=== PATIENT | male | born 1975 | race Caucasian/White ===

== ENCOUNTER → 2016-09-20 | Day surgery (SDC) | payer OTHER ==
[2016-09-06 13:16] VITALS: BMI 47.0
[~2016-09-20] VITALS: Ht 165.1 cm; Wt 130.0 kg
[~2016-09-20] MED LIST: ALBUT/IPRATROP 3MG/0.5MG NEB 3 ML VIAL INH STA; ALBUTEROL HFA INHALER 8.5 GM INH ONE; ATROPINE SULFATE 0.1 MG/ML 5ML SYR IV PRN; BUPIVACAINE 0.5 % 5 MG/1 ML MPF 30ML VIAL ONE; CEFAZOLIN 3000 MG/65 ML D5W IV SCH; DEXAMETHASONE SOD INJ 4 MG/ML VIAL ONE; EpHEDrine SULFATE INJ 50 MG/ML AMP IV PRN; FENTANYL CITRATE INJ 50 MCG/1 ML 2 ML VIAL ONE; GLYCOPYRROLATE INJ 0.2 MG/ML VIAL ONE; HALO100I2 IM; HYDR-5688 PO; HYDROmorphone INJ 1 MG/ML SYR IV PRN; LABETALOL HCL IV 5 MG/ML 20ML IV ONE; LABETALOL HCL IV 5 MG/ML 20ML IV PRN; LACTATED RINGER'S 1000ML 1,000 ML IV SCH; LARYING-O-JET KIT (LTA) ONE; LEVO25TA5 PO; LIDOCAINE HCL 1% 20 ML VIAL ONE; LIDOCAINE HCL 2% 2 ML VIAL (20MG/ML) ONE; LISI-787 PO; MEPERIDINE HCL 25 MG/ML CARP IV PRN; MIDAZOLAM HCL 1 MG/ML 2ML VIAL ONE; MoRPHine SULFATE 4 MG/ML 1 ML CARP\\VIAL IV PRN; NEOSTIGMINE METHYLSULFATE 5 MG/5 ML SYR ONE; NURSING VERBAL MED ORDER ONE; OMEP20CA9 PO; ONDANSETRON INJ 2 MG/ML 2 ML VIAL IV PRN; ONDANSETRON INJ 2 MG/ML 2 ML VIAL ONE; OXCA600T PO; OXYC-57 PO; OXYCODONE/ACETAMINOPHEN 5-325 TAB PO PRN; PENI-82 PO; PROPOFOL IV EMULSION 10 MG/ML 20 ML VIAL IV ONE; Proair HFA INH; QUET1TAB10 PO; ROCURONIUM BROMIDE 10 MG/ML 5 ML VIAL ONE; SODIUM CHLORIDE 0.9% 1000ML 1,000 ML IV SCH; SRQ300 PO; VST25HP PO
[2016-09-20 07:00] VITALS: BP 147/89; PULSE 90; TEMP 37; O2SAT 92; Ht 165.1 cm; Wt 130.0 kg
--- NOTE | 2016-09-20 09:14 | History & Physical Bridge Note ---
H&P Re-Evaluation Bridge Note: I have examined the patient, reviewed the History & Physical and in the interval since the performance of the History & Physical I have noted the following changes of clinical significance: No changes noted
--- NOTE | 2016-09-20 10:15 | [facility] Post Operative Brief Note ---
Immediate Operative Summary Operative Date Sep 20, 2016. Pre-Operative Diagnosis Recurrent epigastric hernia Post-Operative Diagnosis Recurrent epigastric hernia Procedure(s) Performed Repair of recurrent epigastric hernia with mesh Surgeon Jl Billet Heater Surgeon(s) Danica Tucker PA-C Estimated Blood Loss 5cc Findings See dictation Specimens A: None per surgeon Drains None Anesthesia General Complication(s) None Disposition Recovery Room / PACU
--- NOTE | 2016-09-20 10:23 | Discharge Instructions ---
Discharge Instructions Date of Service Sep 20, 2016. Admission Reason for Admission: Epigastric Hernia Discharge Discharge Diagnosis / Problem: Same Discharge Goals Goal(s): Decrease discomfort Activity Recommendations Activity Limitations: per Instructions/Follow-up section Lifting Limitations: no more than 10 pounds Shower/Bathe: tomorrow (Shower only) . Instructions / Follow-Up Instructions / Follow-Up ACTIVITY RECOMMENDATIONS: * Walk as much as possible. * No heavy lifting (>10 lbs.) for 6 weeks. SPECIAL CARE INSTRUCTIONS: * Ice to hernia repair site on and off until bedtime tonight. * May shower in 24 hours. Let water run over area and pat dry. * Leave steri strips on for one week. * Call the surgeon's office with any questions or concerns - (ex. temperature higher than 101 degrees F, excessive bleeding or pain). MEDICATIONS: Resume previous medications unless instructed otherwise by your surgeon. * Ibuprofen 600 mg every 6 hours with food * Percocet 1 every 4 hours, as needed for pain FOLLOW UP VISIT: If not already scheduled, please call the office to schedule a two week follow- up appointment. Office number Current Hospital Diet Patient's current hospital diet: Discharge Diet Recommended Diet: N/A (Resume preop diet) Procedures Procedures Performed: Repair of recurrent epigastric hernia with mesh Pending Studies Studies pending at discharge: no Medical Emergencies . Who to Call and When: Medical Emergencies: If at any time you feel your situation is an emergency, please call 911 immediately. . Non-Emergent Contact Non-Emergency issues call your: Primary Care Provider, Surgeon Call Non-Emergent contact if: your pain is worsening, wound has increased drainage, wound has increased redness . "Provider Documentation" section prepared by Devyn Parikh. . VTE Core Measure Inpt VTE Proph given/why not?: Treatment not indicated
--- NOTE | 2016-09-20 10:31 | [facility] Operative Report ---
Operative Report Operative Date Sep 20, 2016. Pre-Operative Diagnosis Recurrent epigastric hernia Post-Operative Diagnosis Recurrent epigastric hernia Procedure(s) Performed Repair of recurrent epigastric hernia with mesh Surgeon Jl Ic Design Manager Surgeon(s) Danica Tucker PA-C Estimated Blood Loss 5cc Findings The patient had a 3 cm defect beneath the incision from his previous surgery. There was a sac that measured about 5 cm. It was adherent to the anterior wall of the fascia. There were no incarcerated contents. There were no other defects identified. Specimens A: None per surgeon Drains None Anesthesia General Disposition Recovery Room / PACU Description of Procedure The patient was placed on the operating table given general anesthesia in the respiratory draped in usual sterile fashion. Incision was made through the previously marked area using the scar from his previous operation. It was carried down through the subcutaneous tissue. There was scar tissue which was easily divided. The hernia sac was identified and from the surrounding fatty tissue in the subcutaneous space. This dissection was carried down until the edges of the fascial defect to be identified. The sac was away from the fascial defect using cautery. The edges were elevated and a preperitoneal/retro-fascial space was established for at least 4 cm around the entire circumference of the fascial defect. The hernia sac was placed back into its anatomic position. A 12/2 cm round mesh was placed in the preperitoneal/retro-fascial position. It was secured to the fascia with horizontal mattress sutures of 0 PDS in the 4 quadrants. The hernia defect was enclosed with a running #1 PDS. The incision wound was irrigated. The deep tissues were approximated with a running 2-0 Vicryl. The superficial subcutaneous tissue was closed with running 3-0 Vicryl and the skin was closed with 4-0 Monocryl running subcuticular fashion. The skin was anesthetized with 0.5% Marcaine. The skin was cleansed dry benzoin placed Steri-Strips applied. Estimated blood loss was 5 mL. Sponge needle and instrument counts were correct prior to closure. The patient tolerated surgical procedure without complication was transferred to recovery. I attest to the content of the Intraoperative Record and any orders documented therein. Any exceptions are noted below.
[2016-09-20] MEDS: FENTANYL CITRATE INJ 50 MCG/1 ML 2 ML VIAL IV PRN ×3 (10:55→11:16)
[2016-09-20 11:03] VITALS: PULSE 86; O2SAT 93
--- NOTE | 2016-09-20 11:31 | Anesthesiology Progress Note ---
Anesthesia Post Op Note Date & Time Sep 20, 2016 at 11:31 Vital Signs Pain Intensity: 6 Vital Signs Past 12 Hours Date Time Temp Pulse Resp B/P (MAP) Pulse Ox O2 Delivery O2 Flow Rate FiO2 09/20/16 11:26 37.1 09/20/16 11:22 88 16 09/20/16 11:22 87 16 91 09/20/16 11:21 157/82 09/20/16 11:17 90 15 09/20/16 11:17 92 15 92 09/20/16 11:16 155/99 09/20/16 11:12 81 14 92 09/20/16 11:12 82 14 09/20/16 11:11 141/87 09/20/16 11:07 90 16 09/20/16 11:07 89 16 93 09/20/16 11:06 89 23 141/89 92 09/20/16 11:06 89 23 09/20/16 11:03 86 18 93 Mask 15.0 09/20/16 11:01 93 16 09/20/16 11:01 92 16 162/99 91 09/20/16 10:56 92 22 09/20/16 10:56 92 22 155/89 95 09/20/16 10:52 178/92 09/20/16 10:51 91 15 89 09/20/16 10:51 90 15 09/20/16 10:46 88 19 152/97 92 09/20/16 10:46 88 19 09/20/16 10:41 94 23 164/102 91 09/20/16 10:41 93 23 09/20/16 10:37 180/103 09/20/16 10:36 99 25 91 09/20/16 10:36 100 25 09/20/16 10:32 146/97 09/20/16 10:31 98 21 89 09/20/16 10:31 98 21 09/20/16 10:31 37.0 103 22 146/97 92 Mask 15 09/20/16 07:00 37 90 22 147/89 (108) 92 Room Air Notes Mental Status: alert / awake / arousable, participated in evaluation Pt Amnestic to Procedure: Yes Nausea / Vomiting: adequately controlled Pain: adequately controlled Airway Patency, RR, SpO2: stable & adequate BP & HR: stable & adequate Hydration State: stable & adequate Anesthetic Complications: no major complications apparent
[2016-09-20 11:42] VITALS: BP 144/77; PULSE 92; TEMP 36.8; O2SAT 93
[2016-09-20 12:10] VITALS: BP 165/88; PULSE 92; O2SAT 96
[2016-09-20 12:36] VITALS: BP 162/84; PULSE 92; TEMP 36.8; O2SAT 94
== END | disposition home or self-care (01) ==
LOC: C.ACU 06:41
PROVIDERS: ATTEND Surgery
DX: K43.9 Ventral hernia without obstruction or gangrene (principal); I10 Essential (primary) hypertension; F41.9 Anxiety disorder, unspecified; E66.01 Morbid (severe) obesity due to excess calories; K21.9 Gastro-esophageal reflux disease without esophagitis; E03.9 Hypothyroidism, unspecified; F31.9 Bipolar disorder, unspecified; F20.9 Schizophrenia, unspecified; F17.200 Nicotine dependence, unspecified, uncomplicated

== ENCOUNTER 2016-12-06 13:23 | Emergency (ER) | payer OTHER ==
[~2016-12-06] VITALS: Ht 165.1 cm; Wt 139.8 kg
[~2016-12-06 13:23] MED LIST changes: -ALBUT/IPRATROP 3MG/0.5MG NEB 3 ML VIAL INH STA; -ALBUTEROL HFA INHALER 8.5 GM INH ONE; -ATROPINE SULFATE 0.1 MG/ML 5ML SYR IV PRN; -BUPIVACAINE 0.5 % 5 MG/1 ML MPF 30ML VIAL ONE; -CEFAZOLIN 3000 MG/65 ML D5W IV SCH; -DEXAMETHASONE SOD INJ 4 MG/ML VIAL ONE; -EpHEDrine SULFATE INJ 50 MG/ML AMP IV PRN; -FENTANYL CITRATE INJ 50 MCG/1 ML 2 ML VIAL ONE; -GLYCOPYRROLATE INJ 0.2 MG/ML VIAL ONE; -HYDR-5688 PO; -HYDROmorphone INJ 1 MG/ML SYR IV PRN; -LABETALOL HCL IV 5 MG/ML 20ML IV ONE; -LABETALOL HCL IV 5 MG/ML 20ML IV PRN; -LACTATED RINGER'S 1000ML 1,000 ML IV SCH; -LARYING-O-JET KIT (LTA) ONE; -LIDOCAINE HCL 1% 20 ML VIAL ONE; -LIDOCAINE HCL 2% 2 ML VIAL (20MG/ML) ONE; -MEPERIDINE HCL 25 MG/ML CARP IV PRN; -MIDAZOLAM HCL 1 MG/ML 2ML VIAL ONE; -MoRPHine SULFATE 4 MG/ML 1 ML CARP\\VIAL IV PRN; -NEOSTIGMINE METHYLSULFATE 5 MG/5 ML SYR ONE; -NURSING VERBAL MED ORDER ONE; -ONDANSETRON INJ 2 MG/ML 2 ML VIAL IV PRN; -ONDANSETRON INJ 2 MG/ML 2 ML VIAL ONE; -OXYCODONE/ACETAMINOPHEN 5-325 TAB PO PRN; -PENI-82 PO; -PROPOFOL IV EMULSION 10 MG/ML 20 ML VIAL IV ONE; -ROCURONIUM BROMIDE 10 MG/ML 5 ML VIAL ONE; -SODIUM CHLORIDE 0.9% 1000ML 1,000 ML IV SCH
[2016-12-06 13:35] VITALS: BP 177/98; PULSE 80; TEMP 36.6; O2SAT 95; Ht 165.1 cm; Wt 139.8 kg
[2016-12-06] MEDS ORDERED: PENI-82 PO (14:29)
[2016-12-06] MEDS ORDERED: HYDR-5688 PO (14:29)
--- NOTE | 2016-12-06 14:30 | EMERGENCY ROOM VISIT NOTE ---
ED Visit Note First contact with patient: 14:22 CHIEF COMPLAINT: Toothache HISTORY OF PRESENT ILLNESS: This 41-year-old male patient presented to the emergency department via private vehicle with a progressive toothache for past 7 d. The patient believes it is coming from upper front dentition. The pain is now steady and severe and radiates to the face. The patient has a dentist appointment set up for in 1 month from now in [place], [place]. They rate their pain a 8/10 and the ibuprofen and Tylenol they have been taking has not relieved the pain. Denies facial swelling or fever. The patient denies any discharge from the mouth. REVIEW OF SYSTEMS: A 6 system review of systems was completed with positives and pertinent negatives listed in the HPI. ALLERGIES: None MEDICATIONS: as noted below PMH: No pertinent SOCIAL HISTORY: Pt lives locally PHYSICAL EXAM: Vitals are noted on the nurse's note and reviewed by myself. Vital signs stable. Temperature 36.6C orally. GENERAL: 41 year old male, in no acute distress, nondiaphoretic, well-developed well-nourished. Mouth: The front upper dentition is very carious and the gum is swollen and tender around it, without any discharge or signs of an abscess. The remainder of the pharynx and tonsils are without erythema, edema, or exudate. The airway is patent. There is no facial swelling, cervical or submandibular lymphadenopathy. The patient appears uncomfortable and in pain. The patient has overall poor dental hygiene. EARS: External auditory canals clear, tympanic membranes pearly beauchamp without erythema or effusion bilaterally. ED COURSE: Patient was seen and evaluated as above. He presents to us today with upper teeth pain. His examination is consistent with that of multiple caries, but no evidence of abscess or Roni angina. He appears stable for outpatient management with penicillin, as well as a short course of pain medication. He is to keep his follow-up appointment with his oral surgeon in one month. He was to return with worsening. He was educated upon management, educated upon worrisome symptoms in which to return, had questions prior to discharge, and was discharged home in condition. In the evaluation and treatment of this patient, the following differential diagnoses were considered: Periapical Abscess, Osteonecrosis of the Jaw, Dental Fracture, Dental Caries, Roni's Angina, Vincent's Angina, Facial Cellulitis. In the treatment of this patient controlled medication was utilized and therefore the [facility], Prescription Drug Monitoring Program website was utilized to look up this patient. No concerns were identified that would prohibit or alter my treatment decision. Medication list reviewed. The patient's vital signs did reveal hypertensive state, I believe secondary to situation. He is to follow-up with his family doctor regarding this Problem List Medical Problems: (1) Bipolar disease, manic Status: Chronic (2) Hypothyroidism Status: Chronic (3) Lumbar compression fracture Permanent Comment: resulting in chronic back pain issues Status: Chronic (4) Schizoaffective disorder Status: Chronic Surgical Problems: (1) History of tonsillectomy Status: Chronic Current/Historical Medications Scheduled Haloperidol Decanoate (Haloperidol Decanoate), 200 MG IM MONTHLY Levothyroxine Sodium (Levothyroxine Sodium), 25 MCG PO QAM Lisinopril/Hctz (Zestoretic 20MG/12.5MG), 1 TAB PO QAM Omeprazole (Prilosec), 20 MG PO QAM Oxcarbazepine (Oxcarbazepine), 600 MG PO BID Penicillin V Potassium (Veetids), 500 MG PO QID Quetiapine Fumarate (Seroquel), 200 MG PO HS Quetiapine Fumarate (Quetiapine Fumarate), 300 MG PO HS Scheduled PRN Hydrocodone/Acetaminophen 5MG/325MG (Hardesty 5MG/325MG), 1-2 TABLET PO Q6 PRN for Pain Hydroxyzine HCl (Hydroxyzine Pamoate), 25 MG PO TID PRN for Anxiety Oxycodone/Acetaminophen 5MG/325MG (Percocet 5MG/325MG), 1 TABLET PO Q4H PRN for Pain [Proair HFA], 2 PUFFS INH Q4H PRN for Wheezing Allergies Coded Allergies: No Known Allergies (Verified , 09/20/16) Vital Signs Date Time Temp Pulse Resp B/P (MAP) Pulse Ox O2 Delivery O2 Flow Rate FiO2 12/06/16 13:35 36.6 80 18 177/98 95 Room Air Departure Information Impression Primary Impression: Odontalgia Dispostion Home / Self-Care Condition GOOD Prescriptions Penicillin V Potassium (Veetids) 500 Mg Tab 500 MG PO QID, #40 TAB Prov: Doc Morgan PA-C 12/06/16 Hydrocodone/Acetaminophen 5MG/325MG (Hardesty 5MG/325MG) Tab 1-2 TABLET PO Q6 Y for Pain, #15 TAB For Initial Treatment Prov: Doc Morgan PA-C 12/06/16 Referrals No Doctor, Assigned (PCP) Patient Instructions My [facility] Additional Instructions You have been treated in the Emergency Department for Dental Pain. You have been prescribed NORCO to be used for pain control. This is a narcotic medication. You cannot drive or consume alcohol while on this medicine. This medicine should only be used for pain that cannot be controlled with over-the- counter pain medicines. PLEASE DO NOT TAKE WITH TYLENOL as it already contains this!! You were prescribed PEN VK to be taken every 6 hours for 10 days. This is an antibiotic. All antibiotics have the potential to cause diarrhea. Stop this medication and contact a medical provider if you were to develop any significant adverse side effects including: wheezing, shortness of breath, passing out, vomiting, or a diffuse rash. Always take antibiotics as directed and COMPLETE the ENTIRE course regardless of the improvement of your symptoms. Refrain from smoking cigarettes or using chewing tobacco until you have been evaluated by your dentist. Keeping beverages lukewarm and consuming soft foods can decrease your pain. Warm compresses over the affected area may offer some relief. You MUST seek evaluation of your dental pain by a dentist following your visit to the Emergency Department. The Emergency Department is not capable of treating dental issues long-term. You should call your dentist as soon as possible to make an appointment for evaluation of your dental pain. Return to the emergency department if you develop the following symptoms despite treatment course outlined above: fever, intractable pain, increased redness, swelling, or purulent discharge.
== END 2016-12-06 14:51 | disposition home or self-care (01) ==
LOC: C.EDB 13:25 → C.EDD 14:51
DX: K08.89 Other specified disorders of teeth and supporting structures (principal); E03.9 Hypothyroidism, unspecified; F31.9 Bipolar disorder, unspecified; F25.9 Schizoaffective disorder, unspecified; Z79.899 Other long term (current) drug therapy

== ENCOUNTER 2016-12-27 06:38 | Emergency (ER) | payer OTHER ==
[~2016-12-27] VITALS: Ht 165.1 cm; Wt 141.0 kg
[~2016-12-27 06:38] MED LIST changes: +HYDR-5688 PO; +PENI-82 PO
[2016-12-27 06:42] VITALS: TEMP 36.8; Ht 165.1 cm; Wt 141.0 kg
[2016-12-27] MEDS ORDERED: PENICILLIN V POTASSIUM 250 MG TAB PO STA (06:53)
[2016-12-27] MEDS ORDERED: IBUPROFEN 600 MG TAB PO STA (06:53)
[2016-12-27] MEDS ORDERED: OXYCODONE/ACETAMINOPHEN 5-325 TAB PO ONE (07:00)
--- NOTE | 2016-12-27 07:01 | EMERGENCY ROOM VISIT NOTE ---
History Report prepared by Buzz: Shannon Ny Under the Supervision of: Dr. Maral Vasquez M.D. First contact with patient: 06:45 Chief Complaint: DENTAL PAIN Stated Complaint: DENTAL PAIN Nursing Triage Summary: pt reports that he got 6 teeth pulled last tuesday and c/o pain. pt reports that he called his dentist but can't get to [place]. History of Present Illness The patient is a 41 year old male who presents to the Emergency Room with complaints of persistent dental pain that began one week ago. He currently rates his discomfort as a 9/10 in severity. The patient states that one week ago he had six teeth pulled. He states that while he was having them pulled some roots lost and notes that the dentist had to dig around extra. The patient states that he was discharged with Percocet for his pain, but denies any relief of his symptoms. He denies being put on any antibiotics. The patient states that he is a smoker. He states that he has also tried Ibuprofen without relief of his symptoms. Source of History: patient Onset: one week ago Position: other (dental) Symptom Intensity: 9/10 Timing: other (persistent) Review of Systems See HPI for pertinent positives & negatives. A total of 6 systems reviewed and were otherwise negative. Past Medical & Surgical Medical Problems: (1) Bipolar disease, manic (2) Hypothyroidism (3) Lumbar compression fracture (4) Schizoaffective disorder Surgical Problems: (1) History of tonsillectomy Family History No pertinent family history Social History Smoking Status: Current Every Day Smoker Alcohol Use: occasionally Drug Use: marijuana Marital Status: Housing Status: lives with family Occupation Status: disabled Current/Historical Medications Scheduled Haloperidol Decanoate (Haloperidol Decanoate), 200 MG IM MONTHLY Levothyroxine Sodium (Levothyroxine Sodium), 25 MCG PO QAM Lisinopril/Hctz (Zestoretic 20MG/12.5MG), 1 TAB PO QAM Omeprazole (Prilosec), 20 MG PO QAM Oxcarbazepine (Oxcarbazepine), 600 MG PO BID Penicillin V Potassium (Veetids), 500 MG PO QID Quetiapine Fumarate (Seroquel), 200 MG PO HS Quetiapine Fumarate (Quetiapine Fumarate), 300 MG PO HS Scheduled PRN Hydroxyzine HCl (Hydroxyzine Pamoate), 25 MG PO TID PRN for Anxiety Oxycodone/Acetaminophen 5MG/325MG (Percocet 5MG/325MG), 1-2 TABS PO Q6H PRN for Pain [Proair HFA], 2 PUFFS INH Q4H PRN for Wheezing Allergies Coded Allergies: No Known Allergies (Verified , 09/20/16) Physical Exam Vital Signs Date Time Temp Pulse Resp B/P (MAP) Pulse Ox O2 Delivery O2 Flow Rate FiO2 12/27/16 07:10 85 24 148/87 95 12/27/16 06:42 36.8 85 24 148/87 95 Room Air Physical Exam Vital signs reviewed. General: Well-appearing male, in no significant distress. Smells of tobacco HEENT: No scleral icterus, PERRLA, neck supple. Left maxillary areas of dental extraction that appear to be well healing, one area on the right maxilla, tender to palpation, with no fluctuance, drainage, or redness, otherwise generally poor dentition, smells of tobacco. Neurologic: Patient awake alert and oriented x 3. Skin: Warm, dry, no rash Medical Decision & Procedures Medications Administered Medications (Trade) Dose Ordered Sig/Den Route Start Time Stop Time Status Last Admin Dose Admin Penicillin V Potassium (Veetids Tab) 500 mg ONE STAT PO 12/27/16 06:53 12/27/16 06:55 DC 12/27/16 07:05 500 MG Oxycodone/ Acetaminophen (Percocet 5-325mg Tab) 1 tab NOW ONCE PO 12/27/16 07:00 12/27/16 07:01 DC 12/27/16 07:06 1 TAB Ibuprofen (Motrin Tab) 600 mg NOW STAT PO 12/27/16 06:53 12/27/16 06:55 DC 12/27/16 07:06 600 MG ED Course 0651: Past medical records reviewed. The patient was evaluated in room A3. A complete history and physical examination was performed. I discussed the exam findings with him and I discussed the treatment plan. He verbalized complete understanding and agreement. He is ready for discharge once he receives his medications. 0653: Ordered Ibuprofen 600 mg PO, Veetids Tab 500 mg PO. 0700: Ordered Oxycodone/Acetaminophen 1 tab PO. Medical Decision The patient is a 41 year old male who presents to the ED with complaints of dental pain. Differentials include dry socket, post op pain, abscess formation. This patient was evaluated and appeared to be in no significant distress. His examination reveals multiple extraction sites that appear to be well-healing. There is no evidence of acute infection or drainage. The patient is a smoker and I suspect he is having some delayed healing and nerve irritation. Patient was placed on pen VK 500 mg 4 times daily for 7 days as well as ibuprofen every 6 hours as needed for pain with food. He was given several tablets of Percocet and advised to see his dentist in follow-up. He will return to the ER for worsening of symptoms or any medical concerns. Medication Reconcilliation Current Medication List: was personally reviewed by me Blood Pressure Screening Patient's blood pressure: Elevated blood pressure Blood pressure disposition: Elevated BP felt to be situational, Did not require urgent referral Impression Primary Impression: Pain, dental Scribe Attestation The scribe's documentation has been prepared under my direction and personally reviewed by me in its entirety. I confirm that the note above accurately reflects all work, treatment, procedures, and medical decision making performed by me. Departure Information Dispostion Home / Self-Care Prescriptions Penicillin V Potassium (Veetids) 500 Mg Tab 500 MG PO QID, #28 TAB Prov: Maral Vasquez M.D. 12/27/16 Oxycodone/Acetaminophen 5MG/325MG (PERCOCET 5MG/325MG) Tab 1-2 TABS PO Q6H Y for Pain, #14 TAB Prov: Maral Vasquez M.D. 12/27/16 Referrals Devyn Silva M.D. (PCP) Forms HOME CARE DOCUMENTATION FORM, IMPORTANT VISIT INFORMATION Patient Instructions My [facility] Additional Instructions Diagnosis: Dental pain status post extractions Pen VK 500 mg 4 times daily for 7 days. Percocet 1-2 tablets every 6 hours as needed for more severe pain. Do not drive or take Tylenol with this medication. Please stop smoking as this will worsen the dental pain. Follow-up with your dentist as soon as possible. Return to the emergency department for worsening of symptoms or any medical concerns.
[2016-12-27] MEDS ORDERED: PENI-82 PO (07:02)
[2016-12-27] MEDS ORDERED: OXYC-57 PO (07:02)
[2016-12-27 07:10] VITALS: BP 148/87; PULSE 85; O2SAT 95
== END 2016-12-27 07:20 | disposition home or self-care (01) ==
LOC: C.EDB 06:39 → C.EDA 07:20
DX: K08.89 Other specified disorders of teeth and supporting structures (principal); F17.210 Nicotine dependence, cigarettes, uncomplicated; E03.9 Hypothyroidism, unspecified; F31.9 Bipolar disorder, unspecified; F25.9 Schizoaffective disorder, unspecified; Z79.899 Other long term (current) drug therapy

== ENCOUNTER 2017-02-20 06:08 | Emergency (ER) | payer OTHER ==
[~2017-02-20] VITALS: Ht 165.1 cm; Wt 138.3 kg
[~2017-02-20 06:08] MED LIST changes: -HYDR-5688 PO; -OMEP20CA9 PO
[2017-02-20 06:11] VITALS: TEMP 37; Ht 165.1 cm; Wt 138.3 kg
[2017-02-20] MEDS ORDERED: PROMETHAZINE HCL INJ 12.5 MG in SODIUM CHLORIDE 0.9% 50ML 50 ML IV SCH (06:15)
[2017-02-20] MEDS ORDERED: PROMETHAZINE HCL INJ 25 MG/ML 1 ML VIAL IV STA (06:31)
[2017-02-20] MEDS ORDERED: KETOROLAC TROMETHAMINE 30 MG/ML VIAL IV STA (06:31)
[2017-02-20] MEDS ORDERED: LOPERAMIDE HCL 2 MG CAP PO STA (06:31)
[2017-02-20] MEDS ORDERED: ONDANSETRON INJ 2 MG/ML 2 ML VIAL IV STA (06:31)
[2017-02-20] MEDS ORDERED: SODIUM CHLORIDE 0.9% 1000ML 1,000 ML IV STA (06:31)
--- NOTE | 2017-02-20 06:32 | EMERGENCY ROOM VISIT NOTE ---
History Report prepared by Buzz: Jennifer Craven Under the Supervision of: Dr. Ciro Mendenhall M.D. First contact with patient: 06:27 Chief Complaint: ABDOMINAL PAIN Stated Complaint: STOMACH PAIN,DIARRHEA,VOMITING Nursing Triage Summary: pt ambulatory to triage, states "I woke up in the middle of the night, i started throwing up and diarrhea." pt c/o generalized abdominal pain. denies urinary symptoms. History of Present Illness The patient is a 41 year old male who presents to the Emergency Room with complaints of sudden vomiting and diarrhea beginning 5 and a half hours ago. The patient states that he felt fine going to bed, he woke up with his symptoms , and states that he took Pepto-Bismol for his symptoms. The patient reports that his recently had vomiting and diarrhea. He also reports having cramping abdominal pain, which he rates at a 7/10. He denies having the chills, chest pain, and blood in his diarrhea and vomit. The patient reports that he is a smoker. The patient's was recently sick with something similar. The patient is unsure if he caught this illness from his . The patient denies any food eaten that might have been an issue. Source of History: patient Onset: 5 and a half hours ago Position: other (global) Symptom Intensity: rated at a 7/10 Quality: other (vomiting and diarrhea ) Timing: other (sudden ) Associated Symptoms: + abdominal pain, No chills, No chest pain Review of Systems See HPI for pertinent positives & negatives. A total of 10 systems reviewed and were otherwise negative. Past Medical & Surgical Medical Problems: (1) Bipolar disease, manic (2) Hypothyroidism (3) Lumbar compression fracture (4) Schizoaffective disorder Surgical Problems: (1) History of tonsillectomy Family History No pertinent family history Social History Smoking Status: Current Every Day Smoker Alcohol Use: occasionally Drug Use: marijuana Marital Status: Housing Status: lives with family Occupation Status: disabled Current/Historical Medications Scheduled Haloperidol Decanoate (Haloperidol Decanoate), 200 MG IM Q4WK Levothyroxine Sodium (Levothyroxine Sodium), 25 MCG PO QAM Lisinopril/Hctz (Zestoretic 20MG/25MG), 1 TAB PO DAILY Omeprazole (Prilosec), 20 MG PO QAM Ondasetron Odt (Zofran Odt), 4 MG SL Q6H Oxcarbazepine (Oxcarbazepine), 600 MG PO BID Quetiapine Fumarate (Seroquel), 200 MG PO HS Quetiapine Fumarate (Quetiapine Fumarate), 300 MG PO HS Scheduled PRN Albuterol Sulfate (Proair Respiclick), 2 PUFFS INH Q4H PRN for SOB/Wheezing Hydroxyzine HCl (Hydroxyzine Pamoate), 25 MG PO TID PRN for Anxiety Allergies Coded Allergies: No Known Allergies (Verified , 09/20/16) Physical Exam Vital Signs Date Time Temp Pulse Resp B/P (MAP) Pulse Ox O2 Delivery O2 Flow Rate FiO2 02/20/17 09:04 91 24 144/76 93 02/20/17 07:00 86 20 132/82 94 Room Air 02/20/17 06:11 37.0 103 26 160/88 91 Room Air Physical Exam GENERAL: Patient is in no acute distress. HEENT: No acute trauma, normocephalic atraumatic, mucous membranes moist, no nasal congestion, no scleral icterus. NECK: No stridor, no adenopathy, no meningismus, trachea is midline. LUNGS: Scattered wheezes. Breath sounds equal. No rhonchi. No respiratory distress. HEART: Without murmurs gallops or rubs, regular rate and rhythm. ABDOMEN: Soft, nontender, bowel sounds positive, no hernias, no peritonitis. EXTREMITIES: No cyanosis or edema, full range of motion of all the joints without pain or difficulty, no signs for acute trauma. NEUROLOGIC: Oriented x 3, no acute motor or sensory deficits, no focal weakness. SKIN: No rash, no jaundice, no diaphoresis. Medical Decision & Procedures ER Provider Diagnostic Interpretation: Radiology results as stated below per my review and radiologist interpretation: CT ABD/PELVIS IV CONTRAST ONLY CLINICAL HISTORY: Generalized abdominal pain,. Vomiting. Diarrhea. COMPARISON STUDY: 02/15/2016 TECHNIQUE: Following the IV administration of 115 mL of Optiray-320, CT scan of the abdomen and pelvis was performed from the lung bases to the proximal femurs. Images are reviewed in the axial, sagittal, and coronal planes. IV contrast was administered without complication. A dose lowering technique was utilized adhering to the principles of ALARA. CT DOSE: 1693.08 mGy.cm FINDINGS: Lower chest: The heart is normal in size and configuration, without pericardial effusion. The lung bases and pleural spaces are clear. Liver: There is mild hepatic steatosis. No focal masses are visualized. Gallbladder: Unremarkable. Spleen: Normal in size and attenuation. Pancreas: Unremarkable. Adrenal glands: Unremarkable. Kidneys: There is symmetric renal cortical enhancement. The kidneys are normal in size without hydronephrosis. Bowel: There are no transition zones indicate bowel obstruction. There are few colonic diverticula present. There is no acute diverticulitis. The appendix appears normal. Peritoneum: There is no intraperitoneal free air or abdominal ascites. There is a small umbilical hernia. There is persistent infiltration of the anterior subcutaneous soft tissues superior to the umbilicus. This likely relates to prior surgery as there appears to be evidence for a prior hernia mesh repair at this level Vasculature: The abdominal aorta is normal in course and caliber. Adenopathy: Iliac and Aortic lymph nodes remain the upper limits of normal in size. Pelvic viscera: The bladder, and pelvic viscera are unremarkable. Skeletal structures: There is an old superior endplate T11 compression deformity. IMPRESSION: 1. No evidence of bowel obstruction. No evidence of free air 2. Normal appendix. No evidence of acute diverticulitis. 3. Mild hepatic steatosis. 4. Iliac and iliac lymph nodes remain at the upper limits of normal in size Electronically signed by: Ace Tejeda M.D. 02/20/2017 8:53 AM Dictated Date/Time: 02/20/2017 8:48 AM Laboratory Results 02/20/17 06:30 Red Blood Count 5.59, Mean Corpuscular Volume 84.1, Mean Corpuscular Hemoglobin 29.5, Mean Corpuscular Hemoglobin Concent 35.1, Mean Platelet Volume 8.7, Neutrophils (%) (Auto) 87.1, Lymphocytes (%) (Auto) 5.0, Monocytes (%) (Auto) 5.3, Eosinophils (%) (Auto) 1.5, Basophils (%) (Auto) 0.2, Neutrophils # (Auto) 14.77, Lymphocytes # (Auto) 0.84, Monocytes # (Auto) 0.89, Eosinophils # (Auto) 0.26, Basophils # (Auto) 0.03 02/20/17 06:30 Test 02/20/17 06:30 White Blood Count 16.95 K/uL (4.8-10.8) Red Blood Count 5.59 M/uL (4.7-6.1) Hemoglobin 16.5 g/dL (14.0-18.0) Hematocrit 47.0 % (42-52) Mean Corpuscular Volume 84.1 fL (80-100) Mean Corpuscular Hemoglobin 29.5 pg (25-34) Mean Corpuscular Hemoglobin Concent 35.1 g/dl (32-36) Platelet Count 340 K/uL (130-400) Mean Platelet Volume 8.7 fL (7.4-10.4) Neutrophils (%) (Auto) 87.1 % Lymphocytes (%) (Auto) 5.0 % Monocytes (%) (Auto) 5.3 % Eosinophils (%) (Auto) 1.5 % Basophils (%) (Auto) 0.2 % Neutrophils # (Auto) 14.77 K/uL (1.4-6.5) Lymphocytes # (Auto) 0.84 K/uL (1.2-3.4) Monocytes # (Auto) 0.89 K/uL (0.11-0.59) Eosinophils # (Auto) 0.26 K/uL (0-0.5) Basophils # (Auto) 0.03 K/uL (0-0.2) RDW Standard Deviation 43.6 fL (36.4-46.3) RDW Coefficient of Variation 14.2 % (11.5-14.5) Immature Granulocyte % (Auto) 0.9 % Immature Granulocyte # (Auto) 0.16 K/uL (0.00-0.02) Anion Gap 9.0 mmol/L (3-11) Est Creatinine Clear Calc Drug Dose 147.0 ml/min Estimated GFR () 125.4 Estimated GFR (Non- 108.2 BUN/Creatinine Ratio 15.3 (10-20) Calcium Level 9.3 mg/dl (8.5-10.1) Total Bilirubin 0.3 mg/dl (0.2-1) Aspartate Amino Transf (AST/SGOT) 13 U/L (15-37) Alanine Aminotransferase (ALT/SGPT) 22 U/L (12-78) Alkaline Phosphatase 79 U/L (45-117) Total Protein 7.8 gm/dl (6.4-8.2) Albumin 3.7 gm/dl (3.4-5.0) Globulin 4.1 gm/dl (2.5-4.0) Albumin/Globulin Ratio 0.9 (0.9-2) Lipase 122 U/L (73-393) Laboratory results reviewed by me. Medications Administered Medications (Trade) Dose Ordered Sig/Den Route Start Time Stop Time Status Last Admin Dose Admin Ondansetron HCl (Zofran Inj) 4 mg NOW STAT IV 02/20/17 06:31 02/20/17 06:33 DC 02/20/17 06:42 4 MG Sodium Chloride 1,000 ml @ 999 mls/hr Q1H1M STAT IV 02/20/17 06:31 02/20/17 07:31 DC 02/20/17 06:42 999 MLS/HR Ketorolac Tromethamine (Toradol Inj) 30 mg NOW STAT IV 02/20/17 06:31 02/20/17 06:33 DC 02/20/17 06:42 30 MG Loperamide HCl (Imodium Cap) 4 mg NOW STAT PO 02/20/17 06:31 02/20/17 06:33 DC 02/20/17 06:42 4 MG Promethazine HCl 12.5 mg/Sodium Chloride 50.5 ml @ 202 mls/hr 0615 IV 02/20/17 06:15 02/20/17 06:45 DC 02/20/17 07:00 202 MLS/HR Ondansetron HCl (ZOFRAN ODT 4MG Home Pack) 1 homepack UD ONCE PO 02/20/17 09:00 02/20/17 09:02 DC 02/20/17 09:11 1 HOMEPACK ED Course 0615: Ordered Promethazine HCl 12.5 mg/Sodium Chloride 50.5 ml @ 202 mls/hr IV. 0628: The patient was evaluated in room B2. A complete history and physical exam was performed. 0631: Ordered Loperamide HCl 4 mg PO, Toradol Inj 30 mg IV, Sodium Chloride 1, 000 ml @ 999 mls/hr IV, Zofran Inj 4 mg IV. 0858: I checked on the patient and updated him on his results. 0900: Ordered Ondansetron HCl 1 homepack PO. 0903: Reevaluated the patient. Discussed results and discharge instructions: He verbalized understanding and agreement. The patient is ready for discharge. Medical Decision The patient is a 41 year old male who presents to the ED with complaints of vomiting and diarrhea. Differential diagnoses considered include food-borne illness, viral illness, dehydration, electrolyte imbalance, anemia, colitis, and diverticulitis. There is a moderate leukocytosis at about 16,000, this could be consistent with infection or just the stress of his vomiting and diarrhea. No worrisome anemia. No significant electrolyte abnormality except for a slightly low sodium -he carries a history of a lower sodium value. There was no kidney failure. No hepatitis or pancreatitis. Abdominal and pelvis CT did not show colitis or diverticulitis, there was no bowel obstruction. The patient received IV saline, IV Toradol, IV Zofran and IV Phenergan. He was given oral loperamide. The patient feels improved, his heart rate has improved. He would like to be discharged home. He is going to stick to a very bland diet. Zofran to be used for nausea as needed. He will return for uncontrolled symptoms, increasing abdominal pain or fever. At this point, this illness appears viral and/or food borne. Medication Reconcilliation Current Medication List: was personally reviewed by me Blood Pressure Screening Patient's blood pressure: Elevated blood pressure Blood pressure disposition: Elevated BP felt to be situational Impression Primary Impression: Nausea vomiting and diarrhea Additional Impression: Leukocytosis Scribe Attestation The scribe's documentation has been prepared under my direction and personally reviewed by me in its entirety. I confirm that the note above accurately reflects all work, treatment, procedures, and medical decision making performed by me. Departure Information Dispostion Home / Self-Care Prescriptions Ondasetron Odt (ZOFRAN ODT) 4 Mg Tab 4 MG SL Q6H for Nausea, #10 TAB Prov: Ciro Mendenhall M.D. 02/20/17 Referrals Devyn Silva M.D. (PCP) Forms Call Back Authorization, HOME CARE DOCUMENTATION FORM, IMPORTANT VISIT INFORMATION Patient Instructions My [facility] Additional Instructions bland diet--crackers, soup, toast, gatorade rest tylenol for abdominal pain zofran 1-2 tab every 6 hours for nausea as needed immodium for diarrhea return for persistent symptoms, fever or worsening pain Problem Qualifiers
[2017-02-20 07:01] LABS: BASO % 0.2 %; BASO ABS # 0.03 K/uL (0-0.2); EOS % 1.5 %; EOS ABS # 0.26 K/uL (0-0.5); HEMOGLOBIN 16.5 g/dL (14.0-18.0); IG# 0.16 K/uL (0.00-0.02); LYMPH ABS # 0.84 K/uL (1.2-3.4); MEAN CELL VOLUME 84.1 fL (80-100); MEAN CORPUSCULAR HEMOGLOBIN 29.5 pg (25-34); MEAN CORPUSCULAR HGB CONC 35.1 g/dl (32-36); MEAN PLATELET VOLUME 8.7 fL (7.4-10.4); MONO % 5.3 %; MONO ABS # 0.89 K/uL (0.11-0.59); NEUT % 87.1 %; NEUT ABS # 14.77 K/uL (1.4-6.5); PLATELET COUNT 340 K/uL (130-400); RED CELL DISTRIBUTION WIDTH CV 14.2 % (11.5-14.5); RED CELL DISTRIBUTION WIDTH SD 43.6 fL (36.4-46.3); WHITE BLOOD COUNT 16.95 K/uL (4.8-10.8)
[2017-02-20 07:09] LABS: ALBUMIN 3.7 gm/dl (3.4-5.0); CALCIUM 9.3 mg/dl (8.5-10.1); CREATININE 0.88 mg/dl (0.60-1.40); POTASSIUM 4.4 mmol/L (3.5-5.1)
[2017-02-20 07:12] LABS: TOTAL PROTEIN 7.8 gm/dl (6.4-8.2)
[2017-02-20] MEDS ORDERED: LISI-788 PO (07:17)
[2017-02-20] MEDS ORDERED: OPTIRAY 320 IV PRN (08:00)
--- NOTE | 2017-02-20 08:54 | DIAGNOSTIC IMAGING REPORT ---
CT ABD/PELVIS IV CONTRAST ONLY CLINICAL HISTORY: Generalized abdominal pain,. Vomiting. Diarrhea. COMPARISON STUDY: 02/15/2016 TECHNIQUE: Following the IV administration of 115 mL of Optiray-320, CT scan of the abdomen and pelvis was performed from the lung bases to the proximal femurs. Images are reviewed in the axial, sagittal, and coronal planes. IV contrast was administered without complication. A dose lowering technique was utilized adhering to the principles of ALARA. CT DOSE: 1693.08 mGy.cm FINDINGS: Lower chest: The heart is normal in size and configuration, without pericardial effusion. The lung bases and pleural spaces are clear. Liver: There is mild hepatic steatosis. No focal masses are visualized. Gallbladder: Unremarkable. Spleen: Normal in size and attenuation. Pancreas: Unremarkable. Adrenal glands: Unremarkable. Kidneys: There is symmetric renal cortical enhancement. The kidneys are normal in size without hydronephrosis. Bowel: There are no transition zones indicate bowel obstruction. There are few colonic diverticula present. There is no acute diverticulitis. The appendix appears normal. Peritoneum: There is no intraperitoneal free air or abdominal ascites. There is a small umbilical hernia. There is persistent infiltration of the anterior subcutaneous soft tissues superior to the umbilicus. This likely relates to prior surgery as there appears to be evidence for a prior hernia mesh repair at this level Vasculature: The abdominal aorta is normal in course and caliber. Adenopathy: Iliac and Aortic lymph nodes remain the upper limits of normal in size. Pelvic viscera: The bladder, and pelvic viscera are unremarkable. Skeletal structures: There is an old superior endplate T11 compression deformity. IMPRESSION: 1. No evidence of bowel obstruction. No evidence of free air 2. Normal appendix. No evidence of acute diverticulitis. 3. Mild hepatic steatosis. 4. Iliac and iliac lymph nodes remain at the upper limits of normal in size Electronically signed by: Ace Tejeda M.D. 02/20/2017 8:53 AM Dictated Date/Time: 02/20/2017 8:48 AM
[2017-02-20] MEDS ORDERED: ONDANSETRON HOME PACK 4MG OD TAB PO ONE (09:00)
[2017-02-20] MEDS ORDERED: ONDA4TAB10 SL (09:03)
[2017-02-20 09:04] VITALS: BP 144/76; PULSE 91; O2SAT 93
[2017-05-10] MEDS ORDERED: CLON2TAB10 PO (12:24)
[2017-05-31] MEDS ORDERED: LMC25 PO (12:19)
[2017-05-31] MEDS ORDERED: HALO10TA17 PO (12:30)
[2017-06-01] MEDS ORDERED: HALO10TA17 PO (09:31)
[2017-06-01] MEDS ORDERED: HALO100I IM (09:31)
[2017-06-01] MEDS ORDERED: NCR2 MT (10:35)
[2017-06-27] MEDS ORDERED: ALBINS/ NEB (03:01)
[2017-06-27] MEDS ORDERED: ALBU18002 INH (07:15)
[2017-06-27] MEDS ORDERED: HYDR1CAP85 PO (12:24)
== END 2017-02-20 09:16 | disposition home or self-care (01) ==
LOC: C.EDB 06:09
DX: R11.2 Nausea with vomiting, unspecified (principal); R19.7 Diarrhea, unspecified; D72.829 Elevated white blood cell count, unspecified; F17.210 Nicotine dependence, cigarettes, uncomplicated; F31.9 Bipolar disorder, unspecified; E03.9 Hypothyroidism, unspecified; F25.9 Schizoaffective disorder, unspecified; F12.90 Cannabis use, unspecified, uncomplicated; Z79.899 Other long term (current) drug therapy

== ENCOUNTER 2017-03-03 15:56 | Emergency (ER) | payer OTHER ==
[~2017-03-03] VITALS: Ht 172.7 cm; Wt 137.4 kg
[~2017-03-03 15:56] MED LIST changes: +ALBU18002 INH; -LISI-787 PO; +LISI-788 PO; +OMEP20CA9 PO; +ONDA4TAB10 SL; -OXYC-57 PO; -PENI-82 PO; -Proair HFA INH
[2017-03-03 16:15] VITALS: BP 161/87; PULSE 79; TEMP 36.6; O2SAT 93; Ht 172.7 cm; Wt 137.4 kg
== END 2017-03-03 17:07 | disposition left against medical advice (07) ==
LOC: C.EDB 15:59
DX: Z53.29 Procedure and treatment not carried out because of patient's decision for other reasons (principal)

== ENCOUNTER 2017-05-10 11:16 | Emergency (ER) | payer OTHER ==
[~2017-05-10] VITALS: Ht 165.1 cm; Wt 128.0 kg
[2017-05-10 11:27] VITALS: TEMP 36.7; Ht 165.1 cm; Wt 128.0 kg
[2017-05-10 12:06] LABS: BASO % 0.3 %; BASO ABS # 0.03 K/uL (0-0.2); EOS ABS # 0.21 K/uL (0-0.5); HEMATOCRIT 44.6 % (42-52); HEMOGLOBIN 15.6 g/dL (14.0-18.0); IG# 0.04 K/uL (0.00-0.02); LYMPH % 23.3 %; LYMPH ABS # 2.49 K/uL (1.2-3.4); MEAN CORPUSCULAR HEMOGLOBIN 29.4 pg (25-34); MEAN PLATELET VOLUME 8.9 fL (7.4-10.4); MONO % 7.9 %; MONO ABS # 0.84 K/uL (0.11-0.59); NEUT % 66.1 %; NEUT ABS # 7.06 K/uL (1.4-6.5); PLATELET COUNT 359 K/uL (130-400); RED CELL DISTRIBUTION WIDTH SD 45.9 fL (36.4-46.3); WHITE BLOOD COUNT 10.67 K/uL (4.8-10.8)
[2017-05-10] MEDS ORDERED: PRAZ2CAP3 PO (12:24)
[2017-05-10] MEDS ORDERED: METF500T5 PO (12:24)
[2017-05-10] MEDS ORDERED: LEVO25TA PO (12:24)
[2017-05-10] MEDS ORDERED: CLON2TAB3 PO (12:24)
[2017-05-10] MEDS ORDERED: QUET1TAB34 PO (12:24)
[2017-05-10] MEDS ORDERED: HYDR1CAP85 PO (12:24)
[2017-05-10] MEDS ORDERED: LOSA50TA6 PO (12:24)
[2017-05-10 12:25] LABS: ALBUMIN 3.7 gm/dl (3.4-5.0); CALCIUM 9.4 mg/dl (8.5-10.1); CREATININE 0.78 mg/dl (0.60-1.40); POTASSIUM 4.2 mmol/L (3.5-5.1)
[2017-05-10] MEDS ORDERED: ALBUT/IPRATROP 3MG/0.5MG NEB 3 ML VIAL INH STA (12:29)
--- NOTE | 2017-05-10 12:34 | EMERGENCY ROOM VISIT NOTE ---
History Report prepared by Buzz: Francisco Javier Sotomayor Under the Supervision of: Dr. Ady Solorio M.D. First contact with patient: 12:03 Chief Complaint: PSYCHIATRIC PROBLEMS Stated Complaint: FEELING REALLY WEAK, DIZZY SOMETIMES, DEPRESSED History of Present Illness The patient is a 41 year old white male with a history of Bipolar disease, manic disorder, Hypothyroidism, Lumbar compression fracture, and Schizoaffective disorder who presents to the Emergency Room with concerns over his worsening mental status. Per the Psychiatric Case Liaison, the patient is currently experiencing suicidal ideations with the plan to overdose on his medications. The patient was discharged from [facility] just 2 weeks ago. He has been having suicidal thoughts since this discharge. The patient admits to attempting to overdose 10 years ago when he took all of his medications. He was in the ICU for 2 weeks after this attempt. The patient denies that he took any extra medications recently. He did smoke pot, but has not used any alcohol. The patient does confirm that he wants to kill himself currently, but he does not have any homicidal thoughts. The patient would like to go back to [facility] voluntarily. He denies any chest pain or abdominal pain at this time. Source of History: patient, other (Psych Roll Tender) Onset: 2 weeks Quality: other (Suicidal Ideation) Timing: worsening Associated Symptoms: No chest pain, No abdominal pain Note: Positive SI with intent to overdose. Review of Systems See HPI for pertinent positives and negatives. A total of ten systems were reviewed and were otherwise negative. Past Medical & Surgical Medical Problems: (1) Bipolar disease, manic (2) Hypothyroidism (3) Lumbar compression fracture (4) Schizoaffective disorder Surgical Problems: (1) History of tonsillectomy Family History No pertinent family history Social History Smoking Status: Current Every Day Smoker Alcohol Use: occasionally Drug Use: marijuana Marital Status: Housing Status: lives with family Occupation Status: disabled Current/Historical Medications Scheduled Clonazepam (Klonopin), 2 MG PO BID Haloperidol Decanoate (Haloperidol Decanoate), 200 MG IM Q4WK Hydroxyzine Pamoate (Vistaril), 25 MG PO BID Levothyroxine Sodium (Synthroid), 25 MCG PO DAILY Losartan Potassium (Cozaar), 50 MG PO BID Metformin Hcl Er (Glucophage Er), 500 MG PO BID Omeprazole (Prilosec), 20 MG PO QAM Prazosin Hcl (Prazosin), 2 MG PO HS Quetiapine Fumarate (Seroquel), 100 MG PO HS Scheduled PRN Albuterol Sulfate (Proair Respiclick), 2 PUFFS INH Q4H PRN for SOB/Wheezing Allergies Coded Allergies: No Known Allergies (Verified , 05/10/17) Physical Exam Vital Signs Date Time Temp Pulse Resp B/P (MAP) Pulse Ox O2 Delivery O2 Flow Rate FiO2 05/10/17 13:28 79 18 177/89 94 Room Air 05/10/17 11:27 36.7 79 20 144/88 95 Room Air Physical Exam GENERAL: Obese, wearing glasses, Awake, alert, NAD HENT: Normocephalic, atraumatic. EYES: Normal conjunctiva. Sclera non-icteric. NECK: Supple. No nuchal rigidity. FROM. RESPIRATORY: CTAB, no rhonchi, no crackles. Mild inspiratory/expiratory wheezing. No Tachypnea. CARDIAC: RRR, no MRG ABDOMEN: Soft, NTND, BS+ MSK: No chest wall TTP, no LE edema NEURO: GCS 15, CN 2-12 intact, moves all 4s on command SKIN: No rash or jaundice noted. PSYCH: Depressed mood, flat affect. Positive Suicidal ideation, negative Homicidal ideation. Medical Decision & Procedures Laboratory Results 05/10/17 11:52 Red Blood Count 5.31, Mean Corpuscular Volume 84.0, Mean Corpuscular Hemoglobin 29.4, Mean Corpuscular Hemoglobin Concent 35.0, Mean Platelet Volume 8.9, Neutrophils (%) (Auto) 66.1, Lymphocytes (%) (Auto) 23.3, Monocytes (%) (Auto) 7.9, Eosinophils (%) (Auto) 2.0, Basophils (%) (Auto) 0.3, Neutrophils # (Auto) 7.06, Lymphocytes # (Auto) 2.49, Monocytes # (Auto) 0.84, Eosinophils # (Auto) 0.21, Basophils # (Auto) 0.03 05/10/17 11:52 Test 05/10/17 11:45 05/10/17 11:52 Urine Color YELLOW Urine Appearance CLEAR (CLEAR) Urine pH 7.0 (4.5-7.5) Urine Specific [place] 1.006 (1.000-1.030) Urine Protein NEG (NEG) Urine Glucose (UA) NEG (NEG) Urine Ketones NEG (NEG) Urine Occult Blood NEG (NEG) Urine Nitrite NEG (NEG) Urine Bilirubin NEG (NEG) Urine Urobilinogen NEG (NEG) Urine Leukocyte Esterase NEG (NEG) Urine Opiates Screen NEG (NEG) Urine Methadone, Qualitative NEG (NEG) Urine Barbiturates NEG (NEG) Urine Phencyclidine (PCP) Level NEG (NEG) Ur Amphetamine/Methamphetamine NEG (NEG) MDMA (Ecstasy) Screen NEG (NEG) Urine Benzodiazepines Screen NEG (NEG) Urine Cocaine Metabolite NEG (NEG) Urine Marijuana (THC) POS (NEG) White Blood Count 10.67 K/uL (4.8-10.8) Red Blood Count 5.31 M/uL (4.7-6.1) Hemoglobin 15.6 g/dL (14.0-18.0) Hematocrit 44.6 % (42-52) Mean Corpuscular Volume 84.0 fL (80-100) Mean Corpuscular Hemoglobin 29.4 pg (25-34) Mean Corpuscular Hemoglobin Concent 35.0 g/dl (32-36) Platelet Count 359 K/uL (130-400) Mean Platelet Volume 8.9 fL (7.4-10.4) Neutrophils (%) (Auto) 66.1 % Lymphocytes (%) (Auto) 23.3 % Monocytes (%) (Auto) 7.9 % Eosinophils (%) (Auto) 2.0 % Basophils (%) (Auto) 0.3 % Neutrophils # (Auto) 7.06 K/uL (1.4-6.5) Lymphocytes # (Auto) 2.49 K/uL (1.2-3.4) Monocytes # (Auto) 0.84 K/uL (0.11-0.59) Eosinophils # (Auto) 0.21 K/uL (0-0.5) Basophils # (Auto) 0.03 K/uL (0-0.2) RDW Standard Deviation 45.9 fL (36.4-46.3) RDW Coefficient of Variation 15.0 % (11.5-14.5) Immature Granulocyte % (Auto) 0.4 % Immature Granulocyte # (Auto) 0.04 K/uL (0.00-0.02) Anion Gap 7.0 mmol/L (3-11) Est Creatinine Clear Calc Drug Dose 158.4 ml/min Estimated GFR () 131.8 Estimated GFR (Non- 113.7 BUN/Creatinine Ratio 11.2 (10-20) Calcium Level 9.4 mg/dl (8.5-10.1) Total Bilirubin 0.3 mg/dl (0.2-1) Aspartate Amino Transf (AST/SGOT) 11 U/L (15-37) Alanine Aminotransferase (ALT/SGPT) 23 U/L (12-78) Alkaline Phosphatase 76 U/L (45-117) Total Protein 7.4 gm/dl (6.4-8.2) Albumin 3.7 gm/dl (3.4-5.0) Globulin 3.7 gm/dl (2.5-4.0) Albumin/Globulin Ratio 1.0 (0.9-2) Thyroid Stimulating Hormone (TSH) 1.130 uIu/ml (0.300-4.500) Salicylates Level 4.7 mg/dl (2.8-20) Acetaminophen Level < 2 ug/ml (10-30) Ethyl Alcohol mg/dL < 3.0 mg/dl (0-3) Laboratory results reviewed by me Medications Administered Medications (Trade) Dose Ordered Sig/Den Route Start Time Stop Time Status Last Admin Dose Admin Albuterol/ Ipratropium (Duoneb) 3 ml ONE STAT INH 05/10/17 12:29 05/10/17 12:30 DC 05/10/17 12:31 3 ML ECG Per My Interpretation Indication: other (Dizziness) Rate (beats per minute): 80 Findings: other (Normal [place], Normal Intervals, NO STS/TWI) ED Course 1226: The patient was evaluated in room A7. A complete history and physical exam was performed. 1229: Ordered Duoneb 3 mL INH. 1327: The Psychiatric Roll Tender informed me that the patient has been accepted to the [facility]. The patient will be transferred when transportation is arranged. Medical Decision The patient is a 41 year old white male with a history of Bipolar disease, manic disorder, Hypothyroidism, Lumbar compression fracture, and Schizoaffective disorder who presents to the Emergency Room with concerns over his worsening mental status. Differential diagnosis: Etiologies such as mood disorder, infection, hypoglycemia, electrolyte abnormalities, cardiac sources, intracerebral event, toxicologic, neurologic, as well as others were entertained. Prior records were reviewed. Patient was seen and evaluated the bedside. Patient did have a recent stay at the [facility] approximately 2 weeks prior. Patient states he did have some change in his home medications. Patient believes that he was having some bridget for about 2 days and then was feeling like he has been down out. Patient does have depressed mood. Patient does complain of suicidal ideation and does have a plan to overdose on pills. Patient denies any AVH or HI. Patient was counseled on smoking cessation. Patient was given a DuoNeb and some mild wheezing. Patient did have blood work completed, EKG, tox screen, and UDS. Patient was medically cleared. This was conveyed to the psych case hardener. Patient was pending a voluntary admission to the [facility]. Medication Reconcilliation Current Medication List: was personally reviewed by me Blood Pressure Screening Patient's blood pressure: Elevated blood pressure Blood pressure disposition: Referred to PCP Impression Primary Impression: Suicidal ideation Additional Impression: Encounter for smoking cessation counseling Scribe Attestation The scribe's documentation has been prepared under my direction and personally reviewed by me in its entirety. I confirm that the note above accurately reflects all work, treatment, procedures, and medical decision making performed by me. Departure Information Dispostion [facility] ([facility]) Referrals No Doctor, Assigned (PCP) Patient Instructions My [facility] Problem Qualifiers
[2017-05-10 12:36] LABS: TOTAL PROTEIN 7.4 gm/dl (6.4-8.2)
[2017-05-10 14:33] VITALS: BP 152/99; PULSE 93; O2SAT 98
== END 2017-05-10 14:36 ==
LOC: C.EDB 11:18 → C.EDA 14:36
DX: R45.851 Suicidal ideations (principal); Z71.6 Tobacco abuse counseling; F31.9 Bipolar disorder, unspecified; F30.9 Manic episode, unspecified; F25.9 Schizoaffective disorder, unspecified; E03.9 Hypothyroidism, unspecified; F12.10 Cannabis abuse, uncomplicated; F17.200 Nicotine dependence, unspecified, uncomplicated; E66.3 Overweight; Z79.84 Long term (current) use of oral hypoglycemic drugs

== ENCOUNTER 2017-05-27 14:56 | Emergency (ER) | payer OTHER ==
[~2017-05-27] VITALS: Ht 175.3 cm; Wt 131.6 kg
[~2017-05-27 14:56] MED LIST changes: +CLON2TAB3 PO; +HYDR1CAP85 PO; +LEVO25TA PO; -LEVO25TA5 PO; -LISI-788 PO; +LOSA50TA6 PO; +METF500T5 PO; -ONDA4TAB10 SL; -OXCA600T PO; +PRAZ2CAP3 PO; -QUET1TAB10 PO; +QUET1TAB34 PO; -SRQ300 PO; -VST25HP PO
[2017-05-27 15:07] VITALS: TEMP 37; Ht 175.3 cm; Wt 131.6 kg
[2017-05-27] MEDS ORDERED: ALBUT/IPRATROP 3MG/0.5MG NEB 3 ML VIAL INH STA (15:08)
[2017-05-27 15:36] LABS: HEMATOCRIT 41.7 % (42-52); HEMOGLOBIN 14.4 g/dL (14.0-18.0); MEAN CELL VOLUME 84.8 fL (80-100); MEAN CORPUSCULAR HEMOGLOBIN 29.3 pg (25-34); MEAN CORPUSCULAR HGB CONC 34.5 g/dl (32-36); MEAN PLATELET VOLUME 8.7 fL (7.4-10.4); PLATELET COUNT 335 K/uL (130-400); RED CELL DISTRIBUTION WIDTH CV 15.5 % (11.5-14.5); RED CELL DISTRIBUTION WIDTH SD 48.1 fL (36.4-46.3); WHITE BLOOD COUNT 12.93 K/uL (4.8-10.8)
--- NOTE | 2017-05-27 15:36 | DIAGNOSTIC IMAGING REPORT ---
CHEST ONE VIEW PORTABLE CLINICAL HISTORY: 41 years-old Male presenting with eval for pna. TECHNIQUE: Portable upright AP view of the chest was obtained. COMPARISON: 02/15/2016. FINDINGS: Cardiomediastinal silhouette normal. Lungs and pleural spaces clear. Osseous structures normal. Upper abdomen normal. IMPRESSION: 1. No acute cardiopulmonary disease. Electronically signed by: Chico Pagan M.D. 05/27/2017 3:34 PM Dictated Date/Time: 05/27/2017 3:34 PM
[2017-05-27 15:52] LABS: ALBUMIN 3.5 gm/dl (3.4-5.0); ALT/SGPT 22 U/L (12-78); BLOOD UREA NITROGEN 6 mg/dl (7-18); CALCIUM 8.6 mg/dl (8.5-10.1); CARBON DIOXIDE 29 mmol/L (21-32); CREATININE 0.83 mg/dl (0.60-1.40); GLUCOSE 90 mg/dl (70-99); POTASSIUM 3.6 mmol/L (3.5-5.1); SODIUM 135 mmol/L (136-145)
[2017-05-27 16:03] LABS: ALKALINE PHOSPHATASE 72 U/L (45-117); AST/SGOT 19 U/L (15-37); TOTAL PROTEIN 7.1 gm/dl (6.4-8.2)
[2017-05-27] MEDS ORDERED: ACETAMINOPHEN 325 MG TAB PO STA (16:13)
[2017-05-27 17:35] VITALS: BP 152/92; PULSE 98; O2SAT 94
--- NOTE | 2017-05-27 18:11 | EMERGENCY ROOM VISIT NOTE ---
History Report prepared by Buzz: Wilbert Harris Under the Supervision of: Dr. Steve Sal M.D. First contact with patient: 15:01 Chief Complaint: PSYCHIATRIC PROBLEMS Stated Complaint: PSYCH. EVAL. History of Present Illness The patient is a 41 year old male who was sent to the emergency department for evaluation. Per nursing staff, the patient was picked up by police at a parking lot while he states that he was waiting for a friend to pick him up. Per nursing staff, the patient claimed that he had not slept in 10 days. The patient was recently seen in the ED for depression and was admitted to the [facility]. Per nursing staff, the patient has a history of DM and admitted to using marijuana today. He denies any suicidal ideations. He did not respond when asked if he is depressed. When asked where he is, he replied, "in hell." HPI is limited secondary due to patients lack of cooperation. 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 Review of Systems Limited due to lack of cooperation Past Medical & Surgical Medical Problems: (1) Bipolar disease, manic (2) Hypothyroidism (3) Lumbar compression fracture (4) Schizoaffective disorder Surgical Problems: (1) History of tonsillectomy Family History No pertinent family history Social History Smoking Status: Current Every Day Smoker Alcohol Use: occasionally Drug Use: marijuana Marital Status: Housing Status: lives with family Occupation Status: disabled Current/Historical Medications Scheduled Clonazepam (Klonopin), 2 MG PO BID Haloperidol Decanoate (Haloperidol Decanoate), 200 MG IM Q4WK Hydroxyzine Pamoate (Vistaril), 25 MG PO BID Levothyroxine Sodium (Synthroid), 25 MCG PO DAILY Losartan Potassium (Cozaar), 50 MG PO BID Metformin Hcl Er (Glucophage Er), 500 MG PO BID Omeprazole (Prilosec), 20 MG PO QAM Prazosin Hcl (Prazosin), 2 MG PO HS Quetiapine Fumarate (Seroquel), 100 MG PO HS Scheduled PRN Albuterol Sulfate (Proair Respiclick), 2 PUFFS INH Q4H PRN for SOB/Wheezing Allergies Coded Allergies: No Known Allergies (Verified , 05/10/17) Physical Exam Vital Signs Date Time Temp Pulse Resp B/P (MAP) Pulse Ox O2 Delivery O2 Flow Rate FiO2 05/27/17 17:07 103 20 157/98 95 Room Air 05/27/17 15:07 37.0 89 20 139/83 93 Room Air Physical Exam Limited exam due to lack of cooperation. Constitutional: Vital signs reviewed. Eyes: Pupils are equal round reactive to light. Conjunctiva are noninjected. ENT: Pharynx is clear without erythema or exudate. Mucous membranes are moist. Respiratory: Wheezing bilaterally. Breath sounds are equal bilaterally. Cardiovascular: Regular rate and rhythm. No rubs or gallops. GI: Soft, nondistended and nontender. Bowel sounds are present. Musculoskeletal: No peripheral edema. No lower extremity tenderness. Integumentary: No cyanosis. Neurological: The patient is very somnolent. He wakes to voice, but does not answer all questions. He will follow some commands. Psychiatric: Unable to assess. Medical Decision & Procedures ER Provider Diagnostic Interpretation: Radiology results as stated below per my review and the radiologist's interpretation: CHEST ONE VIEW PORTABLE CLINICAL HISTORY: 41 years-old Male presenting with eval for pna. TECHNIQUE: Portable upright AP view of the chest was obtained. COMPARISON: 02/15/2016. FINDINGS: Cardiomediastinal silhouette normal. Lungs and pleural spaces clear. Osseous structures normal. Upper abdomen normal. IMPRESSION: 1. No acute cardiopulmonary disease. Electronically signed by: Chico Pagan M.D. 05/27/2017 3:34 PM Dictated Date/Time: 05/27/2017 3:34 PM Laboratory Results 05/27/17 15:24 05/27/17 15:24 Test 05/27/17 15:24 05/27/17 16:38 Red Blood Count 4.92 M/uL (4.7-6.1) Mean Corpuscular Volume 84.8 fL (80-100) Mean Corpuscular Hemoglobin 29.3 pg (25-34) Mean Corpuscular Hemoglobin Concent 34.5 g/dl (32-36) RDW Standard Deviation 48.1 fL (36.4-46.3) RDW Coefficient of Variation 15.5 % (11.5-14.5) Mean Platelet Volume 8.7 fL (7.4-10.4) Anion Gap 5.0 mmol/L (3-11) Est Creatinine Clear Calc Drug Dose 160.7 ml/min Estimated GFR () 128.5 Estimated GFR (Non- 110.8 BUN/Creatinine Ratio 7.1 (10-20) Calcium Level 8.6 mg/dl (8.5-10.1) Total Bilirubin 0.3 mg/dl (0.2-1) Direct Bilirubin < 0.1 mg/dl (0-0.2) Aspartate Amino Transf (AST/SGOT) 19 U/L (15-37) Alanine Aminotransferase (ALT/SGPT) 22 U/L (12-78) Alkaline Phosphatase 72 U/L (45-117) Total Protein 7.1 gm/dl (6.4-8.2) Albumin 3.5 gm/dl (3.4-5.0) Thyroid Stimulating Hormone (TSH) 1.410 uIu/ml (0.300-4.500) Salicylates Level 3.8 mg/dl (2.8-20) Acetaminophen Level < 2 ug/ml (10-30) Ethyl Alcohol mg/dL < 3.0 mg/dl (0-3) Urine Opiates Screen NEG (NEG) Urine Methadone, Qualitative NEG (NEG) Urine Barbiturates NEG (NEG) Urine Phencyclidine (PCP) Level NEG (NEG) Ur Amphetamine/Methamphetamine NEG (NEG) MDMA (Ecstasy) Screen NEG (NEG) Urine Benzodiazepines Screen NEG (NEG) Urine Cocaine Metabolite NEG (NEG) Urine Marijuana (THC) POS (NEG) Laboratory results as reviewed by me. Medications Administered Medications (Trade) Dose Ordered Sig/Den Route Start Time Stop Time Status Last Admin Dose Admin Albuterol/ Ipratropium (Duoneb) 3 ml NOW STAT INH 05/27/17 15:08 05/27/17 15:09 DC 05/27/17 15:35 3 ML Acetaminophen (Tylenol Tab) 650 mg NOW STAT PO 05/27/17 16:13 05/27/17 16:14 DC 05/27/17 16:49 650 MG ED Course 1505: The patient was evaluated in room A7. A complete history and physical exam was performed. 1508: Ordered DuoNeb 3 ml INH 1613: Ordered Tylenol 650 mg PO 1555: I spoke with Wendy, psychiatric case worker She spoke to the [facility] where [facility], they sent him here and he had not been sleeping for 10 days. They were unsure if he had been taking his diabetes medication. His is inpatient at the [facility]. 1557: I reassessed the patient at this time. His wheezing is significantly diminished. He is still sleeping. 1613: I reassessed the patient at this time. He is awake at this time. He reports bilateral foot pain from walking a lot. He denies any SI or HI. He is requesting water and coffee so he can wake up. 1653: I reassessed the patient at this time. The patient took a shower and he feels better. I discussed the results and treatment plan with the patient. I answered all pertaining questions that he had. He expressed understanding and verbalized agreement. The patient will be discharged home. 1715: I reassessed the patient at this time. He is requesting medication for anxiety. I reviewed his medications. I did not feel comfortable giving him any more medications, given that he was difficult to arouse just under an hour ago. Medical Decision This is a 41-year-old male sent in for mental health evaluation. I did perform a limited focused review of portions of the patient's old chart on the electronic medical record. The patient was seen May 10, 2017 for depression and referred to the [facility]. I did evaluate the patient as noted above. I did obtain history from the patient as well as the nurse due to his lack of cooperation and somnolence. He has wheezing bilaterally. I did treat him with a DuoNeb. The patient was placed on a continuous step down nurse. I did order and personally review the patient's chest x-ray as described above. I did order and review the patient's blood work as noted in the electronic medical record. I did reevaluate the patient several times. He did have resolution of his wheezing. Additional history was obtained from the mental health case worker. She had called the [facility] where he was sent from. They stated that he he was sent here because they were concerned about him not taking his diabetic medications and not sleeping for 10 days. Eventually the patient woke up. He stated that he had pain in his lower feet from walking a lot and requested some Tylenol. He requested some food and coffee. He took a shower here and on reassessment he is wide awake. He stated he was ready for discharge. I had discharge patient but then he called to ask to speak me again. He requested a prescription for something for anxiety. I explained to him that I did not feel comfortable giving him something and that we generally do not prescribe anxiety medications from the emergency department. He started to point out that I had given his Ativan in the past. I explained to him that possibly we could give him some Vistaril for anxiety. He then started negotiating with me asking for 100 mg and then 50. I reviewed his medications and came back to speak to him. I told him that he has Vistaril and Klonopin listed as his medications. I again told him that I did not feel comfortable giving him any medication at this time given he already has these prescriptions and he was very difficult to wake up just 45 minutes ago. He also has a positive drug screen for marijuana which I was told he used earlier today. He then said, "Whatever. Fuck you." I did inform the nurse that he was ready for discharge. Medication Reconcilliation Current Medication List: was personally reviewed by me Blood Pressure Screening Patient's blood pressure: Elevated blood pressure Blood pressure disposition: Referred to PCP Impression Primary Impression: COPD exacerbation Additional Impression: Insomnia Scribe Attestation The scribe's documentation has been prepared under my direct and personally reviewed by me in its entirety. I confirm that the note above accurately reflects all work, treatment, procedures, and medical decision making performed by me. Departure Information Dispostion Home / Self-Care Referrals Devyn Silva M.D. (PCP) Forms HOME CARE DOCUMENTATION FORM, IMPORTANT VISIT INFORMATION, WORK / SCHOOL INSTRUCTIONS Patient Instructions ED COPD Flare, My [facility] Additional Instructions You have been examined and treated today on an emergency basis only. This is not a substitute for, or an effort to provide, complete comprehensive medical care. It is impossible to recognize and treat all injuries or illnesses in a single emergency department visit. It is therefore important that you follow up closely with your physician. Call as soon as possible for an appointment. Return for worsening symptoms or if you develop fever, vomiting, chest pain or any other concerning symptoms. Problem Qualifiers Additional Impression: Insomnia Insomnia type: unspecified Qualified Codes: G47.00 - Insomnia, unspecified
== END 2017-05-27 17:35 | disposition home or self-care (01) ==
LOC: EDBD 14:56 → C.EDA 14:58
DX: J44.1 Chronic obstructive pulmonary disease with (acute) exacerbation (principal); G47.00 Insomnia, unspecified; R03.0 Elevated blood-pressure reading, without diagnosis of hypertension; F31.60 Bipolar disorder, current episode mixed, unspecified; E11.9 Type 2 diabetes mellitus without complications; F12.90 Cannabis use, unspecified, uncomplicated; F17.200 Nicotine dependence, unspecified, uncomplicated; E03.9 Hypothyroidism, unspecified; Z79.84 Long term (current) use of oral hypoglycemic drugs

== ENCOUNTER 2017-05-28 08:58 | Inpatient (IN) | payer OTHER ==
[~2017-05-28] VITALS: Ht 167.6 cm; Wt 129.5 kg
[2017-05-28] MEDS ORDERED: ALPRAZOLAM 0.5 MG TAB PO STA (09:27)
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
[2017-05-28] MEDS ORDERED: LORAZEPAM 2 MG/ML 1 ML VIAL IM STA (09:51)
[2017-05-28] MEDS ORDERED: HALOPERIDOL LACTATE 5 MG/ML 1 ML VIAL IM STA (09:51)
[2017-05-28] MEDS ORDERED: HALOPERIDOL LACTATE 5 MG/ML 1 ML VIAL ONE (09:54)
[2017-05-28] MEDS ORDERED: LORAZEPAM 2 MG/ML 1 ML VIAL ONE (09:54)
[2017-05-28 11:18] LABS: BASO % 0.2 %; BASO ABS # 0.02 K/uL (0-0.2); EOS % 2.2 %; EOS ABS # 0.27 K/uL (0-0.5); HEMATOCRIT 39.9 % (42-52); HEMOGLOBIN 13.6 g/dL (14.0-18.0); LYMPH % 20.8 %; LYMPH ABS # 2.59 K/uL (1.2-3.4); MEAN CELL VOLUME 84.5 fL (80-100); MEAN CORPUSCULAR HEMOGLOBIN 28.8 pg (25-34); MEAN CORPUSCULAR HGB CONC 34.1 g/dl (32-36); MEAN PLATELET VOLUME 8.7 fL (7.4-10.4); MONO % 7.9 %; MONO ABS # 0.98 K/uL (0.11-0.59); NEUT % 68.1 %; NEUT ABS # 8.49 K/uL (1.4-6.5); PLATELET COUNT 321 K/uL (130-400); RED CELL DISTRIBUTION WIDTH CV 15.7 % (11.5-14.5); WHITE BLOOD COUNT 12.45 K/uL (4.8-10.8)
[2017-05-28 11:23] LABS: ALBUMIN 3.9 gm/dl (3.4-5.0); CALCIUM 8.9 mg/dl (8.5-10.1); CREATININE 0.71 mg/dl (0.60-1.40); POTASSIUM 3.5 mmol/L (3.5-5.1)
[2017-05-28 11:26] LABS: TOTAL PROTEIN 7.2 gm/dl (6.4-8.2)
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
[2017-05-29] MEDS ORDERED: LORAZEPAM 2 MG/ML 1 ML VIAL IM STA ×2 (00:37→16:24)
[2017-05-29] MEDS ORDERED: HALOPERIDOL LACTATE 5 MG/ML 1 ML VIAL IM STA ×2 (00:37→16:24)
[2017-05-29] MEDS ORDERED: HALOPERIDOL 5 MG TAB PO STA (00:41)
[2017-05-29] MEDS ORDERED: LORAZEPAM 2 MG TAB PO STA ×2 (00:41→05:45)
--- NOTE | 2017-05-29 00:49 | EMERGENCY ROOM VISIT NOTE ---
ED Visit Note First contact with patient: 22:17 I assumed care at the change of shift, Dr. Valdivia had been the physician just prior to me. The patient had made suicidal comments. A 302 petition was filled out and the warrant was signed. The patient became combative in the ED and needed sedation with IM Haldol and Ativan. I assumed care after the IM sedation. He had been sleeping for some time. Toward the end of my shift, he awoke. He began to get agitated and did consent to taking some oral Haldol and oral Ativan. The psychiatric bilingual patient support caseworker is now working on bed placement. If the patient remains cooperative, he may be a voluntary psychiatric admission. If the patient becomes uncooperative, he will need to be brought into the hospital involuntarily. He is not someone who is stable for discharge home. The patient's case will be assumed by at the change of shift.
[2017-05-29] MEDS ORDERED: LORAZEPAM 1 MG TAB ONE (01:55)
--- NOTE | 2017-05-29 06:19 | EMERGENCY ROOM VISIT NOTE ---
ED Visit Note First contact with patient: 01:12 This case was signed out to me at change of shift. A bed search continues. The patient required additional oral Ativan for his agitation. The patient was denied at the [facility]. The patient was unwilling to bed search voluntarily at any other facilities. He continued to make suicidal and homicidal threats. The 302 was signed. The bed search has been expanded and continues. The patient requested something else by mouth to help him relax. He was given another dose of oral Ativan. He will be given his morning medications. The case will be signed out to Dr. Bravo at change of shift awaiting bed placement.
[2017-05-29] MEDS ORDERED: LOSARTAN POTASSIUM 50 MG TAB PO STA ×2 (06:20→20:07)
[2017-05-29] MEDS ORDERED: LEVOTHYROXINE 25 MCG TAB PO STA ×2 (06:20→12:53)
[2017-05-29] MEDS ORDERED: METFORMIN HCL 500 MG TABCR PO STA ×2 (06:20→12:53)
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
[2017-05-29] MEDS ORDERED: LORAZEPAM 2 MG/ML 1 ML VIAL ONE (06:49)
[2017-05-29] MEDS ORDERED: HALOPERIDOL LACTATE 5 MG/ML 1 ML VIAL ONE (06:50)
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
[2017-05-29] MEDS ORDERED: DiphenhydrAMINE HCL 50 MG/ML VIAL IM STA (16:24)
--- NOTE | 2017-05-29 16:31 | EMERGENCY ROOM VISIT NOTE ---
ED Visit Note First contact with patient: 15:[address] Bravo, patient still here. police will not take patient. seen and evaluated by psych. plan to create safety plan. 1634: called by nursing. patient agitated punching zhou, threatening staff. security at bedside. ativan 2mg IM, haldol 5 mg IM, and benadryl 50 mg IM ordered. psych caseworkers are unable to create safety plan. patient is not safe to be discharged given his threatening staff and punching zhou, psych team will continue to look for placement 2340: patient was made aware w/ police presence at bedside that he will not be discharged as no safety plan was able to be established. psych case workers will continue looking for placement tomorrow. patient given home meds. case signed out to Dr. Canales
[2017-05-29] MEDS ORDERED: CLONAZEPAM 0.5 MG TAB PO STA (20:07)
[2017-05-29] MEDS ORDERED: METFORMIN HCL 500 MG TAB PO STA (21:07)
[2017-05-29] MEDS ORDERED: NICOTINE POLACRILEX 2 MG GUM MT STA (23:33)
[2017-05-29] MEDS ORDERED: IBUPROFEN 800 MG TAB PO STA (23:46)
[2017-05-30] MEDS ORDERED: LOSARTAN POTASSIUM 50 MG TAB PO STA (02:51)
[2017-05-30] MEDS ORDERED: LEVOTHYROXINE 25 MCG TAB PO STA (02:51)
[2017-05-30] MEDS ORDERED: METFORMIN HCL 500 MG TABCR PO STA (02:53)
[2017-05-30] MEDS ORDERED: TROLAMINE SALICYLATE 10% CRM 255 APPLN/85 GM TUBE EXT PRN (05:45)
[2017-05-30] MEDS: NICOTINE POLACRILEX 2 MG GUM MT PRN ×2 (05:49→14:12)
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
[2017-05-30] MEDS ORDERED: LORAZEPAM 1 MG TAB SL STA (06:23)
[2017-05-30] MEDS ORDERED: GABAPENTIN 600 MG TAB PO SCH ×2 (08:15→16:00)
[2017-05-30] MEDS ORDERED: HALOPERIDOL LACTATE 5 MG/ML 1 ML VIAL IM PRN ×2 (08:15→16:00)
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
[2017-05-30] MEDS ORDERED: GABAPENTIN 1200MG LOADING DOSE PO ONE (09:00)
[2017-05-30] MEDS: HALOPERIDOL 5 MG TAB PO SCH ×3 (09:08→20:30)
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
[2017-05-30] MEDS ORDERED: GABAPENTIN 600 MG TAB PO ONE (13:30)
[2017-05-30] MEDS ORDERED: BISMUTH SUBSALICYLATE PER ML OMNICELL CHARGE PO PRN (16:00)
[2017-05-30] MEDS ORDERED: MAGNESIUM HYDROXIDE SUSP 30 ML UDC PO PRN (16:00)
[2017-05-30] MEDS ORDERED: HALOPERIDOL 5 MG TAB PO PRN (16:00)
[2017-05-30] MEDS ORDERED: hydrOXYzine HCL 25 MG TAB PO PRN ×2 (16:00)
[2017-05-30] MEDS ORDERED: SODIUM CHLORIDE 0.65% NA SOLN 45 ML (OCEAN) PRN (16:00)
[2017-05-30 16:10] VITALS: O2SAT 98
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
[2017-05-30 16:42] VITALS: BP 180/85; PULSE 126; TEMP 36.8; Ht 167.6 cm; Wt 129.5 kg
[2017-05-30 16:53] VITALS: BP 180/85; PULSE 100; TEMP 36.8
[2017-05-30] MEDS: METFORMIN HCL 500 MG TABCR PO SCH (17:15)
[2017-05-30] MEDS ORDERED: NURSING VERBAL MED ORDER ONE (18:00)
[2017-05-30 20:23] VITALS: BP 171/116; PULSE 69; TEMP 36.8
[2017-05-30] MEDS: LOSARTAN POTASSIUM 50 MG TAB PO SCH (20:29)
[2017-05-30] MEDS: QUETIAPINE FUMARATE 100 MG TAB PO SCH (20:31)
[2017-05-30] MEDS ORDERED: HALOPERIDOL 5 MG TAB PO SCH (21:00)
[2017-05-30] MEDS ORDERED: GABAPENTIN 600MG Q6H DOSE PO SCH (22:00)
[2017-05-31] MEDS: GABAPENTIN 600MG Q8H DOSE PO SCH ×3 (05:42→20:36)
[2017-05-31 07:05] VITALS: BP_SYST 169; BP_SYST 188; BP_DIAS 137; BP_DIAS 140; PULSE 108; PULSE 89; TEMP 36.9
[2017-05-31] MEDS: LOSARTAN POTASSIUM 50 MG TAB PO SCH ×2 (07:22→20:39)
[2017-05-31] MEDS: HALOPERIDOL 5 MG TAB PO SCH ×2 (07:22→08:33)
[2017-05-31] MEDS: METFORMIN HCL 500 MG TABCR PO SCH ×2 (07:22→17:15)
[2017-05-31] MEDS: LEVOTHYROXINE 25 MCG TAB PO SCH (07:22)
[2017-05-31] MEDS: NICOTINE POLACRILEX 2 MG GUM MT PRN ×4 (07:23→19:44)
[2017-05-31 09:34] VITALS: BP 165/96; PULSE 91
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
[2017-05-31] MEDS ORDERED: CLON0.2T PO (10:30)
[2017-05-31] MEDS ORDERED: CLONIDINE HCL 0.1 MG TAB PO ONE (10:30)
[2017-05-31] MEDS ORDERED: LAMO100T16 PO (10:30)
[2017-05-31] MEDS ORDERED: HYDR50CA2 PO (10:30)
[2017-05-31] MEDS ORDERED: PRAZ2CAP3 PO (10:30)
[2017-05-31] MEDS: ALUMINUM/MAGNESIUM SUSP 30 ML UDC PO PRN (11:22)
[2017-05-31] MEDS ORDERED: LMC25 PO (12:19)
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
[2017-05-31] MEDS ORDERED: HALO10TA17 PO (12:30)
[2017-05-31 13:16] VITALS: BP 163/88; PULSE 86; TEMP 36.7
[2017-05-31 16:01] VITALS: BP 169/94; PULSE 87; TEMP 36.8
[2017-05-31] MEDS: ALBUTEROL HFA INHALER 8.5 GM INH PRN ×2 (18:00→23:38)
[2017-05-31] MEDS: QUETIAPINE FUMARATE 100 MG TAB PO SCH (20:36)
[2017-05-31] MEDS: CLONIDINE HCL 0.1 MG TAB PO SCH (20:38)
[2017-05-31 20:41] VITALS: BP 159/111; PULSE 75; TEMP 36.9
[2017-05-31] MEDS ORDERED: PRAZOSIN HCL 1 MG CAP PO SCH (22:00)
[2017-05-31] MEDS: ACETAMINOPHEN 325 MG TAB PO PRN (23:35)
[2017-06-01] MEDS: ALBUTEROL HFA INHALER 8.5 GM INH PRN (06:06)
[2017-06-01 08:01] VITALS: BP 177/95; PULSE 95; TEMP 36.5
[2017-06-01] MEDS: HALOPERIDOL 5 MG TAB PO SCH (08:09)
[2017-06-01] MEDS: METFORMIN HCL 500 MG TABCR PO SCH (08:09)
[2017-06-01] MEDS: LOSARTAN POTASSIUM 50 MG TAB PO SCH (08:18)
[2017-06-01] MEDS: CLONIDINE HCL 0.1 MG TAB PO SCH (08:19)
[2017-06-01] MEDS: LEVOTHYROXINE 25 MCG TAB PO SCH (08:19)
[2017-06-01] MEDS: NICOTINE POLACRILEX 2 MG GUM MT PRN (08:31)
[2017-06-01] MEDS ORDERED: GABAPENTIN 600MG Q12H DOSE PO SCH (09:00)
[2017-06-01] MEDS ORDERED: PANTOprazole SOD 40 MG TAB PO SCH (09:00)
[2017-06-01] MEDS: ACETAMINOPHEN 325 MG TAB PO PRN (09:15)
[2017-06-01] MEDS ORDERED: HALO100I IM (09:31)
[2017-06-01] MEDS ORDERED: HALO10TA17 PO (09:31)
[2017-06-01] MEDS: ALUMINUM/MAGNESIUM SUSP 30 ML UDC PO PRN (09:46)
[2017-06-01] MEDS ORDERED: HALOPERIDOL DECANOATE INJ 50 MG/ML VIAL IM ONE (10:00)
[2017-06-01] MEDS ORDERED: NCR2 MT (10:35)
[2017-06-02] MEDS ORDERED: GABAPENTIN 600MG X1 DOSE PO SCH (21:00)
== END 2017-06-01 11:52 | disposition home or self-care (01) | DRG 885 ==
LOC: C.EDB 09:00 → C.MHU 05-30 15:51
PROVIDERS: ADMIT Psychiatry & Neurology Psychiatry; ATTEND Psychiatry & Neurology Psychiatry
DX: F31.9 Bipolar disorder, unspecified (principal); R45.851 Suicidal ideations; Z68.42 Body mass index [BMI] 45.0-49.9, adult; R45.850 Homicidal ideations; R45.1 Restlessness and agitation; R51 Headache; M54.5 Low back pain; I10 Essential (primary) hypertension; R00.0 Tachycardia, unspecified; F43.10 Post-traumatic stress disorder, unspecified; E11.9 Type 2 diabetes mellitus without complications; J44.9 Chronic obstructive pulmonary disease, unspecified; E03.9 Hypothyroidism, unspecified; E66.9 Obesity, unspecified; F12.10 Cannabis abuse, uncomplicated; F10.10 Alcohol abuse, uncomplicated; F17.200 Nicotine dependence, unspecified, uncomplicated; Z79.899 Other long term (current) drug therapy; Z81.8 Family history of other mental and behavioral disorders

== ENCOUNTER 2017-06-04 17:49 | Emergency (ER) | payer OTHER ==
[~2017-06-04] VITALS: Ht 165.1 cm; Wt 129.0 kg
[~2017-06-04 17:49] MED LIST changes: +CLON0.2T PO; -CLON2TAB3 PO; +HALO100I IM; -HALO100I2 IM; +HALO10TA17 PO; +HYDR50CA2 PO; +LMC25 PO; +NCR2 MT
[2017-06-04] MEDS ORDERED: ALBUTEROL HFA 8 GM INHALER INH ONE (18:15)
[2017-06-04 18:22] VITALS: BP 175/121; PULSE 86; TEMP 36.7; O2SAT 96; Ht 165.1 cm; Wt 129.0 kg
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
== END 2017-06-04 18:48 | disposition home or self-care (01) ==
LOC: C.EDB 17:50 → C.EDA 18:48
DX: F41.9 Anxiety disorder, unspecified (principal); F31.9 Bipolar disorder, unspecified; J44.9 Chronic obstructive pulmonary disease, unspecified; I10 Essential (primary) hypertension; E03.9 Hypothyroidism, unspecified; E11.9 Type 2 diabetes mellitus without complications; E66.01 Morbid (severe) obesity due to excess calories; F43.10 Post-traumatic stress disorder, unspecified; F25.9 Schizoaffective disorder, unspecified; F17.200 Nicotine dependence, unspecified, uncomplicated; F12.90 Cannabis use, unspecified, uncomplicated

== ENCOUNTER 2017-06-07 01:37 | Inpatient (IN) | payer OTHER ==
[~2017-06-07] VITALS: Ht 170.2 cm; Wt 135.3 kg
[2017-06-07] MEDS ORDERED: NICOTINE 21 MG/24 HR TDSY TD STA (02:02)
[2017-06-07] MEDS ORDERED: NICOTINE POLACRILEX 2 MG GUM ONE (02:10)
[2017-06-07 02:22] LABS: ALBUMIN 3.5 gm/dl (3.4-5.0); ALT/SGPT 41 U/L (12-78); AST/SGOT 28 U/L (15-37); BLOOD UREA NITROGEN 5 mg/dl (7-18); CALCIUM 8.6 mg/dl (8.5-10.1); CARBON DIOXIDE 26 mmol/L (21-32); GLUCOSE 108 mg/dl (70-99); SODIUM 126 mmol/L (136-145)
[2017-06-07 02:23] LABS: HEMATOCRIT 39.3 % (42-52); HEMOGLOBIN 14.2 g/dL (14.0-18.0); MEAN CELL VOLUME 83.3 fL (80-100); MEAN CORPUSCULAR HEMOGLOBIN 30.1 pg (25-34); MEAN CORPUSCULAR HGB CONC 36.1 g/dl (32-36); MEAN PLATELET VOLUME 8.8 fL (7.4-10.4); PLATELET COUNT 384 K/uL (130-400); RED CELL DISTRIBUTION WIDTH CV 14.9 % (11.5-14.5); RED CELL DISTRIBUTION WIDTH SD 45.8 fL (36.4-46.3); WHITE BLOOD COUNT 9.41 K/uL (4.8-10.8)
[2017-06-07 02:32] LABS: ALKALINE PHOSPHATASE 67 U/L (45-117); TOTAL PROTEIN 7.1 gm/dl (6.4-8.2)
[2017-06-07] MEDS ORDERED: SODIUM CHLORIDE 0.9% 1000ML 1,000 ML IV STA (02:35)
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
[2017-06-07] MEDS ORDERED: CLON0.3T3 PO (03:01)
[2017-06-07] MEDS ORDERED: HYDR1CAP85 PO (03:01)
[2017-06-07] MEDS ORDERED: ALBINS/ INH (03:01)
[2017-06-07] MEDS ORDERED: HALO100I IM (03:01)
[2017-06-07] MEDS ORDERED: ONDANSETRON INJ 2 MG/ML 2 ML VIAL IV PRN (04:15)
[2017-06-07] MEDS ORDERED: ALBUTEROL 0.083% NEBU SOLN 3 ML VIAL INH PRN (04:15)
[2017-06-07] MEDS ORDERED: ALBUTEROL HFA 8 GM INHALER INH PRN (04:15)
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
[2017-06-07 05:32] VITALS: BP 132/87; PULSE 58; TEMP 36.4; O2SAT 99; BMI 44.5
[2017-06-07] MEDS ORDERED: SODIUM CHLORIDE 0.9% 1000ML 1,000 ML IV SCH (05:45)
[2017-06-07] MEDS ORDERED: LEVOTHYROXINE 25 MCG TAB PO SCH (06:30)
[2017-06-07] MEDS ORDERED: hydrOXYzine HCL 25 MG TAB PO SCH ×2 (09:00→21:00)
[2017-06-07] MEDS ORDERED: NICOTINE POLACRILEX 2 MG GUM MT SCH (09:00)
[2017-06-07] MEDS ORDERED: NICOTINE 21 MG/24 HR TDSY TD SCH (09:00)
[2017-06-07] MEDS ORDERED: PANTOprazole SOD 40 MG TAB PO SCH (09:00)
[2017-06-07] MEDS ORDERED: ENOXAPARIN 40 MG/0.4 ML SYR SQ SCH (09:00)
[2017-06-07] MEDS ORDERED: CLONIDINE HCL 0.3 MG TAB PO SCH (09:00)
[2017-06-07 10:00] VITALS: Ht 170.2 cm; Wt 135.3 kg
[2017-06-07 10:47] LABS: PHOSPHORUS 3.5 mg/dl (2.5-4.9)
[2017-06-07 10:49] LABS: CALCIUM 8.7 mg/dl (8.5-10.1); CREATININE 0.74 mg/dl (0.60-1.40); POTASSIUM 4.2 mmol/L (3.5-5.1)
--- NOTE | 2017-06-07 11:18 | Discharge Instructions ---
Discharge Instructions Date of Service Jun 07, 2017. Admission Reason for Admission: Schizophrenia, Suicidal Behavior Discharge Discharge Diagnosis / Problem: Hyponatremia, suicideal behaviour Discharge Goals Goal(s): Decrease discomfort, Improve function Activity Recommendations Activity Limitations: resume your previous activity . Instructions / Follow-Up Instructions / Follow-Up FOLLOWUP WITH FAMILY DOCTOR WITH IN 4-5 DAYS FOLLOWUP WITH PSYCHIATRY SCHEDULED. LAB: BMP IN 4-5 DAYS WITH PCP AND FOLLOW RESULTS WITH PCP. Current Hospital Diet Patient's current hospital diet: Regular Diet Discharge Diet Recommended Diet: Regular Diet Pending Studies Studies pending at discharge: no Laboratory Results Lipid Panel Test 06/01/17 07:58 Range/Units Triglycerides Level 122 0-150 mg/dl Cholesterol Level 113 0-200 mg/dl HDL Cholesterol 33 mg/dl Cholesterol/HDL Ratio 3.4 LDL Cholesterol, Calculated 56 mg/dl Medical Emergencies . Who to Call and When: Medical Emergencies: If at any time you feel your situation is an emergency, please call 911 immediately. . Non-Emergent Contact Non-Emergency issues call your: Primary Care Provider . . "Provider Documentation" section prepared by Michael Lauren. .
[2017-06-07] MEDS ORDERED: HALOPERIDOL DECANOATE INJ 50 MG/ML VIAL IM ONE (11:30)
[2017-06-07 11:37] VITALS: BP 132/87; PULSE 58; TEMP 36.4; O2SAT 99
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
--- NOTE | 2017-06-07 20:43 | Progress Note ---
Internal Med Progress Note Date of Service: Jun 07, 2017. Provider Documentation: SUBJECTIVE: somewhat agitated that she wants to be discharged but calmer later want to smoke denies any suicidal ideation no pain afebrile seen by psychiatry and ok for discharge OBJECTIVE: Vital Signs-as noted below Exam: General-alert and oriented. Not in distress ENT-normal hearing. Neck-No neck masses Lungs-CTA b/l no wheezing or crackles Heart-S1 and S2 heard regular rate and rhythm no murmurs Abdomen-soft Bowels sounds present non tender no distension Extremities-no edema no erythema Neuro-alert and oriented moves extremities Lab data as noted below. ASSESSMENT & PLAN: 1. Recurrent suicidal ideation with suicidal behavior at time of presentation. Was discharged from the [facility] yesterday. Rubén says he got angry yesterday asis friends were upset. He wanted to be admitted so he told he is having suicidal thoughts. But now he wants to be discharged. Seen by pschiatry and ok for discharge after his dose of IM Haldol and followup as out patient. 2. Hyponatremia. Sodium of 126, mostly secondary to poor intake and some dehydration. Improved to 132 with fluids. followup labs with pcp. 3. Schizophrenia, home meds. f/u with psychiatry. 4. Hypertension. stable on home meds. 5. Hypothyroidism. Synthroid. 6. Tobacco use disorder. nicotine gums. 7. Gastrointestinal prophylaxis, Maalox and Mylanta. discharged home Vital Signs: Date Time Temp Pulse Resp B/P (MAP) Pulse Ox O2 Delivery O2 Flow Rate FiO2 06/07/17 11:37 36.4 58 16 99 Room Air 06/07/17 08:45 Room Air 06/07/17 05:32 36.4 58 16 132/87 99 Room Air 06/07/17 05:10 62 18 117/72 95 06/07/17 03:13 58 18 113/72 96 Room Air 06/07/17 01:39 36.4 55 22 146/87 94 Room Air Lab Results: Results Past 24 Hours Test 06/07/17 01:46 06/07/17 01:54 06/07/17 10:09 Range/Units Urine Opiates Screen NEG NEG Urine Methadone, Qualitative NEG NEG Urine Barbiturates NEG NEG Urine Phencyclidine (PCP) Level NEG NEG Ur Amphetamine/Methamphetamine NEG NEG MDMA (Ecstasy) Screen NEG NEG Urine Benzodiazepines Screen NEG NEG Urine Cocaine Metabolite NEG NEG Urine Marijuana (THC) POS NEG White Blood Count 9.41 4.8-10.8 K/uL Red Blood Count 4.72 4.7-6.1 M/uL Hemoglobin 14.2 14.0-18.0 g/dL Hematocrit 39.3 42-52 % Mean Corpuscular Volume 83.3 80-100 fL Mean Corpuscular Hemoglobin 30.1 25-34 pg Mean Corpuscular Hemoglobin Concent 36.1 32-36 g/dl RDW Standard Deviation 45.8 36.4-46.3 fL RDW Coefficient of Variation 14.9 11.5-14.5 % Platelet Count 384 130-400 K/uL Mean Platelet Volume 8.8 7.4-10.4 fL Prothrombin Time 10.0 9.0-12.0 SECONDS Prothromb Time International Ratio 1.0 0.9-1.1 Sodium Level 126 132 136-145 mmol/L Potassium Level 4.0 4.2 3.5-5.1 mmol/L Chloride Level 94 102 98-107 mmol/L Carbon Dioxide Level 26 26 21-32 mmol/L Anion Gap 6.0 4.0 3-11 mmol/L Blood Urea Nitrogen 5 7 7-18 mg/dl Creatinine 0.70 0.74 0.60-1.40 mg/dl Est Creatinine Clear Calc Drug Dose 182.4 177.8 ml/min Estimated GFR () 137.8 134.7 Estimated GFR (Non- 118.9 116.2 BUN/Creatinine Ratio 6.9 9.1 10-20 Random Glucose 108 122 70-99 mg/dl Calcium Level 8.6 8.7 8.5-10.1 mg/dl Total Bilirubin 0.3 0.2-1 mg/dl Direct Bilirubin < 0.1 0-0.2 mg/dl Aspartate Amino Transf (AST/SGOT) 28 15-37 U/L Alanine Aminotransferase (ALT/SGPT) 41 12-78 U/L Alkaline Phosphatase 67 45-117 U/L Total Protein 7.1 6.4-8.2 gm/dl Albumin 3.5 3.4-5.0 gm/dl Thyroid Stimulating Hormone (TSH) 0.998 0.300-4.500 uIu/ml Salicylates Level 3.7 2.8-20 mg/dl Acetaminophen Level < 2 10-30 ug/ml Ethyl Alcohol mg/dL < 3.0 0-3 mg/dl Phosphorus Level 3.5 2.5-4.9 mg/dl Magnesium Level 2.0 1.8-2.4 mg/dl
--- NOTE | 2017-06-07 20:45 | Discharge Summary ---
Discharge Summary Date of Service Jun 07, 2017. Discharge Summary Admission Date: Jun 07, 2017 at 04:13 Discharge Date: Jun 07, 2017 Discharge Disposition: Home Principal Diagnosis: SUICIDAL IDEATION? HYPONATREMIA Secondary Diagnoses/Problems: including schizophrenia, recurrent suicidal ideation, bipolar disorder, hypothyroidism, hypertension, tobacco use disorder Consultations: PSYCHIATRY Medication Reconciliation Continued Medications: Albuterol Sulf (Proventil 0.083% 2.5MG/3ML) 2.5 Mg/3 Ml Nebu 2.5 MG INH Q4H PRN for Shortness of Breath, EA Albuterol Sulfate (Proair Respiclick) 108 Mcg/Act Aer 2 PUFFS INH Q4H Clonidine Hcl (Catapres) 0.3 Mg Tab 0.3 MG PO BID, TAB Haloperidol Decanoate (Haldol Decanoate 100) 100 Mg/Ml Inj 200 MG IM MONTHLY for 30 Days, #1 ML 2 Refills Hydroxyzine Pamoate (Vistaril) 25 Mg Cap 25 MG PO BID AT 0900 & 1300, CAP Hydroxyzine Pamoate (Vistaril) 25 Mg Cap 50 MG PO HS, CAP Levothyroxine Sodium (Synthroid) 25 Mcg Tab 25 MCG PO QAM, TAB Metformin Hcl Er (Glucophage Er) 500 Mg Tab 500 MG PO BIDM, TAB Omeprazole (Prilosec) 20 Mg Cap 20 MG PO QAM Prazosin Hcl (Prazosin) 2 Mg Cap 4 MG PO HS, CAP Quetiapine Fumarate (Seroquel) 100 Mg Tab 100 MG PO HS, TAB Admission Information HPI (per Admitting provider): : He is a 41-year-old male with significant past medical history including schizophrenia, recurrent suicidal ideation, bipolar disorder, hypothyroidism, hypertension, tobacco use disorder. Apparently, this is his 6th visit to the ER since this year. Last time he was in the ER, he was admitted to psychiatric floor and later on he was discharged. Most recently, he was admitted in [facility] and he has been released from inpatient treatment 1 day ago. Today, he was driving home and on the way started falling asleep and then he purposely was driving dangerously. He was feeling suicidal as well. From that point, he was taken to the Emergency Room. During my examination,he was lying comfortably in bed. He did not have any acute distress. He admitted to be suicidal. He says that he was very hungry and nobody was giving him food and that is the reason he was trying to kill himself. He did that before. He is feeling a little better, but is still hungry. In the ER, he was otherwise hemodynamically stable and apparent blood test came back positive for hyponatremia of 126. From that point, medicine was advised for admission. Physical Exam (per Admitting): GENERAL: On examination in the Emergency Room, he was not having any acute distress. He did have minimal wheezing, otherwise comfortable. VITAL SIGNS: Temperature 36.4, pulse of 58, blood pressure 113/72, saturation 96% on room air. HEENT: Unremarkable. NECK: Supple, no JVD, no bruit. CHEST: Occasional wheezing on both sides, but no crackles. HEART: S1, S2 regular. ABDOMEN: Soft, benign, nontender, no organomegaly. Bowel sounds present. EXTREMITIES: 1+ edema bilaterally. MUSCULOSKELETAL SYSTEM: Examination did not show any acute arthritis. CENTRAL NERVOUS SYSTEM: Alert, awake, oriented. He did not have any focal neurological deficit. Hospital Course 1. Recurrent suicidal ideation with suicidal behavior at time of presentation. Was discharged from the [facility] yesterday. Rubén says he got angry yesterday asis friends were upset. He wanted to be admitted so he told he is having suicidal thoughts. But now he wants to be discharged. Seen by anne and bessie for discharge after his dose of IM Haldol and followup as out patient. 2. Hyponatremia. Sodium of 126, mostly secondary to poor intake and some dehydration. Improved to 132 with fluids. followup labs with pcp. 3. Schizophrenia, home meds. f/u with psychiatry. 4. Hypertension. stable on home meds. 5. Hypothyroidism. Synthroid. 6. Tobacco use disorder. nicotine gums. 7. Gastrointestinal prophylaxis, Maalox and Mylanta. discharged home Total time spent on discharge = 35MINUTES This includes examination of the patient, discharge planning, medication reconciliation, and communication with other providers. Discharge Instructions Discharge Instructions Date of Service Jun 07, 2017. Admission Reason for Admission: Schizophrenia, Suicidal Behavior Discharge Discharge Diagnosis / Problem: Hyponatremia, suicideal behaviour Discharge Goals Goal(s): Decrease discomfort, Improve function Activity Recommendations Activity Limitations: resume your previous activity . Instructions / Follow-Up Instructions / Follow-Up FOLLOWUP WITH FAMILY DOCTOR WITH IN 4-5 DAYS FOLLOWUP WITH PSYCHIATRY SCHEDULED. LAB: BMP IN 4-5 DAYS WITH PCP AND FOLLOW RESULTS WITH PCP. Current Hospital Diet Patient's current hospital diet: Regular Diet Discharge Diet Recommended Diet: Regular Diet Pending Studies Studies pending at discharge: no Laboratory Results Lipid Panel Test 06/01/17 07:58 Range/Units Triglycerides Level 122 0-150 mg/dl Cholesterol Level 113 0-200 mg/dl HDL Cholesterol 33 mg/dl Cholesterol/HDL Ratio 3.4 LDL Cholesterol, Calculated 56 mg/dl Medical Emergencies . Who to Call and When: Medical Emergencies: If at any time you feel your situation is an emergency, please call 911 immediately. . Non-Emergent Contact Non-Emergency issues call your: Primary Care Provider . .
[2017-06-07] MEDS ORDERED: QUETIAPINE FUMARATE 100 MG TAB PO SCH (21:00)
[2017-06-07] MEDS ORDERED: PRAZOSIN HCL 1 MG CAP PO SCH (21:00)
== END 2017-06-07 11:55 | disposition home or self-care (01) | DRG 641 ==
LOC: C.EDB 01:38 → C.MS2W 04:13 → ENRESERV 04:53
PROVIDERS: ADMIT Internal Medicine; ATTEND Internal Medicine
DX: E87.1 Hypo-osmolality and hyponatremia (principal); F31.9 Bipolar disorder, unspecified; J44.9 Chronic obstructive pulmonary disease, unspecified; E03.9 Hypothyroidism, unspecified; E11.9 Type 2 diabetes mellitus without complications; E66.9 Obesity, unspecified; F43.10 Post-traumatic stress disorder, unspecified; F17.200 Nicotine dependence, unspecified, uncomplicated; F20.9 Schizophrenia, unspecified; I10 Essential (primary) hypertension; F12.10 Cannabis abuse, uncomplicated; F10.10 Alcohol abuse, uncomplicated; Z68.42 Body mass index [BMI] 45.0-49.9, adult

== ENCOUNTER 2017-06-09 02:36 | Emergency (ER) | payer OTHER ==
[~2017-06-09] VITALS: Ht 165.1 cm; Wt 126.0 kg
[~2017-06-09 02:36] MED LIST changes: +ALBINS/ INH; -CLON0.2T PO; +CLON0.3T3 PO; -HALO10TA17 PO; -HYDR50CA2 PO; -LMC25 PO; -LOSA50TA6 PO; -NCR2 MT
[2017-06-09 02:51] VITALS: BP 168/78; PULSE 89; TEMP 36.8; O2SAT 91; Ht 165.1 cm; Wt 126.0 kg
[2017-06-09] MEDS ORDERED: ALBUT/IPRATROP 3MG/0.5MG NEB 3 ML VIAL INH STA (02:57)
--- NOTE | 2017-06-09 03:01 | EMERGENCY ROOM VISIT NOTE ---
History Report prepared by Buzz: Wilbert Harris Under the Supervision of: Dr. Tomás Vela M.D. First contact with patient: 02:40 Stated Complaint: MENTAL HEALTH History of Present Illness The patient is a 41 year old male who presents to the Emergency Room with complaints of persistent general suicidal ideations since yesterday. The patient was recently seen in the ED two weeks ago for a mental health evaluation following loss of sleep and aggressive behavior. He states that he went to his friends place after he was discharged. He reports being homeless. He notes that he has not had his medication in three weeks. He states that he has been feeling suicidal since yesterday. He notes that he was going to suffocate himself. He denies any inappropriate use of medication. He has been smoking. He denies shortness of breath. Source of History: patient Onset: since yesterday Position: other (general ) Quality: other (suicidal ideation) Timing: other (persistent) Associated Symptoms: No SOB Review of Systems See HPI for pertinent positives & negatives. A total of 10 systems reviewed and were otherwise negative. Past Medical & Surgical Medical Problems: (1) Aggression (2) Bipolar 1 disorder (3) Bipolar disease, manic (4) COPD (chronic obstructive pulmonary disease) (5) Hypertension (6) Hypothyroidism (7) Lumbar compression fracture (8) Non-insulin dependent type 2 diabetes mellitus (9) Obesity (10) Polysubstance abuse (11) PTSD (post-traumatic stress disorder) (12) Schizoaffective disorder (13) Schizophrenia (14) Suicidal behavior Surgical Problems: (1) History of tonsillectomy Family History No pertinent family history Social History Smoking Status: Current Every Day Smoker Alcohol Use: occasionally Drug Use: marijuana Marital Status: Housing Status: lives alone Occupation Status: disabled Current/Historical Medications Scheduled Albuterol Sulfate (Proair Respiclick), 2 PUFFS INH Q4H Clonidine Hcl (Catapres), 0.3 MG PO BID Haloperidol Decanoate (Haldol Decanoate 100), 200 MG IM MONTHLY Hydroxyzine Pamoate (Vistaril), 25 MG PO BID AT 0900 & 1300 Hydroxyzine Pamoate (Vistaril), 50 MG PO HS Levothyroxine Sodium (Synthroid), 25 MCG PO QAM Metformin Hcl Er (Glucophage Er), 500 MG PO BIDM Omeprazole (Prilosec), 20 MG PO QAM Prazosin Hcl (Prazosin), 4 MG PO HS Quetiapine Fumarate (Seroquel), 100 MG PO HS Scheduled PRN Albuterol Sulf (Proventil 0.083% 2.5MG/3ML), 2.5 MG INH Q4H PRN for Shortness of Breath Allergies Coded Allergies: No Known Allergies (Verified , 06/09/17) Physical Exam Vital Signs Date Time Temp Pulse Resp B/P (MAP) Pulse Ox O2 Delivery O2 Flow Rate FiO2 06/09/17 02:51 36.8 89 20 168/78 91 Room Air Physical Exam GENERAL: Patient is unkempt-appearing and in no acute distress. Smells heavily of tobacco. EYES: No scleral icterus, unremarkable pupils. ENT: Mucous membranes moist, no nasal congestion. NECK: No masses appreciated, no meningismus, trachea is midline. RESPIRATORY: No dyspnea. Mild wheeze bilaterally. CARDIOVASCULAR: Regular rate and rhythm. No murmurs, rubs, gallops appreciated. GASTROINTESTINAL: Abdomen soft, nontender, no peritonitis. Bowel sounds positive. No masses appreciated. BACK: No midline tenderness, no CVA tenderness EXTREMITIES: Normal motion all extremities, no cyanosis, no edema. NEUROLOGIC: Alert and oriented, no acute motor or sensory deficits, no focal weakness, cranial nerves grossly intact. SKIN: No rash, no jaundice, no diaphoresis. PSYCH: He states he is suicidal with plan to suffocate himself. Admits depression. Denies any HI or hallucinations. Medical Decision & Procedures Laboratory Results 06/09/17 03:29 Red Blood Count 5.24, Mean Corpuscular Volume 84.7, Mean Corpuscular Hemoglobin 29.6, Mean Corpuscular Hemoglobin Concent 34.9, Mean Platelet Volume 8.7, Neutrophils (%) (Auto) 67.5, Lymphocytes (%) (Auto) 22.4, Monocytes (%) (Auto) 7.1, Eosinophils (%) (Auto) 1.9, Basophils (%) (Auto) 0.4, Neutrophils # (Auto) 10.11, Lymphocytes # (Auto) 3.36, Monocytes # (Auto) 1.07, Eosinophils # (Auto) 0.28, Basophils # (Auto) 0.06 06/09/17 03:29 Test 06/09/17 02:45 06/09/17 03:29 Urine Color YELLOW Urine Appearance CLEAR (CLEAR) Urine pH 6.0 (4.5-7.5) Urine Specific [place] 1.007 (1.000-1.030) Urine Protein NEG (NEG) Urine Glucose (UA) NEG (NEG) Urine Ketones NEG (NEG) Urine Occult Blood TRACE (NEG) Urine Nitrite NEG (NEG) Urine Bilirubin NEG (NEG) Urine Urobilinogen NEG (NEG) Urine Leukocyte Esterase NEG (NEG) Urine WBC (Auto) 1-5 /hpf (0-5) Urine RBC (Auto) 0-4 /hpf (0-4) Urine Hyaline Casts (Auto) 0 /lpf (0-5) Urine Epithelial Cells (Auto) 0-5 /lpf (0-5) Urine Bacteria (Auto) NEG (NEG) Urine Opiates Screen NEG (NEG) Urine Methadone, Qualitative NEG (NEG) Urine Barbiturates NEG (NEG) Urine Phencyclidine (PCP) Level NEG (NEG) Ur Amphetamine/Methamphetamine NEG (NEG) MDMA (Ecstasy) Screen NEG (NEG) Urine Benzodiazepines Screen NEG (NEG) Urine Cocaine Metabolite NEG (NEG) Urine Marijuana (THC) POS (NEG) White Blood Count 14.99 K/uL (4.8-10.8) Red Blood Count 5.24 M/uL (4.7-6.1) Hemoglobin 15.5 g/dL (14.0-18.0) Hematocrit 44.4 % (42-52) Mean Corpuscular Volume 84.7 fL (80-100) Mean Corpuscular Hemoglobin 29.6 pg (25-34) Mean Corpuscular Hemoglobin Concent 34.9 g/dl (32-36) Platelet Count 442 K/uL (130-400) Mean Platelet Volume 8.7 fL (7.4-10.4) Neutrophils (%) (Auto) 67.5 % Lymphocytes (%) (Auto) 22.4 % Monocytes (%) (Auto) 7.1 % Eosinophils (%) (Auto) 1.9 % Basophils (%) (Auto) 0.4 % Neutrophils # (Auto) 10.11 K/uL (1.4-6.5) Lymphocytes # (Auto) 3.36 K/uL (1.2-3.4) Monocytes # (Auto) 1.07 K/uL (0.11-0.59) Eosinophils # (Auto) 0.28 K/uL (0-0.5) Basophils # (Auto) 0.06 K/uL (0-0.2) RDW Standard Deviation 48.4 fL (36.4-46.3) RDW Coefficient of Variation 15.8 % (11.5-14.5) Immature Granulocyte % (Auto) 0.7 % Immature Granulocyte # (Auto) 0.11 K/uL (0.00-0.02) Anion Gap 4.0 mmol/L (3-11) Est Creatinine Clear Calc Drug Dose 147.5 ml/min Estimated GFR () 128.5 Estimated GFR (Non- 110.8 BUN/Creatinine Ratio 10.9 (10-20) Calcium Level 9.5 mg/dl (8.5-10.1) Total Bilirubin 0.3 mg/dl (0.2-1) Aspartate Amino Transf (AST/SGOT) 17 U/L (15-37) Alanine Aminotransferase (ALT/SGPT) 33 U/L (12-78) Alkaline Phosphatase 69 U/L (45-117) Total Protein 7.8 gm/dl (6.4-8.2) Albumin 3.9 gm/dl (3.4-5.0) Globulin 3.9 gm/dl (2.5-4.0) Albumin/Globulin Ratio 1.0 (0.9-2) Salicylates Level 7.4 mg/dl (2.8-20) Acetaminophen Level < 2 ug/ml (10-30) Ethyl Alcohol mg/dL < 3.0 mg/dl (0-3) Laboratory results as reviewed by me. Medications Administered Medications (Trade) Dose Ordered Sig/Den Route Start Time Stop Time Status Last Admin Dose Admin Albuterol/ Ipratropium (Duoneb) 3 ml NOW STAT INH 06/09/17 02:57 06/09/17 02:58 DC 06/09/17 02:57 3 ML ED Course 0259: The patient was evaluated in room A5. A complete history and physical exam was performed. 0303: I reassessed the patient at this time. He states that he is suicidal. He admits that he is here because he needs a shower and food as well. 0400: I reassessed the patient at this time. He states that he is not suicidal. He is demanding to leave immediately. He notes that he only made SI to take a shower. I discussed the results and treatment plan with the patient. I answered all pertaining questions that he had. He expressed understanding and verbalized agreement. The patient will be discharged home. Medical Decision Differential: Mood Disorder, Overdose, Infectious, Electrolyte Abnormality, Cardiac, Hepatic, Endocrine, Toxicologic, Neurologic, amongst other pathologies entertained. 41 yr old male very well known to department arrives stating he wants to kill himself (much like the many previous visits to the ER over last few weeks). He has some wheezing on exam not surprising given his smoking history. He otherwise medically is OK and wheezing is not that substantial. Patient notes that he wishes to have shower and food. Following shower he is quite enraged that he doesn't have a meal tray for him. He is demanding discharge immediately. He states that he only said he was going to kill himself so he could get in to ER as he didn't want to be at his friends place. He states he is not suicidal and does not want to be here any longer. Given the initially very vague statements to begin with, no act of furtherance, the many times he has made these claims then recanted them again, and the fact that to hold him here would require chemical/physical sedation, I do not feel it reasonable to hold him against his will. He was discharged at his request with instructions regarding need to keep lungs under control, and that he can return if he feels he is a threat to himself or others. Of note mild WBC elevation without evidence infection otherwise and his NA has improved. Medication Reconcilliation Current Medication List: was personally reviewed by me Blood Pressure Screening Patient's blood pressure: Elevated blood pressure Blood pressure disposition: Referred to PCP Impression Primary Impression: Personal bathing and showering Additional Impression: Mood disorder Scribe Attestation The scribe's documentation has been prepared under my direction and personally reviewed by me in its entirety. I confirm that the note above accurately reflects all work, treatment, procedures, and medical decision making performed by me. Departure Information Dispostion Home / Self-Care Referrals No Doctor, Assigned (PCP) Forms HOME CARE DOCUMENTATION FORM, IMPORTANT VISIT INFORMATION Additional Instructions We are always here to help. Call 911 or return if you feel you are a risk to yourself or others. Problem Qualifiers
[2017-06-09 03:46] LABS: BASO % 0.4 %; BASO ABS # 0.06 K/uL (0-0.2); EOS % 1.9 %; EOS ABS # 0.28 K/uL (0-0.5); HEMATOCRIT 44.4 % (42-52); HEMOGLOBIN 15.5 g/dL (14.0-18.0); IG# 0.11 K/uL (0.00-0.02); LYMPH % 22.4 %; LYMPH ABS # 3.36 K/uL (1.2-3.4); MEAN CELL VOLUME 84.7 fL (80-100); MEAN CORPUSCULAR HEMOGLOBIN 29.6 pg (25-34); MEAN CORPUSCULAR HGB CONC 34.9 g/dl (32-36); MEAN PLATELET VOLUME 8.7 fL (7.4-10.4); MONO % 7.1 %; MONO ABS # 1.07 K/uL (0.11-0.59); NEUT % 67.5 %; NEUT ABS # 10.11 K/uL (1.4-6.5); PLATELET COUNT 442 K/uL (130-400); RED CELL DISTRIBUTION WIDTH CV 15.8 % (11.5-14.5); RED CELL DISTRIBUTION WIDTH SD 48.4 fL (36.4-46.3); WHITE BLOOD COUNT 14.99 K/uL (4.8-10.8)
[2017-06-09 04:05] LABS: ALBUMIN 3.9 gm/dl (3.4-5.0); CALCIUM 9.5 mg/dl (8.5-10.1); CREATININE 0.83 mg/dl (0.60-1.40); POTASSIUM 3.9 mmol/L (3.5-5.1)
[2017-06-09 04:08] LABS: TOTAL PROTEIN 7.8 gm/dl (6.4-8.2)
== END 2017-06-09 04:13 | disposition home or self-care (01) ==
LOC: EDBD 02:36 → C.EDA 02:40
DX: Z72.821 Inadequate sleep hygiene (principal); F39 Unspecified mood [affective] disorder; F31.9 Bipolar disorder, unspecified; J44.9 Chronic obstructive pulmonary disease, unspecified; I10 Essential (primary) hypertension; E03.9 Hypothyroidism, unspecified; E11.9 Type 2 diabetes mellitus without complications; E66.01 Morbid (severe) obesity due to excess calories; F43.10 Post-traumatic stress disorder, unspecified; F25.9 Schizoaffective disorder, unspecified; F20.9 Schizophrenia, unspecified; F17.200 Nicotine dependence, unspecified, uncomplicated; F12.90 Cannabis use, unspecified, uncomplicated; Z79.899 Other long term (current) drug therapy

== ENCOUNTER 2017-06-09 10:36 | Emergency (ER) | payer OTHER ==
[2017-06-09 11:23] LABS: BASO % 0.5 %; BASO ABS # 0.05 K/uL (0-0.2); EOS % 2.3 %; EOS ABS # 0.25 K/uL (0-0.5); HEMATOCRIT 44.6 % (42-52); HEMOGLOBIN 15.7 g/dL (14.0-18.0); IG# 0.07 K/uL (0.00-0.02); LYMPH % 27.8 %; LYMPH ABS # 3.06 K/uL (1.2-3.4); MEAN CORPUSCULAR HEMOGLOBIN 29.9 pg (25-34); MEAN CORPUSCULAR HGB CONC 35.2 g/dl (32-36); MEAN PLATELET VOLUME 8.9 fL (7.4-10.4); MONO % 7.1 %; MONO ABS # 0.78 K/uL (0.11-0.59); NEUT % 61.7 %; NEUT ABS # 6.79 K/uL (1.4-6.5); PLATELET COUNT 462 K/uL (130-400); RED CELL DISTRIBUTION WIDTH CV 15.8 % (11.5-14.5); RED CELL DISTRIBUTION WIDTH SD 49.1 fL (36.4-46.3)
[2017-06-09 11:39] LABS: ALT/SGPT 33 U/L (12-78); BLOOD UREA NITROGEN 6 mg/dl (7-18); CALCIUM 9.4 mg/dl (8.5-10.1); CARBON DIOXIDE 27 mmol/L (21-32); CREATININE 0.83 mg/dl (0.60-1.40); GLUCOSE 111 mg/dl (70-99); POTASSIUM 4.1 mmol/L (3.5-5.1); SODIUM 133 mmol/L (136-145)
[2017-06-09 11:50] LABS: ALKALINE PHOSPHATASE 73 U/L (45-117); AST/SGOT 19 U/L (15-37); TOTAL PROTEIN 7.8 gm/dl (6.4-8.2)
--- NOTE | 2017-06-09 16:45 | EMERGENCY ROOM VISIT NOTE ---
History Report prepared by Buzz: Francisco Javier Sotomayor Under the Supervision of: Dr. Kurt Bruner D.O. First contact with patient: 10:45 Chief Complaint: MENTAL HEALTH EVALUATION Stated Complaint: MENTAL HEALTH History of Present Illness The patient is a 41 year old male who presents to the Emergency Room for a mental health evaluation secondary to being increasingly suicidal for the past couple of days. The patient states that he his here today because the person who he is trying to sell his car to will not buy it anymore. The patient was here in the department this morning because his car ran out of gas. He states that this is the second time his car has ran out of gas this week. He came here when his car ran out of gas because he does not have anywhere else to go. The patient repeatedly states that he came back to the emergency department because "I am all messed up and I want help." The patient admits to wanting to kill himself and says; "I am going to take pills, I'll shoot myself." "I'll do whatever I have to do." The patient states that he does hear voices that are "f* *marianna telling me to hurt people." Patient denies any headaches, change in vision, chest pain, shortness of breath, nausea vomiting or diarrhea. Source of History: patient Onset: Past couple of days Position: other (Psychiatric) Quality: other (mental health, suicidal) Timing: worsening Note: Positive suicidal, positive hallucinations telling him to hurt people. Review of Systems See HPI for pertinent positives & negatives. A total of 10 systems reviewed and were otherwise negative. Past Medical & Surgical Medical Problems: (1) Aggression (2) Bipolar 1 disorder (3) Bipolar disease, manic (4) COPD (chronic obstructive pulmonary disease) (5) Hypertension (6) Hypothyroidism (7) Lumbar compression fracture (8) Non-insulin dependent type 2 diabetes mellitus (9) Obesity (10) Polysubstance abuse (11) PTSD (post-traumatic stress disorder) (12) Schizoaffective disorder (13) Schizophrenia (14) Suicidal behavior Surgical Problems: (1) History of tonsillectomy Family History No pertinent family history Social History Smoking Status: Current Every Day Smoker Alcohol Use: occasionally Drug Use: marijuana Marital Status: Housing Status: lives alone Occupation Status: disabled Current/Historical Medications Scheduled Albuterol Sulfate (Proair Respiclick), 2 PUFFS INH Q4H Clonidine Hcl (Catapres), 0.3 MG PO BID Haloperidol Decanoate (Haldol Decanoate 100), 200 MG IM MONTHLY Hydroxyzine Pamoate (Vistaril), 25 MG PO BID AT 0900 & 1300 Hydroxyzine Pamoate (Vistaril), 50 MG PO HS Levothyroxine Sodium (Synthroid), 25 MCG PO QAM Metformin Hcl Er (Glucophage Er), 500 MG PO BIDM Omeprazole (Prilosec), 20 MG PO QAM Prazosin Hcl (Prazosin), 4 MG PO HS Quetiapine Fumarate (Seroquel), 100 MG PO HS Scheduled PRN Albuterol Sulf (Proventil 0.083% 2.5MG/3ML), 2.5 MG INH Q4H PRN for Shortness of Breath Allergies Coded Allergies: No Known Allergies (Verified , 06/09/17) Physical Exam Vital Signs Date Time Temp Pulse Resp B/P (MAP) Pulse Ox O2 Delivery O2 Flow Rate FiO2 06/09/17 10:47 108 18 180/98 95 Room Air Physical Exam GENERAL: Sitting up in bed, alert, disheveled, no distress, non-toxic EYE EXAM: normal conjunctiva. OROPHARYNX: no exudate, no erythema, lips, buccal mucosa, and tongue normal and mucous membranes are moist NECK: supple, no nuchal rigidity, no adenopathy, non-tender LUNGS: Clear to auscultation. Normal chest wall mechanics HEART: no murmurs, S1 normal and S2 normal ABDOMEN: abdomen soft, non-tender, normo-active bowel sounds, no masses, no rebound or guarding. BACK: Back is symmetrical on inspection and there is no deformity, no midline tenderness, no CVA tenderness. SKIN: no rashes and no bruising UPPER EXTREMITIES: upper extremities are grossly normal. LOWER EXTREMITIES: No pitting edema. NEURO EXAM: Normal sensorium, cranial nerves II-XII grossly intact, normal speech, no gross weakness of arms, no gross weakness of legs. PSYCH: Admits to suicidal plan along with auditory hallucinations telling him to harm others. Medical Decision & Procedures Laboratory Results 06/09/17 11:02 Red Blood Count 5.25, Mean Corpuscular Volume 85.0, Mean Corpuscular Hemoglobin 29.9, Mean Corpuscular Hemoglobin Concent 35.2, Mean Platelet Volume 8.9, Neutrophils (%) (Auto) 61.7, Lymphocytes (%) (Auto) 27.8, Monocytes (%) (Auto) 7.1, Eosinophils (%) (Auto) 2.3, Basophils (%) (Auto) 0.5, Neutrophils # (Auto) 6.79, Lymphocytes # (Auto) 3.06, Monocytes # (Auto) 0.78, Eosinophils # (Auto) 0.25, Basophils # (Auto) 0.05 06/09/17 11:02 Test 06/09/17 10:52 06/09/17 11:00 06/09/17 11:02 Salicylates Level 5.0 mg/dl (2.8-20) Acetaminophen Level < 2 ug/ml (10-30) Urine Color YELLOW Urine Appearance CLEAR (CLEAR) Urine pH 6.0 (4.5-7.5) Urine Specific [place] 1.008 (1.000-1.030) Urine Protein NEG (NEG) Urine Glucose (UA) NEG (NEG) Urine Ketones NEG (NEG) Urine Occult Blood 1+ (NEG) Urine Nitrite NEG (NEG) Urine Bilirubin NEG (NEG) Urine Urobilinogen NEG (NEG) Urine Leukocyte Esterase NEG (NEG) Urine WBC (Auto) 1-5 /hpf (0-5) Urine RBC (Auto) 0-4 /hpf (0-4) Urine Hyaline Casts (Auto) 0 /lpf (0-5) Urine Epithelial Cells (Auto) 5-10 /lpf (0-5) Urine Bacteria (Auto) NEG (NEG) Urine Opiates Screen NEG (NEG) Urine Methadone, Qualitative NEG (NEG) Urine Barbiturates NEG (NEG) Urine Phencyclidine (PCP) Level NEG (NEG) Ur Amphetamine/Methamphetamine NEG (NEG) MDMA (Ecstasy) Screen NEG (NEG) Urine Benzodiazepines Screen NEG (NEG) Urine Cocaine Metabolite NEG (NEG) Urine Marijuana (THC) POS (NEG) White Blood Count 11.00 K/uL (4.8-10.8) Red Blood Count 5.25 M/uL (4.7-6.1) Hemoglobin 15.7 g/dL (14.0-18.0) Hematocrit 44.6 % (42-52) Mean Corpuscular Volume 85.0 fL (80-100) Mean Corpuscular Hemoglobin 29.9 pg (25-34) Mean Corpuscular Hemoglobin Concent 35.2 g/dl (32-36) Platelet Count 462 K/uL (130-400) Mean Platelet Volume 8.9 fL (7.4-10.4) Neutrophils (%) (Auto) 61.7 % Lymphocytes (%) (Auto) 27.8 % Monocytes (%) (Auto) 7.1 % Eosinophils (%) (Auto) 2.3 % Basophils (%) (Auto) 0.5 % Neutrophils # (Auto) 6.79 K/uL (1.4-6.5) Lymphocytes # (Auto) 3.06 K/uL (1.2-3.4) Monocytes # (Auto) 0.78 K/uL (0.11-0.59) Eosinophils # (Auto) 0.25 K/uL (0-0.5) Basophils # (Auto) 0.05 K/uL (0-0.2) RDW Standard Deviation 49.1 fL (36.4-46.3) RDW Coefficient of Variation 15.8 % (11.5-14.5) Immature Granulocyte % (Auto) 0.6 % Immature Granulocyte # (Auto) 0.07 K/uL (0.00-0.02) Anion Gap 7.0 mmol/L (3-11) Estimated GFR () 128.5 Estimated GFR (Non- 110.8 BUN/Creatinine Ratio 7.7 (10-20) Calcium Level 9.4 mg/dl (8.5-10.1) Total Bilirubin 0.3 mg/dl (0.2-1) Direct Bilirubin < 0.1 mg/dl (0-0.2) Aspartate Amino Transf (AST/SGOT) 19 U/L (15-37) Alanine Aminotransferase (ALT/SGPT) 33 U/L (12-78) Alkaline Phosphatase 73 U/L (45-117) Total Protein 7.8 gm/dl (6.4-8.2) Albumin 4.0 gm/dl (3.4-5.0) Thyroid Stimulating Hormone (TSH) 0.998 uIu/ml (0.300-4.500) Ethyl Alcohol mg/dL < 3.0 mg/dl (0-3) Laboratory results per my review. ED Course ED COURSE: Vital signs were reviewed and showed hypertensive vitals. The patients medical record was reviewed The above diagnostic studies were performed and reviewed. ED treatments and interventions as stated above. 1049: The patient was evaluated in room A5. A complete history and physical examination was performed. 1550: the Psychiatric Import/Export Agent informed me that the patient has signed himself into the hospital voluntarily. Bed-search will ensue. 1740: Patient was accepted to the [facility] on 0201. Medical Decision Differential diagnosis: Etiologies such as mood disorder, infection, hypoglycemia, electrolyte abnormalities, cardiac sources, intracerebral event, toxicologic, neurologic, as well as others were entertained. Patient is a 41-year-old male who was recently seen this morning presents with police who have a 302 box A petition as he made a suicidal statement that he was going to shoot himself or overdose. CBC along with BMP, LFTs, bilirubin and TSH were unremarkable. Alcohol negative. Toxicology negative. UA negative. Patient was updated at bedside and was agreeable to come in on a 201. Currently bed surgery and patient was accepted at 5:40 PM to the [facility] on 201. Patient rested comfortably in the ER. He will be transferred [facility] at 6:30 PM. Medication Reconcilliation Current Medication List: was personally reviewed by me Blood Pressure Screening Patient's blood pressure: Elevated blood pressure Impression Primary Impression: Mood disorder Additional Impression: Suicidal ideation Scribe Attestation The scribe's documentation has been prepared under my direction and personally reviewed by me in its entirety. I confirm that the note above accurately reflects all work, treatment, procedures, and medical decision making performed by me. Departure Information Dispostion Still a Patient (signed out to Dr. Vasquez) Referrals No Doctor, Assigned (PCP) Patient Instructions My [facility] Problem Qualifiers
[2017-06-09 18:37] VITALS: BP 167/84; PULSE 119; O2SAT 95
== END 2017-06-09 18:38 ==
LOC: EDBD 10:36 → C.EDA 10:38
DX: R45.851 Suicidal ideations (principal); F31.9 Bipolar disorder, unspecified; F20.9 Schizophrenia, unspecified; F43.10 Post-traumatic stress disorder, unspecified; I10 Essential (primary) hypertension; J44.9 Chronic obstructive pulmonary disease, unspecified; E03.9 Hypothyroidism, unspecified; E11.9 Type 2 diabetes mellitus without complications; Z79.84 Long term (current) use of oral hypoglycemic drugs; E66.9 Obesity, unspecified; F17.200 Nicotine dependence, unspecified, uncomplicated

== ENCOUNTER 2017-06-27 16:29 | Emergency (ER) | payer OTHER ==
[~2017-06-27] VITALS: Ht 165.1 cm; Wt 124.1 kg
[~2017-06-27 16:29] MED LIST changes: -ALBINS/ INH; +ALBINS/ NEB; -OMEP20CA9 PO
[2017-06-27 16:31] VITALS: TEMP 37; Ht 165.1 cm; Wt 124.1 kg
[2017-06-27] MEDS ORDERED: ACETAMINOPHEN 500 MG TAB PO STA (16:44)
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
[2017-06-27] MEDS ORDERED: GLCSR/500 PO (18:00)
[2017-06-27] MEDS ORDERED: VST25HP PO (18:00)
[2017-06-27] MEDS ORDERED: QUET-115 PO (18:00)
[2017-06-27] MEDS ORDERED: CTP2 PO (18:00)
[2017-06-27] MEDS ORDERED: HALO100I2 IM (18:00)
[2017-06-27] MEDS ORDERED: LEVO25TA5 PO (18:00)
[2017-06-27] MEDS ORDERED: PRAZ2CAP2 PO (18:00)
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
[2017-06-27] MEDS ORDERED: IBUPROFEN 600 MG TAB PO STA (19:45)
[2017-06-27 20:05] VITALS: BP 150/94; PULSE 105; O2SAT 96
[2017-06-27] MEDS ORDERED: OMEP20CA9 PO (20:19)
== END 2017-06-27 20:06 | disposition home or self-care (01) ==
LOC: C.EDB 16:30
DX: S09.90XA Unspecified injury of head, initial encounter (principal); S39.012A Strain of muscle, fascia and tendon of lower back, initial encounter; V88.8XXA Person injured in other specified noncollision transport accidents involving motor vehicle, nontraffic, initial encounter; F31.9 Bipolar disorder, unspecified; J44.9 Chronic obstructive pulmonary disease, unspecified; I10 Essential (primary) hypertension; E03.9 Hypothyroidism, unspecified; E11.9 Type 2 diabetes mellitus without complications; E66.9 Obesity, unspecified; F43.10 Post-traumatic stress disorder, unspecified; F25.9 Schizoaffective disorder, unspecified; F17.210 Nicotine dependence, cigarettes, uncomplicated; Z79.899 Other long term (current) drug therapy

== ENCOUNTER 2017-06-29 17:16 | Emergency (ER) | payer OTHER ==
[~2017-06-29] VITALS: Ht 165.1 cm; Wt 125.9 kg
[~2017-06-29 17:16] MED LIST changes: -CLON0.3T3 PO; +CTP2 PO; +GLCSR/500 PO; -HALO100I IM; +HALO100I2 IM; -LEVO25TA PO; +LEVO25TA5 PO; -METF500T5 PO; +OMEP20CA9 PO; +PRAZ2CAP2 PO; -PRAZ2CAP3 PO; +QUET-115 PO; -QUET1TAB34 PO; +VST25HP PO
[2017-06-29 17:35] VITALS: Ht 165.1 cm; Wt 125.9 kg
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
[2017-06-29 18:26] LABS: BASO % 0.3 %; BASO ABS # 0.03 K/uL (0-0.2); EOS % 2.6 %; EOS ABS # 0.28 K/uL (0-0.5); HEMOGLOBIN 12.6 g/dL (14.0-18.0); IG# 0.04 K/uL (0.00-0.02); LYMPH % 23.3 %; LYMPH ABS # 2.49 K/uL (1.2-3.4); MEAN CELL VOLUME 86.6 fL (80-100); MEAN CORPUSCULAR HEMOGLOBIN 28.7 pg (25-34); MEAN CORPUSCULAR HGB CONC 33.2 g/dl (32-36); MEAN PLATELET VOLUME 8.6 fL (7.4-10.4); MONO % 7.4 %; MONO ABS # 0.79 K/uL (0.11-0.59); NEUT ABS # 7.07 K/uL (1.4-6.5); PLATELET COUNT 316 K/uL (130-400); RED CELL DISTRIBUTION WIDTH CV 16.8 % (11.5-14.5); RED CELL DISTRIBUTION WIDTH SD 52.8 fL (36.4-46.3)
[2017-06-29 18:42] LABS: ALBUMIN 3.1 gm/dl (3.4-5.0); ALT/SGPT 25 U/L (12-78); AST/SGOT 26 U/L (15-37); BLOOD UREA NITROGEN 8 mg/dl (7-18); CALCIUM 8.7 mg/dl (8.5-10.1); CARBON DIOXIDE 30 mmol/L (21-32); CREATININE 0.74 mg/dl (0.60-1.40); GLUCOSE 109 mg/dl (70-99); LIPASE 703 U/L (73-393); POTASSIUM 3.9 mmol/L (3.5-5.1); SODIUM 139 mmol/L (136-145)
--- NOTE | 2017-06-29 18:48 | EMERGENCY ROOM VISIT NOTE ---
History Report prepared by Buzz: Mary Chao Under the Supervision of: Dr. Saskia Carter D.O. First contact with patient: 17:24 Stated Complaint: SOB, MENTAL STATUS CHANGE History of Present Illness The patient is a 42 year old male who presents to the Emergency Room with persistent altered mental status starting WET WASHER MACHINE. The patient presents to the ED by EMS. He was found outside a grocery store with a possible alerted mental status. EMS reported he awoke and seemed to be sleeping. He had called EMS earlier today to have a zip tie removed from his scrotum. The zip tie was placed at a constitution party last night. He complains of SOB. The history is limited secondary to the patient's altered mental status. Patient well-known to the emergency department here frequently with various complaints. Patient often here related to mental health symptoms. Source of History: patient, nursing staff History Limited By: AMS Onset: WET WASHER MACHINE Position: head Quality: other (altered mental status) Timing: other (persistent) Associated Symptoms: + SOB Review of Systems Limited secondary to altered mental status. Past Medical & Surgical Medical Problems: (1) Aggression (2) Bipolar 1 disorder (3) Bipolar disease, manic (4) COPD (chronic obstructive pulmonary disease) (5) Hypertension (6) Hypothyroidism (7) Lumbar compression fracture (8) Non-insulin dependent type 2 diabetes mellitus (9) Obesity (10) Polysubstance abuse (11) PTSD (post-traumatic stress disorder) (12) Schizoaffective disorder (13) Schizophrenia (14) Suicidal behavior Surgical Problems: (1) History of tonsillectomy Family History No pertinent family history Social History Smoking Status: Current Every Day Smoker Alcohol Use: occasionally Marital Status: Occupation Status: disabled Current/Historical Medications Scheduled Clonidine HCl (Clonidine HCl), 0.2 MG PO BID Haloperidol Decanoate (Haloperidol Decanoate), 2 ML IM Q4 WEEKS Hydroxyzine HCl (Hydroxyzine Pamoate), 25 MG PO BID Hydroxyzine Pamoate (Vistaril), 50 MG PO HS Levothyroxine Sodium (Levothyroxine Sodium), 25 MCG PO DAILY Metformin HCl (Metformin HCl ER), 500 MG PO BIDM Omeprazole (Prilosec), 20 MG PO QAM Prazosin Hcl (Prazosin), 4 MG PO HS Quetiapine Fumarate (Quetiapine Fumarate), 100 MG PO HS Scheduled PRN Albuterol Sulf (Proventil 0.083% 2.5MG/3ML), 2.5 MG NEB Q4H PRN for Shortness of Breath Albuterol Sulfate (Proair Respiclick), 2 PUFFS INH QID PRN for SOB/Wheezing Allergies Coded Allergies: No Known Allergies (Verified , 06/18/17) Physical Exam Vital Signs Date Time Temp Pulse Resp B/P (MAP) Pulse Ox O2 Delivery O2 Flow Rate FiO2 06/29/17 19:00 93 20 156/63 92 06/29/17 17:43 76 06/29/17 17:35 74 20 138/57 90 Room Air Physical Exam GENERAL: Obese, appears older than stated age, poor hygiene, somnolent but arousable to voice and painful stimuli. HEAD: NC/AT EYE EXAM: normal conjunctiva, pupils constricted but reactive bilaterally, and EOM's grossly intact OROPHARYNX: no exudate, no erythema, lips, buccal mucosa, and tongue normal and mucous membranes are moist NECK: supple, no nuchal rigidity, no adenopathy, non-tender LUNGS: Decreased breath sounds. No wheezes, rhonchi, rales. Normal chest wall mechanics HEART: no murmurs, S1 normal and S2 normal ABDOMEN: Well healed horizontal scar noted superior to the umbilicus. Abdomen soft, non-tender, normo-active bowel sounds, no masses, no rebound or guarding. BACK: Back is symmetrical on inspection and there is no deformity, no midline tenderness, no CVA tenderness. : Mildly edematous scrotum with zip tie around. No evidence of ischemia, no evidence of rash or sores. SKIN: no rashes and no bruising UPPER EXTREMITIES: upper extremities are grossly normal. Normal pulses, no obvious trauma or deformity LOWER EXTREMITIES: 1+ lower extremity edema. Normal pulses, no obvious trauma or deformity NEURO EXAM: Will follow some basic commands, somnolent but arousable, answers questions appropriately, oriented, unable to perform any additional neuro testing. Patient moving all extremities spontaneously with normal range of motion. Medical Decision & Procedures ER Provider Diagnostic Interpretation: Radiology results have been interpreted by the radiologist and reviewed by me. CHEST ONE VIEW PORTABLE HISTORY: 42 years-old Male hypoxia acute hypoxia with shortness of breath COMPARISON: Chest radiograph 06/27/2017 TECHNIQUE: Portable AP view of the chest FINDINGS: Cardiac silhouette is again mildly enlarged. No pneumothorax, pleural effusion or overt pulmonary edema. Subsegmental bibasilar opacities favor atelectasis. No lobar airspace consolidation. Bones of the chest appear grossly intact. IMPRESSION: 1. Mild cardiomegaly. 2. Subsegmental bibasilar opacities favor atelectasis. The above report was generated using voice recognition software. It may contain grammatical, syntax or spelling errors. Electronically signed by: Cristi Nguyễn M.D. 06/29/2017 6:03 PM Dictated Date/Time: 06/29/2017 6:02 PM Laboratory Results 06/29/17 18:02 Red Blood Count 4.39, Mean Corpuscular Volume 86.6, Mean Corpuscular Hemoglobin 28.7, Mean Corpuscular Hemoglobin Concent 33.2, Mean Platelet Volume 8.6, Neutrophils (%) (Auto) 66.0, Lymphocytes (%) (Auto) 23.3, Monocytes (%) (Auto) 7.4, Eosinophils (%) (Auto) 2.6, Basophils (%) (Auto) 0.3, Neutrophils # (Auto) 7.07, Lymphocytes # (Auto) 2.49, Monocytes # (Auto) 0.79, Eosinophils # (Auto) 0.28, Basophils # (Auto) 0.03 06/29/17 18:02 Test 06/29/17 18:01 06/29/17 18:02 06/29/17 18:11 06/29/17 18:18 Ethyl Alcohol mg/dL < 3.0 mg/dl (0-3) White Blood Count 10.70 K/uL (4.8-10.8) Red Blood Count 4.39 M/uL (4.7-6.1) Hemoglobin 12.6 g/dL (14.0-18.0) Hematocrit 38.0 % (42-52) Mean Corpuscular Volume 86.6 fL (80-100) Mean Corpuscular Hemoglobin 28.7 pg (25-34) Mean Corpuscular Hemoglobin Concent 33.2 g/dl (32-36) Platelet Count 316 K/uL (130-400) Mean Platelet Volume 8.6 fL (7.4-10.4) Neutrophils (%) (Auto) 66.0 % Lymphocytes (%) (Auto) 23.3 % Monocytes (%) (Auto) 7.4 % Eosinophils (%) (Auto) 2.6 % Basophils (%) (Auto) 0.3 % Neutrophils # (Auto) 7.07 K/uL (1.4-6.5) Lymphocytes # (Auto) 2.49 K/uL (1.2-3.4) Monocytes # (Auto) 0.79 K/uL (0.11-0.59) Eosinophils # (Auto) 0.28 K/uL (0-0.5) Basophils # (Auto) 0.03 K/uL (0-0.2) RDW Standard Deviation 52.8 fL (36.4-46.3) RDW Coefficient of Variation 16.8 % (11.5-14.5) Immature Granulocyte % (Auto) 0.4 % Immature Granulocyte # (Auto) 0.04 K/uL (0.00-0.02) Prothrombin Time 10.5 SECONDS (9.0-12.0) Prothromb Time International Ratio 1.0 (0.9-1.1) Anion Gap 3.0 mmol/L (3-11) Est Creatinine Clear Calc Drug Dose 163.8 ml/min Estimated GFR () 133.7 Estimated GFR (Non- 115.4 BUN/Creatinine Ratio 11.1 (10-20) Calcium Level 8.7 mg/dl (8.5-10.1) Magnesium Level 1.8 mg/dl (1.8-2.4) Total Bilirubin 0.3 mg/dl (0.2-1) Aspartate Amino Transf (AST/SGOT) 26 U/L (15-37) Alanine Aminotransferase (ALT/SGPT) 25 U/L (12-78) Alkaline Phosphatase 54 U/L (45-117) Total Creatine Kinase 602 U/L (39-308) Troponin I < 0.015 ng/ml (0-0.045) Pro-B-Type Natriuretic Peptide 83 pg/ml (0-450) Total Protein 6.2 gm/dl (6.4-8.2) Albumin 3.1 gm/dl (3.4-5.0) Globulin 3.1 gm/dl (2.5-4.0) Albumin/Globulin Ratio 1.0 (0.9-2) Lipase 703 U/L (73-393) Thyroid Stimulating Hormone (TSH) 0.961 uIu/ml (0.300-4.500) Acetaminophen Level < 2 ug/ml (10-30) Monoscreen NEG (NEG) Arterial Blood pH 7.35 (7.35-7.45) Arterial Blood Partial Pressure CO2 51 mmHg (35-46) Arterial Blood Partial Pressure O2 72 mm/Hg (80-95) Arterial Blood HCO3 28 mmol/L (19-24) Arterial Blood Oxygen Saturation 91.9 % (90-95) Arterial Blood Base Excess 1.7 mEq/L (-9-1.8) Arterial Blood Gas Delivery 3L César Test POS (POS) Bedside Lactic Acid Venous 0.93 mmol/L (0.90-1.70) Laboratory results per my review. ECG Per My Interpretation Indication: altered mental status Rate (beats per minute): 78 Rhythm: sinus rhythm Findings: RBBB (incomplete), no acute ischemic change, other (normal axis, normal intervals) ED Course 1725: The patient was evaluated in room C9. A complete history and physical exam was performed. 1843: I reevaluated the patient. He is awake. O2 sat on room air is 94. He refused any additional imaging including CT/US. He has no pain at his scrotum. He feels like his breathing is fine and wants to leave. I discussed the risks and benefits of leaving against medical advice. He verbalized understanding. He will be leaving against medical advice. Medical Decision Differential diagnoses includes but is not limited to toxic, metabolic, infectious, traumatic, cardiac, neurologic, hematologic, psychiatric and inflammatory etiologies. Patient advised to have concerns given initial presentation and patient's past medical history. Patient verbalized understanding of this refused any additional imaging. Labs were reviewed and were found to be reassuring given initial presentation. Patient somnolent here initially but able to answer questions appropriately and was easily aroused. Patient more awake at the time he decided to sign out AGAINST MEDICAL ADVICE. Denied any trouble breathing and was not hypoxic. Other vital signs stable. Patient informed of concerns regarding his breathing in light of his COPD and other chronic comorbidities. Discussed concerns regarding the possible strangulation of his testicles and possible long-term disability, he verbalized understanding and stated "I do not want to have kids anyway". At time of AMA signout, patient was in his usual state of health as he has been seen here multiple times previously. Patient with mild hypercapnia noted on blood gas, this is likely chronic for patient given continued tobacco abuse and history of COPD. Patient does not wear home oxygen. Patient is typically noncompliant with his medications and is frequently seen in the emergency room related to complications from his noncompliance. No dysrhythmia noted on telemetry, I do not suspect ACS, or acute vascular pathology. Doubt bacteremia/sepsis. Doubt CVA as he has no obvious neuro deficit, however patient refused neuroimaging to evaluate for this better. Pt denied abdominal pain, informed of elevated lipase, no n/v while here and denied when asked. Patient with poor coping skills and social circumstances. Patient here admits to anxiety but denies SI. Patient asking to leave and was given discharge paperwork regarding concerns about his condition and signed AMA paperwork. Medication Reconcilliation Current Medication List: was personally reviewed by me Blood Pressure Screening Patient's blood pressure: Elevated blood pressure Blood pressure disposition: Referred to PCP Impression Primary Impression: Somnolence Additional Impressions: Obesity Non-compliance Mood disorder Pancreatitis External constriction of scrotum and testes, initial encounter Other specified item causing external constriction, initial encounter Scribe Attestation The scribe's documentation has been prepared under my direction and personally reviewed by me in its entirety. I confirm that the note above accurately reflects all work, treatment, procedures, and medical decision making performed by me. Departure Information Dispostion Against Medical Advice Referrals Devyn Silva M.D. (PCP) Additional Instructions You are welcome to return to the emergency room at any time. By leaving AGAINST MEDICAL ADVICE you are assuming responsibility for your condition and any subsequent complications or long-term effects. It is unclear why her initial oxygen level was low, without performing additional testing we cannot rule out a life-threatening condition. Please take your medications as prescribed. Please follow closely with your family doctor. Please return to the ER for any new or concerning symptoms. Problem Qualifiers Additional Impressions: Obesity Obesity type: unspecified obesity type Obesity classification: unspecified obesity classification Serious obesity comorbidity presence: unspecified whether serious comorbidity present Qualified Codes: E66.9 - Obesity, unspecified Pancreatitis Chronicity: acute Pancreatitis type: unspecified pancreatitis type Acute pancreatitis complication: unspecified Qualified Codes: K85.90 - Acute pancreatitis without necrosis or infection, unspecified
[2017-06-29 18:53] LABS: ALKALINE PHOSPHATASE 54 U/L (45-117); TOTAL PROTEIN 6.2 gm/dl (6.4-8.2)
[2017-06-29 19:00] VITALS: BP 156/63; PULSE 93; O2SAT 92
== END 2017-06-29 19:04 | disposition left against medical advice (07) ==
LOC: EDBD 17:16 → C.EDC 17:17
DX: R40.0 Somnolence (principal); R06.02 Shortness of breath; K85.90 Acute pancreatitis without necrosis or infection, unspecified; R41.82 Altered mental status, unspecified; Z53.21 Procedure and treatment not carried out due to patient leaving prior to being seen by health care provider; Z91.19 Patient's noncompliance with other medical treatment and regimen; E66.9 Obesity, unspecified; S30.843A External constriction of scrotum and testes, initial encounter; X58.XXXA Exposure to other specified factors, initial encounter; J44.9 Chronic obstructive pulmonary disease, unspecified; F31.9 Bipolar disorder, unspecified; I10 Essential (primary) hypertension; E11.9 Type 2 diabetes mellitus without complications; F43.10 Post-traumatic stress disorder, unspecified; F25.9 Schizoaffective disorder, unspecified; E03.9 Hypothyroidism, unspecified; F17.210 Nicotine dependence, cigarettes, uncomplicated; Z79.899 Other long term (current) drug therapy; Z79.84 Long term (current) use of oral hypoglycemic drugs

== ENCOUNTER 2017-06-30 02:54 | Emergency (ER) | payer OTHER ==
[2017-06-30] MEDS ORDERED: HALOPERIDOL LACTATE 5 MG/ML 1 ML VIAL ONE (03:09)
[2017-06-30] MEDS ORDERED: LORAZEPAM 2 MG/ML 1 ML VIAL ONE (03:10)
[2017-06-30 03:11] VITALS: TEMP 36.8; Ht 167.6 cm
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
[2017-06-30 05:11] LABS: HEMOGLOBIN 13.7 g/dL (14.0-18.0); MEAN CORPUSCULAR HEMOGLOBIN 29.5 pg (25-34); MEAN CORPUSCULAR HGB CONC 34.3 g/dl (32-36); MEAN PLATELET VOLUME 8.7 fL (7.4-10.4); PLATELET COUNT 316 K/uL (130-400); RED CELL DISTRIBUTION WIDTH CV 16.5 % (11.5-14.5); RED CELL DISTRIBUTION WIDTH SD 51.8 fL (36.4-46.3); WHITE BLOOD COUNT 10.94 K/uL (4.8-10.8)
[2017-06-30 05:41] LABS: ALBUMIN 3.3 gm/dl (3.4-5.0); ALT/SGPT 26 U/L (12-78); AST/SGOT 26 U/L (15-37); BLOOD UREA NITROGEN 5 mg/dl (7-18); CARBON DIOXIDE 27 mmol/L (21-32); CREATININE 0.72 mg/dl (0.60-1.40); GLUCOSE 100 mg/dl (70-99); POTASSIUM 3.6 mmol/L (3.5-5.1); SODIUM 134 mmol/L (136-145)
[2017-06-30 05:43] LABS: ALKALINE PHOSPHATASE 57 U/L (45-117); TOTAL PROTEIN 6.8 gm/dl (6.4-8.2)
--- NOTE | 2017-06-30 11:45 | EMERGENCY ROOM VISIT NOTE ---
ED Visit Note First contact with patient: 11:43 I received this patient at change of shift signout from Dr. Canales. Please see her note for complete history and physical. The patient has multiple problems and he presented to the emergency department last evening at the request of police with a possible 302 evaluation as well. The patient was medically cleared in the emergency department. He was reevaluated multiple times. I discussed his case with psychiatry as well as the mental health employment evaluator/case manager. At this time no new acute psychiatric needs will be required. He will be discharged to follow-up with his outpatient therapist. I denied the 302 petition at this time. He was encouraged to follow-up with his therapist and continue all medications as prescribed.
[2017-06-30 13:03] VITALS: BP 148/70; PULSE 100; O2SAT 92
== END 2017-06-30 13:05 | disposition home or self-care (01) ==
LOC: EDBD 02:54 → C.EDA 02:55
DX: R45.850 Homicidal ideations (principal); R03.0 Elevated blood-pressure reading, without diagnosis of hypertension; F25.0 Schizoaffective disorder, bipolar type; E03.9 Hypothyroidism, unspecified; F17.200 Nicotine dependence, unspecified, uncomplicated; Z79.899 Other long term (current) drug therapy; Z79.84 Long term (current) use of oral hypoglycemic drugs

== ENCOUNTER 2021-06-09 20:09 | Inpatient (IN) ==
[2021-06-09 20:41] LABS: Basophils # (auto) 0.03 K/uL (0-0.2); Basophils % (auto) 0.3 %; Eosinophils % (auto) 1.7 %; Hematocrit (blood only) 45.5 % (42-52); Hemoglobin 15.3 g/dL (14.0-18.0); Immature Granulocytes # (auto) 0.06 K/uL (0.00-0.02); Immature Granulocytes % (auto) 0.5 %; Lymphocytes # (auto) 2.75 K/uL (1.2-3.4); Lymphocytes % (auto) 23.5 %; Mean Corpuscular Hemoglobin 29.6 pg (25-34); Mean Corpuscular Hgb Conc 33.6 g/dL (32-36); Mean Platelet Volume 9.6 fL (7.4-10.4); Neutrophils # (auto) 7.25 K/uL (1.4-6.5); Platelet Count 305 K/uL (130-400); RDW Coefficient of Variation 15.1 % (11.5-14.5); RDW Standard Deviation 48.3 fL (36.4-46.3); Red Blood Count 5.17 M/uL (4.7-6.1); White Blood Count 11.69 K/uL (4.8-10.8)
[2021-06-09] MEDS ORDERED: ALBUT/IPRATROP 3MG/0.5MG NEB 3 ML VIAL NEB STA (20:44)
[2021-06-09 20:51] LABS: Partial Thromboplastin Ratio 1.1; Partial Thromboplastin Time 29.5 Seconds (21.0-31.0); Prothrombin Time 10.3 Seconds (9.0-12.0)
--- NOTE | 2021-06-09 20:58 | XRay Report ---
XR chest 1V portable CLINICAL HISTORY: SOB TECHNIQUE: Single frontal radiograph of the chest was obtained. Comparison: Comparison is made to chest radiograph 07/27/2019 FINDINGS: No lines and tubes are seen. The cardiomediastinal silhouette is normal. Bilateral lower lung predomi nant airspace opacities are seen. No evidence of pleural effusion or pneumothorax. IMPRESSION: Bilateral lower lung predominant airspace opacities which may represent atelectasis, pneumonia, and/o r aspiration. ACT 112: Negative or not required by law. Electronically signed by: Juanito Salazar M.D. 06/09/2021 8:57 PM
[2021-06-09 21:04] LABS: Albumin Globulin Ratio 1.3 (0.9-2); Albumin Level 4.1 gm/dl (3.4-5.0); BUN Creatinine Ratio 11.3 (10-20); Bilirubin,Total 0.3 mg/dl (0.2-1.0); Calcium 9.6 mg/dl (8.5-10.1); Creatinine Clr Calc Pharmacy 149.6 ml/min; Est GFR (African American) 126.8 ml/min; Est GFR (Non-African American) 109.4 ml/min; Globulin 3.1 gm/dl (2.5-4.0); Magnesium 1.6 mg/dl (1.7-2.4); Potassium 4.6 mmol/L (3.5-5.1); Total Protein 7.2 gm/dl (6.0-8.3)
[2021-06-09 21:10] LABS: Troponin I High Sensitivity 4.8 pg/ml (0-20)
[2021-06-09] MEDS ORDERED: cefTRIAXone SODIUM 1,000 MG/50 ML BAG IV STA (21:13)
[2021-06-09 21:16] LABS: Base Excess VBG 4.1 mEq/L; Oxygen Saturation VBG 83.4 %; pH VBG 7.37 (7.36-7.41)
--- NOTE | 2021-06-09 21:16 | Emergency Department Note ---
Impression & Plan Acute exacerbation of chronic obstructive pulmonary disease, Pneumonia, Hypoxia ED Provider Note NAME: KENNEDY COURTNEY AGE: 45 SEX: M : 1975 ARRIVES VIA: Walk-In INFORMANT: Patient, ED PROVIDER(S): Rio Correa DO CHIEF COMPLAINT: Shortness of breath HPI: The patient is a 45-year-old male who presented to the emergency department for an evaluation of difficulty breathing. The patient states he started noticing cough and difficulty breathing over the last 3 to 4 days. The patient is a history of COPD. He did have a significant weight loss recently and he thinks his symptoms were improving but recently started getting worse. He has been using his home bronchodilator therapy with only minimal relief of his symptoms. He denies having any chest pain but does complain of significant cough which is productive for sputum. He states his family member was also sick recently. He denies having any lower extremity swelling or pain. He denies having any abdominal pain. He states his symptoms are significantly worsened with any ambulation. The patient is supposed to be using supplemental oxygen but he recently was told he had to pay for the oxygen so he sent the oxygen back and has no oxygen at home. ROS: See above HPI for pertinent positives & negatives. A total of 10 systems reviewed and were otherwise negative. PAST MEDICAL HISTORY: See Below PAST SURGICAL HISTORY: See Below FAMILY HISTORY: See Below SOCIAL HISTORY: See Below HOME MEDICATIONS: See Below ALLERGIES: See Below VITALS: See Below PHYSICAL EXAMINATION: GENERAL: The patient is awake and alert. He is very anxious appearing. EYES: The conjunctivae are clear. The pupils are round and reactive. EARS, NOSE, MOUTH AND THROAT: The nose is without any evidence of any deformity. NECK: The neck is nontender and supple. RESPIRATORY: Diminished breath sounds are noted throughout. There is wheezing in both upper lung khan. Mild conversational dyspnea was appreciated. CARDIOVASCULAR: Regular rate and rhythm noted there no murmurs rubs or gallops normal S1 normal S2. GASTROINTESTINAL: The abdomen is soft. Abdomen is nontender. MUSCULOSKELETAL/EXTREMITIES: There is no evidence of gross deformity full range of motion is noted in the hips and shoulders. SKIN: There is no obvious evidence of any rash. Skin is warm and dry. Trace pedal edema was noted bilaterally. NEUROLOGIC: Patient is awake alert and oriented x3. MEDICAL DECISION MAKING: The patient is a 45-year-old male who presented to the emergency department for an evaluation of difficulty breathing. The patient has a history of COPD as well as tobacco use. The patient's history and physical exam appear to be consistent with COPD exacerbation. He is prescribed oxygen but does not wear t he oxygen because of financial issues. The patient was placed on supple oxygen. He was also treated with bronchodilator therapy in the emergency department. He was given IV antibiotics for presumed infection. I discussed the patient's laboratory and radiographic studies with him. I also discussed his case with the on-call [employer] [facility]ist. They have agreed to evaluate the patient in the emergency department for further management and disposition. Triage Nursing notes reviewed. Prior medical records reviewed Vital Signs: reviewed and remarkable for hypoxia Differential diagnosis: Reactive airway disease, pneumonia, pneumothorax, COPD, CHF, infections, cardiac ischemia, pulmonary embolism, musculoskeletal, gastrointestinal, as well as other pathologies. ER treatment provided: See below Diagnostics interpreted by me: ECG: EKG was obtained in the emergency department. My interpretation is normal sinus rhythm at 82 bpm. There is no ectopy. There is no acute ST segment abnormalities noted. This was compared to a tracing from July 262019. No changes were noted. Cardiac Monitoring: An order was placed for continuous cardiac monitoring. The monitor shows a rate of 81 bpm with sinus rhythm. Laboratory studies: As stated above and show below. Imaging studies: See below Consultation(s): I discussed this case with Dr. Lauren who is on-call for the [employer] [facility] group. Past Med/Surg History Medical History (Updated 06/09/21 @ 22:23 by Rio Correa DO) Bipolar disease, manic COPD (chronic obstructive pulmonary disease) Hypothyroidism Non-insulin dependent type 2 diabetes mellitus Polysubstance abuse Schizoaffective disorder Surgical History History of tonsillectomy Family History Other No significant family history Social History Smoking Status: Current every day smoker Tobacco Type: Cigarettes Preferred Language: Luxembourgish Feels Safe at Home: Yes Allergies Allergies Allergy/AdvReac Type Severity Reaction Status Date / Time No Known Allergies Allergy Verified 06/09/21 21:28 Home Meds Home Medications Medication Instructions Recorded Confirmed buspirone 30 mg tablet 30 mg PO BID 02/25/18 06/09/21 clonidine HCl 0.2 mg tablet 0.2 mg PO BID 02/25/18 06/09/21 hydroxyzine pamoate 50 mg capsule 150 mg PO DIRECTED PRN 02/25/18 06/09/21 lamotrigine 100 mg tablet 200 mg PO QAM 02/25/18 06/09/21 levothyroxine 25 mcg tablet 25 mcg PO QAM 02/25/18 06/09/21 lisinopril 20 mg tablet 20 mg PO QAM 02/25/18 06/09/21 omeprazole 20 mg capsule,delayed 20 mg PO QAM 02/25/18 06/09/21 release simvastatin 10 mg tablet 10 mg PO HS 02/25/18 06/09/21 sitagliptin 100 mg tablet (Januvia) 100 mg PO DAILY 03/25/19 06/09/21 metformin 500 mg tablet,extended See Rx Instructions .ROUTE .COMPLEX 09/08/19 06/09/21 release 24 hr haloperidol 20 mg tablet 20 mg PO HS 06/09/21 06/09/21 Previous Rx's Medication Instructions Recorded albuterol sulfate 2.5 mg INH Q4H PRN #90 ml 07/27/19 Results & Data (ED) Vital Signs Vital Signs - 24 hr 06/09/21 20:11 06/09/21 20:26 06/09/21 20:27 Temperature 36.8 C Temperature Source Temporal Artery Scan Pulse Rate 93 H 86 86 Pulse Rate from SpO2 Sensor 86 86 Respiratory Rate 20 25 H 27 H Respiratory Effort / Characteristics Respiratory Depth Normal Blood Pressure 146/84 H 131/82 Blood Pressure Mean 104 98 Blood Pressure Position Sitting Pulse Oximetry 86 L 94 94 Oxygen Delivery Method Room Air Sepsis Recent Fever Within 48 Hours No Sepsis New/Unexplained Change in Mental Status No Sepsis Action Taken by Nursing No Action Required Oxygen Flow Rate - Titration Pulse Oximetry Post Tiitration 06/09/21 20:28 06/09/21 20:30 06/09/21 21:00 Temperature Temperature Source Pulse Rate 85 81 Pulse Rate from SpO2 Sensor 84 80 Respiratory Rate 32 H 24 Respiratory Effort / Characteristics Non-Labored Spontaneous Respiratory Depth Blood Pressure 139/78 135/78 Blood Pressure Mean 98 97 Blood Pressure Position Pulse Oximetry 92 92 Oxygen Delivery Method Nasal Cannula Sepsis Recent Fever Within 48 Hours Sepsis New/Unexplained Change in Mental Status Sepsis Action Taken by Nursing Oxygen Flow Rate - Titration 4 Pulse Oximetry Post Tiitration 95 Home Medications Current Medication List: was personally reviewed by me Laboratory Data Attestation: I reviewed the patient's lab results. Result diagrams: 06/09/21 20:20 06/09/21 20:20 Lab Results 06/09/21 06/09/21 06/09/21 Range/Units 20:20 20:20 20:20 WBC 11.69 H (4.8-10.8) K/uL RBC 5.17 (4.7-6.1) M/uL Hgb 15.3 (14.0-18.0) g/dL Hct 45.5 (42-52) % MCV 88.0 (80-100) fL MCH 29.6 (25-34) pg MCHC 33.6 (32-36) g/dL RDW Std Deviation 48.3 H (36.4-46.3) fL RDW Coeff of Tamir 15.1 H (11.5-14.5) % Plt Count 305 (130-400) K/uL MPV 9.6 (7.4-10.4) fL Immature Gran % (Auto) 0.5 % Neut % (Auto) 62.0 % Lymph % (Auto) 23.5 % Fleming % (Auto) 12.0 % Eos % (Auto) 1.7 % Baso % (Auto) 0.3 % Neut # (Auto) 7.25 H (1.4-6.5) K/uL Lymph # (Auto) 2.75 (1.2-3.4) K/uL Fleming # (Auto) 1.40 H (0.11-0.59) K/uL Eos # (Auto) 0.20 (0-0.5) K/uL Baso # (Auto) 0.03 (0-0.2) K/uL Immature Gran # (Auto) 0.06 H (0.00-0.02) K/uL PT 10.3 (9.0-12.0) Seconds INR 1.0 (0.9-1.1) APTT 29.5 (21.0-31.0) Seconds PTT Ratio 1.1 VBG pH (7.36-7.41) VBG pCO2 (38-50) mmHg VBG pO2 mmHg VBG HCO3 mmol/L VBG O2 Saturation % VBG Base Excess mEq/L Barometric Pressure mm/Hg Sodium 137 (136-145) mmol/L Potassium 4.6 (3.5-5.1) mmol/L Chloride 100 (98-107) mmol/L Carbon Dioxide 32 (21-32) mmol/L Anion Gap 5 (3-11) BUN 9 (6-23) mg/dl Creatinine 0.80 (0.6-1.4) mg/dl Est Cr Clr Drug Dosing 149.6 ml/min Est GFR ( Amer) 126.8 ml/min Est GFR (Non-Af Amer) 109.4 ml/min BUN/Creatinine Ratio 11.3 (10-20) Glucose 156 H (70-99(Fasting)) mg/dl Calcium 9.6 (8.5-10.1) mg/dl Magnesium 1.6 L (1.7-2.4) mg/dl Total Bilirubin 0.3 (0.2-1.0) mg/dl AST 13 (13-39) U/L ALT 17 (7-52) U/L Alkaline Phosphatase 69 (34-104) U/L Troponin I High Sens 4.8 (0-20) pg/ml Total Protein 7.2 (6.0-8.3) gm/dl Albumin 4.1 (3.4-5.0) gm/dl Globulin 3.1 (2.5-4.0) gm/dl Albumin/Globulin Ratio 1.3 (0.9-2) Influ A Molecular Assay (Negative) Influ B Molecular Assay (Negative) SARS-CoV-2, RNA, NAAT (NEGATIVE) 06/09/21 06/09/21 06/09/21 Range/Units 20:55 21:05 21:05 WBC (4.8-10.8) K/uL RBC (4.7-6.1) M/uL Hgb (14.0-18.0) g/dL Hct (42-52) % MCV (80-100) fL MCH (25-34) pg MCHC (32-36) g/dL RDW Std Deviation (36.4-46.3) fL RDW Coeff of Tamir (11.5-14.5) % Plt Count (130-400) K/uL MPV (7.4-10.4) fL Immature Gran % (Auto) % Neut % (Auto) % Lymph % (Auto) % Fleming % (Auto) % Eos % (Auto) % Baso % (Auto) % Neut # (Auto) (1.4-6.5) K/uL Lymph # (Auto) (1.2-3.4) K/uL Fleming # (Auto) (0.11-0.59) K/uL Eos # (Auto) (0-0.5) K/uL Baso # (Auto) (0-0.2) K/uL Immature Gran # (Auto) (0.00-0.02) K/uL PT (9.0-12.0) Seconds INR (0.9-1.1) APTT (21.0-31.0) Seconds PTT Ratio VBG pH 7.37 (7.36-7.41) VBG pCO2 55 H (38-50) mmHg VBG pO2 48 mmHg VBG HCO3 31 mmol/L VBG O2 Saturation 83.4 % VBG Base Excess 4.1 mEq/L Barometric Pressure 733.5 mm/Hg Sodium (136-145) mmol/L Potassium (3.5-5.1) mmol/L Chloride (98-107) mmol/L Carbon Dioxide (21-32) mmol/L Anion Gap (3-11) BUN (6-23) mg/dl Creatinine (0.6-1.4) mg/dl Est Cr Clr Drug Dosing ml/min Est GFR ( Amer) ml/min Est GFR (Non-Af Amer) ml/min BUN/Creatinine Ratio (10-20) Glucose (70-99(Fasting)) mg/dl Calcium (8.5-10.1) mg/dl Magnesium (1.7-2.4) mg/dl Total Bilirubin (0.2-1.0) mg/dl AST (13-39) U/L ALT (7-52) U/L Alkaline Phosphatase (34-104) U/L Troponin I High Sens (0-20) pg/ml Total Protein (6.0-8.3) gm/dl Albumin (3.4-5.0) gm/dl Globulin (2.5-4.0) gm/dl Albumin/Globulin Ratio (0.9-2) Influ A Molecular Assay Negative (Negative) Influ B Molecular Assay Negative (Negative) SARS-CoV-2, RNA, NAAT NEGATIVE (NEGATIVE) Administered Medications Magnesium Sulfate/Dextrose (Magnesium Sulfate / D5w) 1 gm in 100 mls @ 100 mls/hr IV NOW STA Stop: 06/09/21 22:24 Last Admin: 06/09/21 22:08 Dose: 100 mls/hr Documented by: [id number] Discontinued Medications Albuterol (Albut/Ipratrop 3mg/0.5mg Neb 3 Ml Vial) 3 ml NEB NOW STA; Protocol Stop: 06/09/21 20:45 Last Admin: 06/09/21 21:12 Dose: 3 ml Documented by: [id number] Ceftriaxone Sodium (Rocephin) 1,000 mg in 50 mls @ 100 mls/hr IV NOW STA Stop: 06/09/21 21:42 Last Infusion: 06/09/21 22:07 Dose: 0 mls/hr Documented by: [id number] Admin: 06/09/21 21:37 Dose: 100 mls/hr Documented by: [id number] Imaging Data Radiologist's Impression: Chest X-Ray 06/09/21 20:32 XR chest 1V portable CLINICAL HISTORY: SOB TECHNIQUE: Single frontal radiograph of the chest was obtained. Comparison: Comparison is made to chest radiograph 07/27/2019 FINDINGS: No lines and tubes are seen. The cardiomediastinal silhouette is normal. Bilateral lower lung predominant airspace opacities are seen. No evidence of pl eural effusion or pneumothorax. IMPRESSION: Bilateral lower lung predominant airspace opacities which may represent atelectasis, pneumonia, and/or aspiration. ACT 112: Negative or not required by law. Electronically signed by: Juanito Salazar M.D. 06/09/2021 8:57 PM Discharge Plan Visit Data Chief Complaint: Shortness of Breath/Dyspnea Stated Complaint: SOB, COUGH ED Provider: Rio Correa Discharge Problem: Acute exacerbation of chronic obstructive pulmonary disease, Pneumonia, Hypoxia Patient Disposition: Being Evaluated by Hospitalist Forms Stand Alone Forms: My [facility] [email or web address] Prescriptions Prescriptions: No Action Januvia 100 mg tablet 100 mg PO DAILY RF: 0 metformin 500 mg tablet extended release 24 hr See Rx Instructions .ROUTE .COMPLEX RF: 0 lisinopril 20 mg tablet 20 mg PO QAM RF: 0 hydroxyzine pamoate 50 mg capsule 150 mg PO DIRECTED PRN (Reason: PER PT NEEDED) RF: 0 levothyroxine 25 mcg tablet 25 mcg PO QAM RF: 0 clonidine HCl 0.2 mg tablet 0.2 mg PO BID RF: 0 buspirone 30 mg Tablet 30 mg PO BID RF: 0 omeprazole 20 mg capsule,delayed release(DR/EC) 20 mg PO QAM RF: 0 lamotrigine 100 mg tablet 200 mg PO QAM RF: 0 simvastatin 10 mg tablet 10 mg PO HS RF: 0 albuterol sulfate 2.5 mg /3 mL (0.083 %) solution for nebulization 2.5 mg INH Q4H PRN (Reason: shortness of breath or wheezing) Qty: 90 RF: 0 haloperidol 20 mg tablet 20 mg PO HS RF: 0 Referrals Referrals: Devyn Silva MD [Primary Care Provider] -
[2021-06-09] MEDS ORDERED: MAGNESIUM SULFATE / D5W 1 GM/100 ML BAG IV STA (21:25)
[2021-06-09 21:38] LABS: Influenza A virus by PCR Negative (Negative); Influenza B virus by PCR Negative (Negative)
[2021-06-09] MEDS ORDERED: POLYETHYLENE (MIRALAX) 17 GM PACK PO PRN (23:28)
[2021-06-09] MEDS ORDERED: ACETAMINOPHEN 325 MG TAB PO PRN (23:28)
[2021-06-09] MEDS ORDERED: ONDANSETRON INJ 2 MG/ML 2 ML VIAL IV PRN (23:28)
[2021-06-09] MEDS ORDERED: NITROGLYCERIN SL 0.4 MG/TAB TAB SL PRN (23:28)
[2021-06-09] MEDS ORDERED: PNEUMOCOCCAL POLYSACCHARIDES 25 MCG/0.5 ML VIAL/SYR IM ONE (23:54)
--- NOTE | 2021-06-09 23:59 | History and Physical Report ---
DATE OF ADMISSION: 06/09/2021. CHIEF COMPLAINT: Shortness of breath. HISTORY OF PRESENT ILLNESS: This is a 45-year-old male with past medical history significant for bipolar disorder, lumbago, schizophrenia, hypertension, diabetes, hyperhidrosis, morbid obesity, ongoing tobacco abuse, sleep apnea, noncompliant with CPAP, possible chronic respiratory failure, currently not on any oxygen, hyperlipidemia, hypertension, osteoarthritis of multiple sites, history of alcoholism, history of cannabis use, who comes from home with shortness of breath. The patient says in the last couple of days, he is feeling more short of breath, coughing and bringing some phlegm. Denies any fever or chills. No chest pain, no nausea, no vomiting, no abdominal pain. Appetite is okay. No headache, no blurred visions. Some runny nose, some sore throat. Denies any fever or chills. Normal bowel and bladder movements. Ambulating okay. The patient says he is COVID vaccinated x3. Currently, hemodynamically stable, saturating okay on nasal cannula, he was saturating 86% without oxygen. ALLERGIES: AMOXICILLIN. PAST MEDICAL HISTORY: As mentioned above. PAST SURGICAL HISTORY: Repair of epigastric hernia, tonsillectomy, repair of recurrent epigastric hernia. SOCIAL HISTORY: Smokes 1 pack a day for many years. Currently, denies any alcohol use. Lives with his . Ambulates without any support. FAMILY HISTORY: Significant for mother has cardiac stent. MEDICATIONS: The patient is on albuterol inhalation q.4 hours p.r.n., buspirone 30 mg p.o. b.i.d., clonidine 0.2 mg p.o. b.i.d., Trulicity 1 shot once a week, haloperidol 20 mg p.o. at bedtime, hydroxyzine 25 mg p.o. q.6 p.r.n., Lamictal 200 mg p.o. daily, levothyroxine 25 mcg p.o. a.m., lisinopril 20 mg p.o. a.m., metformin as directed, omeprazole 20 mg p.o. a.m., simvastatin 10 mg p.o. at bedtime, Januvia 100 mg p.o. daily, Ellipta 1 inhalation daily. REVIEW OF SYSTEMS: As per HPI. Rest of the review of systems is negative. PHYSICAL EXAMINATION: GENERAL: The patient is morbidly obese, currently not in acute distress. VITAL SIGNS: Temperature 36.8, pulse 81, respiratory 24, blood pressure 135/78, oxygen currently 94% on oxygen nasal cannula. HEENT: Pupils equal, round and reactive to light. Oral mucosa moist. NECK: No JVD. No neck masses. CARDIOVASCULAR: S1 and S2 heard. Regular rate and rhythm. No murmur, no gallop. RESPIRATORY SYSTEM: Normal AP diameter. No accessory muscle use. Mild bilateral diminished breath sounds. No wheezing, no crackles. ABDOMEN: Soft, bowel sounds present, nontender, no distention. CENTRAL NERVOUS SYSTEM: Cranial nerves II-XII grossly intact, nonfocal. EXTREMITIES: No edema, no erythema. LABORATORY DATA: WBC 11.069, hemoglobin 15.3, hematocrit 45.5, platelets 305. PT 10.3, INR 1, APTT 29.5. Venous blood gas, pH of 7.37, pCO2 of 55, pO2 of 48, bicarbonate 21. Sodium 137, potassium 4.6, chloride 100, bicarbonate 32, BUN 9, creatinine 0.8, serum glucose 156, calcium 9.6, magnesium 1.6, total bilirubin 0.3, AST 13, ALT 17, alkaline phosphatase 69. Troponin I high sensitivity 4.8. Influenza A and B negative. SARS-CoV-2 rapid test negative. IMAGING: Chest x-ray, bilateral lower lung predominant airspace opacities, which may represent atelectasis, pneumonia and/or aspiration. ASSESSMENT AND PLAN: This 45-year-old male presents with shortness of breath. 1. Shortness of breath, possibly chronic obstructive pulmonary disease exacerbation, possibly underlying pneumonia: The patient cannot tolerate steroids. We will place him on nebulizers around the clock and p.r.n. Continue home inhalers, antibiotics with IV Rocephin and p.o. doxycycline. Monitor in the med-telemetry.Two step prior to discharge. 2. History of sleep apnea: Currently noncompliant with CPAP at bedtime, he says he will try in the hospital. Place on BiPAP at bedtime. 3. History of bipolar disorder, schizophrenia: Continue his home medications. 4. Hypothyroidism: Continue Synthroid. 5. History of hypertension: Continue his lisinopril. We will monitor his blood pressure. 6. Generalized anxiety disorder: On buspirone. 7. History of hyperlipidemia: On statin. 8. Diabetes: Hold home medication. Place him on Lantus and insulin sliding scale. Follow the blood sugars, follow HbA1c levels. 9. Gastroesophageal reflux disease: On omeprazole. 10. Deep venous thrombosis prophylaxis: Lovenox. DISPOSITION: Closely monitor in the med-tele. PT/OT prior to discharge. Social service to help with discharge planning. Job ID: [id number] [facility] CENTERAshish
[2021-06-10] MEDS: DOXYCYCLINE HYCLATE 100 MG CAP PO SCH ×3 (00:04→21:01)
[2021-06-10] MEDS ORDERED: DEXTROSE 50% 50 ML SYRINGE IV PRN (00:30)
[2021-06-10] MEDS ORDERED: GLUCOSE 40% GEL 15 GM TUBE PO PRN (00:30)
[2021-06-10] MEDS ORDERED: GLUCAGON FOR INJ 1 MG VIAL IM PRN (00:30)
[2021-06-10] MEDS ORDERED: GLUCOSE 10 TABS/TUBE PO PRN (00:30)
[2021-06-10] MEDS ORDERED: CARBOHYDRATES FOR HYPOGLYCEMIA PO PRN (00:30)
[2021-06-10] MEDS ORDERED: XOPENEX/ATROVENT 1.25mg/0.5MG NEB COMBO NEB SCH (01:00)
[2021-06-10] MEDS: LEVALBUTEROL 1.25MG/0.5ML NEB INH SCH ×4 (01:53→20:26)
[2021-06-10] MEDS: IPRATROPIUM BROMIDE NEB SOLN 0.02% 2.5 ML VIAL INH SCH ×4 (01:53→19:16)
[2021-06-10 05:53] LABS: Basophils # (auto) 0.04 K/uL (0-0.2); Basophils % (auto) 0.3 %; Eosinophils # (auto) 0.22 K/uL (0-0.5); Eosinophils % (auto) 1.8 %; Hematocrit (blood only) 46.9 % (42-52); Hemoglobin 15.6 g/dL (14.0-18.0); Immature Granulocytes # (auto) 0.08 K/uL (0.00-0.02); Immature Granulocytes % (auto) 0.7 %; Lymphocytes # (auto) 2.59 K/uL (1.2-3.4); Lymphocytes % (auto) 21.6 %; Mean Corpuscular Hemoglobin 29.3 pg (25-34); Mean Corpuscular Hgb Conc 33.3 g/dL (32-36); Mean Corpuscular Volume 88.2 fL (80-100); Mean Platelet Volume 9.4 fL (7.4-10.4); Monocytes # (auto) 1.31 K/uL (0.11-0.59); Monocytes % (auto) 10.9 %; Neutrophils # (auto) 7.76 K/uL (1.4-6.5); Neutrophils % (auto) 64.7 %; Platelet Count 295 K/uL (130-400); RDW Coefficient of Variation 15.1 % (11.5-14.5); RDW Standard Deviation 48.2 fL (36.4-46.3); Red Blood Count 5.32 M/uL (4.7-6.1)
[2021-06-10] MEDS: LEVOTHYROXINE SODIUM 25 MCG TABLET PO SCH (06:05)
[2021-06-10 06:18] LABS: Calcium 9.6 mg/dl (8.5-10.1); Creatinine Clr Calc Pharmacy 149.7 ml/min; Est GFR (African American) 126.8 ml/min; Est GFR (Non-African American) 109.4 ml/min; Magnesium 1.8 mg/dl (1.7-2.4); Potassium 4.4 mmol/L (3.5-5.1)
[2021-06-10] MEDS ORDERED: SODIUM CHLORIDE 0.9% 1000ML 1,000 ML IV SCH (07:00)
[2021-06-10 07:54] LABS: Estimated Average Glucose 160 mg/dl; Hemoglobin A1C 7.2 % (4.5-5.6)
[2021-06-10] MEDS: PANTOprazole 40 MG TAB PO SCH (08:35)
[2021-06-10] MEDS: INSULIN GLARGINE SOLOSTAR 100 UNITS/ML 3 ML PEN SC SCH ×2 (08:35→21:02)
[2021-06-10] MEDS: lisinopril 20 MG TAB PO SCH (08:35)
[2021-06-10] MEDS: lamoTRIgine 100 MG TAB PO SCH (08:35)
[2021-06-10] MEDS: busPIRone 15 MG TAB PO SCH ×2 (08:36→21:00)
[2021-06-10] MEDS: UMECLIDINIUM BROMIDE 62.5MCG/BLISTER 7 PUFFS/INHALER INH SCH (08:36)
[2021-06-10] MEDS: cloNIDine HCL 0.1 MG TAB PO SCH ×2 (08:36→21:01)
[2021-06-10] MEDS: ENOXAPARIN INJ 40 MG/0.4 ML SYR SQ SCH ×2 (08:37→21:02)
[2021-06-10] MEDS: INSULIN ASPART PER UNIT SC SCH ×4 (08:41→21:10)
[2021-06-10] MEDS ORDERED: OPTIRAY 320 125ml IV ONE (09:02)
[2021-06-10] MEDS: cefTRIAXone SODIUM 2,000 MG in DEXTROSE 5% 50 ML IV SCH (09:11)
--- NOTE | 2021-06-10 10:15 | CT Scan Report ---
CT angio chest PE protocol CT DOSE: 896.55 mGy.cm HISTORY: 45 years-old Male with PE. Acute chest pain with cough and shortness of breath TECHNIQUE: Multiple CTA images of the chest were obtained after the intravenous administration of 120 ml Optiray. Coronal and sagittal MIPS were obtained from the axial data set and were submitted for review. All measurements were obtained according to NASCET criteria. A dose lowering technique was u tilized adhering to the principles of ALARA. COMPARISON: Chest radiograph of same day, CTA chest 01/08/2010 FINDINGS: CTA: The heart is normal in size without pericardial effusion. No thoracic aortic aneurysm or dissection. There is patency of the imaged great vessels. The subsegmental branches of the pulmonary arterial chava e are not well opacified and therefore difficult to evaluate. No pulmonary emboli. CT CHEST: Unremarkable thyroid. Prominent and mildly enlarged mediastinal and hilar lymph nodes include a 1.4 c m right hilar lymph node and 10 mm subcarinal lymph node. These findings are similar to prior. No pne umothorax or pleural effusion. Mild pulmonary emphysema. Bronchial wall thickening suggestive of bron chitis with bilateral mucus plugging. Multifocal multilobar distribution of patchy groundglass and al veolar opacities, most pronounced within the upper lobes. Hepatomegaly with hepatic steatosis. No acute process of the imaged upper abdomen. Unremarkable soft tissues. Unchanged T11 compression deformity. IMPRESSION: 1. No pulmonary emboli. 2. Patchy multifocal groundglass and consolidative opacities, most pronounced within the upper lobes are suggestive of multifocal pneumonia. 3. Mild adenopathy, likely reactive. 4. Emphysema with bronchial wall thickening suggestive of bronchitis. Mild associated mucous plugging . ACT 112: Negative or not required by law. The above report was generated using voice recognition software. It may contain grammatical, syntax o r spelling errors. Electronically signed by: Raul Nguyễn M.D. 06/10/2021 10:12 AM
[2021-06-10] MEDS ORDERED: BENZONATATE 100 MG CAPSULE PO PRN (10:26)
[2021-06-10] MEDS: NICOTINE POLACRILEX 2 MG GUM MT PRN ×3 (11:53→21:06)
[2021-06-10] MEDS: predniSONE 20 MG TAB PO SCH (11:53)
--- NOTE | 2021-06-10 12:15 | Hospitalist Progress Note ---
Date of Service June 10, 2021 Assessment & Plan (1) Acute exacerbation of chronic obstructive pulmonary disease: (2) Pneumonia: (3) Hypoxia: Plan: per Dr. Lauren's notes with addendum: This 45-year-old male presents with shortness of breath. 1. Acute Hypoxic Respiratory Failure secondary to Bilateral Pneumonia, COPD exacerbation -- CXR: bilateral lower lobe pneumonia -- on 5 L NC sputum culture: pending -- discussed with patient, had increased bridget in the past with prednisone, given BL wheezing, ok to start with low dose Prednisone 20mg po daily continue Ceftri + Doxy Nebs usual Incruse --- ordered IS, flutter valve Pulm consult 2. History of sleep apnea: Currently noncompliant with CPAP at bedtime, he says he will try in the hospital. Place on BiPAP at bedtime. 3. History of bipolar disorder, schizophrenia: -- mood stable -- Continue his home medications. 4. Hypothyroidism: Continue Synthroid. 5. History of hypertension: Continue his lisinopril. We will monitor his blood pressure. 6. Generalized anxiety disorder: On buspirone. 7. History of hyperlipidemia: On statin. 8. Diabetes: Hold home medication. Place him on Lantus and insulin sliding scale -- A1c 7.2 -- BSG 124 will order pharmacy glycemic control if patient is on higher dose of prednisone 9. Gastroesophageal reflux disease: On omeprazole. 10. Deep venous thrombosis prophylaxis: Lovenox. plan of care discussed with patient in detail and at length all questions answered he is understanding, agreeable, comfortable with the plan of care Admission and Anticipated Discharge Date Admission Date: June 09, 2021 Subjective ff up for COPD exacerbation, PNA, etc seen resting in bed, comfortable on 5 L NC states he feels about the same as yesterday, maybe slightly better still has cough- unable to expectorate no fever/chills no chest pain, dyspnea, palpitations, dizziness no other symptoms Review of Systems Review of Systems: all noted and negative except for above Physical Exam Physical Exam: General- oriented x 3, not in distress, speaks in sentences with no effort or accessory muscle use Head- atraumatic Eyes- PERRL, EOMI, anicteric ENT- oropharynx clear Neck- supple, no JVD, no adenopathy, no thyromegaly; carotids +2/2, no bruits appreciated Lungs- (+) diffuse rhonchi and mild wheeze BL Heart- normal rate, regular rhythm; no murmur, no gallop, no rub appreciated Abdomen- normal bowel sounds, nondistended, soft, nontender, no masses or hepatosplenomegaly Extremities- no pretibial edema, no calf tenderness; peripheral pulses intact Neuro- alert, oriented x 3; CN 2-12 grossly intact; motor 5/5 bilaterally;sensation 100% on all extremities; no other gross focal neurologic deficits Skin- warm & dry Results & Data Results & Data ([facility]) Vital Signs (Past 12 Hours) Vital Signs Temp Pulse Pulse Resp BP Pulse Ox 06/10/21 11:14 37 C 74 20 134/91 90 06/10/21 07:27 82 06/10/21 07:15 36.6 C 80 20 164/89 H 91 06/10/21 07:06 79 18 92 06/10/21 03:56 36.7 C 72 20 154/75 H 89 L 06/10/21 01:56 75 22 96 06/10/21 00:30 72 all noted and reviewed including below (1) Pneumonia Laterality: bilateral Lung location: lower lobe of lung Pneumonia type: due to unspecified organism Qualified Code(s): J18.9 - Pneumonia, unspecified organism
[2021-06-10] MEDS: LEVALBUTEROL HCL 1.25 MG/3 ML NEB NEB PRN (19:16)
[2021-06-10] MEDS: haloperidoL 5 MG TAB PO SCH (21:02)
[2021-06-10] MEDS: SIMVASTATIN 10 MG TAB PO SCH (21:03)
[2021-06-10] MEDS: LORazepam 0.5 MG TAB PO PRN (21:10)
[2021-06-11] MEDS: IPRATROPIUM BROMIDE NEB SOLN 0.02% 2.5 ML VIAL INH SCH ×4 (00:53→19:29)
[2021-06-11] MEDS: LEVALBUTEROL HCL 1.25 MG/3 ML NEB NEB PRN ×3 (00:53→19:29)
[2021-06-11] MEDS: LEVALBUTEROL 1.25MG/0.5ML NEB INH SCH ×4 (00:54→19:45)
[2021-06-11] MEDS: LEVOTHYROXINE SODIUM 25 MCG TABLET PO SCH (05:33)
--- NOTE | 2021-06-11 05:53 | Electrocardiogram Report ---
Test Reason : Blood Pressure : / mmHG Vent. Rate : 082 BPM Atrial Rate : 082 BPM P-R Int : 142 ms QRS Dur : 092 ms QT Int : 344 ms P-R-T Axes : 033 061 069 degrees QTc Int : 401 ms Normal sinus rhythm Normal ECG When compared with ECG of 27-JUL-2019 17:53, No significant change was found Confirmed by Eber Iverson ([id number]) on 06/11/2021 5:53:28 AM Referred By: REFERRED SELF Confirmed By:Eber Iverson
--- NOTE | 2021-06-11 06:08 | Electrocardiogram Report ---
Test Reason : Blood Pressure : / mmHG Vent. Rate : 081 BPM Atrial Rate : 081 BPM P-R Int : 148 ms QRS Dur : 096 ms QT Int : 356 ms P-R-T Axes : 039 068 072 degrees QTc Int : 413 ms Normal sinus rhythm Normal ECG When compared with ECG of 09-JUN-2021 20:21, No significant change was found Confirmed by Eber Iverson ([id number]) on 06/11/2021 6:08:08 AM Referred By: REFERRED SELF Confirmed By:Eber Iverson
[2021-06-11] MEDS: cloNIDine HCL 0.1 MG TAB PO SCH ×2 (08:44→20:06)
[2021-06-11] MEDS: DOXYCYCLINE HYCLATE 100 MG CAP PO SCH ×2 (08:44→20:07)
[2021-06-11] MEDS: UMECLIDINIUM BROMIDE 62.5MCG/BLISTER 7 PUFFS/INHALER INH SCH (08:44)
[2021-06-11] MEDS: PANTOprazole 40 MG TAB PO SCH (08:45)
[2021-06-11] MEDS: lisinopril 20 MG TAB PO SCH (08:45)
[2021-06-11] MEDS: lamoTRIgine 100 MG TAB PO SCH (08:45)
[2021-06-11] MEDS: busPIRone 15 MG TAB PO SCH ×2 (08:45→20:06)
[2021-06-11] MEDS: predniSONE 20 MG TAB PO SCH (08:46)
[2021-06-11] MEDS: ENOXAPARIN INJ 40 MG/0.4 ML SYR SQ SCH ×2 (08:46→20:07)
[2021-06-11] MEDS: INSULIN GLARGINE SOLOSTAR 100 UNITS/ML 3 ML PEN SC SCH ×2 (08:48→20:09)
[2021-06-11] MEDS: INSULIN ASPART PER UNIT SC SCH ×4 (08:51→20:18)
[2021-06-11] MEDS: cefTRIAXone SODIUM 2,000 MG in DEXTROSE 5% 50 ML IV SCH (08:56)
[2021-06-11] MEDS: FLUTICASONE/VILANTEROL 200/25MCG 14 PUFFS/INHALER INH SCH (09:33)
[2021-06-11] MEDS ORDERED: predniSONE 20 MG TAB PO ONE (11:15)
[2021-06-11] MEDS: guaiFENesin 600 MG TABCR PO SCH ×2 (12:44→20:07)
[2021-06-11] MEDS: SODIUM CHLOR 7% 4 ML NEB NEB SCH ×2 (12:58→19:29)
--- NOTE | 2021-06-11 13:07 | Hospitalist Progress Note ---
Date of Service June 11, 2021 Assessment & Plan (1) Acute exacerbation of chronic obstructive pulmonary disease: (2) Pneumonia: (3) Hypoxia: Plan: per Dr. Lauren's notes with addendum: This 45-year-old male presents with shortness of breath. 1. Acute Hypoxic Respiratory Failure secondary to Bilateral Pneumonia, COPD exacerbation -- CXR: bilateral lower lobe pneumonia -- on 5 L NC--> O2 sats improving sputum culture: pending -- discussed with patient, had increased bridget in the past with prednisone, given BL wheezing, ok to start with low dose Prednisone, tolerating well increase Prednisone to 40mg daily continue Ceftri + Doxy Nebs, add Hypertonic saline add Breo usual Incruse --- ordered IS, flutter valve Pulm consulted 2. History of sleep apnea: Currently noncompliant with CPAP at bedtime, he says he will try in the hospital. Place on BiPAP at bedtime. 3. History of bipolar disorder, schizophrenia: -- mood stable -- Continue his home medications. 4. Hypothyroidism: Continue Synthroid. 5. History of hypertension: Continue his lisinopril. 6. Generalized anxiety disorder: On buspirone. 7. History of hyperlipidemia: On statin. 8. Diabetes: Hold home medication. Place him on Lantus and insulin sliding scale -- A1c 7.2 -- BSG 124 will order pharmacy glycemic control if patient is on higher dose of prednisone 9. Gastroesophageal reflux disease: On omeprazole. 10. Deep venous thrombosis prophylaxis: Lovenox. plan of care discussed with patient in detail and at length all questions answered he is understanding, agreeable, comfortable with the plan of care Admission and Anticipated Discharge Date Admission Date: June 09, 2021 Subjective ff up for pneumonia, COPD exacerbation, etc seen resting in bed, sitting up on 5 L NC not in distress states he feels slightly improved today breathing somewhat improving still has cough, unable to expectorate no chest pain, dyspnea, palpitations, dizziness no other symptoms Review of Systems Review of Systems: all noted and negative except for above Physical Exam Physical Exam: General- oriented x 3, not in distress, speaks in sentences with no effort or accessory muscle use Eyes- anicteric Neck- no JVD Lungs- (+) diffuse rhonchi, mild wheeze bilaterally Heart- normal rate, regular rhythm; no murmurs Abdomen- normal bowel sounds, nondistended, soft, nontender Extremities- no pretibial edema, no calf tenderness Neuro- alert, oriented x 3; no gross focal neurologic deficits Skin- warm & dry Results & Data Results & Data ([facility]) Vital Signs (Past 12 Hours) Vital Signs Temp Pulse Pulse Resp BP Pulse Ox 06/11/21 12:59 89 20 92 06/11/21 11:55 36.6 C 81 21 144/84 H 92 06/11/21 07:33 78 06/11/21 07:30 36.7 C 73 20 142/86 H 95 06/11/21 06:57 20 94 06/11/21 03:32 36.4 C L 74 22 130/73 94 all noted and reviewed including below (1) Pneumonia Laterality: bilateral Lung location: lower lobe of lung Pneumonia type: due to unspecified organism Qualified Code(s): J18.9 - Pneumonia, unspecified organism
--- NOTE | 2021-06-11 13:32 | Pulmonary Consultation ---
Date of Consultation June 11, 2021 Assessment & Plan (1) Pneumonia: Laterality: bilateral Lung location: lower lobe of lung Pneumonia type: due to unspecified organism Qualified Code(s): J18.9 - Pneumonia, unspecified organism (2) COPD (chronic obstructive pulmonary disease): (3) Acute respiratory failure with hypoxia: CT chest 06/10/2021 personally reviewed: Patchy groundglass opacities appreciated bilaterally upper lobes as well as right middle lobe Mosaicism left lower lobe Minimal mediastinal lymphadenopathy --Acute hypoxic respiratory failure Likely secondary to pneumonia COVID-19 PCR negative Influenza A/B negative ESR 66, CRP 6.6 Procalcitonin negative O2 supplementation to keep oxygen between 88-92% --COPD On Spiriva at home Would recommend to change to Anoro prior to discharge --BIN Noncompliant with CPAP Recommend BiPAP/CPAP nightly and as needed shortness of breath --Active smoker Encouraged to quit smoking Plan: Looking at the CT chest I would like to order a respiratory bio fire Continue with inhaled bronchodilators Antibiotics for total of 7 days Please note the above document was generated using voice recognition software. It may contain grammatical, syntax or spelling errors.Any formal questions or concerns about the content, text or information contained within the body of this dictation should be directly addressed to the provider for clarification. History of Present Illness Attending Physician: Tanmay Craft MD History of Present Illness 45-year-old male admitted to the hospital for feeling lethargic and short of breath for the last couple of days Past medical history: Bipolar disorder, schizophrenia, sleep apnea noncompliant with CPAP, dyslipidemia, hypertension, cannabis use Has been vaccinated and boosted. Patient states that he has been having issues with his breathing which has been going on since last week or so He has been coughing but is unable to bring up any phlegm Denies any fever. Subjective chills after coming to the hospital No diarrhea No dysuria. No headache, no blurry vision. He has not been on any oxygen prior to coming to the hospital Denies any chest pain. He does have history of BIN and he has tried CPAP in the past but he was not able to tolerate it. Social history: [id number] smoking history, pack a day smoker Allergies Allergy/AdvReac Type Severity Reaction Status Date / Time No Known Allergies Allergy Verified 06/09/21 21:28 Home Medications Medication Instructions Recorded Confirmed Type buspirone 30 mg tablet 30 mg PO BID 02/25/18 06/09/21 History clonidine HCl 0.2 mg tablet 0.2 mg PO BID 02/25/18 06/09/21 History hydroxyzine pamoate 50 mg capsule 150 mg PO DIRECTED PRN 02/25/18 06/09/21 History lamotrigine 100 mg tablet 200 mg PO QAM 02/25/18 06/09/21 History levothyroxine 25 mcg tablet 25 mcg PO QAM 02/25/18 06/09/21 History lisinopril 20 mg tablet 20 mg PO QAM 02/25/18 06/09/21 History omeprazole 20 mg capsule,delayed 20 mg PO QAM 02/25/18 06/09/21 History release simvastatin 10 mg tablet 10 mg PO HS 02/25/18 06/09/21 History sitagliptin 100 mg tablet (Januvia) 100 mg PO DAILY 03/25/19 06/09/21 History albuterol sulfate 2.5 mg INH Q4H PRN #90 ml 07/27/19 06/09/21 Rx metformin 500 mg tablet,extended See Rx Instructions .ROUTE .COMPLEX 09/08/19 06/09/21 History release 24 hr dulaglutide 0.75 mg/0.5 mL See Rx Instructions .ROUTE .COMPLEX 06/09/21 06/09/21 History subcutaneous pen injector (Trulicity) haloperidol 20 mg tablet 20 mg PO HS 06/09/21 06/09/21 History umeclidinium 62.5 mcg/actuation 1 inh INHALATION DAILY 06/09/21 06/09/21 History blister powder for inhalation (Incruse Ellipta) Patient History Medical History (Updated 06/12/21 @ 12:00 by Matt Yañez MD) Bipolar disease, manic COPD (chronic obstructive pulmonary disease) Hypothyroidism Non-insulin dependent type 2 diabetes mellitus Polysubstance abuse Schizoaffective disorder Surgical History History of tonsillectomy Family History Other No significant family history Social History Smoking Status: Current every day smoker Tobacco Type: Cigarettes Hx Alcohol Use: Yes Hx Substance Use: Yes Preferred Language: Ukrainian Communication Ability: Effective Beliefs That Will Affect Care: Orthodoxy Current Living Situation: Spouse Feels Safe at Home: Yes Assistive Devices: None Review of Systems Review of Systems: All systems reviewed & are unremarkable except as noted in HPI & below Physical Exam Physical Exam: Constitutional: No acute distress HEENT: EOMI, PERRLA Respiratory system: Decreased air entry bilaterally, no rhonchi, mild crackles bilateral lower lobes, positive expiratory wheeze CVS: S1-S2 positive, no murmurs or gallops Abdomen: Soft, nontender, nondistended, positive bowel sounds x4, obese Extremities: +2 pulses bilaterally radialis/ dorsalis pedis, no cyanosis, no edema Neuro: Awake alert oriented x3 Psych: Normal mood and affect G/U: No Shabazz Skin: no rashes, warm and dry Lymphatic: no cervical or axillary lymphadenopathy Results & Data Results & Data ([facility]) Vital Signs (Past 12 Hours) Vital Signs Temp Pulse Pulse Resp BP Pulse Ox 06/11/21 12:59 89 20 92 06/11/21 11:55 36.6 C 81 21 144/84 H 92 06/11/21 07:33 78 06/11/21 07:30 36.7 C 73 20 142/86 H 95 06/11/21 06:57 20 94 06/11/21 03:32 36.4 C L 74 22 130/73 94 Laboratory Results 06/10/21 05:37 06/10/21 05:37 PG Care Time/CCT Total # of Minutes Spent Total Time Spent with Patient: Total time spent is greater than 50% in coordination of care (as documented) at patient's floor/unit and/or counseling patient: Coding Level of Care Code 53834 Initial Inpt Care Lvl 3 Diagnoses Pneumonia J18.9 Laterality: bilateral Lung location: lower lobe of lung Pneumonia type: due to unspecified organism COPD (chronic obstructive pulmonary disease) J44.9 Acute respiratory failure with hypoxia J96.01
[2021-06-11] MEDS: NICOTINE POLACRILEX 2 MG GUM MT PRN ×2 (15:56→20:08)
[2021-06-11] MEDS: LORazepam 0.5 MG TAB PO PRN ×2 (15:56→22:08)
[2021-06-11 16:17] LABS: Adenovirus PCR Not Detected (NotDetected); Bordetella parapertussis PCR Not Detected (NotDetected); Bordetella pertussis PCR Not Detected (NotDetected); Chlamydia pneumoniae PCR Not Detected (NotDetected); Coronavirus 229E PCR Not Detected (NotDetected); Coronavirus CoV-2 (COVID19)PCR Not Detected (NotDetected); Coronavirus HKU1 PCR Not Detected (NotDetected); Coronavirus NL63 PCR Not Detected (NotDetected); Coronavirus OC43PCR Not Detected (NotDetected); Human Metapneumovirus PCR Not Detected (NotDetected); Influenza A PCR Not Detected (NotDetected); Influenza B PCR Not Detected (NotDetected); Mycoplasma pneumoniae PCR Not Detected (NotDetected); Parainfluenza Virus 1 PCR Not Detected (NotDetected); Parainfluenza Virus 2 PCR Not Detected (NotDetected); Parainfluenza Virus 3 PCR Not Detected (NotDetected); Parainfluenza Virus 4 PCR Not Detected (NotDetected); Respiratory Syncytial VirusPCR Not Detected (NotDetected); Rhinovirus/Enterovirus PCR Not Detected (NotDetected)
[2021-06-11] MEDS: haloperidoL 5 MG TAB PO SCH (20:08)
[2021-06-11] MEDS: SIMVASTATIN 10 MG TAB PO SCH (20:10)
[2021-06-12] MEDS: LEVALBUTEROL 1.25MG/0.5ML NEB INH SCH ×5 (00:27→19:06)
[2021-06-12] MEDS: IPRATROPIUM BROMIDE NEB SOLN 0.02% 2.5 ML VIAL INH SCH ×4 (00:27→19:06)
[2021-06-12] MEDS: LEVALBUTEROL HCL 1.25 MG/3 ML NEB NEB PRN ×3 (00:27→12:26)
[2021-06-12] MEDS: LEVOTHYROXINE SODIUM 25 MCG TABLET PO SCH (05:34)
[2021-06-12] MEDS: SODIUM CHLOR 7% 4 ML NEB NEB SCH (07:10)
[2021-06-12] MEDS: NICOTINE POLACRILEX 2 MG GUM MT PRN ×3 (07:58→19:51)
[2021-06-12] MEDS: cefTRIAXone SODIUM 2,000 MG in DEXTROSE 5% 50 ML IV SCH (08:28)
[2021-06-12] MEDS: INSULIN ASPART PER UNIT SC SCH ×4 (08:29→20:44)
[2021-06-12] MEDS: predniSONE 20 MG TAB PO SCH (08:29)
[2021-06-12] MEDS: PANTOprazole 40 MG TAB PO SCH (08:30)
[2021-06-12] MEDS: ENOXAPARIN INJ 40 MG/0.4 ML SYR SQ SCH ×2 (08:30→20:43)
[2021-06-12] MEDS: DOXYCYCLINE HYCLATE 100 MG CAP PO SCH ×2 (08:30→20:42)
[2021-06-12] MEDS: guaiFENesin 600 MG TABCR PO SCH ×2 (08:30→20:42)
[2021-06-12] MEDS: busPIRone 15 MG TAB PO SCH ×2 (08:30→20:43)
[2021-06-12] MEDS: lamoTRIgine 100 MG TAB PO SCH (08:30)
[2021-06-12] MEDS: cloNIDine HCL 0.1 MG TAB PO SCH ×2 (08:30→20:42)
[2021-06-12] MEDS: lisinopril 20 MG TAB PO SCH (08:30)
[2021-06-12] MEDS: INSULIN GLARGINE SOLOSTAR 100 UNITS/ML 3 ML PEN SC SCH ×2 (08:31→20:43)
[2021-06-12] MEDS: FLUTICASONE/VILANTEROL 200/25MCG 14 PUFFS/INHALER INH SCH (08:31)
[2021-06-12] MEDS: UMECLIDINIUM BROMIDE 62.5MCG/BLISTER 7 PUFFS/INHALER INH SCH (08:31)
--- NOTE | 2021-06-12 12:06 | Pulmonology Progress Note ---
Date of Service June 12, 2021 Assessment & Plan (1) Pneumonia: Laterality: bilateral Lung location: lower lobe of lung Pneumonia type: due to unspecified organism Qualified Code(s): J18.9 - Pneumonia, unspecified organism (2) COPD (chronic obstructive pulmonary disease): (3) Acute respiratory failure with hypoxia: Plan: CTA chest 06/10/2021 personally reviewed: Patchy groundglass opacities appre ciated bilaterally upper lobes as well as right middle lobe Mosaicism left lower lobe No evidence of PE Minimal mediastinal lymphadenopathy --Acute hypoxic respiratory failure Likely secondary to pneumonia COVID-19 PCR negative, respiratory bio fire negative Influenza A/B negative ESR 66, CRP 6.6 Procalcitonin negative O2 supplementation to keep oxygen between 88-92% --COPD On Spiriva at home Would recommend to change to Anoro prior to discharge --BIN Noncompliant with CPAP Recommend BiPAP/CPAP nightly and as needed shortness of breath --Active smoker Encouraged to quit smoking Plan: Add Mucomyst nebulized Currently on prednisone 40 mg Is still wheezing If there is no improvement after using the flutter valve and addition of Mucomyst then I would recommend to change to Solu-Medrol IV 40 mg every 12 Please note the above document was generated using voice recognition software. It may contain grammatical, syntax or spelling errors.Any formal questions or concerns about the content, text or information contained within the body of this dictation should be directly addressed to the provider for clarification. Admission and Anticipated Discharge Date Admission Date: June 09, 2021 Subjective Patient seen and examined at bedside. No acute distress Still complains of cough which is not phlegm up Denies any headache, no nausea or vomiting Fair appetite Patient is very adamant of not trying CPAP Review of Systems Review of Systems: All systems reviewed & are unremarkable except as noted in Subjective Physical Exam Physical Exam: Constitutional: No acute distress HEENT: EOMI, PERRLA Respiratory system: Decreased air entry bilaterally, no rhonchi, mild crackles bilateral lower lobes, positive expiratory wheeze CVS: S1-S2 positive, no murmurs or gallops Abdomen: Soft, nontender, nondistended, positive bowel sounds x4, obese Extremities: +2 pulses bilaterally radialis/ dorsalis pedis, no cyanosis, no edema Neuro: Awake alert oriented x3 Psych: Normal mood and affect G/U: No Shabazz Skin: no rashes, warm and dry Lymphatic: no cervical or axillary lymphadenopathy Results & Data Results & Data ([facility]) Vital Signs (Past 12 Hours) Vital Signs Temp Pulse Pulse Resp BP Pulse Ox 06/12/21 11:20 36.8 C 79 18 124/80 92 06/12/21 07:45 36.7 C 84 20 170/96 H 94 06/12/21 07:40 75 06/12/21 07:09 82 22 94 06/12/21 03:25 36.6 C 80 20 129/84 95 06/12/21 00:29 72 24 95 Laboratory Results 06/10/21 05:37 06/10/21 05:37 PG Care Time/CCT Total # of Minutes Spent Total Time Spent with Patient: Total time spent is greater than 50% in coordination of care (as documented) at patient's floor/unit and/or counseling patient: Coding Level of Care Code 04529 Subseq Hosp Care Lvl 2 Diagnoses Pneumonia J18.9 Laterality: bilateral Lung location: lower lobe of lung Pneumonia type: due to unspecified organism COPD (chronic obstructive pulmonary disease) J44.9 Acute respiratory failure with hypoxia J96.01
[2021-06-12] MEDS: ACETYLCYSTEINE 20% INHAL SOLN 4ML ***DISPENSED BY RESP. INH SCH ×2 (12:26→19:16)
--- NOTE | 2021-06-12 13:09 | Hospitalist Progress Note ---
Date of Service June 12, 2021 Assessment & Plan (1) Acute exacerbation of chronic obstructive pulmonary disease: (2) Pneumonia: (3) Hypoxia: Plan: per Dr. Lauren's notes with addendum: This 45-year-old male presents with shortness of breath. 1. Acute Hypoxic Respiratory Failure secondary to Bilateral Pneumonia, COPD exacerbation -- CXR: bilateral lower lobe pneumonia -- on 5 L NC--> O2 sats improving sputum culture: pending -- continue Prednisone 40mg daily if not improving, trial of Solumedrol 40mg IV BID continue Ceftri + Doxy Nebs, Mucomyst added added Breo usual Incruse --- ordered IS, flutter valve Pulm consulted 2. History of sleep apnea: Currently noncompliant with CPAP at bedtime, he says he will try in the hospital. Place on BiPAP at bedtime. 3. History of bipolar disorder, schizophrenia: -- mood stable -- Continue his home medications. 4. Hypothyroidism: Continue Synthroid. 5. History of hypertension: Continue his lisinopril. 6. Generalized anxiety disorder: On buspirone. 7. History of hyperlipidemia: On statin. 8. Diabetes: Hold home medication. Place him on Lantus and insulin sliding scale -- A1c 7.2 -- BSG 127 9. Gastroesophageal reflux disease: On omeprazole. 10. Deep venous thrombosis prophylaxis: Lovenox. plan of care discussed with patient in detail and at length all questions answered he is understanding, agreeable, comfortable with the plan of care Admission and Anticipated Discharge Date Admission Date: June 09, 2021 Subjective ff up for acute COPD exacerbation, pneumonia, etc seen resting in bed, not in distress still remains on 5 L NC breathing somewhat improved compared to yesterday still has cough unable to expectorate sputum no other symptoms Review of Systems Review of Systems: all noted and negative except for above Physical Exam Physical Exam: General- oriented x 3, not in distress, speaks in sentences with no effort or accessory muscle use Eyes- anicteric Neck- no JVD Lungs- (+) diffuse rhonchi and mild wheeze BL Heart- normal rate, regular rhythm; no murmurs Abdomen- normal bowel sounds, nondistended, soft, nontender Extremities- no pretibial edema, no calf tenderness Neuro- alert, oriented x 3; no gross focal neurologic deficits Skin- warm & dry Results & Data Results & Data ([facility]) Vital Signs (Past 12 Hours) Vital Signs Temp Pulse Pulse Resp BP Pulse Ox 06/12/21 12:38 85 20 90 06/12/21 11:20 36.8 C 79 18 124/80 92 06/12/21 07:45 36.7 C 84 20 170/96 H 94 06/12/21 07:40 75 06/12/21 07:09 82 22 94 06/12/21 03:25 36.6 C 80 20 129/84 95 all noted and reviewed including below (1) Pneumonia Laterality: bilateral Lung location: lower lobe of lung Pneumonia type: due to unspecified organism Qualified Code(s): J18.9 - Pneumonia, unspecified organism
[2021-06-12] MEDS: LORazepam 0.5 MG TAB PO PRN ×2 (14:37→22:04)
[2021-06-12] MEDS: haloperidoL 5 MG TAB PO SCH (20:41)
[2021-06-12] MEDS: SIMVASTATIN 10 MG TAB PO SCH (20:41)
[2021-06-13] MEDS: IPRATROPIUM BROMIDE NEB SOLN 0.02% 2.5 ML VIAL INH SCH ×4 (00:11→19:10)
[2021-06-13] MEDS: LEVALBUTEROL 1.25MG/0.5ML NEB INH SCH ×5 (00:11→23:59)
[2021-06-13] MEDS: LEVOTHYROXINE SODIUM 25 MCG TABLET PO SCH (06:12)
[2021-06-13 07:02] LABS: Hematocrit (blood only) 46.1 % (42-52); Hemoglobin 15.5 g/dL (14.0-18.0); Mean Corpuscular Hemoglobin 29.3 pg (25-34); Mean Corpuscular Hgb Conc 33.6 g/dL (32-36); Mean Corpuscular Volume 87.1 fL (80-100); Mean Platelet Volume 9.3 fL (7.4-10.4); Platelet Count 384 K/uL (130-400); RDW Coefficient of Variation 14.4 % (11.5-14.5); RDW Standard Deviation 46.2 fL (36.4-46.3); Red Blood Count 5.29 M/uL (4.7-6.1); White Blood Count 13.25 K/uL (4.8-10.8)
[2021-06-13] MEDS: ACETYLCYSTEINE 20% INHAL SOLN 4ML ***DISPENSED BY RESP. INH SCH ×2 (07:23→19:10)
[2021-06-13 07:31] LABS: Creatinine Clr Calc Pharmacy 148.6 ml/min; Est GFR (African American) 130.2 ml/min; Est GFR (Non-African American) 112.4 ml/min
[2021-06-13] MEDS: INSULIN ASPART PER UNIT SC SCH ×4 (08:20→21:03)
[2021-06-13] MEDS: INSULIN GLARGINE SOLOSTAR 100 UNITS/ML 3 ML PEN SC SCH ×2 (08:21→21:03)
[2021-06-13] MEDS: lisinopril 20 MG TAB PO SCH (08:22)
[2021-06-13] MEDS: cefTRIAXone SODIUM 2,000 MG in DEXTROSE 5% 50 ML IV SCH (08:22)
[2021-06-13] MEDS: PANTOprazole 40 MG TAB PO SCH (08:22)
[2021-06-13] MEDS: guaiFENesin 600 MG TABCR PO SCH ×2 (08:22→20:26)
[2021-06-13] MEDS: lamoTRIgine 100 MG TAB PO SCH (08:22)
[2021-06-13] MEDS: predniSONE 20 MG TAB PO SCH (08:22)
[2021-06-13] MEDS: busPIRone 15 MG TAB PO SCH ×2 (08:22→20:27)
[2021-06-13] MEDS: ENOXAPARIN INJ 40 MG/0.4 ML SYR SQ SCH ×2 (08:22→20:27)
[2021-06-13] MEDS: DOXYCYCLINE HYCLATE 100 MG CAP PO SCH ×2 (08:22→20:26)
[2021-06-13] MEDS: cloNIDine HCL 0.1 MG TAB PO SCH ×2 (08:22→20:27)
[2021-06-13] MEDS: NICOTINE POLACRILEX 2 MG GUM MT PRN ×3 (08:23→17:26)
[2021-06-13] MEDS: UMECLIDINIUM BROMIDE 62.5MCG/BLISTER 7 PUFFS/INHALER INH SCH (08:23)
[2021-06-13] MEDS: FLUTICASONE/VILANTEROL 200/25MCG 14 PUFFS/INHALER INH SCH (08:23)
--- NOTE | 2021-06-13 10:03 | Pulmonology Progress Note ---
Date of Service June 13, 2021 Assessment & Plan (1) Pneumonia: Laterality: bilateral Lung location: lower lobe of lung Pneumonia type: due to unspecified organism Qualified Code(s): J18.9 - Pneumonia, unspecified organism (2) COPD (chronic obstructive pulmonary disease): (3) Acute respiratory failure with hypoxia: Plan: CTA chest 06/10/2021 personally reviewed: Patchy groundglass opacities appre ciated bilaterally upper lobes as well as right middle lobe Mosaicism left lower lobe No evidence of PE Minimal mediastinal lymphadenopathy --Acute hypoxic respiratory failure Likely secondary to pneumonia COVID-19 PCR negative, respiratory bio fire negative Influenza A/B negative ESR 66, CRP 6.6 Procalcitonin negative O2 supplementation to keep oxygen between 88-92% --COPD On Spiriva at home Would recommend to change to Anoro prior to discharge --BIN Noncompliant with CPAP Recommend BiPAP/CPAP nightly and as needed shortness of breath --Active smoker Encouraged to quit smoking Plan: Patient tolerated Mucomyst better than hypertonic saline. Hypertonic saline has been discontinued Can continue with antibiotics for total of 7 days Continue with flutter valve Will benefit from a nebulizer machine along with Mucomyst and Mucinex at home Recommend keeping the patient's oxygen between 90-92% Patient wants to go home. He will most likely need to step and likely end up with oxygen on discharge Please note the above document was generated using voice recognition software. It may contain grammatical, syntax or spelling errors.Any formal questions or concerns about the content, text or information contained within the body of this dictation should be directly addressed to the provider for clarification. Admission and Anticipated Discharge Date Admission Date: June 09, 2021 Subjective Patient seen and examined at bedside. No acute distress, no adverse events overnight. He was sleeping prior to me entering the room. On waking up he said that he is feeling better compared to before He is coughing and is able to bring up phlegm easier than before. Denies any chest pain. No hemoptysis. Fair appetite. Review of Systems Review of Systems: All systems reviewed & are unremarkable except as noted in Subjective Physical Exam Physical Exam: Constitutional: No acute distress HEENT: EOMI, PERRLA Respiratory system: Decreased air entry bilaterally, no rhonchi, mild crackles bilateral lower lobes, minimal expiratory wheeze bilaterally (improved from before) CVS: S1-S2 positive, no murmurs or gallops Abdomen: Soft, nontender, nondistended, positive bowel sounds x4, obese Extremities: +2 pulses bilaterally radialis/ dorsalis pedis, no cyanosis, no edema Neuro: Awake alert oriented x3 Psych: Normal mood and affect G/U: No Shabazz Skin: no rashes, warm and dry Lymphatic: no cervical or axillary lymphadenopathy Results & Data Results & Data ([facility]) Vital Signs (Past 12 Hours) Vital Signs Temp Pulse Pulse Resp BP BP Pulse Ox 06/13/21 07:34 36.7 C 81 16 125/81 94 06/13/21 07:29 75 06/13/21 07:26 90 20 95 06/13/21 03:09 73 20 147/71 H 95 06/13/21 00:11 77 20 93 06/12/21 23:09 36.8 C 74 20 128/77 90 06/12/21 23:00 06/12/21 22:25 76 Pulse Ox 06/13/21 07:34 06/13/21 07:29 06/13/21 07:26 06/13/21 03:09 06/13/21 00:11 06/12/21 23:09 06/12/21 23:00 90 06/12/21 22:25 Laboratory Results 06/13/21 06:32 06/13/21 06:32 PG Care Time/CCT Total # of Minutes Spent Total Time Spent with Patient: Total time spent is greater than 50% in coordination of care (as documented) at patient's floor/unit and/or counseling patient: Coding Level of Care Code 73226 Subseq Hosp Care Lvl 2 Diagnoses Pneumonia J18.9 Laterality: bilateral Lung location: lower lobe of lung Pneumonia type: due to unspecified organism COPD (chronic obstructive pulmonary disease) J44.9 Acute respiratory failure with hypoxia J96.01
[2021-06-13] MEDS: LEVALBUTEROL HCL 1.25 MG/3 ML NEB NEB PRN ×3 (13:21→23:59)
[2021-06-13] MEDS: COUGH DROP (SUGAR FREE) LOZ 24 LOZ/1 BOX BUCCAL PRN ×2 (15:50→20:40)
--- NOTE | 2021-06-13 15:52 | Hospitalist Progress Note ---
Date of Service June 13, 2021 Assessment & Plan (1) Acute exacerbation of chronic obstructive pulmonary disease: (2) Pneumonia: (3) Hypoxia: Plan: per Dr. Lauren's notes with addendum: This 45-year-old male presents with shortness of breath. 1. Acute Hypoxic Respiratory Failure secondary to Bilateral Pneumonia, COPD exacerbation -- CXR: bilateral lower lobe pneumonia -- now on 4 L NC sputum culture: moderate normal master -- continue Prednisone 40mg daily continue Ceftri + Doxy Nebs, Mucomyst added added Breo usual Incruse --- ordered IS, flutter valve Pulm consulted 2. History of sleep apnea: Currently noncompliant with CPAP at bedtime, he says he will try in the hospital. Place on BiPAP at bedtime. 3. History of bipolar disorder, schizophrenia: -- mood stable -- Continue his home medications. 4. Hypothyroidism: Continue Synthroid. 5. History of hypertension: Continue his lisinopril. 6. Generalized anxiety disorder: On buspirone. 7. History of hyperlipidemia: On statin. 8. Diabetes: Hold home medication. Place him on Lantus and insulin sliding scale -- A1c 7.2 -- BSG 127 9. Gastroesophageal reflux disease: On omeprazole. 10. Deep venous thrombosis prophylaxis: Lovenox. plan of care discussed with patient in detail and at length all questions answered he is understanding, agreeable, comfortable with the plan of care Admission and Anticipated Discharge Date Admission Date: June 09, 2021 Subjective ff up for copd exacerbation, pneumonia, etc seen resting in bed, comfortable, on 6L NC states he feels improved today less cough no chest pain, dyspnea, palpitations, dizziness no other symptoms Review of Systems Review of Systems: all noted and negative except for above Physical Exam Physical Exam: General- oriented x 3, not in distress, speaks in sentences with no effort or accessory muscle use Eyes- anicteric Neck- no JVD Lungs- mild rhonchi and wheeze BL Heart- normal rate, regular rhythm; no murmurs Abdomen- normal bowel sounds, nondistended, soft, nontender Extremities- no pretibial edema, no calf tenderness Neuro- alert, oriented x 3; no gross focal neurologic deficits Skin- warm & dry Results & Data Results & Data ([facility]) Vital Signs (Past 12 Hours) Vital Signs Temp Pulse Pulse Resp BP Pulse Ox 06/13/21 15:25 36.8 C 83 16 143/81 H 93 06/13/21 15:22 83 06/13/21 13:23 93 H 20 06/13/21 11:30 36.8 C 76 16 121/79 93 06/13/21 07:34 36.7 C 81 16 125/81 94 06/13/21 07:29 75 06/13/21 07:26 90 20 95 all noted and reviewed including below (1) Pneumonia Laterality: bilateral Lung location: lower lobe of lung Pneumonia type: due to unspecified organism Qualified Code(s): J18.9 - Pneumonia, unspecified organism
[2021-06-13] MEDS: LORazepam 0.5 MG TAB PO PRN (17:28)
[2021-06-13] MEDS: SIMVASTATIN 10 MG TAB PO SCH (20:25)
[2021-06-13] MEDS: haloperidoL 5 MG TAB PO SCH (20:26)
[2021-06-14] MEDS: COUGH DROP (SUGAR FREE) LOZ 24 LOZ/1 BOX BUCCAL PRN ×2 (02:36→08:10)
[2021-06-14] MEDS: LORazepam 0.5 MG TAB PO PRN (02:36)
[2021-06-14] MEDS: LEVOTHYROXINE SODIUM 25 MCG TABLET PO SCH (06:01)
[2021-06-14] MEDS: LEVALBUTEROL HCL 1.25 MG/3 ML NEB NEB PRN (07:18)
[2021-06-14] MEDS: IPRATROPIUM BROMIDE NEB SOLN 0.02% 2.5 ML VIAL INH SCH ×2 (07:18)
[2021-06-14] MEDS: ACETYLCYSTEINE 20% INHAL SOLN 4ML ***DISPENSED BY RESP. INH SCH (07:18)
[2021-06-14] MEDS: NICOTINE POLACRILEX 2 MG GUM MT PRN (08:10)
[2021-06-14] MEDS: FLUTICASONE/VILANTEROL 200/25MCG 14 PUFFS/INHALER INH SCH (08:11)
[2021-06-14] MEDS: ENOXAPARIN INJ 40 MG/0.4 ML SYR SQ SCH (08:11)
[2021-06-14] MEDS: lamoTRIgine 100 MG TAB PO SCH (08:11)
[2021-06-14] MEDS: predniSONE 20 MG TAB PO SCH (08:11)
[2021-06-14] MEDS: DOXYCYCLINE HYCLATE 100 MG CAP PO SCH (08:11)
[2021-06-14] MEDS: cloNIDine HCL 0.1 MG TAB PO SCH (08:11)
[2021-06-14] MEDS: busPIRone 15 MG TAB PO SCH (08:11)
[2021-06-14] MEDS: PANTOprazole 40 MG TAB PO SCH (08:11)
[2021-06-14] MEDS: lisinopril 20 MG TAB PO SCH (08:11)
[2021-06-14] MEDS: guaiFENesin 600 MG TABCR PO SCH (08:11)
[2021-06-14] MEDS: INSULIN GLARGINE SOLOSTAR 100 UNITS/ML 3 ML PEN SC SCH (08:11)
[2021-06-14] MEDS: UMECLIDINIUM BROMIDE 62.5MCG/BLISTER 7 PUFFS/INHALER INH SCH (08:12)
[2021-06-14] MEDS: INSULIN ASPART PER UNIT SC SCH (08:15)
[2021-06-14] MEDS: cefTRIAXone SODIUM 2,000 MG in DEXTROSE 5% 50 ML IV SCH (08:15)
--- NOTE | 2021-06-14 08:20 | Pulmonology Progress Note ---
Date of Service June 14, 2021 Assessment & Plan (1) Pneumonia: Laterality: bilateral Lung location: lower lobe of lung Pneumonia type: due to unspecified organism Qualified Code(s): J18.9 - Pneumonia, unspecified organism (2) COPD (chronic obstructive pulmonary disease): (3) Acute respiratory failure with hypoxia: Plan: CTA chest 06/10/2021 personally reviewed: Patchy groundglass opacities appre ciated bilaterally upper lobes as well as right middle lobe Mosaicism left lower lobe No evidence of PE Minimal mediastinal lymphadenopathy --Acute hypoxic respiratory failure Likely secondary to pneumonia COVID-19 PCR negative, respiratory bio fire negative Influenza A/B negative ESR 66, CRP 6.6 Procalcitonin negative O2 supplementation to keep oxygen between 88-92% --COPD On Spiriva at home Would recommend to change to Anoro prior to discharge --BIN Noncompliant with CPAP Recommend BiPAP/CPAP nightly and as needed shortness of breath --Active smoker Encouraged to quit smoking Plan: Patient had to stop them today and he required 3 L on exertion Recommend Anoro inhaler on discharge. Can consider Trelegy inhaler as an outpatient Give prednisone 40 mg for 3 more days followed by 20 mg for 3 days and then stop Patient will benefit from Mucomyst nebulizer at home as well along with duo nebs as needed No further recommendation from pulmonary perspective. Will sign off Please call directly with any questions Please note the above document was generated using voice recognition software. It may contain grammatical, syntax or spelling errors.Any formal questions or concerns about the content, text or information contained within the body of th is dictation should be directly addressed to the provider for clarification. Admission and Anticipated Discharge Date Admission Date: June 09, 2021 Subjective Patient seen and examined at bedside. No acute distress, no adverse events overnight. Patient states that he is doing much better when he comes to his breathing His chest congestion is improved He coughs but is not bringing up any phlegm now Cough is decrease in intensity Denies any chest pain, shortness of breath is improved Good appetite Review of Systems Review of Systems: All systems reviewed & are unremarkable except as noted in Subjective Physical Exam Physical Exam: Constitutional: No acute distress HEENT: EOMI, PERRLA Respiratory system: Decreased air entry bilaterally, no rhonchi, mild crackles bilateral lower lobes, minimal expiratory wheeze bilaterally (improved from before) CVS: S1-S2 positive, no murmurs or gallops Abdomen: Soft, nontender, nondistended, positive bowel sounds x4, obese Extremities: +2 pulses bilaterally radialis/ dorsalis pedis, no cyanosis, no edema Neuro: Awake alert oriented x3 Psych: Normal mood and affect G/U: No Shabazz Skin: no rashes, warm and dry Lymphatic: no cervical or axillary lymphadenopathy Results & Data Results & Data ([facility]) Vital Signs (Past 12 Hours) Vital Signs Temp Pulse Pulse Resp BP BP Pulse Ox 06/14/21 07:31 36.6 C 75 20 121/74 98 06/14/21 07:22 688 H 22 95 06/14/21 02:59 36.6 C 70 20 134/88 93 06/14/21 00:00 73 18 87 L 06/13/21 23:00 06/13/21 22:58 36.6 C 70 18 121/77 92 06/13/21 22:20 73 Pulse Ox 06/14/21 07:31 06/14/21 07:22 06/14/21 02:59 06/14/21 00:00 06/13/21 23:00 92 06/13/21 22:58 06/13/21 22:20 Laboratory Results 06/13/21 06:32 06/13/21 06:32 PG Care Time/CCT Total # of Minutes Spent Total Time Spent with Patient: Total time spent is greater than 50% in coordination of care (as documented) at patient's floor/unit and/or counseling patient: Coding Level of Care Code 36488 Subseq Hosp Care Lvl 2 Diagnoses Pneumonia J18.9 Laterality: bilateral Lung location: lower lobe of lung Pneumonia type: due to unspecified organism COPD (chronic obstructive pulmonary disease) J44.9 Acute respiratory failure with hypoxia J96.01
--- NOTE | 2021-06-14 08:58 | XRay Report ---
XR chest 1V portable HISTORY: 45 years-old Male f/u acute shortness of breath COMPARISON: CTA chest 06/10/2021, chest radiograph 06/09/2021 TECHNIQUE: Portable AP view of the chest FINDINGS: The cardiomediastinal and hilar silhouettes are within normal limits. No pneumothorax, pleural effusi on or overt pulmonary edema. Ill-defined bilateral airspace opacities are redemonstrated. Bones appea r grossly intact. IMPRESSION: Subtle ill-defined opacities of the left greater than right lungs are suspicious for an i nfectious or inflammatory pneumonitis. ACT 112: Negative or not required by law. The above report was generated using voice recognition software. It may contain grammatical, syntax o r spelling errors. Electronically signed by: Raul Nguyễn M.D. 06/14/2021 8:57 AM
--- NOTE | 2021-06-14 10:18 | Hospitalist Progress Note ---
Date of Service June 14, 2021 Assessment & Plan (1) Acute exacerbation of chronic obstructive pulmonary disease: (2) Pneumonia: (3) Hypoxia: Plan: per Dr. Lauren's notes with addendum: This 45-year-old male presents with shortness of breath. 1. Acute Hypoxic Respiratory Failure secondary to Bilateral Pneumonia, COPD exacerbation -- CXR: bilateral lower lobe pneumonia sputum culture: moderate normal master -- given Prednisone 40mg daily, x 2 days Ceftri + Doxy Nebs, Mucomyst added Breo usual Incruse continued --- ordered IS, flutter valve -- Pulm consulted gradually improved, weaned off oxygen -- d/c plan: Prednisone taper Augment + Doxycycline 3 days Nebs, Mucomyst x 1 week Breo, Incruse ff up with PCP in 1 week 2. History of sleep apnea: Currently noncompliant with CPAP at bedtime 3. History of bipolar disorder, schizophrenia: -- mood stable -- Continue his home medications. 4. Hypothyroidism: Continue Synthroid. 5. History of hypertension: Continue his lisinopril. 6. Generalized anxiety disorder: On buspirone. 7. History of hyperlipidemia: On statin. 8. Diabetes: Hold home medication. Place him on Lantus and insulin sliding scale -- A1c 7.2 -- BSG 127 9. Gastroesophageal reflux disease: On omeprazole. 10. Deep venous thrombosis prophylaxis: Lovenox. plan of care discussed with patient in detail and at length all questions answered he is understanding, agreeable, comfortable with the plan of care Admission and Anticipated Discharge Date Admission Date: June 09, 2021 Subjective FF UP FOR COPD EXACERBATION, PNEUMONIA, ETC seen resting in bed, sitting up comfortable on 4 L NC states he feels much better overall less cough breathing is better no other symptoms states he is ready and would like be discharged today Review of Systems Review of Systems: all noted and negative except for above Physical Exam Physical Exam: General- oriented x 3, not in distress, speaks in sentences with no effort or accessory muscle use Eyes- anicteric Neck- no JVD Lungs- clear BR BL no wheezing, intermittent mild rhonchi Heart- normal rate, regular rhythm; no murmurs Abdomen- normal bowel sounds, nondistended, soft, nontender Extremities- no pretibial edema, no calf tenderness Neuro- alert, oriented x 3; no gross focal neurologic deficits Skin- warm & dry Results & Data Results & Data ([facility]) Vital Signs (Past 12 Hours) Vital Signs Temp Pulse Pulse Pulse Pulse Pulse Pulse 06/14/21 09:07 108 H 106 H 108 H 94 H 111 H 06/14/21 08:51 77 06/14/21 07:31 36.6 C 06/14/21 07:22 06/14/21 02:59 36.6 C 06/14/21 00:00 06/13/21 23:00 06/13/21 22:58 36.6 C 06/13/21 22:20 73 Pulse Resp Resp Resp Resp Resp BP 06/14/21 09:07 26 H 24 22 22 06/14/21 08:51 06/14/21 07:31 75 20 121/74 06/14/21 07:22 688 H 22 06/14/21 02:59 70 20 06/14/21 00:00 73 18 06/13/21 23:00 06/13/21 22:58 70 18 06/13/21 22:20 BP Pulse Ox Pulse Ox Pulse Ox Pulse Ox Pulse Ox Pulse Ox 06/14/21 09:07 87 L 91 85 L 91 06/14/21 08:51 06/14/21 07:31 98 06/14/21 07:22 95 06/14/21 02:59 134/88 93 06/14/21 00:00 87 L 06/13/21 23:00 92 06/13/21 22:58 121/77 92 06/13/21 22:20 Pulse Ox 06/14/21 09:07 93 06/14/21 08:51 06/14/21 07:31 06/14/21 07:22 06/14/21 02:59 06/14/21 00:00 06/13/21 23:00 06/13/21 22:58 06/13/21 22:20 all noted and reviewed including below (1) Pneumonia Laterality: bilateral Lung location: lower lobe of lung Pneumonia type: due to unspecified organism Qualified Code(s): J18.9 - Pneumonia, unspecified organism
[2021-06-14] MEDS: LEVALBUTEROL 1.25MG/0.5ML NEB INH SCH (11:10)
--- NOTE | 2021-06-14 13:14 | Discharge Summary ---
Date of Service June 14, 2021 Admission HPI Per Admitting Provider HISTORY OF PRESENT ILLNESS: This is a 45-year-old male with past medical history significant for bipolar disorder, lumbago, schizophrenia, hypertension, diabetes, hyperhidrosis, morbid obesity, ongoing tobacco abuse, sleep apnea, noncompliant with CPAP, possible chronic respiratory failure, currently not on any oxygen, hyperlipidemia, hypertension, osteoarthritis of multiple sites, history of alcoholism, history of cannabis use, who comes from home with shortness of breath. The patient says in the last couple of days, he is feeling more short of breath, coughing and bringing some phlegm. Denies any fever or chills. No chest pain, no nausea, no vomiting, no abdominal pain. Appetite is okay. No headache, no blurred visions. Some runny nose, some sore throat. Denies any fever or chills. Normal bowel and bladder movements. Ambulating okay. The patient says he is COVID vaccinated x3. Currently, hemodynamically stable, saturating okay on nasal cannula, he was saturating 86% without oxygen. ALLERGIES: AMOXICILLIN. PAST MEDICAL HISTORY: As mentioned above. PAST SURGICAL HISTORY: Repair of epigastric hernia, tonsillectomy, repair of recurrent epigastric hernia. SOCIAL HISTORY: Smokes 1 pack a day for many years. Currently, denies any alcohol use. Lives with his . Ambulates without any support. FAMILY HISTORY: Significant for mother has cardiac stent. MEDICATIONS: The patient is on albuterol inhalation q.4 hours p.r.n., buspirone 30 mg p.o. b.i.d., clonidine 0.2 mg p.o. b.i.d., Trulicity 1 shot once a week, haloperidol 20 mg p.o. at bedtime, hydroxyzine 25 mg p.o. q.6 p.r.n., Lamictal 200 mg p.o. daily, levothyroxine 25 mcg p.o. a.m., lisinopril 20 mg p.o. a.m., metformin as directed, omeprazole 20 mg p.o. a.m., simvastatin 10 mg p.o. at bedtime, Januvia 100 mg p.o. daily, Ellipta 1 inhalation daily. REVIEW OF SYSTEMS: As per HPI. Rest of the review of systems is negative. Principal Diagnosis BILATERAL PNEUMONIA COPD EXACERBATION Discharge Exam General- oriented x 3, not in distress, speaks in sentences with no effort or accessory muscle use Eyes- anicteric Neck- no JVD Lungs- clear BR BL no wheezing, intermittent mild rhonchi Heart- normal rate, regular rhythm; no murmurs Abdomen- normal bowel sounds, nondistended, soft, nontender Extremities- no pretibial edema, no calf tenderness Neuro- alert, oriented x 3; no gross focal neurologic deficits Skin- warm & dry Discharge Data Allergies Allergy/AdvReac Type Severity Reaction Status Date / Time No Known Allergies Allergy Verified 06/09/21 21:28 Consultations 06/09/21 21:22 ED Decision to Admit Stat 06/11/21 13:04 Consult Pulmonology Routine Ordered Studies 06/10/21 06:57 CT angio chest PE protocol Urgent COMPARISON: Chest radiograph of same day, CTA chest 01/08/2010 FINDINGS: CTA: The heart is normal in size without pericardial effusion. No thoracic aortic aneurysm or dissection. There is patency of the imaged great vessels. The subsegmental branches of the pulmonary arterial tree are not well opacified and therefore difficult to evaluate. No pulmonary emboli. CT CHEST: Unremarkable thyroid. Prominent and mildly enlarged mediastinal and hilar lymph nodes include a 1.4 cm right hilar lymph node and 10 mm subcarinal lymph node. T hese findings are similar to prior. No pneumothorax or pleural effusion. Mild pulmonary emphysema. Bronchial wall thickening suggestive of bronchitis with bilateral mucus plugging. Multifocal multilobar distribution of patchy groundglass and alveolar opacities, most pronounced within the upper lobes. Hepatomegaly with hepatic steatosis. No acute process of the imaged upper abdomen. Unremarkable soft tissues. Unchanged T11 compression deformity. IMPRESSION: 1. No pulmonary emboli. 2. Patchy multifocal groundglass and consolidative opacities, most pronounced within the upper lobes are suggestive of multifocal pneumonia. 3. Mild adenopathy, likely reactive. 4. Emphysema with bronchial wall thickening suggestive of bronchitis. Mild associated mucous plugging. ACT 112: Negative or not required by law. Hospital Course (1) Acute exacerbation of chronic obstructive pulmonary disease: (2) Pneumonia: (3) Hypoxia: per Dr. Lauren's notes with addendum: This 45-year-old male presents with shortness of breath. 1. Acute Hypoxic Respiratory Failure secondary to Bilateral Pneumonia, COPD exacerbation -- CXR: bilateral lower lobe pneumonia sputum culture: moderate normal master -- given Prednisone 40mg daily, x 2 days Ceftri + Doxy Nebs, Mucomyst added Breo usual Incruse continued --- ordered IS, flutter valve -- Pulm consulted gradually improved, weaned off oxygen -- d/c plan: Prednisone taper Augment + Doxycycline 3 days Nebs, Mucomyst x 1 week Breo, Incruse ff up with PCP in 1 week 2. History of sleep apnea: Currently noncompliant with CPAP at bedtime 3. History of bipolar disorder, schizophrenia: -- mood stable -- Continue his home medications. 4. Hypothyroidism: Continue Synthroid. 5. History of hypertension: Continue his lisinopril. 6. Generalized anxiety disorder: On buspirone. 7. History of hyperlipidemia: On statin. 8. Diabetes: Hold home medication. Place him on Lantus and insulin sliding scale -- A1c 7.2 -- BSG 127 9. Gastroesophageal reflux disease: On omeprazole. 10. Deep venous thrombosis prophylaxis: Lovenox. plan of care discussed with patient in detail and at length all questions answered he is understanding, agreeable, comfortable with the plan of care Total Time Total Time Spent Total Time Spent (In Minutes): >30 MINUTES Discharge Plan Discharge Items Patient Disposition: Home - Self-Care Reason For Visit: SOB Discharge Diagnosis: PNEUMONIA COPD FLARE UP Activity: As commented below Activity Comment: NO HEAXY EXERTION, USE OXYGEN SUPPLEMENT 3 LITERS WHILE AMBULATING Lifting: Wait until after follow-up appointment Exercise/Sports: Wait until after follow-up appointment Driving/Machine Use: NO DRIVING UNTIL RE-EVALUATED AND ALLOWED BY PRIMARY CARE PHYSICIAN Non-emergency contact: Primary Care Provider Call non-emergency contact if: you have any medication questions, your symptoms worsen and you have a fever Follow-up/Referrals: Devyn Silva MD [Primary Care Provider] - Diet: Carb Consistent or DM2 and Heart Healthy Addtl Attending Provider Instructions: PLEASE REFER TO YOUR NEW MEDICATION LIST AND FOLLOW INSTRUCTIONS CAREFULLY. YOUR NEW MEDICATIONS INCLUDE: PREDNISONE TAPER 30MG DAILY X 2 DAYS, THEN 20MG DAILY X 2 DAYS, THEN 10MG DAILY X 2 DAYS, THEN STOP. AUGMENTIN AND DOXYCYCLINE- antibiotics for pneumonia BREO ELLIPTA- detention COPD control LEVALBUTEROL AND IPRATROPIUM, MUCOMYST- NEBULIZER MUCINEX- expectorant LORAZEPAM (ATIVAN)- as needed for anxiety, DO NOT drive while taking Ativan PLEASE CALL YOUR PRIMARY CARE PHYSICIAN OR RETURN TO THE ER IF WITH WORSENING OF SYMPTOMS, INCLUDING shortness of breath, worsening cough, fever/chills, diarrhea, chest pain, palpitations, dizziness. FOLLOW UP WITH PRIMARY CARE PHYSICIAN in 1 week. THE CLINIC WILL BE CALLING YOU FOR THE APPOINTMENT. Pending Studies at Discharge: No Stand-Alone Forms: [facility] [employer], Smoking Cessation Medications and DC Order Prescriptions: New doxycycline hyclate 100 mg Capsule 100 mg PO BID 3 Days Qty: 6 RF: 0 ipratropium bromide 0.02 % Solution 0.5 mg inhalation Q6R 7 Days Qty: 150 RF: 1 levalbuterol HCl 1.25 mg/0.5 mL Solution For Nebulization 1.25 mg inhalation Q6R 7 Days Qty: 60 RF: 1 lorazepam 0.5 mg Tablet 0.5 mg PO Q6H PRN (Reason: anxiety) Qty: 5 RF: 0 prednisone 10 mg tablet 10 mg PO DAILY Qty: 12 RF: 0 acetylcysteine 200 mg/mL (20 %) Solution 5 ml inhalation Q12R 7 Days Qty: 14 RF: 0 Breo Ellipta 200-25 mcg/dose Blister With Device 1 ea inhalation DAILY Qty: 60 RF: 2 guaifenesin [Mucinex] 600 mg Tablet Extended Release 12hr 1,200 mg PO Q12 7 Days Qty: 28 RF: 0 amoxicillin-pot clavulanate 875-125 mg tablet 1 tab PO BID Qty: 6 RF: 0 Continued Januvia 100 mg tablet 100 mg PO DAILY RF: 0 metformin 500 mg tablet extended release 24 hr See Rx Instructions .ROUTE .COMPLEX RF: 0 lisinopril 20 mg tablet 20 mg PO QAM RF: 0 hydroxyzine pamoate 50 mg capsule 150 mg PO DIRECTED PRN (Reason: PER PT NEEDED) RF: 0 levothyroxine 25 mcg tablet 25 mcg PO QAM RF: 0 clonidine HCl 0.2 mg tablet 0.2 mg PO BID RF: 0 buspirone 30 mg Tablet 30 mg PO BID RF: 0 omeprazole 20 mg capsule,delayed release(DR/EC) 20 mg PO QAM RF: 0 lamotrigine 100 mg tablet 200 mg PO QAM RF: 0 simvastatin 10 mg tablet 10 mg PO HS RF: 0 albuterol sulfate 2.5 mg /3 mL (0.083 %) solution for nebulization 2.5 mg INH Q4H PRN (Reason: shortness of breath or wheezing) Qty: 90 RF: 0 haloperidol 20 mg tablet 20 mg PO HS RF: 0 Incruse Ellipta 62.5 mcg/actuation blister with device 1 inh INHALATION DAILY RF: 0 Trulicity 0.75 mg/0.5 mL pen injector See Rx Instructions .ROUTE .COMPLEX RF: 0 Discharge Orders: Discharge Order (Routine); Ordered 06/14/21 Ordered By: Tanmay Yu/Other Patient Handouts: High Blood Sugar (Hyperglycemia), Managing Type 2 Diabetes Admission Data Admit Date/Time: 06/09/21 22:28 Attending Provider: Tanmay Craft Admit Provider: Michael Lauren Primary Care Provider: Devyn Silva Other Providers: Michael Lauren ; Matt Yañez Other Interventions: Discharge Summary Assessment (RN) Last Done: 06/14/21 12:32
== END 2021-06-14 13:19 | disposition home or self-care (01) | DRG 193 ==
LOC: ED 20:09 → 2N 22:28

== ENCOUNTER 2022-03-16 19:26 | Inpatient (IN) ==
[2022-03-16] MEDS ORDERED: dexAMETHasone**PF** 10 MG/ML VIAL IV ONE (19:41)
[2022-03-16] MEDS ORDERED: ALBUT/IPRATROP 3MG/0.5MG NEB 3 ML VIAL NEB ONE (19:41)
--- NOTE | 2022-03-16 20:15 | Emergency Department Note ---
Impression & Plan Acute exacerbation of chronic obstructive pulmonary disease, Hypoxia, Acute respiratory distress, Acute respiratory acidosis ED Provider Note NAME: KENNEDY COURTNEY AGE: 46 SEX: M : 1975 ARRIVES VIA: Walk-In INFORMANT: Patient, ED PROVIDER(S): Rio Correa DO CHIEF COMPLAINT: Shortness of breath HPI: The patient is a 46-year-old male who has a history of COPD and tobacco use who presented to the emergency department for an evaluation of difficulty breathing. The patient states he has had symptoms for approximately 4 to 5 days . He has had a cough which is productive. He denies having any hemoptysis. He denies having any fever. The patient's been compliant with his outpatient medication which includes albuterol. He has not been seen by his primary care physician for the symptoms. Symptoms significantly worsened and the patient presented to the emergency department for further evaluation. He states his symptoms worsen with any exertion. ROS: See above HPI for pertinent positives & negatives. A total of 10 systems reviewed and were otherwise negative. PAST MEDICAL HISTORY: See Below PAST SURGICAL HISTORY: See Below FAMILY HISTORY: See Below SOCIAL HISTORY: See Below HOME MEDICATIONS: See Below ALLERGIES: See Below VITALS: See Below PHYSICAL EXAMINATION: GENERAL: The patient is awake and alert. He is very anxious appearing. EYES: The conjunctivae are clear. The pupils are round and reactive. EARS, NOSE, MOUTH AND THROAT: The nose is without any evidence of any deformity. NECK: The neck is nontender and supple. RESPIRATORY: Diminished breath sounds are noted throughout. There is faint wheezing in both upper lung khan. There was significant tachypnea as well as conversational dyspnea. CARDIOVASCULAR: Regular rate and rhythm noted there no murmurs rubs or gallops normal S1 normal S2. GASTROINTESTINAL: The abdomen is soft. Abdomen is nontender. MUSCULOSKELETAL/EXTREMITIES: There is no evidence of gross deformity full range of motion is noted in the hips and shoulders. SKIN: Skin is warm and dry. No significant pedal edema or calf tenderness was elicited. NEUROLOGIC: Patient is awake alert and oriented x3 MEDICAL DECISION MAKING: The patient is a 46-year-old male who presented to the emergency department for an evaluation of difficulty breathing. The patient has had similar symptoms in the past. He does have a history of COPD. The patient was treated with supplemental oxygen. He was also treated with bronchodilator therapy in the emergency department. He was covered with a steroid as well as an antibiotic. I discussed patient's laboratory and radiographic studies with him. On reevaluation he was significantly improved. He still had a significant oxygen requirement however. For this reason [facility] have agreed to evaluate the patient in the emergency department for further management and disposition. Triage Nursing notes reviewed. Prior medical records reviewed Vital Signs: reviewed and remarkable for elevated blood pressure and hypoxia. Differential diagnosis: Reactive airway disease, pneumonia, pneumothorax, COPD, CHF, infections, cardiac ischemia, pulmonary embolism, musculoskeletal, gastrointestinal, as well as other pathologies. ER treatment provided: See below Diagnostics interpreted by me: ECG: EKG was obtained in the emergency department. My interpretation is normal sinus rhythm at 76 bpm. There is no ectopy. There was no acute ST segment abnormalities noted. This was compared to a tracing from June 10, 2021. No changes were noted. With Cardiac Monitoring: An order was placed for continuous cardiac monitoring. The monitor shows a rate of 73 bpm with sinus rhythm. Laboratory studies: As stated above and show below. Imaging studies: See below. Radiographic imaging was reviewed by myself Consultation(s): I discussed this case with Dr. Cisneros who [facility] ED COURSE: Procedures: none Critical Care: I have personally spent greater than 45 minutes of critical care time in the dir ect management of this patient. This includes bedside care, interpretation of diagnostic studies, and testing, discussion with consultants, patient, and family members, and other required patient management activities. This 45 minutes is in excess of all separately billable procedures. Past Med/Surg History Medical History (Updated 03/17/22 @ 01:04 by Rio Correa DO) Bipolar disease, manic COPD (chronic obstructive pulmonary disease) Hypothyroidism Non-insulin dependent type 2 diabetes mellitus Polysubstance abuse Schizoaffective disorder Surgical History History of tonsillectomy Family History Other No significant family history Social History Smoking Status: Current every day smoker Tobacco Type: Cigarettes Hx Alcohol Use: Yes Hx Substance Use: Yes Preferred Language: Norwegian Communication Ability: Effective Beliefs That Will Affect Care: Hoahaoism Current Living Situation: Spouse Feels Safe at Home: Yes Assistive Devices: None Allergies Allergies Allergy/AdvReac Type Severity Reaction Status Date / Time amoxicillin Allergy Unknown ON [facility] MED Verified 03/16/22 23:32 LIST Home Meds Home Medications Medication Instructions Recorded Confirmed buspirone 30 mg tablet 30 mg PO BID 02/25/18 03/16/22 clonidine HCl 0.2 mg tablet 0.2 mg PO BID 02/25/18 03/16/22 hydroxyzine pamoate 50 mg capsule 150 mg PO DIRECTED PRN PER PT 02/25/18 03/16/22 NEEDED levothyroxine 25 mcg tablet 25 mcg PO QAM 02/25/18 03/16/22 lisinopril 20 mg tablet 20 mg PO QAM 02/25/18 03/16/22 simvastatin 10 mg tablet 10 mg PO HS 02/25/18 03/16/22 metformin 500 mg tablet,extended See Rx Instructions .Route .COMPLEX 09/08/19 03/16/22 release 24 hr dulaglutide 0.75 mg/0.5 mL See Rx Instructions .Route .COMPLEX 06/09/21 03/16/22 subcutaneous pen injector (Trulicity) haloperidol 20 mg tablet 20 mg PO HS 06/09/21 03/16/22 umeclidinium 62.5 mcg/actuation 1 inh inhalation DAILY 06/09/21 03/16/22 blister powder for inhalation (Incruse Ellipta) acetaminophen 500 mg tablet 1,000 mg PO TID 03/16/22 03/16/22 (Tylenol Extra Strength) albuterol sulfate 90 mcg/actuation 2 puff inhalation Q6H PRN 03/16/22 03/16/22 aerosol inhaler COUGH/SHORTNESS OF BREATH/WHEEZING cholecalciferol (vitamin D3) 50 50 mcg PO DAILY 03/16/22 03/16/22 mcg (2,000 unit) capsule (Vitamin D3) fexofenadine 60 mg tablet 60 mg PO DAILY 03/16/22 03/16/22 gabapentin 600 mg tablet 600 mg PO TID 03/16/22 03/16/22 guaifenesin 600 mg tablet, 1,200 mg PO Q12H PRN Congestion 03/16/22 03/16/22 extended release 12 hr ipratropium bromide 0.02 % 0.5 mg inhalation Q6H 03/16/22 03/16/22 solution for inhalation lamotrigine 200 mg tablet 200 mg PO DAILY 03/16/22 03/16/22 levalbuterol HCl 1.25 mg/0.5 mL 1.25 mg inhalation Q6H 03/16/22 03/16/22 solution for nebulization lumateperone 42 mg capsule 42 mg PO HS 03/16/22 03/16/22 (Caplyta) omeprazole 40 mg capsule,delayed 40 mg PO DAILYBB 03/16/22 03/16/22 release Previous Rx's Medication Instructions Recorded fluticasone furoate 200 1 ea inhalation DAILY #60 ea 06/14/21 mcg-vilanterol 25 mcg/dose inhalation powder (Breo Ellipta) lorazepam 0.5 mg tablet 0.5 mg PO Q6H PRN anxiety #5 tabs 06/14/21 Results & Data (ED) Vital Signs Vital Signs - 24 hr 03/16/22 19:32 03/16/22 19:42 03/16/22 19:42 Temperature 36.4 C L 37.2 C Temperature Source Temporal Artery Scan Oral Pulse Rate 86 Pulse Rate [Finger] 80 Pulse Rate from SpO2 Sensor Pulse Rhythm [Finger] Regular Respiratory Rate 20 26 H Respiratory Effort / Characteristics Non-Labored Spontaneous Labored Respiratory Depth Normal Normal Blood Pressure 185/91 H Blood Pressure [Right Arm] 150/78 H Blood Pressure Mean 122 Blood Pressure Mean [Right Arm] 102 Blood Pressure Position Sitting Pulse Oximetry 80 L 87 L 95 Oxygen Delivery Method Room Air Oxymask Oxymask Oxygen Flow Rate 0 8 Sepsis Recent Fever Within 48 Hours No Sepsis New/Unexplained Change in Mental Status No Sepsis Action Taken by Nursing No Action Required Oxygen Flow Rate - Titration 8 Pulse Oximetry Post Tiitration 95 03/16/22 19:42 03/16/22 20:09 03/16/22 19:56 Temperature Temperature Source Pulse Rate Pulse Rate [Finger] 76 Pulse Rate from SpO2 Sensor Pulse Rhythm [Finger] Respiratory Rate 26 H Respiratory Effort / Characteristics Spontaneous Labored Short of Breath Respiratory Depth Blood Pressure Blood Pressure [Right Arm] Blood Pressure Mean Blood Pressure Mean [Right Arm] Blood Pressure Position Pulse Oximetry 95 94 Oxygen Delivery Method Oxymask Oxymask Oxymask Oxygen Flow Rate 6 8 Sepsis Recent Fever Within 48 Hours Sepsis New/Unexplained Change in Mental Status Sepsis Action Taken by Nursing Oxygen Flow Rate - Titration Pulse Oximetry Post Tiitration 03/16/22 20:11 03/16/22 20:26 03/16/22 20:41 Temperature Temperature Source Pulse Rate Pulse Rate [Finger] Pulse Rate from SpO2 Sensor Pulse Rhythm [Finger] Respiratory Rate Respiratory Effort / Characteristics Respiratory Depth Blood Pressure Blood Pressure [Right Arm] Blood Pressure Mean Blood Pressure Mean [Right Arm] Blood Pressure Position Pulse Oximetry Oxygen Delivery Method Oxymask Oxymask Oxymask Oxygen Flow Rate 8 8 Sepsis Recent Fever Within 48 Hours Sepsis New/Unexplained Change in Mental Status Sepsis Action Taken by Nursing Oxygen Flow Rate - Titration Pulse Oximetry Post Tiitration 03/16/22 20:56 03/16/22 21:11 03/16/22 21:26 Temperature Temperature Source Pulse Rate Pulse Rate [Finger] Pulse Rate from SpO2 Sensor Pulse Rhythm [Finger] Respiratory Rate Respiratory Effort / Characteristics Respiratory Depth Blood Pressure Blood Pressure [Right Arm] Blood Pressure Mean Blood Pressure Mean [Right Arm] Blood Pressure Position Pulse Oximetry Oxygen Delivery Method Oxymask Oxymask Oxymask Oxygen Flow Rate 8 6 6 Sepsis Recent Fever Within 48 Hours Sepsis New/Unexplained Change in Mental Status Sepsis Action Taken by Nursing Oxygen Flow Rate - Titration Pulse Oximetry Post Tiitration 03/16/22 21:41 03/16/22 21:45 03/16/22 19:53 Temperature Temperature Source Pulse Rate 79 Pulse Rate [Finger] Pulse Rate from SpO2 Sensor 78 Pulse Rhythm [Finger] Respiratory Rate 32 H Respiratory Effort / Characteristics Respiratory Depth Blood Pressure Blood Pressure [Right Arm] Blood Pressure Mean Blood Pressure Mean [Right Arm] Blood Pressure Position Pulse Oximetry 94 Oxygen Delivery Method Oxymask Oxymask Oxygen Flow Rate 6 6 Sepsis Recent Fever Within 48 Hours Sepsis New/Unexplained Change in Mental Status Sepsis Action Taken by Nursing Oxygen Flow Rate - Titration Pulse Oximetry Post Tiitration 03/16/22 20:00 03/16/22 20:00 03/16/22 20:10 Temperature Temperature Source Pulse Rate 83 78 Pulse Rate [Finger] Pulse Rate from SpO2 Sensor 82 77 Pulse Rhythm [Finger] Respiratory Rate 28 H 28 H Respiratory Effort / Characteristics Respiratory Depth Blood Pressure 179/80 H Blood Pressure [Right Arm] Blood Pressure Mean 113 Blood Pressure Mean [Right Arm] Blood Pressure Position Pulse Oximetry 92 95 Oxygen Delivery Method Oxygen Flow Rate Sepsis Recent Fever Within 48 Hours Sepsis New/Unexplained Change in Mental Status Sepsis Action Taken by Nursing Oxygen Flow Rate - Titration Pulse Oximetry Post Tiitration 03/16/22 20:15 03/16/22 20:15 03/16/22 20:20 Temperature Temperature Source Pulse Rate 75 79 Pulse Rate [Finger] Pulse Rate from SpO2 Sensor 79 Pulse Rhythm [Finger] Respiratory Rate 22 23 Respiratory Effort / Characteristics Respiratory Depth Blood Pressure 153/79 H Blood Pressure [Right Arm] Blood Pressure Mean 103 Blood Pressure Mean [Right Arm] Blood Pressure Position Pulse Oximetry 97 Oxygen Delivery Method Oxygen Flow Rate Sepsis Recent Fever Within 48 Hours Sepsis New/Unexplained Change in Mental Status Sepsis Action Taken by Nursing Oxygen Flow Rate - Titration Pulse Oximetry Post Tiitration 03/16/22 20:31 03/16/22 20:34 03/16/22 20:34 Temperature Temperature Source Pulse Rate Pulse Rate [Finger] Pulse Rate from SpO2 Sensor 79 77 Pulse Rhythm [Finger] Respiratory Rate 24 Respiratory Effort / Characteristics Respiratory Depth Blood Pressure 160/76 H Blood Pressure [Right Arm] Blood Pressure Mean 104 Blood Pressure Mean [Right Arm] Blood Pressure Position Pulse Oximetry 95 89 L Oxygen Delivery Method Oxygen Flow Rate Sepsis Recent Fever Within 48 Hours Sepsis New/Unexplained Change in Mental Status Sepsis Action Taken by Nursing Oxygen Flow Rate - Titration Pulse Oximetry Post Tiitration 03/16/22 20:40 03/16/22 20:45 03/16/22 20:45 Temperature Temperature Source Pulse Rate 74 Pulse Rate [Finger] Pulse Rate from SpO2 Sensor 80 Pulse Rhythm [Finger] Respiratory Rate 24 38 H Respiratory Effort / Characteristics Respiratory Depth Blood Pressure 154/90 H Blood Pressure [Right Arm] Blood Pressure Mean 111 Blood Pressure Mean [Right Arm] Blood Pressure Position Pulse Oximetry 84 L Oxygen Delivery Method Oxygen Flow Rate Sepsis Recent Fever Within 48 Hours Sepsis New/Unexplained Change in Mental Status Sepsis Action Taken by Nursing Oxygen Flow Rate - Titration Pulse Oximetry Post Tiitration 03/16/22 20:50 03/16/22 21:00 03/16/22 21:00 Temperature Temperature Source Pulse Rate 80 76 Pulse Rate [Finger] Pulse Rate from SpO2 Sensor 79 Pulse Rhythm [Finger] Respiratory Rate 35 H 21 Respiratory Effort / Characteristics Respiratory Depth Blood Pressure 158/81 H Blood Pressure [Right Arm] Blood Pressure Mean 106 Blood Pressure Mean [Right Arm] Blood Pressure Position Pulse Oximetry 92 Oxygen Delivery Method Oxygen Flow Rate Sepsis Recent Fever Within 48 Hours Sepsis New/Unexplained Change in Mental Status Sepsis Action Taken by Nursing Oxygen Flow Rate - Titration Pulse Oximetry Post Tiitration 03/16/22 21:10 03/16/22 21:15 03/16/22 21:15 Temperature Temperature Source Pulse Rate 74 74 Pulse Rate [Finger] Pulse Rate from SpO2 Sensor 73 74 Pulse Rhythm [Finger] Respiratory Rate 25 H 33 H Respiratory Effort / Characteristics Respiratory Depth Blood Pressure 158/100 H Blood Pressure [Right Arm] Blood Pressure Mean 119 Blood Pressure Mean [Right Arm] Blood Pressure Position Pulse Oximetry 94 96 Oxygen Delivery Method Oxygen Flow Rate Sepsis Recent Fever Within 48 Hours Sepsis New/Unexplained Change in Mental Status Sepsis Action Taken by Nursing Oxygen Flow Rate - Titration Pulse Oximetry Post Tiitration 03/16/22 21:20 03/16/22 21:30 03/16/22 21:30 Temperature Temperature Source Pulse Rate 90 75 Pulse Rate [Finger] Pulse Rate from SpO2 Sensor 88 76 Pulse Rhythm [Finger] Respiratory Rate 17 30 H Respiratory Effort / Characteristics Respiratory Depth Blood Pressure 162/77 H Blood Pressure [Right Arm] Blood Pressure Mean 105 Blood Pressure Mean [Right Arm] Blood Pressure Position Pulse Oximetry 92 91 Oxygen Delivery Method Oxygen Flow Rate Sepsis Recent Fever Within 48 Hours Sepsis New/Unexplained Change in Mental Status Sepsis Action Taken by Nursing Oxygen Flow Rate - Titration Pulse Oximetry Post Tiitration 03/16/22 21:40 03/16/22 21:45 03/16/22 21:45 Temperature Temperature Source Pulse Rate 80 85 Pulse Rate [Finger] Pulse Rate from SpO2 Sensor 78 82 Pulse Rhythm [Finger] Respiratory Rate 22 17 Respiratory Effort / Characteristics Respiratory Depth Blood Pressure 138/83 Blood Pressure [Right Arm] Blood Pressure Mean 101 Blood Pressure Mean [Right Arm] Blood Pressure Position Pulse Oximetry 98 97 Oxygen Delivery Method Oxygen Flow Rate Sepsis Recent Fever Within 48 Hours Sepsis New/Unexplained Change in Mental Status Sepsis Action Taken by Nursing Oxygen Flow Rate - Titration Pulse Oximetry Post Tiitration 03/16/22 21:50 03/16/22 22:00 03/16/22 22:15 Temperature Temperature Source Pulse Rate 73 Pulse Rate [Finger] Pulse Rate from SpO2 Sensor 72 Pulse Rhythm [Finger] Respiratory Rate 24 Respiratory Effort / Characteristics Respiratory Depth Blood Pressure Blood Pressure [Right Arm] Blood Pressure Mean Blood Pressure Mean [Right Arm] Blood Pressure Position Pulse Oximetry 100 Oxygen Delivery Method Room Air Oxymask Oxygen Flow Rate 5 Sepsis Recent Fever Within 48 Hours Sepsis New/Unexplained Change in Mental Status Sepsis Action Taken by Nursing Oxygen Flow Rate - Titration Pulse Oximetry Post Tiitration 03/16/22 22:30 03/16/22 22:45 03/16/22 23:00 Temperature Temperature Source Pulse Rate Pulse Rate [Finger] Pulse Rate from SpO2 Sensor Pulse Rhythm [Finger] Respiratory Rate Respiratory Effort / Characteristics Respiratory Depth Blood Pressure Blood Pressure [Right Arm] Blood Pressure Mean Blood Pressure Mean [Right Arm] Blood Pressure Position Pulse Oximetry Oxygen Delivery Method Oxymask Oxymask Oxymask Oxygen Flow Rate 5 5 5 Sepsis Recent Fever Within 48 Hours Sepsis New/Unexplained Change in Mental Status Sepsis Action Taken by Nursing Oxygen Flow Rate - Titration Pulse Oximetry Post Tiitration 03/16/22 23:15 03/16/22 23:30 03/16/22 23:45 Temperature Temperature Source Pulse Rate Pulse Rate [Finger] Pulse Rate from SpO2 Sensor Pulse Rhythm [Finger] Respiratory Rate Respiratory Effort / Characteristics Respiratory Depth Blood Pressure Blood Pressure [Right Arm] Blood Pressure Mean Blood Pressure Mean [Right Arm] Blood Pressure Position Pulse Oximetry Oxygen Delivery Method Oxymask Oxymask Oxymask Oxygen Flow Rate 5 5 5 Sepsis Recent Fever Within 48 Hours Sepsis New/Unexplained Change in Mental Status Sepsis Action Taken by Nursing Oxygen Flow Rate - Titration Pulse Oximetry Post Tiitration 03/17/22 00:00 03/16/22 22:00 03/16/22 22:00 Temperature Temperature Source Pulse Rate 72 Pulse Rate [Finger] Pulse Rate from SpO2 Sensor 74 Pulse Rhythm [Finger] Respiratory Rate 25 H Respiratory Effort / Characteristics Respiratory Depth Blood Pressure 153/80 H Blood Pressure [Right Arm] Blood Pressure Mean 104 Blood Pressure Mean [Right Arm] Blood Pressure Position Pulse Oximetry 96 Oxygen Delivery Method Oxymask Oxygen Flow Rate 8 Sepsis Recent Fever Within 48 Hours Sepsis New/Unexplained Change in Mental Status Sepsis Action Taken by Nursing Oxygen Flow Rate - Titration Pulse Oximetry Post Tiitration 03/16/22 22:15 03/16/22 22:15 03/16/22 22:30 Temperature Temperature Source Pulse Rate 73 Pulse Rate [Finger] Pulse Rate from SpO2 Sensor 73 Pulse Rhythm [Finger] Respiratory Rate 31 H Respiratory Effort / Characteristics Respiratory Depth Blood Pressure 151/92 H 159/77 H Blood Pressure [Right Arm] Blood Pressure Mean 111 104 Blood Pressure Mean [Right Arm] Blood Pressure Position Pulse Oximetry 95 Oxygen Delivery Method Oxygen Flow Rate Sepsis Recent Fever Within 48 Hours Sepsis New/Unexplained Change in Mental Status Sepsis Action Taken by Nursing Oxygen Flow Rate - Titration Pulse Oximetry Post Tiitration 03/16/22 22:30 03/16/22 22:45 03/16/22 23:00 Temperature Temperature Source Pulse Rate 71 77 Pulse Rate [Finger] Pulse Rate from SpO2 Sensor 77 Pulse Rhythm [Finger] Respiratory Rate 27 H 25 H Respiratory Effort / Characteristics Respiratory Depth Blood Pressure 161/86 H Blood Pressure [Right Arm] Blood Pressure Mean 111 Blood Pressure Mean [Right Arm] Blood Pressure Position Pulse Oximetry 90 Oxygen Delivery Method Oxygen Flow Rate Sepsis Recent Fever Within 48 Hours Sepsis New/Unexplained Change in Mental Status Sepsis Action Taken by Nursing Oxygen Flow Rate - Titration Pulse Oximetry Post Tiitration 03/16/22 23:00 03/16/22 23:15 03/16/22 23:15 Temperature Temperature Source Pulse Rate 72 75 Pulse Rate [Finger] Pulse Rate from SpO2 Sensor 74 Pulse Rhythm [Finger] Respiratory Rate 27 H 22 Respiratory Effort / Characteristics Respiratory Depth Blood Pressure 163/87 H Blood Pressure [Right Arm] Blood Pressure Mean 112 Blood Pressure Mean [Right Arm] Blood Pressure Position Pulse Oximetry 90 Oxygen Delivery Method Oxygen Flow Rate Sepsis Recent Fever Within 48 Hours Sepsis New/Unexplained Change in Mental Status Sepsis Action Taken by Nursing Oxygen Flow Rate - Titration Pulse Oximetry Post Tiitration 03/16/22 23:30 03/16/22 23:30 03/16/22 23:45 Temperature Temperature Source Pulse Rate 76 Pulse Rate [Finger] Pulse Rate from SpO2 Sensor 72 Pulse Rhythm [Finger] Respiratory Rate 28 H Respiratory Effort / Characteristics Respiratory Depth Blood Pressure 143/87 H 147/90 H Blood Pressure [Right Arm] Blood Pressure Mean 105 109 Blood Pressure Mean [Right Arm] Blood Pressure Position Pulse Oximetry 91 Oxygen Delivery Method Oxygen Flow Rate Sepsis Recent Fever Within 48 Hours Sepsis New/Unexplained Change in Mental Status Sepsis Action Taken by Nursing Oxygen Flow Rate - Titration Pulse Oximetry Post Tiitration 03/16/22 23:45 Temperature Temperature Source Pulse Rate 73 Pulse Rate [Finger] Pulse Rate from SpO2 Sensor Pulse Rhythm [Finger] Respiratory Rate 22 Respiratory Effort / Characteristics Respiratory Depth Blood Pressure Blood Pressure [Right Arm] Blood Pressure Mean Blood Pressure Mean [Right Arm] Blood Pressure Position Pulse Oximetry Oxygen Delivery Method Oxygen Flow Rate Sepsis Recent Fever Within 48 Hours Sepsis New/Unexplained Change in Mental Status Sepsis Action Taken by Nursing Oxygen Flow Rate - Titration Pulse Oximetry Post Tiitration Home Medications Current Medication List: was personally reviewed by me Laboratory Data Attestation: I reviewed the patient's lab results. 03/16/22 19:50 03/16/22 19:50 Lab Results 03/16/22 03/16/22 03/16/22 Range/Units 19:50 19:50 19:50 WBC 13.07 H (4.8-10.8) K/ul RBC 5.33 (4.63-6.08) M/uL Hgb 15.3 (14.0-18.0) g/dl Hct 46.9 (40.1-51.0) % MCV 88.0 (80.0-100.0) fL MCH 28.7 (25.0-34.0) pg MCHC 32.6 (32.0-36.0) g/dL RDW Std Deviation 47.7 H (36.4-46.3) fL RDW Coeff of Tamir 14.7 H (11.5-14.5) % Plt Count 356 (130-400) K/uL MPV 9.3 L (9.4-12.4) fL Immature Gran % (Auto) 0.8 % Neut % (Auto) 63.9 % Lymph % (Auto) 24.8 % [place] % (Auto) 7.6 % Eos % (Auto) 2.1 % Baso % (Auto) 0.8 % Neut # (Auto) 8.36 H (1.4-6.5) K/uL Lymph # (Auto) 3.24 (1.2-3.4) K/uL [place] # (Auto) 0.99 H (0.24-0.82) K/uL Eos # (Auto) 0.27 (0-0.50) K/uL Baso # (Auto) 0.10 (0-0.2) K/uL Immature Gran # (Auto) 0.11 H (0.00-0.02) K/uL PT 10.5 (9.0-12.0) Seconds INR 1.0 (0.9-1.1) APTT 29.9 (21.0-31.0) Seconds PTT Ratio 1.1 POC pH (7.35-7.45) POC pCO2 (35-46) mmHg POC pO2 (80-95) mmHg POC HCO3 (19-24) kerri/L POC Total CO2 (24-31) mmol/L POC Base Excess (-9-1.8) kerri/L POC ABG O2 Sat (90-95) % VBG pH (7.36-7.41) VBG pCO2 (38-50) mmHg VBG pO2 mmHg VBG HCO3 mmol/L VBG O2 Saturation % VBG Base Excess mEq/L Sodium 138 (136-145) mmol/L Potassium 4.3 (3.5-5.1) mmol/L Chloride 94 L (98-107) mmol/L Carbon Dioxide 39 H (21-32) mmol/L Anion Gap 5 (3-11) BUN 8 (6-23) mg/dl Creatinine 0.79 (0.6-1.4) mg/dl Est Cr Clr Drug Dosing 153.1 ml/min Est GFR ( Amer) 126.6 ml/min Est GFR (Non-Af Amer) 109.2 ml/min BUN/Creatinine Ratio 10.1 (10-20) Glucose 132 H (70-99(Fasting)) mg/dl Lactate (0.4-2.0) mmol/L Calcium 9.7 (8.5-10.1) mg/dl Magnesium 1.6 L (1.7-2.4) mg/dl Total Bilirubin 0.3 (0.2-1.0) mg/dl Direct Bilirubin 0.1 (0-0.2) mg/dl AST 16 (13-39) U/L ALT 18 (7-52) U/L Alkaline Phosphatase 74 (34-104) U/L Troponin I High Sens 15.0 (0-20) pg/ml Total Protein 7.4 (6.0-8.3) gm/dl Albumin 4.1 (3.4-5.0) gm/dl Procalcitonin (0-0.5) ng/ml Urine Color Urine Appearance (Clear) Urine pH (4.5-7.5) Ur Specific [place] (1.000-1.030) Urine Protein (Negative) Urine Glucose (UA) (Negative) Urine Ketones (Negative) Urine Blood (Negative) Urine Nitrite (Negative) Urine Bilirubin (Negative) Urine Urobilinogen (Negative) Ur Leukocyte Esterase (Negative) Ethyl Alcohol mg/dL (<10.0) mg/dl SARS-CoV-2 (PCR) (Negative) Influenza Type A (PCR) (Neg) Influenza Type B (PCR) (Neg) RSV (RT-PCR) (Neg) 03/16/22 03/16/22 03/16/22 Range/Units 19:50 19:50 19:55 WBC (4.8-10.8) K/ul RBC (4.63-6.08) M/uL Hgb (14.0-18.0) g/dl Hct (40.1-51.0) % MCV (80.0-100.0) fL MCH (25.0-34.0) pg MCHC (32.0-36.0) g/dL RDW Std Deviation (36.4-46.3) fL RDW Coeff of Tamir (11.5-14.5) % Plt Count (130-400) K/uL MPV (9.4-12.4) fL Immature Gran % (Auto) % Neut % (Auto) % Lymph % (Auto) % [place] % (Auto) % Eos % (Auto) % Baso % (Auto) % Neut # (Auto) (1.4-6.5) K/uL Lymph # (Auto) (1.2-3.4) K/uL [place] # (Auto) (0.24-0.82) K/uL Eos # (Auto) (0-0.50) K/uL Baso # (Auto) (0-0.2) K/uL Immature Gran # (Auto) (0.00-0.02) K/uL PT (9.0-12.0) Seconds INR (0.9-1.1) APTT (21.0-31.0) Seconds PTT Ratio POC pH (7.35-7.45) POC pCO2 (35-46) mmHg POC pO2 (80-95) mmHg POC HCO3 (19-24) kerri/L POC Total CO2 (24-31) mmol/L POC Base Excess (-9-1.8) kerri/L POC ABG O2 Sat (90-95) % VBG pH (7.36-7.41) VBG pCO2 (38-50) mmHg VBG pO2 mmHg VBG HCO3 mmol/L VBG O2 Saturation % VBG Base Excess mEq/L Sodium (136-145) mmol/L Potassium (3.5-5.1) mmol/L Chloride (98-107) mmol/L Carbon Dioxide (21-32) mmol/L Anion Gap (3-11) BUN (6-23) mg/dl Creatinine (0.6-1.4) mg/dl Est Cr Clr Drug Dosing ml/min Est GFR ( Amer) ml/min Est GFR (Non-Af Amer) ml/min BUN/Creatinine Ratio (10-20) Glucose (70-99(Fasting)) mg/dl Lactate 0.9 (0.4-2.0) mmol/L Calcium (8.5-10.1) mg/dl Magnesium (1.7-2.4) mg/dl Total Bilirubin (0.2-1.0) mg/dl Direct Bilirubin (0-0.2) mg/dl AST (13-39) U/L ALT (7-52) U/L Alkaline Phosphatase (34-104) U/L Troponin I High Sens (0-20) pg/ml Total Protein (6.0-8.3) gm/dl Albumin (3.4-5.0) gm/dl Procalcitonin < 0.05 (0-0.5) ng/ml Urine Color Urine Appearance (Clear) Urine pH (4.5-7.5) Ur Specific [place] (1.000-1.030) Urine Protein (Negative) Urine Glucose (UA) (Negative) Urine Ketones (Negative) Urine Blood (Negative) Urine Nitrite (Negative) Urine Bilirubin (Negative) Urine Urobilinogen (Negative) Ur Leukocyte Esterase (Negative) Ethyl Alcohol mg/dL (<10.0) mg/dl SARS-CoV-2 (PCR) NEGATIVE (Negative) Influenza Type A (PCR) Negative (Neg) Influenza Type B (PCR) Negative (Neg) RSV (RT-PCR) Negative (Neg) 03/16/22 03/16/22 03/16/22 Range/Units 20:40 21:39 23:43 WBC (4.8-10.8) K/ul RBC (4.63-6.08) M/uL Hgb (14.0-18.0) g/dl Hct (40.1-51.0) % MCV (80.0-100.0) fL MCH (25.0-34.0) pg MCHC (32.0-36.0) g/dL RDW Std Deviation (36.4-46.3) fL RDW Coeff of Tamir (11.5-14.5) % Plt Count (130-400) K/uL MPV (9.4-12.4) fL Immature Gran % (Auto) % Neut % (Auto) % Lymph % (Auto) % [place] % (Auto) % Eos % (Auto) % Baso % (Auto) % Neut # (Auto) (1.4-6.5) K/uL Lymph # (Auto) (1.2-3.4) K/uL [place] # (Auto) (0.24-0.82) K/uL Eos # (Auto) (0-0.50) K/uL Baso # (Auto) (0-0.2) K/uL Immature Gran # (Auto) (0.00-0.02) K/uL PT (9.0-12.0) Seconds INR (0.9-1.1) APTT (21.0-31.0) Seconds PTT Ratio POC pH (7.35-7.45) POC pCO2 (35-46) mmHg POC pO2 (80-95) mmHg POC HCO3 (19-24) kerri/L POC Total CO2 (24-31) mmol/L POC Base Excess (-9-1.8) kerri/L POC ABG O2 Sat (90-95) % VBG pH 7.34 L (7.36-7.41) VBG pCO2 73 H (38-50) mmHg VBG pO2 59 mmHg VBG HCO3 39 mmol/L VBG O2 Saturation 90.8 % VBG Base Excess 10.5 mEq/L Sodium (136-145) mmol/L Potassium (3.5-5.1) mmol/L Chloride (98-107) mmol/L Carbon Dioxide (21-32) mmol/L Anion Gap (3-11) BUN (6-23) mg/dl Creatinine (0.6-1.4) mg/dl Est Cr Clr Drug Dosing ml/min Est GFR ( Amer) ml/min Est GFR (Non-Af Amer) ml/min BUN/Creatinine Ratio (10-20) Glucose (70-99(Fasting)) mg/dl Lactate (0.4-2.0) mmol/L Calcium (8.5-10.1) mg/dl Magnesium (1.7-2.4) mg/dl Total Bilirubin (0.2-1.0) mg/dl Direct Bilirubin (0-0.2) mg/dl AST (13-39) U/L ALT (7-52) U/L Alkaline Phosphatase (34-104) U/L Troponin I High Sens (0-20) pg/ml Total Protein (6.0-8.3) gm/dl Albumin (3.4-5.0) gm/dl Procalcitonin (0-0.5) ng/ml Urine Color Yellow Urine Appearance Clear (Clear) Urine pH 7.0 (4.5-7.5) Ur Specific [place] 1.005 (1.000-1.030) Urine Protein Negative (Negative) Urine Glucose (UA) Negative (Negative) Urine Ketones Negative (Negative) Urine Blood Negative (Negative) Urine Nitrite Negative (Negative) Urine Bilirubin Negative (Negative) Urine Urobilinogen Negative (Negative) Ur Leukocyte Esterase Negative (Negative) Ethyl Alcohol mg/dL < 10.0 (<10.0) mg/dl SARS-CoV-2 (PCR) (Negative) Influenza Type A (PCR) (Neg) Influenza Type B (PCR) (Neg) RSV (RT-PCR) (Neg) 03/16/22 Range/Units 23:50 WBC (4.8-10.8) K/ul RBC (4.63-6.08) M/uL Hgb (14.0-18.0) g/dl Hct (40.1-51.0) % MCV (80.0-100.0) fL MCH (25.0-34.0) pg MCHC (32.0-36.0) g/dL RDW Std Deviation (36.4-46.3) fL RDW Coeff of Tamir (11.5-14.5) % Plt Count (130-400) K/uL MPV (9.4-12.4) fL Immature Gran % (Auto) % Neut % (Auto) % Lymph % (Auto) % [place] % (Auto) % Eos % (Auto) % Baso % (Auto) % Neut # (Auto) (1.4-6.5) K/uL Lymph # (Auto) (1.2-3.4) K/uL [place] # (Auto) (0.24-0.82) K/uL Eos # (Auto) (0-0.50) K/uL Baso # (Auto) (0-0.2) K/uL Immature Gran # (Auto) (0.00-0.02) K/uL PT (9.0-12.0) Seconds INR (0.9-1.1) APTT (21.0-31.0) Seconds PTT Ratio POC pH 7.32 L (7.35-7.45) POC pCO2 78 H (35-46) mmHg POC pO2 56 L (80-95) mmHg POC HCO3 40 H (19-24) kerri/L POC Total CO2 > 40 H* (24-31) mmol/L POC Base Excess 14.0 H (-9-1.8) kerri/L POC ABG O2 Sat 85.0 L (90-95) % VBG pH (7.36-7.41) VBG pCO2 (38-50) mmHg VBG pO2 mmHg VBG HCO3 mmol/L VBG O2 Saturation % VBG Base Excess mEq/L Sodium (136-145) mmol/L Potassium (3.5-5.1) mmol/L Chloride (98-107) mmol/L Carbon Dioxide (21-32) mmol/L Anion Gap (3-11) BUN (6-23) mg/dl Creatinine (0.6-1.4) mg/dl Est Cr Clr Drug Dosing ml/min Est GFR ( Amer) ml/min Est GFR (Non-Af Amer) ml/min BUN/Creatinine Ratio (10-20) Glucose (70-99(Fasting)) mg/dl Lactate (0.4-2.0) mmol/L Calcium (8.5-10.1) mg/dl Magnesium (1.7-2.4) mg/dl Total Bilirubin (0.2-1.0) mg/dl Direct Bilirubin (0-0.2) mg/dl AST (13-39) U/L ALT (7-52) U/L Alkaline Phosphatase (34-104) U/L Troponin I High Sens (0-20) pg/ml Total Protein (6.0-8.3) gm/dl Albumin (3.4-5.0) gm/dl Procalcitonin (0-0.5) ng/ml Urine Color Urine Appearance (Clear) Urine pH (4.5-7.5) Ur Specific [place] (1.000-1.030) Urine Protein (Negative) Urine Glucose (UA) (Negative) Urine Ketones (Negative) Urine Blood (Negative) Urine Nitrite (Negative) Urine Bilirubin (Negative) Urine Urobilinogen (Negative) Ur Leukocyte Esterase (Negative) Ethyl Alcohol mg/dL (<10.0) mg/dl SARS-CoV-2 (PCR) (Negative) Influenza Type A (PCR) (Neg) Influenza Type B (PCR) (Neg) RSV (RT-PCR) (Neg) Administered Medications Multivitamins 10 ml/ Thiamine HCl 100 mg/ Folic Acid 1 mg/Sodium Chloride 1 ,011.2 mls @ 75 mls/hr IV .[id number] ONE Stop: 03/17/22 12:28 Last Admin: 03/16/22 23:40 Dose: 75 mls/hr Documented By: HAY Discontinued Medications Albuterol (Albut/Ipratrop 3mg/0.5mg Neb 3 Ml Vial) 12 ml NEB ONE ONE; Protocol Stop: 03/16/22 19:42 Last Admin: 03/16/22 20:05 Dose: 12 ml Documented By: HAY Dexamethasone Sodium Phosphate (DexamethasonePf 10 Mg/Ml Vial) 10 mg IV NOW ONE Stop: 03/16/22 19:42 Last Admin: 03/16/22 19:57 Dose: 10 mg Documented By: HAY Piperacillin Sod/Tazobactam Sod (Zosyn) 4.5 gm in 120 mls @ 240 mls/hr IV NOW ONE Stop: 03/16/22 21:48 Last Infusion: 03/16/22 22:02 Dose: 0 mls/hr Documented By: Admin: 03/16/22 21:30 Dose: 240 mls/hr Documented By: HAY Magnesium Sulfate/Dextrose (Magnesium Sulfate / D5w) 1 gm in 100 mls @ 600 mls/hr IV Q10M AASHISH Stop: 03/16/22 23:19 Last Infusion: 03/16/22 23:31 Dose: 0 mls/hr Documented By: Admin: 03/16/22 23:20 Dose: 600 mls/hr Documented By: Infusion: 03/16/22 23:14 Dose: 600 mls/hr Documented By: Admin: 03/16/22 23:03 Dose: 600 mls/hr Documented By: HAY Imaging Data Radiologist's Impression: Chest X-Ray 03/16/22 19:41 SINGLE VIEW CHEST CLINICAL HISTORY: Sepsis. FINDINGS: An AP, portable, upright chest radiograph is compared to study dated 06/14/2021 and correlated with chest CT dated 06/10/2021. The examination is degraded by portable technique and apical lordotic positioning. The cardiomediastinal silhouette is top normal for projection. The lungs and pleural spaces are clear. No pneumothorax is seen. The bony thorax is grossly intact. IMPRESSION: No active disease in the chest. ACT 112: Negative or not required by law. Electronically signed by: Ciro Monzon M.D. 03/16/2022 9:00 PM Discharge Plan Visit Data Chief Complaint: Shortness of Breath/Dyspnea Stated Complaint: SOB, CAN'T BREATHE ED Provider: [place] Correa Discharge Problem: Acute exacerbation of chronic obstructive pulmonary disease, Hypoxia, Acute respiratory distress, Acute respiratory acidosis Patient Disposition: Being Evaluated by Hospitalist Forms Stand Alone Forms: My [facility] Prescriptions Prescriptions: No Action metformin 500 mg tablet extended release 24 hr See Rx Instructions .ROUTE .COMPLEX Rx Instructions: 500 mg orally; TAKES 1,000 MG QAM, THEN 500 MG QPM. lisinopril 20 mg tablet 20 mg PO QAM hydroxyzine pamoate 50 mg capsule 150 mg PO DIRECTED PRN (Reason: PER PT NEEDED) Rx Instructions: PER [facility] 50 MG TID FOR ANXIETY ONLY WHEN NEEDED. levothyroxine 25 mcg tablet 25 mcg PO QAM clonidine HCl 0.2 mg tablet 0.2 mg PO BID buspirone 30 mg Tablet 30 mg PO BID simvastatin 10 mg tablet 10 mg PO HS haloperidol 20 mg tablet 20 mg PO HS Incruse Ellipta 62.5 mcg/actuation blister with device 1 inh INHALATION DAILY Trulicity 0.75 mg/0.5 mL pen injector See Rx Instructions .ROUTE .COMPLEX Rx Instructions: one pen weekly ON SUNDAYS. lorazepam 0.5 mg Tablet 0.5 mg PO Q6H PRN (Reason: anxiety) Qty: 5 0RF fluticasone furoate-vilanterol [Breo Ellipta] 200-25 mcg/dose Blister With Device 1 ea inhalation DAILY Qty: 60 2RF gabapentin 600 mg tablet 600 mg PO TID lamotrigine 200 mg tablet 200 mg PO DAILY fexofenadine [Anjali] 60 mg Tablet 60 mg PO DAILY omeprazole 40 mg capsule,delayed release(DR/EC) 40 mg PO DAILYBB acetaminophen [Tylenol Extra Strength] 500 mg Tablet 1,000 mg PO TID albuterol sulfate 90 mcg/actuation Hfa Aerosol Inhaler 2 puff INHALATION Q6H PRN (Reason: COUGH/SHORTNESS OF BREATH/WHEEZING) cholecalciferol (vitamin D3) [Vitamin D3] 50 mcg (2,000 unit) Capsule 50 mcg PO DAILY guaifenesin 600 mg Tablet Extended Release 12hr 1,200 mg PO Q12H PRN (Reason: Congestion) Caplyta 42 mg capsule 42 mg PO HS ipratropium bromide 0.02 % solution 0.5 mg inhalation Q6H Rx Instructions: MAY ALSO USE EVERY FOUR HOURS NEEDED FOR SHORTNESS OF BREATH/WHEEZING levalbuterol HCl 1.25 mg/0.5 mL solution for nebulization 1.25 mg inhalation Q6H Rx Instructions: MAY ALSO USE EVERY FOUR HOURS NEEDED FOR SHORTNESS OF BREATH/WHEEZING Referrals Referrals: Devyn Silva MD [Primary Care Provider] -
[2022-03-16 20:21] LABS: Basophils % (auto) 0.8 %; Eosinophils # (auto) 0.27 K/uL (0-0.50); Eosinophils % (auto) 2.1 %; Hematocrit (blood only) 46.9 % (40.1-51.0); Hemoglobin 15.3 g/dl (14.0-18.0); Immature Granulocytes # (auto) 0.11 K/uL (0.00-0.02); Immature Granulocytes % (auto) 0.8 %; Lymphocytes # (auto) 3.24 K/uL (1.2-3.4); Lymphocytes % (auto) 24.8 %; Mean Corpuscular Hemoglobin 28.7 pg (25.0-34.0); Mean Corpuscular Hgb Conc 32.6 g/dL (32.0-36.0); Mean Platelet Volume 9.3 fL (9.4-12.4); Monocytes # (auto) 0.99 K/uL (0.24-0.82); Monocytes % (auto) 7.6 %; Neutrophils # (auto) 8.36 K/uL (1.4-6.5); Neutrophils % (auto) 63.9 %; Platelet Count 356 K/uL (130-400); RDW Coefficient of Variation 14.7 % (11.5-14.5); RDW Standard Deviation 47.7 fL (36.4-46.3); Red Blood Count 5.33 M/uL (4.63-6.08); White Blood Count 13.07 K/ul (4.8-10.8)
[2022-03-16 20:37] LABS: Partial Thromboplastin Ratio 1.1; Partial Thromboplastin Time 29.9 Seconds (21.0-31.0); Prothrombin Time 10.5 Seconds (9.0-12.0)
[2022-03-16 20:47] LABS: Albumin Level 4.1 gm/dl (3.4-5.0); BUN Creatinine Ratio 10.1 (10-20); Bilirubin Direct 0.1 mg/dl (0-0.2); Bilirubin,Total 0.3 mg/dl (0.2-1.0); Calcium 9.7 mg/dl (8.5-10.1); Creatinine Clr Calc Pharmacy 153.1 ml/min; Est GFR (African American) 126.6 ml/min; Est GFR (Non-African American) 109.2 ml/min; Magnesium 1.6 mg/dl (1.7-2.4); Potassium 4.3 mmol/L (3.5-5.1); Total Protein 7.4 gm/dl (6.0-8.3)
[2022-03-16 20:58] LABS: Influenza A virus by PCR Negative (Neg); Influenza B virus by PCR Negative (Neg); RSV by PCR Negative (Neg); SARS CoV2 RNA(COVID-19) Ceph NEGATIVE (Negative)
--- NOTE | 2022-03-16 21:02 | XRay Report ---
SINGLE VIEW CHEST CLINICAL HISTORY: Sepsis. FINDINGS: An AP, portable, upright chest radiograph is compared to study dated 06/14/2021 and correlat ed with chest CT dated 06/10/2021. The examination is degraded by portable technique and apical lordot ic positioning. The cardiomediastinal silhouette is top normal for projection. The lungs and pleural spaces are clear. No pneumothorax is seen. The bony thorax is grossly intact. IMPRESSION: No active disease in the chest. ACT 112: Negative or not required by law. Electronically signed by: Ciro Monzon M.D. 03/16/2022 9:00 PM
[2022-03-16] MEDS ORDERED: PIPERACILLIN/TAZOBACTAM 4.5 GM/120 ML BAG IV ONE (21:19)
[2022-03-16 21:56] LABS: Base Excess VBG 10.5 mEq/L; HCO3 VBG 39 mmol/L; Oxygen Saturation VBG 90.8 %; PCO2 VBG 73 mmHg (38-50); PO2 VBG 59 mmHg; pH VBG 7.34 (7.36-7.41)
[2022-03-16 22:15] LABS: Appearance Urine Clear (Clear); Bilirubin Urine Negative (Negative); Blood Urine Negative (Negative); Color Urine Yellow; Glucose Urine UA Negative (Negative); Ketones Urine Negative (Negative); Leukocyte Esterase Urine Negative (Negative); Nitrite Urine Negative (Negative); Protein Urine Negative (Negative); Specific Gravity Urine 1.005 (1.000-1.030); Urobilinogen Urine Negative (Negative)
[2022-03-16] MEDS ORDERED: MULTI-VITAMIN INFUSION 10 ML, THIAMINE HCL 100 MG, FOLIC ACID 1 MG in SODIUM CHLORIDE 0... IV ONE (23:00)
[2022-03-16] MEDS: MAGNESIUM SULFATE / D5W 1 GM/100 ML BAG IV SCH ×2 (23:03→23:20)
[2022-03-17 00:04] LABS: iSTAT Arterial Blood Gas HCO3 40 meg/L (19-24); iSTAT Arterial Blood Gas pCO2 78 mmHg (35-46); iSTAT Arterial Blood Gas pH 7.32 (7.35-7.45); iSTAT Arterial Blood Gas pO2 56 mmHg (80-95); iSTAT Carbon Dioxide > 40 mmol/L (24-31)
[2022-03-17] MEDS ORDERED: DOXYCYCLINE HYCLATE 100 MG in DEXTROSE 5% 100 ML IV STA (00:43)
--- NOTE | 2022-03-17 00:44 | History & Physical Report ---
Date of Service March 17, 2022 Assessment & Plan (1) Acute respiratory failure with hypoxia: Plan: Hypoxemic, hypercapnic respiratory failure secondary to COPD exacerbation secondary to complicated bronchitis Possible sepsis hx BIN /CPAP noncompliance hypertension, slight elevated hyperlipidemia on statin Rx DM2 on oral meds, suboptimal control as of recent hemoglobin A1c of 7.7 last November 2021 mood disorder/schizophrenia, at baseline as per patient ongoing tobacco/alcohol abuse Medical telemetry BiPAP trial given hypercapnia Recheck ABG 1 hour after BiPAP initiated CS, Doxycycline Nebs RTC, prednisone course Pulmonary consult if without improvement Basal bolus insulin adjusted for n.p.o. status while n.p.o. while on BiPAP, ISS BG goal 1 10-1 40 DT precautions, MAZIN S once with signs of alcohol withdrawal Nicotine replacement therapy as needed (patient prefers gum to patch) DVT prophylaxis. Lovenox subcu Full code Total critical care time was 45 minutes. Text document was generated using [employer] voice recognition software. It may contain grammatical or spelling errors. Kindly contact undersigned for clarification of any documentation item in question. History of Present Illness Chief Complaint: Worsening cough, shortness of breath Primary Care Provider: Devyn Silva MD History obtained from patient and records. Medical history significant for COPD, BIN /CPAP noncompliance, hypertension, hyperlipidemia, DM2 on oral meds, mood disorder, schizophrenia, ongoing tobacc o/alcohol abuse Last confinement May 2021 for COPD exacerbation secondary to bilateral pneumonia. Few days history of junky cough symptoms with worsening shortness of breath. Denies chest pain, aspiration, fever, or chills. Not sure about sick contacts. Patient completed COVID-19 vaccination without recent boosters. Last drink was last night. Patient brought to the ER for evaluation. O2 sats 80s at the ER. Decadron, Zosyn, nebs administered at the ER. MEDICAL HISTORY: As above. SURGERIES: Hernia repair, tonsillectomy FAMILY HISTORY: DM, heart disease PERSONAL SOCIAL HISTORY: Ongoing tobacco abuse, alcohol abuse as per records, disabled. Allergies Allergy/AdvReac Type Severity Reaction Status Date / Time amoxicillin Allergy Unknown ON [facility] MED Verified 03/16/22 23:32 LIST Home Medications Medication Instructions Recorded Confirmed Type buspirone 30 mg tablet 30 mg PO BID 02/25/18 03/16/22 History clonidine HCl 0.2 mg tablet 0.2 mg PO BID 02/25/18 03/16/22 History hydroxyzine pamoate 50 mg capsule 150 mg PO DIRECTED PRN PER PT 02/25/18 03/16/22 History NEEDED levothyroxine 25 mcg tablet 25 mcg PO QAM 02/25/18 03/16/22 History lisinopril 20 mg tablet 20 mg PO QAM 02/25/18 03/16/22 History simvastatin 10 mg tablet 10 mg PO HS 02/25/18 03/16/22 History metformin 500 mg tablet,extended See Rx Instructions .Route .COMPLEX 09/08/19 03/16/22 History release 24 hr dulaglutide 0.75 mg/0.5 mL See Rx Instructions .Route .COMPLEX 06/09/21 03/16/22 History subcutaneous pen injector (Trulicity) haloperidol 20 mg tablet 20 mg PO HS 06/09/21 03/16/22 History umeclidinium 62.5 mcg/actuation 1 inh inhalation DAILY 06/09/21 03/16/22 History blister powder for inhalation (Incruse Ellipta) fluticasone furoate 200 1 ea inhalation DAILY #60 ea 06/14/21 03/16/22 Rx mcg-vilanterol 25 mcg/dose inhalation powder (Breo Ellipta) lorazepam 0.5 mg tablet 0.5 mg PO Q6H PRN anxiety #5 tabs 06/14/21 03/16/22 Rx acetaminophen 500 mg tablet 1,000 mg PO TID 03/16/22 03/16/22 History (Tylenol Extra Strength) albuterol sulfate 90 mcg/actuation 2 puff inhalation Q6H PRN 03/16/22 03/16/22 History aerosol inhaler COUGH/SHORTNESS OF BREATH/WHEEZING cholecalciferol (vitamin D3) 50 50 mcg PO DAILY 03/16/22 03/16/22 History mcg (2,000 unit) capsule (Vitamin D3) fexofenadine 60 mg tablet 60 mg PO DAILY 03/16/22 03/16/22 History gabapentin 600 mg tablet 600 mg PO TID 03/16/22 03/16/22 History guaifenesin 600 mg tablet, 1,200 mg PO Q12H PRN Congestion 03/16/22 03/16/22 History extended release 12 hr ipratropium bromide 0.02 % 0.5 mg inhalation Q6H 03/16/22 03/16/22 History solution for inhalation lamotrigine 200 mg tablet 200 mg PO DAILY 03/16/22 03/16/22 History levalbuterol HCl 1.25 mg/0.5 mL 1.25 mg inhalation Q6H 03/16/22 03/16/22 History solution for nebulization lumateperone 42 mg capsule 42 mg PO HS 03/16/22 03/16/22 History (Caplyta) omeprazole 40 mg capsule,delayed 40 mg PO DAILYBB 03/16/22 03/16/22 History release Past Med/Surg History Medical History (Updated 03/17/22 @ 01:04 by [place] Correa DO) Bipolar disease, manic COPD (chronic obstructive pulmonary disease) Hypothyroidism Non-insulin dependent type 2 diabetes mellitus Polysubstance abuse Schizoaffective disorder Surgical History History of tonsillectomy Family History Other No significant family history Social History Smoking Status: Current every day smoker Tobacco Type: Cigarettes Hx Alcohol Use: Yes Hx Substance Use: Yes Preferred Language: Vietnamese Communication Ability: Effective Beliefs That Will Affect Care: [employer]al Current Living Situation: Spouse Feels Safe at Home: Yes Assistive Devices: None Review of Systems Review of Systems: As per HPI, all other systems reviewed and negative Physical Exam Physical Exam: GENERAL: Slightly uncomfortable, morbidly obese, looks older than stated age, unkempt, flat affect, no respiratory distress SKIN: Normal color, warm HEENT: [place] palpebral conjunctivae, no ptosis, dry buccal mucosa, O2 mask in place NECK : Supple, short neck, no tenderness CHEST : Decreased breath sounds, diffuse expiratory wheezes, no tenderness HEART : RRR, no obvious murmurs ABDOMEN: Some distention, nontender EXTREMITIES : Minimal LE swelling, no LE tenderness, no other conspicuous defo rmities noted NEUROLOGIC : Coherent, no facial asymmetry, no other gross focality Results & Data Results & Data ([facility]) Vital Signs (Past 12 Hours) Vital Signs Temp Pulse Pulse Resp BP BP Pulse Ox 01/17/23 23:45 73 22 03/16/22 23:45 147/90 H 03/16/22 23:30 76 28 H 91 03/16/22 23:30 143/87 H 03/16/22 23:15 75 22 03/16/22 23:15 163/87 H 03/16/22 23:00 72 27 H 90 03/16/22 23:00 161/86 H 03/16/22 22:45 77 25 H 90 03/16/22 22:30 71 27 H 03/16/22 22:30 159/77 H 03/16/22 22:15 73 31 H 95 03/16/22 22:15 151/92 H 03/16/22 22:00 72 25 H 96 03/16/22 22:00 153/80 H 03/17/22 00:00 03/16/22 23:45 03/16/22 23:30 03/16/22 23:15 03/16/22 23:00 03/16/22 22:45 03/16/22 22:30 03/16/22 22:15 03/16/22 22:00 03/16/22 21:50 73 24 100 03/16/22 21:45 138/83 03/16/22 21:45 85 17 97 03/16/22 21:40 80 22 98 03/16/22 21:30 75 30 H 91 03/16/22 21:30 162/77 H 03/16/22 21:20 90 17 92 03/16/22 21:15 158/100 H 03/16/22 21:15 74 33 H 96 03/16/22 21:10 74 25 H 94 03/16/22 21:00 76 21 03/16/22 21:00 158/81 H 03/16/22 20:50 80 35 H 92 03/16/22 20:45 74 38 H 03/16/22 20:45 154/90 H 03/16/22 20:40 24 84 L 03/16/22 20:34 160/76 H 03/16/22 20:34 24 89 L 03/16/22 20:31 95 03/16/22 20:20 79 23 03/16/22 20:15 153/79 H 03/16/22 20:15 75 22 97 03/16/22 20:10 78 28 H 95 03/16/22 20:00 83 28 H 92 03/16/22 20:00 179/80 H 03/16/22 19:53 79 32 H 94 03/16/22 21:45 03/16/22 21:41 03/16/22 21:26 03/16/22 21:11 03/16/22 20:56 03/16/22 20:41 03/16/22 20:26 03/16/22 20:11 03/16/22 19:56 03/16/22 20:09 76 26 H 94 03/16/22 19:42 95 03/16/22 19:42 37.2 C 80 26 H 150/78 H 95 03/16/22 19:42 87 L 03/16/22 19:32 36.4 C L 86 20 185/91 H 80 L O2 Del Method O2 Flow Rate 03/16/22 23:45 03/16/22 23:45 03/16/22 23:30 03/16/22 23:30 03/16/22 23:15 03/16/22 23:15 03/16/22 23:00 03/16/22 23:00 03/16/22 22:45 03/16/22 22:30 03/16/22 22:30 03/16/22 22:15 03/16/22 22:15 03/16/22 22:00 03/16/22 22:00 03/17/22 00:00 Oxymask 8 03/16/22 23:45 Oxymask 5 03/16/22 23:30 Oxymask 5 03/16/22 23:15 Oxymask 5 03/16/22 23:00 Oxymask 5 03/16/22 22:45 Oxymask 5 03/16/22 22:30 Oxymask 5 03/16/22 22:15 Oxymask 5 03/16/22 22:00 Room Air 03/16/22 21:50 03/16/22 21:45 03/16/22 21:45 03/16/22 21:40 03/16/22 21:30 03/16/22 21:30 03/16/22 21:20 03/16/22 21:15 03/16/22 21:15 03/16/22 21:10 03/16/22 21:00 03/16/22 21:00 03/16/22 20:50 03/16/22 20:45 03/16/22 20:45 03/16/22 20:40 03/16/22 20:34 03/16/22 20:34 03/16/22 20:31 03/16/22 20:20 03/16/22 20:15 03/16/22 20:15 03/16/22 20:10 03/16/22 20:00 03/16/22 20:00 03/16/22 19:53 03/16/22 21:45 Oxymask 6 03/16/22 21:41 Oxymask 6 03/16/22 21:26 Oxymask 6 03/16/22 21:11 Oxymask 6 03/16/22 20:56 Oxymask 8 03/16/22 20:41 Oxymask 8 03/16/22 20:26 Oxymask 8 03/16/22 20:11 Oxymask 03/16/22 19:56 Oxymask 8 03/16/22 20:09 Oxymask 6 03/16/22 19:42 Oxymask 03/16/22 19:42 Oxymask 8 03/16/22 19:42 Oxymask 0 03/16/22 19:32 Room Air Laboratory Results Laboratory Results WBC 13.07 K/ul (4.8-10.8) H 03/16/22 19:50 RBC 5.33 M/uL (4.63-6.08) 03/16/22 19:50 Hgb 15.3 g/dl (14.0-18.0) 03/16/22 19:50 Hct 46.9 % (40.1-51.0) 03/16/22 19:50 MCV 88.0 fL (80.0-100.0) 03/16/22 19:50 MCH 28.7 pg (25.0-34.0) 03/16/22 19:50 MCHC 32.6 g/dL (32.0-36.0) 03/16/22 19:50 RDW Std Deviation 47.7 fL (36.4-46.3) H 03/16/22 19:50 RDW Coeff of Tamir 14.7 % (11.5-14.5) H 03/16/22 19:50 Plt Count 356 K/uL (130-400) 03/16/22 19:50 MPV 9.3 fL (9.4-12.4) L 03/16/22 19:50 Immature Gran % (Auto) 0.8 % 03/16/22 19:50 Neut % (Auto) 63.9 % 03/16/22 19:50 Lymph % (Auto) 24.8 % 03/16/22 19:50 [place] % (Auto) 7.6 % 03/16/22 19:50 Eos % (Auto) 2.1 % 03/16/22 19:50 Baso % (Auto) 0.8 % 03/16/22 19:50 Neut # (Auto) 8.36 K/uL (1.4-6.5) H 03/16/22 19:50 Lymph # (Auto) 3.24 K/uL (1.2-3.4) 03/16/22 19:50 [place] # (Auto) 0.99 K/uL (0.24-0.82) H 03/16/22 19:50 Eos # (Auto) 0.27 K/uL (0-0.50) 03/16/22 19:50 Baso # (Auto) 0.10 K/uL (0-0.2) 03/16/22 19:50 Immature Gran # (Auto) 0.11 K/uL (0.00-0.02) H 03/16/22 19:50 PT 10.5 Seconds (9.0-12.0) 03/16/22 19:50 INR 1.0 (0.9-1.1) 03/16/22 19:50 APTT 29.9 Seconds (21.0-31.0) 03/16/22 19:50 PTT Ratio 1.1 03/16/22 19:50 POC pH 7.32 (7.35-7.45) L 03/16/22 23:50 POC pCO2 78 mmHg (35-46) H 03/16/22 23:50 POC pO2 56 mmHg (80-95) L 03/16/22 23:50 POC HCO3 40 kerri/L (19-24) H 03/16/22 23:50 POC Total CO2 > 40 mmol/L (24-31) H* 03/16/22 23:50 POC Base Excess 14.0 kerri/L (-9-1.8) H 03/16/22 23:50 POC ABG O2 Sat 85.0 % (90-95) L 03/16/22 23:50 VBG pH 7.34 (7.36-7.41) L 03/16/22 21:39 VBG pCO2 73 mmHg (38-50) H 03/16/22 21:39 VBG pO2 59 mmHg 03/16/22 21:39 VBG HCO3 39 mmol/L 03/16/22 21:39 VBG O2 Saturation 90.8 % 03/16/22 21:39 VBG Base Excess 10.5 mEq/L 03/16/22 21:39 Sodium 138 mmol/L (136-145) 03/16/22 19:50 Potassium 4.3 mmol/L (3.5-5.1) 03/16/22 19:50 Chloride 94 mmol/L (98-107) L 03/16/22 19:50 Carbon Dioxide 39 mmol/L (21-32) H 03/16/22 19:50 Anion Gap 5 (3-11) 03/16/22 19:50 BUN 8 mg/dl (6-23) 03/16/22 19:50 Creatinine 0.79 mg/dl (0.6-1.4) 03/16/22 19:50 Est Cr Clr Drug Dosing 153.1 ml/min 03/16/22 19:50 Est GFR ( Amer) 126.6 ml/min 03/16/22 19:50 Est GFR (Non-Af Amer) 109.2 ml/min 03/16/22 19:50 BUN/Creatinine Ratio 10.1 (10-20) 03/16/22 19:50 Glucose 132 mg/dl (70-99(Fasting)) H 03/16/22 19:50 Lactate 0.9 mmol/L (0.4-2.0) 03/16/22 19:50 Calcium 9.7 mg/dl (8.5-10.1) 03/16/22 19:50 Magnesium 1.6 mg/dl (1.7-2.4) L 03/16/22 19:50 Total Bilirubin 0.3 mg/dl (0.2-1.0) 03/16/22 19:50 Direct Bilirubin 0.1 mg/dl (0-0.2) 03/16/22 19:50 AST 16 U/L (13-39) 03/16/22 19:50 ALT 18 U/L (7-52) 03/16/22 19:50 Alkaline Phosphatase 74 U/L (34-104) 03/16/22 19:50 Troponin I High Sens 15.0 pg/ml (0-20) 03/16/22 19:50 Total Protein 7.4 gm/dl (6.0-8.3) 03/16/22 19:50 Albumin 4.1 gm/dl (3.4-5.0) 03/16/22 19:50 Procalcitonin < 0.05 ng/ml (0-0.5) 03/16/22 19:50 Urine Color Yellow 03/16/22 20:40 Urine Appearance Clear (Clear) 03/16/22 20:40 Urine pH 7.0 (4.5-7.5) 03/16/22 20:40 Ur Specific [place] 1.005 (1.000-1.030) 03/16/22 20:40 Urine Protein Negative (Negative) 03/16/22 20:40 Urine Glucose (UA) Negative (Negative) 03/16/22 20:40 Urine Ketones Negative (Negative) 03/16/22 20:40 Urine Blood Negative (Negative) 03/16/22 20:40 Urine Nitrite Negative (Negative) 03/16/22 20:40 Urine Bilirubin Negative (Negative) 03/16/22 20:40 Urine Urobilinogen Negative (Negative) 03/16/22 20:40 Ur Leukocyte Esterase Negative (Negative) 03/16/22 20:40 Ethyl Alcohol mg/dL < 10.0 mg/dl (<10.0) 03/16/22 23:43 SARS-CoV-2 (PCR) NEGATIVE (Negative) 03/16/22 19:55 Influenza Type A (PCR) Negative (Neg) 03/16/22 19:55 Influenza Type B (PCR) Negative (Neg) 03/16/22 19:55 RSV (RT-PCR) Negative (Neg) 03/16/22 19:55 Impressions Chest X-Ray 03/16/22 19:41 SINGLE VIEW CHEST CLINICAL HISTORY: Sepsis. FINDINGS: An AP, portable, upright chest radiograph is compared to study dated 06/14/2021 and correlated with chest CT dated 06/10/2021. The examination is degraded by portable technique and apical lordotic positioning. The cardiomedias tinal silhouette is top normal for projection. The lungs and pleural spaces are clear. No pneumothorax is seen. The bony thorax is grossly intact. IMPRESSION: No active disease in the chest. ACT 112: Negative or not required by law. Electronically signed by: Ciro Monzon M.D. 03/16/2022 9:00 PM Diagnostic Findings EKG as per my interpretation : Rate 75, NSR, normal axis, no ischemia
[2022-03-17] MEDS ORDERED: NICOTINE POLACRILEX 2 MG GUM MT PRN (00:52)
[2022-03-17] MEDS ORDERED: LANTUS PER UNIT CHARGE SQ STA (00:53)
[2022-03-17] MEDS ORDERED: XOPENEX/ATROVENT 1.25mg/0.5MG NEB COMBO NEB SCH (01:00)
[2022-03-17] MEDS: IPRATROPIUM BROMIDE NEB SOLN 0.02% 2.5 ML VIAL INH SCH ×4 (01:30→19:32)
[2022-03-17] MEDS: LEVALBUTEROL 1.25MG/0.5ML NEB INH SCH ×4 (01:30→19:32)
[2022-03-17] MEDS ORDERED: CARBOHYDRATES FOR HYPOGLYCEMIA PO PRN (02:50)
[2022-03-17] MEDS ORDERED: GLUCAGON FOR INJ 1 MG VIAL SQ PRN (02:50)
[2022-03-17] MEDS ORDERED: ACETAMINOPHEN 325 MG TAB PO PRN (02:50)
[2022-03-17] MEDS ORDERED: DEXTROSE 50% 50 ML SYRINGE IV PRN (02:50)
[2022-03-17] MEDS ORDERED: GLUCOSE 10 TAB/TUBE PO PRN (02:50)
[2022-03-17] MEDS ORDERED: GLUCOSE 40% GEL 15 GM TUBE PO PRN (02:50)
[2022-03-17] MEDS: haloperidoL 5 MG TAB PO SCH ×2 (03:40→20:08)
[2022-03-17] MEDS: INSULIN ASPART PER UNIT SC SCH ×5 (03:59→20:07)
[2022-03-17 04:29] LABS: Hematocrit (blood only) 45.1 % (40.1-51.0); Hemoglobin 14.9 g/dl (14.0-18.0); Mean Corpuscular Volume 87.9 fL (80.0-100.0); Mean Platelet Volume 9.3 fL (9.4-12.4); Platelet Count 325 K/uL (130-400); RDW Coefficient of Variation 14.6 % (11.5-14.5); RDW Standard Deviation 47.1 fL (36.4-46.3); Red Blood Count 5.13 M/uL (4.63-6.08); White Blood Count 11.78 K/ul (4.8-10.8)
[2022-03-17 04:51] LABS: BUN Creatinine Ratio 11.3 (10-20); Calcium 8.9 mg/dl (8.5-10.1); Creatinine Clr Calc Pharmacy 170.3 ml/min; Est GFR (African American) 132.3 ml/min; Est GFR (Non-African American) 114.1 ml/min; Magnesium 1.9 mg/dl (1.7-2.4); Potassium 5.4 mmol/L (3.5-5.1)
[2022-03-17 04:56] LABS: Base Excess ABG 8.3 mEq/L (-9-1.8); HCO3 ABG 37 mmol/L (19-24); Oxygen Saturation ABG 98.1 % (90-95); PCO2 ABG 70 mmHg (35-46); PO2 ABG 91 mmHg (80-95); pH ABG 7.33 (7.35-7.45)
[2022-03-17 05:03] LABS: Allen Test Pos (Pos)
[2022-03-17 05:09] LABS: Basophils # (auto) 0.04 K/uL (0-0.2); Basophils % (auto) 0.3 %; Immature Granulocytes # (auto) 0.13 K/uL (0.00-0.02); Immature Granulocytes % (auto) 1.1 %; Lymphocytes # (auto) 0.82 K/uL (1.2-3.4); Monocytes # (auto) 0.14 K/uL (0.24-0.82); Monocytes % (auto) 1.2 %; Neutrophils # (auto) 10.65 K/uL (1.4-6.5); Neutrophils % (auto) 90.4 %; Polychromasia 1+
[2022-03-17] MEDS: PANTOprazole 40 MG TAB PO SCH (06:15)
[2022-03-17 07:20] LABS: Base Excess ABG 9.6 mEq/L (-9-1.8); HCO3 ABG 40 mmol/L (19-24); Oxygen Saturation ABG 99.6 % (90-95); PCO2 ABG 85 mmHg (35-46); PO2 ABG 120 mmHg (80-95); pH ABG 7.28 (7.35-7.45)
[2022-03-17 07:21] LABS: Allen Test Pos (Pos)
[2022-03-17] MEDS: ENOXAPARIN INJ 40 MG/0.4 ML SYR SQ SCH (08:12)
[2022-03-17] MEDS: GABAPENTIN 600 MG TAB PO SCH ×3 (08:13→20:08)
[2022-03-17] MEDS: busPIRone 15 MG TAB PO SCH ×2 (08:13→20:08)
[2022-03-17] MEDS: FOLIC ACID 1 MG TAB PO SCH (08:13)
[2022-03-17] MEDS: cloNIDine HCL 0.1 MG TAB PO SCH ×2 (08:13→20:08)
[2022-03-17] MEDS: FEXOFENADINE 60 MG TAB PO SCH (08:13)
[2022-03-17] MEDS: UMECLIDINIUM BROMIDE 62.5MCG/BLISTER 7 PUFFS/INHALER INH SCH (08:14)
[2022-03-17] MEDS: lamoTRIgine 100 MG TAB PO SCH (08:14)
[2022-03-17] MEDS ORDERED: lisinopril 20 MG TAB PO SCH (09:00)
[2022-03-17] MEDS ORDERED: predniSONE 20 MG TAB PO SCH (09:00)
--- NOTE | 2022-03-17 13:58 | Communication Note ---
Date of Service: March 17, 2022 46-year-old old obese male with COPD, BIN on CPAP noncompliance was admitted with acute respiratory failure with hypoxia . He has been on BiPAP and feeling a lot better when I saw him His labs and imaging studies reviewed. The full progress note will be done tomorrow. Dr Magalie Santo
[2022-03-17] MEDS ORDERED: FLUARIX QUADRIVALENT 0.5 ML SYR IM ONE (19:10)
[2022-03-17] MEDS: LANTUS PER UNIT CHARGE SQ SCH (20:07)
[2022-03-17] MEDS: SIMVASTATIN 10 MG TAB PO SCH (20:07)
[2022-03-17] MEDS: DOXYCYCLINE HYCLATE 100 MG CAP PO SCH (20:08)
[2022-03-18] MEDS: LEVALBUTEROL 1.25MG/0.5ML NEB INH SCH ×4 (01:14→19:05)
[2022-03-18] MEDS: IPRATROPIUM BROMIDE NEB SOLN 0.02% 2.5 ML VIAL INH SCH ×4 (01:15→19:05)
[2022-03-18] MEDS: PANTOprazole 40 MG TAB PO SCH (06:32)
--- NOTE | 2022-03-18 06:41 | Electrocardiogram Report ---
Test Reason : Blood Pressure : / mmHG Vent. Rate : 076 BPM Atrial Rate : 076 BPM P-R Int : 152 ms QRS Dur : 094 ms QT Int : 368 ms P-R-T Axes : 043 074 075 degrees QTc Int : 414 ms Normal sinus rhythm Nonspecific ST abnormality Abnormal ECG When compared with ECG of 10-JUN-2021 06:13, No significant change was found Confirmed by Eber Iverson ([id number]) on 03/18/2022 6:40:34 AM Referred By: REFERRED SELF Confirmed By:Eber Iverson
[2022-03-18 06:51] LABS: Basophils # (auto) 0.05 K/uL (0-0.2); Basophils % (auto) 0.3 %; Eosinophils # (auto) 0.09 K/uL (0-0.50); Eosinophils % (auto) 0.6 %; Hematocrit (blood only) 45.5 % (40.1-51.0); Hemoglobin 14.5 g/dl (14.0-18.0); Immature Granulocytes # (auto) 0.15 K/uL (0.00-0.02); Lymphocytes # (auto) 3.63 K/uL (1.2-3.4); Lymphocytes % (auto) 24.9 %; Mean Corpuscular Hemoglobin 28.8 pg (25.0-34.0); Mean Corpuscular Hgb Conc 31.9 g/dL (32.0-36.0); Mean Corpuscular Volume 90.3 fL (80.0-100.0); Mean Platelet Volume 9.3 fL (9.4-12.4); Monocytes # (auto) 1.43 K/uL (0.24-0.82); Monocytes % (auto) 9.8 %; Neutrophils # (auto) 9.23 K/uL (1.4-6.5); Neutrophils % (auto) 63.4 %; Platelet Count 352 K/uL (130-400); RDW Coefficient of Variation 14.9 % (11.5-14.5); RDW Standard Deviation 49.5 fL (36.4-46.3); Red Blood Count 5.04 M/uL (4.63-6.08); White Blood Count 14.58 K/ul (4.8-10.8)
[2022-03-18 07:10] LABS: Calcium 8.6 mg/dl (8.5-10.1); Potassium 4.6 mmol/L (3.5-5.1)
[2022-03-18 07:16] LABS: BUN Creatinine Ratio 23.1 (10-20); Creatinine Clr Calc Pharmacy 181.5 ml/min; Est GFR (African American) 137.1 ml/min; Est GFR (Non-African American) 118.3 ml/min
[2022-03-18] MEDS ORDERED: FUROSEMIDE 40 MG/4 ML VIAL IV ONE (08:30)
[2022-03-18] MEDS: INSULIN ASPART PER UNIT SC SCH ×4 (09:27→21:20)
[2022-03-18 09:39] LABS: iSTAT Arterial Blood Gas HCO3 41 meg/L (19-24); iSTAT Arterial Blood Gas pCO2 71 mmHg (35-46); iSTAT Arterial Blood Gas pH 7.37 (7.35-7.45); iSTAT Arterial Blood Gas pO2 61 mmHg (80-95); iSTAT Carbon Dioxide > 40 mmol/L (24-31)
[2022-03-18] MEDS: busPIRone 15 MG TAB PO SCH ×2 (09:42→21:17)
[2022-03-18] MEDS: DOXYCYCLINE HYCLATE 100 MG CAP PO SCH ×2 (09:43→21:17)
[2022-03-18] MEDS: cloNIDine HCL 0.1 MG TAB PO SCH ×2 (09:43→21:16)
[2022-03-18] MEDS: ENOXAPARIN INJ 40 MG/0.4 ML SYR SQ SCH (09:44)
[2022-03-18] MEDS: FOLIC ACID 1 MG TAB PO SCH (09:44)
[2022-03-18] MEDS: FEXOFENADINE 60 MG TAB PO SCH (09:44)
[2022-03-18] MEDS: lamoTRIgine 100 MG TAB PO SCH (09:45)
[2022-03-18] MEDS: GABAPENTIN 600 MG TAB PO SCH ×3 (09:45→21:19)
[2022-03-18] MEDS: MULTIVITAMIN TAB PO SCH (09:46)
[2022-03-18] MEDS: THIAMINE HCL 100 MG TAB PO SCH (09:46)
[2022-03-18] MEDS: UMECLIDINIUM BROMIDE 62.5MCG/BLISTER 7 PUFFS/INHALER INH SCH (09:47)
[2022-03-18] MEDS: methylPREDNISolone 60 MG in SYRINGE 0 ML IV SCH ×2 (10:28→21:18)
[2022-03-18] MEDS: CEFEPIME 2,000 MG in SYRINGE 0 ML IV SCH ×2 (10:31→18:19)
--- NOTE | 2022-03-18 13:08 | Hospitalist Progress Note ---
Date of Service March 18, 2022 Assessment & Plan (1) Acute respiratory failure with hypoxia: Plan: Hypoxemic, hypercapnic respiratory failure secondary to COPD exacerbation secondary to complicated bronchitis Condition is not any better-received BiPAP last night CO2 remains elevated as of this morning Will try BiPAP during daytime Received a dose of 40 mg of Lasix IV this morning (2) Acute exacerbation of chronic obstructive pulmonary disease: Plan: Possible sepsis No pneumonic consolidation We will continue all of his home medications Started with oral doxycycline Started with intravenous cefepime this morning Solu-Medrol 60 mg twice daily was added (3) Obstructive sleep apnea on CPAP: Plan: Patient is very noncompliant with CPAP Required BiPAP last night and will try this morning as well CO2 remains elevated around 40 If the condition does not get any better will need to have pulmonary evaluation (4) Schizoaffective disorder: Plan: No acute issues Significant bipolar disorder as well Continue with current medications (5) Non-insulin dependent type 2 diabetes mellitus: Plan: DM2 on oral meds, suboptimal control as of recent hemoglobin A1c of 7.7 last November 2021 Basal bolus insulin adjusted for n.p.o. status while n.p.o. while on BiPAP, ISS BG goal 1 10-1 40 Plan Hypertension, slight elevated Hyperlipidemia on statin Rx Mood disorder/schizophrenia, at baseline as per patient ongoing tobacco/alcohol abuse DT precautions, MAZIN S once with signs of alcohol withdrawal Nicotine replacement therapy as needed (patient prefers gum to patch) DVT prophylaxis. Lovenox subcu Full code Admission and Anticipated Discharge Date Admission Date: March 17, 2022 Subjective 03/18/2022 Patient was seen and examined in telemetry unit He has been complaining of shortness of breath with wheezing and required BiPAP last night Has been feeling little better this morning when I saw him Still has minimal shortness of breath at rest and requiring about 10 L of oxygen to maintain saturation He is willing to try BiPAP even during daytime if needed Review of Systems Review of Systems: All systems reviewed and are unremarkable except as noted below Respiratory: Shortness of breath at rest with tachypnea without tachycardia Physical Exam Physical Exam: Lying in bed with moderate shortness of breath Constitutional: well developed, well nourished, + ill appearing and + obese Eyes: PERRL, conjunctivae normal, anicteric sclerae ENMT: external ear and nose normal, oropharynx normal Neck: trachea midline, no thyromegaly Respiratory: + respiratory distress Auscultation: + diminished lung sounds, + crackles (Bilaterally basal) and + wheezes (Bilaterally) Cardiovascular: Rate/Rhythm: regular rate and regular rhythm; not tachycardic Heart Sounds: normal S1 and normal S2; no murmur Extremities: + edema (Trace edema bilateral) Gastrointestinal (Abdomen): Inspection/Auscultation: + abdomen distended and normal bowel sounds Percussion/Palpation: abdomen soft; abdomen nontender Musculoskeletal: No acute arthritis involving any joint Neurologic: normal touch/pain/proprioception and moves all extremities; no focal motor deficits Psychiatric: A+Ox3, euthymic affect Lymphatic: no cervical or axillary lymphadenopathy Results & Data Results & Data ([facility]) Vital Signs (Past 12 Hours) Vital Signs Temp Pulse Resp BP Pulse Ox Pulse Ox O2 Del Method 03/18/22 07:00 91 03/18/22 12:46 30 H 91 03/18/22 12:33 83 20 88 L Nasal Cannula 03/18/22 11:38 36.6 C 82 21 148/94 H 91 Nasal Cannula 03/18/22 10:38 BiPAP 03/18/22 07:53 36.6 C 77 22 162/96 H 91 Nasal Cannula 03/18/22 07:05 81 28 H 95 Nasal Cannula 03/18/22 05:29 81 18 90 High Flow Nasal Cannula 03/18/22 02:48 36 C L 75 20 154/76 H 100 BiPAP 03/18/22 01:15 21 90 03/18/22 01:15 21 90 BiPAP O2 Del Method O2 Flow Rate O2 Flow Rate FiO2 03/18/22 07:00 Nasal Cannula 10 03/18/22 12:46 60 03/18/22 12:33 10 03/18/22 11:38 10 03/18/22 10:38 03/18/22 07:53 10 03/18/22 07:05 10 03/18/22 05:29 10 03/18/22 02:48 60 03/18/22 01:15 60 03/18/22 01:15 60 Laboratory Results Short CBC 03/18/22 Range/Units 06:17 WBC 14.58 H (4.8-10.8) K/ul Hgb 14.5 (14.0-18.0) g/dl Hct 45.5 (40.1-51.0) % Plt Count 352 (130-400) K/uL BMP 03/18/22 06:17 Sodium 137 Potassium 4.6 Chloride 95 L Carbon Dioxide 40 H BUN 15 Creatinine 0.65 Glucose 120 H Calcium 8.6 Medications Administered Current Inpatient Medications Acetaminophen (Acetaminophen 325 Mg Tab) 650 mg PO Q4H PRN PRN Reason: Pain or Fever Stop: 04/16/22 02:49 Buspirone HCl (Buspirone 15 Mg Tab) 30 mg PO BID [facility] Stop: 04/16/22 08:59 Last Admin: 03/18/22 09:42 Dose: 30 mg Clonidine HCl (Clonidine Hcl 0.1 Mg Tab) 0.2 mg PO BID [facility] Stop: 04/16/22 08:59 Last Admin: 03/18/22 09:43 Dose: 0.2 mg Dextrose (Dextrose 50% 50 Ml Syringe) 25 - 50 ml IV UD PRN; Protocol PRN Reason: Hypoglycemia Protocol Stop: 04/16/22 02:49 Doxycycline Hyclate (Doxycycline Hyclate 100 Mg Cap) 100 mg PO BID [facility] Stop: 03/24/22 20:59 Last Admin: 03/18/22 09:43 Dose: 100 mg Enoxaparin Sodium (Enoxaparin Inj 40 Mg/0.4 Ml Syr) 40 mg SQ QAM [facility] Stop: 04/16/22 08:59 Last Admin: 03/18/22 09:44 Dose: 40 mg Fexofenadine HCl (Fexofenadine 60 Mg Tab) 60 mg PO DAILY [facility] Stop: 04/16/22 08:59 Last Admin: 03/18/22 09:44 Dose: 60 mg Folic Acid (Folic Acid 1 Mg Tab) 1 mg PO QAM [facility] Stop: 04/16/22 08:59 Last Admin: 03/18/22 09:44 Dose: 1 mg Gabapentin (Gabapentin 600 Mg Tab) 600 mg PO TID [facility] Stop: 04/16/22 08:59 Last Admin: 03/18/22 09:45 Dose: 600 mg Glucagon (Glucagon For Inj 1 Mg Vial) 1 mg SQ UD PRN; Protocol PRN Reason: Hypoglycemia Protocol Stop: 04/16/22 02:49 Glucose (Glucose 40% Gel 15 Gm Tube) 15 - 30 gm PO UD PRN; Protocol PRN Reason: Hypoglycemia Protocol Stop: 04/16/22 02:49 Glucose (Glucose 10 Tab/Tube) 4 - 8 tab PO UD PRN; Protocol PRN Reason: Hypoglycemia Treatment Stop: 04/16/22 02:49 Haloperidol (Haloperidol 5 Mg Tab) 20 mg PO HS [facility] Stop: 04/16/22 02:49 Last Admin: 03/17/22 20:08 Dose: 20 mg Methylprednisolone 60 mg/ (Syringe) 0.96 mls @ 1.5 mls/min IV BID [facility] Stop: 04/17/22 08:59 Last Admin: 03/18/22 10:28 Dose: 1.5 mls/min Cefepime HCl 2,000 mg/ Syringe 20 mls @ 5 mls/min IV Q8H [facility]; Protocol Stop: 03/25/22 08:59 Last Admin: 03/18/22 10:31 Dose: 5 mls/min Insulin Aspart (Insulin Aspart Per Unit) 0 units SC ACHS [facility] Stop: 04/16/22 02:49 Last Admin: 03/18/22 09:27 Dose: 5 units Insulin Glargine (Lantus Per Unit Charge) 10 units SQ HS [facility] Stop: 04/16/22 20:59 Last Admin: 03/17/22 20:07 Dose: 10 units Ipratropium [place] (Ipratropium [place] Neb Soln 0.02% 2.5 Ml Vial) 0.5 mg INH Q6R [facility] Stop: 04/16/22 00:59 Last Admin: 03/18/22 12:33 Dose: 0.5 mg Lamotrigine (Lamotrigine 100 Mg Tab) 200 mg PO DAILY [facility] Stop: 04/16/22 08:59 Last Admin: 03/18/22 09:45 Dose: 200 mg Levalbuterol HCl (Levalbuterol 1.25mg/0.5ml Neb) 1.25 mg INH Q6R [facility] Stop: 04/16/22 00:59 Last Admin: 03/18/22 12:33 Dose: 1.25 mg Lorazepam (Lorazepam 0.5 Mg Tab) 0.5 mg PO Q6H PRN PRN Reason: anxiety Stop: 04/16/22 02:49 Miscellaneous (Lumateperone [Caplyta] - Order Awaiting Action) 1 each N/A QS [facility] Stop: 04/16/22 07:59 Last Admin: 03/18/22 09:20 Dose: Not Given Miscellaneous (Carbohydrates For Hypoglycemia ) 15 - 30 gm PO UD PRN PRN Reason: Hypoglycemia Protocol Stop: 04/16/22 02:49 Multivitamins (Multivitamin Tab) 1 tab PO QAM [facility] Stop: 04/17/22 08:59 Last Admin: 03/18/22 09:46 Dose: 1 tab Nicotine Polacrilex (Nicotine Polacrilex 2 Mg Gum) 1 piece MT Q1H PRN PRN Reason: smoking urge Stop: 04/16/22 00:51 Pantoprazole Sodium (Pantoprazole 40 Mg Tab) 40 mg PO DAILYBB [facility] Stop: 04/16/22 06:29 Last Admin: 03/18/22 06:32 Dose: 40 mg Simvastatin (Simvastatin 10 Mg Tab) 10 mg PO HS [facility] Stop: 04/16/22 20:59 Last Admin: 03/17/22 20:07 Dose: 10 mg Thiamine HCl (Thiamine Hcl 100 Mg Tab) 100 mg PO QAM [facility] Stop: 04/17/22 08:59 Last Admin: 03/18/22 09:46 Dose: 100 mg Umeclidinium [place] (Umeclidinium [place] 62.5mcg/Blister 7 Puffs/Inhaler) 1 puffs INH DAILY [facility] Stop: 04/16/22 08:59 Last Admin: 03/18/22 09:47 Dose: 1 puffs
[2022-03-18] MEDS: FLUTICASONE/VILANTEROL 200/25MCG 14 PUFFS/INHALER INH SCH (14:06)
[2022-03-18] MEDS: haloperidoL 5 MG TAB PO SCH (21:18)
[2022-03-18] MEDS: SIMVASTATIN 10 MG TAB PO SCH (21:18)
[2022-03-18] MEDS: LANTUS PER UNIT CHARGE SQ SCH (21:20)
[2022-03-19] MEDS: IPRATROPIUM BROMIDE NEB SOLN 0.02% 2.5 ML VIAL INH SCH ×4 (00:07→19:25)
[2022-03-19] MEDS: LEVALBUTEROL 1.25MG/0.5ML NEB INH SCH ×4 (00:07→19:26)
[2022-03-19] MEDS: CEFEPIME 2,000 MG in SYRINGE 0 ML IV SCH ×3 (01:15→17:26)
[2022-03-19] MEDS: PANTOprazole 40 MG TAB PO SCH (05:40)
[2022-03-19 06:04] LABS: Basophils # (auto) 0.03 K/uL (0-0.2); Basophils % (auto) 0.2 %; Hematocrit (blood only) 48.1 % (40.1-51.0); Hemoglobin 15.8 g/dl (14.0-18.0); Immature Granulocytes # (auto) 0.11 K/uL (0.00-0.02); Immature Granulocytes % (auto) 0.7 %; Lymphocytes % (auto) 9.2 %; Mean Corpuscular Hemoglobin 28.7 pg (25.0-34.0); Mean Corpuscular Hgb Conc 32.8 g/dL (32.0-36.0); Mean Corpuscular Volume 87.3 fL (80.0-100.0); Mean Platelet Volume 9.2 fL (9.4-12.4); Monocytes % (auto) 3.7 %; Neutrophils % (auto) 86.2 %; Platelet Count 382 K/uL (130-400); RDW Coefficient of Variation 14.5 % (11.5-14.5); RDW Standard Deviation 46.3 fL (36.4-46.3); Red Blood Count 5.51 M/uL (4.63-6.08); White Blood Count 16.24 K/ul (4.8-10.8)
[2022-03-19 06:21] LABS: Calcium 9.2 mg/dl (8.5-10.1)
[2022-03-19 06:27] LABS: BUN Creatinine Ratio 24.6 (10-20); Est GFR (African American) 140.8 ml/min; Est GFR (Non-African American) 121.5 ml/min
[2022-03-19] MEDS: INSULIN ASPART PER UNIT SC SCH ×4 (08:01→20:54)
[2022-03-19] MEDS: cloNIDine HCL 0.1 MG TAB PO SCH ×2 (08:17→21:10)
[2022-03-19] MEDS: FLUTICASONE/VILANTEROL 200/25MCG 14 PUFFS/INHALER INH SCH (08:17)
[2022-03-19] MEDS: UMECLIDINIUM BROMIDE 62.5MCG/BLISTER 7 PUFFS/INHALER INH SCH (08:17)
[2022-03-19] MEDS: THIAMINE HCL 100 MG TAB PO SCH (08:18)
[2022-03-19] MEDS: MULTIVITAMIN TAB PO SCH (08:18)
[2022-03-19] MEDS: lamoTRIgine 100 MG TAB PO SCH (08:18)
[2022-03-19] MEDS: DOXYCYCLINE HYCLATE 100 MG CAP PO SCH ×2 (08:18→21:12)
[2022-03-19] MEDS: GABAPENTIN 600 MG TAB PO SCH ×3 (08:18→21:11)
[2022-03-19] MEDS: FOLIC ACID 1 MG TAB PO SCH (08:18)
[2022-03-19] MEDS: busPIRone 15 MG TAB PO SCH ×2 (08:19→21:13)
[2022-03-19] MEDS: FEXOFENADINE 60 MG TAB PO SCH (08:19)
[2022-03-19] MEDS: ENOXAPARIN INJ 40 MG/0.4 ML SYR SQ SCH (08:19)
[2022-03-19] MEDS: methylPREDNISolone 60 MG in SYRINGE 0 ML IV SCH ×2 (08:19→21:14)
[2022-03-19 09:09] LABS: Base Excess ABG 13.1 mEq/L (-9-1.8); HCO3 ABG 41 mmol/L (19-24); Oxygen Saturation ABG 89.1 % (90-95); PCO2 ABG 68 mmHg (35-46); PO2 ABG 57 mmHg (80-95); pH ABG 7.39 (7.35-7.45)
[2022-03-19 09:10] LABS: Allen Test Pos (Pos)
[2022-03-19] MEDS ORDERED: FUROSEMIDE 40 MG/4 ML VIAL IV ONE (09:49)
--- NOTE | 2022-03-19 14:43 | Hospitalist Progress Note ---
Date of Service March 19, 2022 Assessment & Plan (1) Acute respiratory failure with hypoxia: Plan: Hypoxemic, hypercapnic respiratory failure secondary to COPD exacerbation secondary to complicated bronchitis Condition is not any better-received BiPAP last night CO2 remains elevated as of this morning Will try BiPAP during daytime Received a dose of 40 mg of Lasix IV this morning Still requiring high flow oxygen ABG did showed normal pH and the CO2 is improved to 68 from 80s Will give another dose of IV Lasix today Continue BiPAP at nighttime and as per the therapist (2) Acute exacerbation of chronic obstructive pulmonary disease: Plan: Possible sepsis No pneumonic consolidation We will continue all of his home medications Started with oral doxycycline Started with intravenous cefepime this morning Solu-Medrol 60 mg twice daily was added Clinically much better but still requiring 7 L of oxygen to maintain saturation (3) Obstructive sleep apnea on CPAP: Plan: Patient is very noncompliant with CPAP Required BiPAP last night and will try this morning as well CO2 remains elevated around 40 If the condition does not get any better will need to have pulmonary evaluation (4) Schizoaffective disorder: Plan: No acute issues Significant bipolar disorder as well Continue with current medications No acute symptoms (5) Non-insulin dependent type 2 diabetes mellitus: Plan: DM2 on oral meds, suboptimal control as of recent hemoglobin A1c of 7.7 last November 2021 Basal bolus insulin adjusted for n.p.o. status while n.p.o. while on BiPAP, ISS BG goal 1 10-1 40 Plan Hypertension, slight elevated Hyperlipidemia on statin Rx Mood disorder/schizophrenia, at baseline as per patient ongoing tobacco/alcohol abuse DT precautions, MAZIN S once with signs of alcohol withdrawal Nicotine replacement therapy as needed (patient prefers gum to patch) DVT prophylaxis. Lovenox subcu Full code Admission and Anticipated Discharge Date Admission Date: March 17, 2022 Subjective 03/18/2022 Patient was seen and examined in telemetry unit He has been complaining of shortness of breath with wheezing and required BiPAP last night Has been feeling little better this morning when I saw him Still has minimal shortness of breath at rest and requiring about 10 L of oxygen to maintain saturation He is willing to try BiPAP even during daytime if needed 03/19/2022 The patient was seen and examined in telemetry unit He has been feeling much better but is still requiring about 7 L of oxygen to maintain saturation He denies any fever and no chills, any abdominal pain nausea no vomiting Review of Systems Review of Systems: All systems reviewed and are unremarkable except as noted below Respiratory: Shortness of breath at rest with tachypnea without tachycardia Physical Exam Physical Exam: Lying in bed with moderate shortness of breath Constitutional: well developed, well nourished, + ill appearing and + obese Eyes: PERRL, conjunctivae normal, anicteric sclerae ENMT: external ear and nose normal, oropharynx normal Neck: trachea midline, no thyromegaly Respiratory: + respiratory distress Auscultation: + diminished lung sounds, + crackles (Bilaterally basal) and + wheezes (Bilaterally) Cardiovascular: Rate/Rhythm: regular rate and regular rhythm; not tachycardic Heart Sounds: normal S1 and normal S2; no murmur Extremities: + edema (Trace edema bilateral) Gastrointestinal (Abdomen): Inspection/Auscultation: + abdomen distended and normal bowel sounds Percussion/Palpation: abdomen soft; abdomen nontender Musculoskeletal: No acute arthritis in any joint Neurologic: normal touch/pain/proprioception and moves all extremities; no focal motor deficits Psychiatric: A+Ox3, euthymic affect Lymphatic: no cervical or axillary lymphadenopathy Results & Data Results & Data ([facility]) Vital Signs (Past 12 Hours) Vital Signs Temp Pulse Pulse Resp BP Pulse Ox O2 Del Method 03/19/22 12:43 83 18 92 Nasal Cannula 03/19/22 11:32 90 High Flow Nasal Cannula 03/19/22 11:27 36.4 C L 79 18 154/90 H 03/19/22 08:00 68 03/19/22 08:00 High Flow Nasal Cannula 03/19/22 07:38 36.4 C L 75 20 184/62 H 97 Oxymask 03/19/22 06:59 82 18 98 Oxymask 03/19/22 03:10 36.7 C 75 18 157/91 H 94 Oxymask O2 Flow Rate 03/19/22 12:43 9 03/19/22 11:32 9 03/19/22 11:27 03/19/22 08:00 03/19/22 08:00 8 03/19/22 07:38 7 03/19/22 06:59 9 03/19/22 03:10 Laboratory Results Short CBC 03/19/22 Range/Units 05:26 WBC 16.24 H (4.8-10.8) K/ul Hgb 15.8 (14.0-18.0) g/dl Hct 48.1 (40.1-51.0) % Plt Count 382 (130-400) K/uL BMP 03/19/22 05:26 Sodium 135 L Potassium 5.0 Chloride 93 L Carbon Dioxide 40 H BUN 15 Creatinine 0.61 Glucose 161 H Calcium 9.2 Medications Administered Current Inpatient Medications Acetaminophen (Acetaminophen 325 Mg Tab) 650 mg PO Q4H PRN PRN Reason: Pain or Fever Stop: 04/16/22 02:49 Buspirone HCl (Buspirone 15 Mg Tab) 30 mg PO BID [facility] Stop: 04/16/22 08:59 Last Admin: 03/19/22 08:19 Dose: 30 mg Clonidine HCl (Clonidine Hcl 0.1 Mg Tab) 0.2 mg PO BID [facility] Stop: 04/16/22 08:59 Last Admin: 03/19/22 08:17 Dose: 0.2 mg Dextrose (Dextrose 50% 50 Ml Syringe) 25 - 50 ml IV UD PRN; Protocol PRN Reason: Hypoglycemia Protocol Stop: 04/16/22 02:49 Doxycycline Hyclate (Doxycycline Hyclate 100 Mg Cap) 100 mg PO BID [facility] Stop: 03/24/22 20:59 Last Admin: 03/19/22 08:18 Dose: 100 mg Enoxaparin Sodium (Enoxaparin Inj 40 Mg/0.4 Ml Syr) 40 mg SQ QAM [facility] Stop: 04/16/22 08:59 Last Admin: 03/19/22 08:19 Dose: 40 mg Fexofenadine HCl (Fexofenadine 60 Mg Tab) 60 mg PO DAILY [facility] Stop: 04/16/22 08:59 Last Admin: 03/19/22 08:19 Dose: 60 mg Fluticasone/Vilanterol (Fluticasone/Vilanterol 200/25mcg 14 Puffs/Inhaler) 1 puffs INH DAILY [facility] Stop: 04/17/22 13:29 Last Admin: 03/19/22 08:17 Dose: 1 puffs Folic Acid (Folic Acid 1 Mg Tab) 1 mg PO QAM [facility] Stop: 04/16/22 08:59 Last Admin: 03/19/22 08:18 Dose: 1 mg Gabapentin (Gabapentin 600 Mg Tab) 600 mg PO TID [facility] Stop: 04/16/22 08:59 Last Admin: 03/19/22 13:24 Dose: 600 mg Glucagon (Glucagon For Inj 1 Mg Vial) 1 mg SQ UD PRN; Protocol PRN Reason: Hypoglycemia Protocol Stop: 04/16/22 02:49 Glucose (Glucose 40% Gel 15 Gm Tube) 15 - 30 gm PO UD PRN; Protocol PRN Reason: Hypoglycemia Protocol Stop: 04/16/22 02:49 Glucose (Glucose 10 Tab/Tube) 4 - 8 tab PO UD PRN; Protocol PRN Reason: Hypoglycemia Treatment Stop: 04/16/22 02:49 Haloperidol (Haloperidol 5 Mg Tab) 20 mg PO HS [facility] Stop: 04/16/22 02:49 Last Admin: 03/18/22 21:18 Dose: 20 mg Methylprednisolone 60 mg/ (Syringe) 0.96 mls @ 1.5 mls/min IV BID [facility] Stop: 04/17/22 08:59 Last Admin: 03/19/22 08:19 Dose: 1.5 mls/min Cefepime HCl 2,000 mg/ Syringe 20 mls @ 5 mls/min IV Q8H [facility]; Protocol Stop: 03/25/22 08:59 Last Admin: 03/19/22 08:17 Dose: 5 mls/min Insulin Aspart (Insulin Aspart Per Unit) 0 units SC ACHS [facility] Stop: 04/16/22 02:49 Last Admin: 03/19/22 12:24 Dose: 5 units Insulin Glargine (Lantus Per Unit Charge) 10 units SQ HS [facility] Stop: 04/16/22 20:59 Last Admin: 03/18/22 21:20 Dose: 10 units Ipratropium [place] (Ipratropium [place] Neb Soln 0.02% 2.5 Ml Vial) 0.5 mg INH Q6R [facility] Stop: 04/16/22 00:59 Last Admin: 03/19/22 12:43 Dose: 0.5 mg Lamotrigine (Lamotrigine 100 Mg Tab) 200 mg PO DAILY [facility] Stop: 04/16/22 08:59 Last Admin: 03/19/22 08:18 Dose: 200 mg Levalbuterol HCl (Levalbuterol 1.25mg/0.5ml Neb) 1.25 mg INH Q6R [facility] Stop: 04/16/22 00:59 Last Admin: 03/19/22 12:43 Dose: 1.25 mg Lorazepam (Lorazepam 0.5 Mg Tab) 0.5 mg PO Q6H PRN PRN Reason: anxiety Stop: 04/16/22 02:49 Miscellaneous (Lumateperone [Caplyta] - Order Awaiting Action) 1 each N/A QS [facility] Stop: 04/16/22 07:59 Last Admin: 03/19/22 08:27 Dose: Not Given Miscellaneous (Carbohydrates For Hypoglycemia ) 15 - 30 gm PO UD PRN PRN Reason: Hypoglycemia Protocol Stop: 04/16/22 02:49 Multivitamins (Multivitamin Tab) 1 tab PO QAM [facility] Stop: 04/17/22 08:59 Last Admin: 03/19/22 08:18 Dose: 1 tab Nicotine Polacrilex (Nicotine Polacrilex 2 Mg Gum) 1 piece MT Q1H PRN PRN Reason: smoking urge Stop: 04/16/22 00:51 Pantoprazole Sodium (Pantoprazole 40 Mg Tab) 40 mg PO DAILYBB [facility] Stop: 04/16/22 06:29 Last Admin: 03/19/22 05:40 Dose: 40 mg Simvastatin (Simvastatin 10 Mg Tab) 10 mg PO HS [facility] Stop: 04/16/22 20:59 Last Admin: 03/18/22 21:18 Dose: 10 mg Thiamine HCl (Thiamine Hcl 100 Mg Tab) 100 mg PO QAM [facility] Stop: 04/17/22 08:59 Last Admin: 03/19/22 08:18 Dose: 100 mg Umeclidinium [place] (Umeclidinium [place] 62.5mcg/Blister 7 Puffs/Inhaler) 1 puffs INH DAILY [facility] Stop: 04/16/22 08:59 Last Admin: 03/19/22 08:17 Dose: 1 puffs
[2022-03-19] MEDS: LANTUS PER UNIT CHARGE SQ SCH (20:54)
[2022-03-19] MEDS: SIMVASTATIN 10 MG TAB PO SCH (21:11)
[2022-03-19] MEDS: haloperidoL 5 MG TAB PO SCH (21:12)
[2022-03-19] MEDS: LORazepam 0.5 MG TAB PO PRN (22:00)
[2022-03-20] MEDS: CEFEPIME 2,000 MG in SYRINGE 0 ML IV SCH ×3 (01:23→16:23)
[2022-03-20] MEDS: IPRATROPIUM BROMIDE NEB SOLN 0.02% 2.5 ML VIAL INH SCH ×4 (01:58→19:27)
[2022-03-20] MEDS: LEVALBUTEROL 1.25MG/0.5ML NEB INH SCH ×4 (01:58→19:27)
[2022-03-20] MEDS: PANTOprazole 40 MG TAB PO SCH (06:33)
[2022-03-20 07:40] LABS: Basophils # (auto) 0.05 K/uL (0-0.2); Basophils % (auto) 0.3 %; Eosinophils # (auto) 0.01 K/uL (0-0.50); Eosinophils % (auto) 0.1 %; Immature Granulocytes # (auto) 0.13 K/uL (0.00-0.02); Immature Granulocytes % (auto) 0.8 %; Lymphocytes % (auto) 11.7 %; Mean Corpuscular Hemoglobin 28.3 pg (25.0-34.0); Mean Corpuscular Hgb Conc 33.3 g/dL (32.0-36.0); Mean Platelet Volume 9.2 fL (9.4-12.4); Monocytes # (auto) 1.23 K/uL (0.24-0.82); Monocytes % (auto) 7.2 %; Neutrophils # (auto) 13.65 K/uL (1.4-6.5); Neutrophils % (auto) 79.9 %; Platelet Count 430 K/uL (130-400); RDW Coefficient of Variation 14.3 % (11.5-14.5); RDW Standard Deviation 44.1 fL (36.4-46.3); White Blood Count 17.07 K/ul (4.8-10.8)
[2022-03-20 08:14] LABS: Calcium 9.6 mg/dl (8.5-10.1); Potassium 4.6 mmol/L (3.5-5.1)
[2022-03-20 08:20] LABS: BUN Creatinine Ratio 27.3 (10-20); Creatinine Clr Calc Pharmacy 169.7 ml/min; Est GFR (African American) 136.3 ml/min; Est GFR (Non-African American) 117.6 ml/min
[2022-03-20] MEDS: FEXOFENADINE 60 MG TAB PO SCH (08:36)
[2022-03-20] MEDS: busPIRone 15 MG TAB PO SCH ×2 (08:36→20:06)
[2022-03-20] MEDS: THIAMINE HCL 100 MG TAB PO SCH (08:36)
[2022-03-20] MEDS: MULTIVITAMIN TAB PO SCH (08:36)
[2022-03-20] MEDS: DOXYCYCLINE HYCLATE 100 MG CAP PO SCH ×2 (08:36→20:05)
[2022-03-20] MEDS: FLUTICASONE/VILANTEROL 200/25MCG 14 PUFFS/INHALER INH SCH (08:37)
[2022-03-20] MEDS: FOLIC ACID 1 MG TAB PO SCH (08:37)
[2022-03-20] MEDS: lamoTRIgine 100 MG TAB PO SCH (08:37)
[2022-03-20] MEDS: GABAPENTIN 600 MG TAB PO SCH ×3 (08:37→20:06)
[2022-03-20] MEDS: UMECLIDINIUM BROMIDE 62.5MCG/BLISTER 7 PUFFS/INHALER INH SCH (08:37)
[2022-03-20] MEDS: ENOXAPARIN INJ 40 MG/0.4 ML SYR SQ SCH (08:38)
[2022-03-20] MEDS: methylPREDNISolone 60 MG in SYRINGE 0 ML IV SCH ×2 (08:38→20:07)
[2022-03-20] MEDS: cloNIDine HCL 0.1 MG TAB PO SCH ×2 (08:48→20:08)
[2022-03-20] MEDS: INSULIN ASPART PER UNIT SC SCH ×4 (08:55→19:59)
--- NOTE | 2022-03-20 13:58 | Hospitalist Progress Note ---
Date of Service March 20, 2022 Assessment & Plan (1) Acute exacerbation of chronic obstructive pulmonary disease: Plan: per Dr. Santo's notes with addendum: (1) Acute respiratory failure with hypoxia: Plan: Hypoxemic, hypercapnic respiratory failure secondary to COPD exacerbation secondary to complicated bronchitis Condition is not any better-received BiPAP last night CO2 remains elevated as of this morning Will try BiPAP during daytime Received a dose of 40 mg of Lasix IV this morning Still requiring high flow oxygen ABG did showed normal pH and the CO2 is improved to 68 from 80s Will give another dose of IV Lasix today Continue BiPAP at nighttime and as per the therapist 03/20 patient reports he is gradually improving continue Solumedrol BID Xopenex/Atrovent Q6h Cefepime + Doxycycline wean off O2 accordingly (2) Acute exacerbation of chronic obstructive pulmonary disease: Plan: Possible sepsis No pneumonic consolidation management per above (3) Obstructive sleep apnea on CPAP: Plan: Patient is very noncompliant with CPAP Required BiPAP last night and will try this morning as well CO2 remains elevated around 40 (4) Schizoaffective disorder: Plan: No acute issues Significant bipolar disorder as well Continue with current medications No acute symptoms (5) Non-insulin dependent type 2 diabetes mellitus: Plan: DM2 on oral meds, suboptimal control as of recent hemoglobin A1c of 7.7 last November 2021 Basal bolus insulin adjusted for n.p.o. status while n.p.o. while on BiPAP, ISS BG goal 1 10-1 40 -- BSG 116 --> 137 Plan Hypertension, slight elevated Hyperlipidemia on statin Rx Mood disorder/schizophrenia, at baseline as per patient ongoing tobacco/alcohol abuse DT precautions, MAZIN S once with signs of alcohol withdrawal Nicotine replacement therapy as needed (patient prefers gum to patch) DVT prophylaxis. Lovenox subcu Full code plan of care discussed with patient in detail and at length all questions answered he is understanding, agreeable, comfortable with the plan of care Admission and Anticipated Discharge Date Admission Date: March 17, 2022 Subjective ff up for COPD exacerbation, etc Seen resting in bed, comfortable, not in distress on oxymask 7L states he feels better today than yesterday breathing improving occasional dry cough no fever/chills no chest pain, dyspnea, palpitations, dizziness no other symptoms Review of Systems Review of Systems: all noted and negative except for above Physical Exam Physical Exam: General- oriented x 3, not in distress, speaks in sentences with no effort or accessory muscle use Eyes- anicteric Neck- no JVD Lungs- (+) mild-moderate wheeze BL good air entry Heart- normal rate, regular rhythm; no murmurs Abdomen- normal bowel sounds, nondistended, soft, nontender Extremities- no pretibial edema, no calf tenderness Neuro- alert, oriented x 3; no gross focal neurologic deficits Skin- warm & dry Results & Data Results & Data ([facility]) Vital Signs (Past 12 Hours) Vital Signs Temp Pulse Pulse Resp BP Pulse Ox O2 Del Method 03/20/22 13:16 84 18 94 Oxymask 03/20/22 10:58 36.8 C 85 20 149/84 H 94 Oxymask 03/20/22 08:00 Oxymask 03/20/22 07:07 78 03/20/22 06:58 36.6 C 76 20 160/99 H 93 Oxymask 03/20/22 06:52 79 18 96 Oxymask 03/20/22 03:12 36.4 C L 73 20 151/85 H 9 L Oxymask 03/20/22 02:12 89 25 H 91 03/20/22 02:10 83 25 H 91 BiPAP O2 Flow Rate FiO2 03/20/22 13:16 4 03/20/22 10:58 6 03/20/22 08:00 8 03/20/22 07:07 03/20/22 06:58 7 03/20/22 06:52 8 03/20/22 03:12 8 03/20/22 02:12 45 03/20/22 02:10 45 all noted and reviewed including below
[2022-03-20] MEDS: LANTUS PER UNIT CHARGE SQ SCH (19:59)
[2022-03-20] MEDS: LUMATEPERONE 42 MG PO SCH (20:05)
[2022-03-20] MEDS: haloperidoL 5 MG TAB PO SCH (20:07)
[2022-03-20] MEDS: SIMVASTATIN 10 MG TAB PO SCH (20:07)
[2022-03-20] MEDS: LORazepam 0.5 MG TAB PO PRN (20:17)
[2022-03-21] MEDS: IPRATROPIUM BROMIDE NEB SOLN 0.02% 2.5 ML VIAL INH SCH ×4 (00:17→19:17)
[2022-03-21] MEDS: LEVALBUTEROL 1.25MG/0.5ML NEB INH SCH ×4 (00:19→19:17)
[2022-03-21] MEDS: CEFEPIME 2,000 MG in SYRINGE 0 ML IV SCH ×3 (01:30→17:10)
[2022-03-21] MEDS: PANTOprazole 40 MG TAB PO SCH (06:21)
[2022-03-21] MEDS: THIAMINE HCL 100 MG TAB PO SCH (08:18)
[2022-03-21] MEDS: busPIRone 15 MG TAB PO SCH ×2 (08:18→21:35)
[2022-03-21] MEDS: FOLIC ACID 1 MG TAB PO SCH (08:18)
[2022-03-21] MEDS: GABAPENTIN 600 MG TAB PO SCH ×3 (08:18→21:34)
[2022-03-21] MEDS: DOXYCYCLINE HYCLATE 100 MG CAP PO SCH ×2 (08:18→21:34)
[2022-03-21] MEDS: lamoTRIgine 100 MG TAB PO SCH (08:18)
[2022-03-21] MEDS: MULTIVITAMIN TAB PO SCH (08:18)
[2022-03-21] MEDS: FLUTICASONE/VILANTEROL 200/25MCG 14 PUFFS/INHALER INH SCH (08:19)
[2022-03-21] MEDS: methylPREDNISolone 60 MG in SYRINGE 0 ML IV SCH ×2 (08:19→21:33)
[2022-03-21] MEDS: ENOXAPARIN INJ 40 MG/0.4 ML SYR SQ SCH (08:19)
[2022-03-21] MEDS: UMECLIDINIUM BROMIDE 62.5MCG/BLISTER 7 PUFFS/INHALER INH SCH (08:19)
[2022-03-21] MEDS: FEXOFENADINE 60 MG TAB PO SCH (08:19)
[2022-03-21] MEDS: cloNIDine HCL 0.1 MG TAB PO SCH ×2 (08:22→21:36)
[2022-03-21] MEDS: INSULIN ASPART PER UNIT SC SCH ×4 (08:45→21:30)
--- NOTE | 2022-03-21 15:59 | Hospitalist Progress Note ---
Date of Service March 21, 2022 Assessment & Plan (1) Acute exacerbation of chronic obstructive pulmonary disease: Plan: per Dr. Santo's notes with addendum: (1) Acute respiratory failure with hypoxia: Plan: Hypoxemic, hypercapnic respiratory failure secondary to COPD exacerbation secondary to complicated bronchitis Condition is not any better-received BiPAP last night CO2 remains elevated as of this morning Will try BiPAP during daytime Received a dose of 40 mg of Lasix IV this morning Still requiring high flow oxygen ABG did showed normal pH and the CO2 is improved to 68 from 80s Will give another dose of IV Lasix today Continue BiPAP at nighttime and as per the therapist 03/21 patient reports continues to feel improved today continue Solumedrol BID Xopenex/Atrovent Q6h Cefepime + Doxycycline wean off O2 accordingly Anticipate discharge home tomorrow if patient continues to do well (2) Acute exacerbation of chronic obstructive pulmonary disease: Plan: Possible sepsis No pneumonic consolidation management per above (3) Obstructive sleep apnea on CPAP: Plan: Patient has been using CPAP this week and (4) Schizoaffective disorder: Plan: No acute issues Continue usual regimen (5) Non-insulin dependent type 2 diabetes mellitus: Plan: DM2 on oral meds, suboptimal control as of recent hemoglobin A1c of 7.7 last November 2021 Basal bolus insulin adjusted for n.p.o. status while n.p.o. while on BiPAP, ISS BG goal 1 10-1 40 -- BSG 173--186 Hypertension Monitor Hyperlipidemia on statin Rx Mood disorder/schizophrenia, at baseline as per patient ongoing tobacco/alcohol abuse DT precautions, MAZIN S once with signs of alcohol withdrawal Nicotine replacement therapy as needed (patient prefers gum to patch) DVT prophylaxis. Lovenox subcu Full code plan of care discussed with patient in detail and at length all questions answered he is understanding, agreeable, comfortable with the plan of care Admission and Anticipated Discharge Date Admission Date: March 17, 2022 Subjective ff up for Acute Bronchitis, etc seen resting in bed, comfortable on 4 L NC states he continues to feel improved less cough no dyspnea no chest pain, fever/chills no chest pain, dyspnea, palpitations, dizziness Review of Systems Review of Systems: all noted and negative except for above Physical Exam Physical Exam: General- oriented x 3, not in distress, speaks in sentences with no effort or accessory muscle use Eyes- anicteric Neck- no JVD Lungs- faint wheeze BL no crackles Heart- normal rate, regular rhythm; no murmurs Abdomen- normal bowel sounds, nondistended, soft, no tenderness Extremities- no pretibial edema, no calf tenderness Neuro- alert, oriented x 3; no gross focal neurologic deficits Skin- warm & dry Results & Data Results & Data ([facility]) Vital Signs (Past 12 Hours) Vital Signs Temp Pulse Pulse Resp BP BP Pulse Ox 03/21/22 15:16 36.5 C 72 19 162/92 H 92 03/21/22 13:06 83 18 92 03/21/22 11:05 36.6 C 73 18 155/94 H 92 03/21/22 08:00 03/21/22 07:00 79 19 96 03/21/22 07:00 79 19 96 03/21/22 07:19 37.0 C 71 22 125/75 98 03/21/22 07:06 76 03/21/22 04:00 36.4 C L 81 18 121/78 94 O2 Del Method O2 Flow Rate FiO2 03/21/22 15:16 Oxymask 4 03/21/22 13:06 Oxymask 5 03/21/22 11:05 Oxymask 5 03/21/22 08:00 Oxymask 5 03/21/22 07:00 50 03/21/22 07:00 BiPAP 50 03/21/22 07:19 CPAP 03/21/22 07:06 03/21/22 04:00 Oxymask 4
[2022-03-21] MEDS: LANTUS PER UNIT CHARGE SQ SCH (21:31)
[2022-03-21] MEDS: haloperidoL 5 MG TAB PO SCH (21:34)
[2022-03-21] MEDS: SIMVASTATIN 10 MG TAB PO SCH (21:35)
[2022-03-21] MEDS: LORazepam 0.5 MG TAB PO PRN (21:36)
[2022-03-21] MEDS: LUMATEPERONE 42 MG PO SCH (21:36)
[2022-03-21] MEDS ORDERED: hydrOXYzine HCl 25 MG TAB PO STA ×2 (23:26)
[2022-03-22] MEDS: IPRATROPIUM BROMIDE NEB SOLN 0.02% 2.5 ML VIAL INH SCH ×3 (01:08→13:22)
[2022-03-22] MEDS: LEVALBUTEROL 1.25MG/0.5ML NEB INH SCH ×3 (01:08→13:22)
[2022-03-22] MEDS: CEFEPIME 2,000 MG in SYRINGE 0 ML IV SCH ×2 (01:24→08:41)
[2022-03-22] MEDS: PANTOprazole 40 MG TAB PO SCH (05:44)
[2022-03-22] MEDS: FLUTICASONE/VILANTEROL 200/25MCG 14 PUFFS/INHALER INH SCH (08:37)
[2022-03-22] MEDS: UMECLIDINIUM BROMIDE 62.5MCG/BLISTER 7 PUFFS/INHALER INH SCH (08:37)
[2022-03-22] MEDS: methylPREDNISolone 60 MG in SYRINGE 0 ML IV SCH (08:37)
[2022-03-22] MEDS: GABAPENTIN 600 MG TAB PO SCH ×2 (08:38→13:07)
[2022-03-22] MEDS: lamoTRIgine 100 MG TAB PO SCH (08:38)
[2022-03-22] MEDS: DOXYCYCLINE HYCLATE 100 MG CAP PO SCH (08:38)
[2022-03-22] MEDS: busPIRone 15 MG TAB PO SCH (08:38)
[2022-03-22] MEDS: THIAMINE HCL 100 MG TAB PO SCH (08:38)
[2022-03-22] MEDS: FEXOFENADINE 60 MG TAB PO SCH (08:38)
[2022-03-22] MEDS: ENOXAPARIN INJ 40 MG/0.4 ML SYR SQ SCH (08:38)
[2022-03-22] MEDS: MULTIVITAMIN TAB PO SCH (08:38)
[2022-03-22] MEDS: FOLIC ACID 1 MG TAB PO SCH (08:38)
[2022-03-22] MEDS: cloNIDine HCL 0.1 MG TAB PO SCH (08:41)
[2022-03-22] MEDS: INSULIN ASPART PER UNIT SC SCH ×2 (08:51→12:12)
[2022-03-22 08:55] LABS: Basophils # (auto) 0.03 K/uL (0-0.2); Basophils % (auto) 0.2 %; Eosinophils # (auto) 0.02 K/uL (0-0.50); Eosinophils % (auto) 0.1 %; Hematocrit (blood only) 47.4 % (40.1-51.0); Hemoglobin 15.9 g/dl (14.0-18.0); Immature Granulocytes # (auto) 0.15 K/uL (0.00-0.02); Immature Granulocytes % (auto) 0.9 %; Lymphocytes # (auto) 2.16 K/uL (1.2-3.4); Lymphocytes % (auto) 12.8 %; Mean Corpuscular Hemoglobin 28.8 pg (25.0-34.0); Mean Corpuscular Hgb Conc 33.5 g/dL (32.0-36.0); Mean Corpuscular Volume 85.9 fL (80.0-100.0); Mean Platelet Volume 9.1 fL (9.4-12.4); Monocytes # (auto) 1.36 K/uL (0.24-0.82); Monocytes % (auto) 8.1 %; Neutrophils # (auto) 13.15 K/uL (1.4-6.5); Neutrophils % (auto) 77.9 %; Platelet Count 406 K/uL (130-400); RDW Coefficient of Variation 14.5 % (11.5-14.5); RDW Standard Deviation 45.3 fL (36.4-46.3); Red Blood Count 5.52 M/uL (4.63-6.08); White Blood Count 16.87 K/ul (4.8-10.8)
[2022-03-22 10:23] LABS: BUN Creatinine Ratio 25.4 (10-20); Calcium 9.1 mg/dl (8.5-10.1); Est GFR (African American) 132.3 ml/min; Est GFR (Non-African American) 114.1 ml/min; Magnesium 1.7 mg/dl (1.7-2.4); Potassium 4.9 mmol/L (3.5-5.1)
--- NOTE | 2022-03-22 11:39 | Hospitalist Progress Note ---
Date of Service March 22, 2022 Assessment & Plan (1) Acute exacerbation of chronic obstructive pulmonary disease: Plan: (1) Acute respiratory failure with hypoxia: Plan: Hypoxemic, hypercapnic respiratory failure secondary to COPD exacerbation secondary to complicated bronchitis Condition is not any better-received BiPAP last night CO2 remains elevated as of this morning Will try BiPAP during daytime Received a dose of 40 mg of Lasix IV this morning Still requiring high flow oxygen ABG did showed normal pH and the CO2 is improved to 68 from 80s Will give another dose of IV Lasix today Continue BiPAP at nighttime and as per the therapist He refused to use any CPAP at home but will continue with oxygen as advised 03/21 patient reports continues to feel improved today continue Solumedrol BID Xopenex/Atrovent Q6h Cefepime + Doxycycline wean off O2 accordingly 03/22 He has been feeling much better today and denies any significant symptom No cough, wheezing and no shortness of breath at rest Has had 2 steps O2 saturation test He will need 2 L at rest and 3 with ambulation Be discharged home this afternoon (2) Acute exacerbation of chronic obstructive pulmonary disease: Plan: Possible sepsis No pneumonic consolidation Will be given short course of prednisone on discharge Antibiotic course will be finished management per above (3) Obstructive sleep apnea on CPAP: Plan: Patient has been using CPAP this week and Does not want to use CPAP at home (4) Schizoaffective disorder: Plan: No acute issues Continue usual regimen (5) Non-insulin dependent type 2 diabetes mellitus: Plan: DM2 on oral meds, suboptimal control as of recent hemoglobin A1c of 7.7 last November 2021 Basal bolus insulin adjusted for n.p.o. status while n.p.o. while on BiPAP, ISS BG goal 1 10-1 40 -- BSG 173--186 Hypertension Monitor Hyperlipidemia on statin Rx Mood disorder/schizophrenia, at baseline as per patient ongoing tobacco/alcohol abuse DT precautions, MAZIN S once with signs of alcohol withdrawal Nicotine replacement therapy as needed (patient prefers gum to patch) DVT prophylaxis. Lovenox subcu Full code Will be discharged home this afternoon Admission and Anticipated Discharge Date Admission Date: March 17, 2022 Subjective 03/18/2022 Patient was seen and examined in telemetry unit He has been complaining of shortness of breath with wheezing and required BiPAP last night Has been feeling little better this morning when I saw him Still has minimal shortness of breath at rest and requiring about 10 L of oxygen to maintain saturation He is willing to try BiPAP even during daytime if needed 03/19/2022 The patient was seen and examined in telemetry unit He has been feeling much better but is still requiring about 7 L of oxygen to maintain saturation He denies any fever and no chills, any abdominal pain nausea no vomiting 03/22/2022 Patient was seen and examined in telemetry unit He has been feeling a lot better Denies any shortness of breath at rest and does not have any wheezing at rest He has had 2 steps O2 saturation test and he will need 2 L at rest and 3 with ambulation He will be discharged home this afternoon Review of Systems Review of Systems: all noted and negative except for above Respiratory: Shortness of breath at rest with tachypnea without tachycardia Physical Exam Physical Exam: Lying in bed with moderate shortness of breath Constitutional: well developed, well nourished, + ill appearing and + obese Eyes: PERRL, conjunctivae normal, anicteric sclerae ENMT: external ear and nose normal, oropharynx normal Neck: trachea midline, no thyromegaly Respiratory: + respiratory distress Auscultation: + diminished lung sounds and + wheezes (Minimal wheezing bilaterally); no crackles (Bilaterally basal) Cardiovascular: Rate/Rhythm: regular rate and regular rhythm; not tachycardic Heart Sounds: normal S1 and normal S2; no murmur Extremities: + edema (Trace edema bilateral) Gastrointestinal (Abdomen): Inspection/Auscultation: + abdomen distended and normal bowel sounds Percussion/Palpation: abdomen soft; abdomen nontender Musculoskeletal: No acute arthritis in any joint Neurologic: normal touch/pain/proprioception and moves all extremities; no focal motor deficits Psychiatric: A+Ox3, euthymic affect Lymphatic: no cervical or axillary lymphadenopathy Results & Data Results & Data ([facility]) Vital Signs (Past 12 Hours) Vital Signs Temp Pulse Pulse Pulse Pulse Pulse Pulse 03/22/22 11:22 37.1 C 78 03/22/22 10:40 85 88 92 H 90 03/22/22 07:13 70 03/22/22 07:11 74 03/22/22 06:30 36.5 C 72 03/22/22 03:21 03/22/22 02:59 36.5 C 78 Resp Resp Resp Resp Resp Resp BP 03/22/22 11:22 18 150/92 H 03/22/22 10:40 20 20 22 22 20 03/22/22 07:13 03/22/22 07:11 20 03/22/22 06:30 21 03/22/22 03:21 18 132/84 03/22/22 02:59 22 143/87 H BP Pulse Ox Pulse Ox Pulse Ox Pulse Ox Pulse Ox Pulse Ox 03/22/22 11:22 91 03/22/22 10:40 92 90 83 L 91 86 L 03/22/22 07:13 03/22/22 07:11 97 03/22/22 06:30 150/91 H 95 03/22/22 03:21 94 03/22/22 02:59 91 O2 Del Method O2 Flow Rate O2 Flow Rate O2 Flow Rate O2 Flow Rate O2 Flow Rate 03/22/22 11:22 Nasal Cannula 2 03/22/22 10:40 2 3 2 2 03/22/22 07:13 03/22/22 07:11 Oxymask 4 03/22/22 06:30 Oxymask 4 03/22/22 03:21 Oxymask 4 03/22/22 02:59 Oxymask 4 Laboratory Results Short CBC 03/22/22 Range/Units 08:39 WBC 16.87 H (4.8-10.8) K/ul Hgb 15.9 (14.0-18.0) g/dl Hct 47.4 (40.1-51.0) % Plt Count 406 H (130-400) K/uL BMP 03/22/22 08:39 Sodium 132 L Potassium 4.9 Chloride 93 L Carbon Dioxide 34 H BUN 18 Creatinine 0.71 Glucose 270 H Calcium 9.1 Medications Administered Current Inpatient Medications Acetaminophen (Acetaminophen 325 Mg Tab) 650 mg PO Q4H PRN PRN Reason: Pain or Fever Stop: 04/16/22 02:49 Buspirone HCl (Buspirone 15 Mg Tab) 30 mg PO BID AASHISH Stop: 04/16/22 08:59 Last Admin: 03/22/22 08:38 Dose: 30 mg Clonidine HCl (Clonidine Hcl 0.1 Mg Tab) 0.2 mg PO BID AASHISH Stop: 04/16/22 08:59 Last Admin: 03/22/22 08:41 Dose: 0.2 mg Dextrose (Dextrose 50% 50 Ml Syringe) 25 - 50 ml IV UD PRN; Protocol PRN Reason: Hypoglycemia Protocol Stop: 04/16/22 02:49 Doxycycline Hyclate (Doxycycline Hyclate 100 Mg Cap) 100 mg PO BID [facility] Stop: 03/24/22 20:59 Last Admin: 03/22/22 08:38 Dose: 100 mg Enoxaparin Sodium (Enoxaparin Inj 40 Mg/0.4 Ml Syr) 40 mg SQ QAM AASHISH Stop: 04/16/22 08:59 Last Admin: 03/22/22 08:38 Dose: 40 mg Fexofenadine HCl (Fexofenadine 60 Mg Tab) 60 mg PO DAILY AASHISH Stop: 04/16/22 08:59 Last Admin: 03/22/22 08:38 Dose: 60 mg Fluticasone/Vilanterol (Fluticasone/Vilanterol 200/25mcg 14 Puffs/Inhaler) 1 puffs INH DAILY AASHISH Stop: 04/17/22 13:29 Last Admin: 03/22/22 08:37 Dose: 1 puffs Folic Acid (Folic Acid 1 Mg Tab) 1 mg PO QAM AASHISH Stop: 04/16/22 08:59 Last Admin: 03/22/22 08:38 Dose: 1 mg Gabapentin (Gabapentin 600 Mg Tab) 600 mg PO TID [facility] Stop: 04/16/22 08:59 Last Admin: 03/22/22 08:38 Dose: 600 mg Glucagon (Glucagon For Inj 1 Mg Vial) 1 mg SQ UD PRN; Protocol PRN Reason: Hypoglycemia Protocol Stop: 04/16/22 02:49 Glucose (Glucose 40% Gel 15 Gm Tube) 15 - 30 gm PO UD PRN; Protocol PRN Reason: Hypoglycemia Protocol Stop: 04/16/22 02:49 Glucose (Glucose 10 Tab/Tube) 4 - 8 tab PO UD PRN; Protocol PRN Reason: Hypoglycemia Treatment Stop: 04/16/22 02:49 Haloperidol (Haloperidol 5 Mg Tab) 20 mg PO HS [facility] Stop: 04/16/22 02:49 Last Admin: 03/21/22 21:34 Dose: 20 mg Methylprednisolone 60 mg/ (Syringe) 0.96 mls @ 1.5 mls/min IV BID AASHISH Stop: 04/17/22 08:59 Last Admin: 03/22/22 08:37 Dose: 1.5 mls/min Cefepime HCl 2,000 mg/ Syringe 20 mls @ 5 mls/min IV Q8H [facility]; Protocol Stop: 03/25/22 08:59 Last Admin: 03/22/22 08:41 Dose: 5 mls/min Insulin Aspart (Insulin Aspart Per Unit) 0 units SC ACHS [facility] Stop: 04/16/22 02:49 Last Admin: 03/22/22 08:51 Dose: 7 units Insulin Glargine (Lantus Per Unit Charge) 10 units SQ HS AASHISH Stop: 04/16/22 20:59 Last Admin: 03/21/22 21:31 Dose: 10 units Ipratropium [place] (Ipratropium [place] Neb Soln 0.02% 2.5 Ml Vial) 0.5 mg INH Q6R [facility] Stop: 04/16/22 00:59 Last Admin: 03/22/22 07:10 Dose: 0.5 mg Lamotrigine (Lamotrigine 100 Mg Tab) 200 mg PO DAILY [facility] Stop: 04/16/22 08:59 Last Admin: 03/22/22 08:38 Dose: 200 mg Levalbuterol HCl (Levalbuterol 1.25mg/0.5ml Neb) 1.25 mg INH Q6R [facility] Stop: 04/16/22 00:59 Last Admin: 03/22/22 07:10 Dose: 1.25 mg Lorazepam (Lorazepam 0.5 Mg Tab) 0.5 mg PO Q6H PRN PRN Reason: anxiety Stop: 04/16/22 02:49 Last Admin: 03/21/22 21:36 Dose: 0.5 mg Miscellaneous (Carbohydrates For Hypoglycemia ) 15 - 30 gm PO UD PRN PRN Reason: Hypoglycemia Protocol Stop: 04/16/22 02:49 Multivitamins (Multivitamin Tab) 1 tab PO QAM [facility] Stop: 04/17/22 08:59 Last Admin: 03/22/22 08:38 Dose: 1 tab Nicotine Polacrilex (Nicotine Polacrilex 2 Mg Gum) 1 piece MT Q1H PRN PRN Reason: smoking urge Stop: 04/16/22 00:51 Lumateperone ( Caplyta) 42mg Capsule: Non- Formulary Patient's Own Med 1 each PO Q24H [facility] Stop: 04/19/22 20:59 Last Admin: 03/21/22 21:36 Dose: 45 mg Pantoprazole Sodium (Pantoprazole 40 Mg Tab) 40 mg PO DAILYBB [facility] Stop: 04/16/22 06:29 Last Admin: 03/22/22 05:44 Dose: 40 mg Simvastatin (Simvastatin 10 Mg Tab) 10 mg PO HS [facility] Stop: 04/16/22 20:59 Last Admin: 03/21/22 21:35 Dose: 10 mg Thiamine HCl (Thiamine Hcl 100 Mg Tab) 100 mg PO QAM [facility] Stop: 04/17/22 08:59 Last Admin: 03/22/22 08:38 Dose: 100 mg Umeclidinium [place] (Umeclidinium [place] 62.5mcg/Blister 7 Puffs/Inhaler) 1 puffs INH DAILY [facility] Stop: 04/16/22 08:59 Last Admin: 03/22/22 08:37 Dose: 1 puffs
--- NOTE | 2022-03-23 07:33 | Discharge Summary ---
Date of Service March 22, 2022 Admission HPI Per Admitting Provider History obtained from patient and records. Medical history significant for COPD, BIN /CPAP noncompliance, hypertension, hyperlipidemia, DM2 on oral meds, mood disorder, schizophrenia, ongoing tobacco/alcohol abuse Last confinement May 2021 for COPD exacerbation secondary to bilateral pneumonia. Few days history of junky cough symptoms with worsening shortness of breath. Denies chest pain, aspiration, fever, or chills. Not sure about sick contacts. Patient completed COVID-19 vaccination without recent boosters. Last drink was last night. Patient brought to the ER for evaluation. O2 sats 80s at the ER. Decadron, Zosyn, nebs administered at the ER. MEDICAL HISTORY: As above. SURGERIES: Hernia repair, tonsillectomy FAMILY HISTORY: DM, heart disease PERSONAL SOCIAL HISTORY: Ongoing tobacco abuse, alcohol abuse as per records, disabled. Admission Exam Per Admitting Provider Physical Exam: GENERAL: Slightly uncomfortable, morbidly obese, looks older than stated age, unkempt, flat affect, no respiratory distress SKIN: Normal color, warm HEENT: Dearing palpebral conjunctivae, no ptosis, dry buccal mucosa, O2 mask in place NECK : Supple, short neck, no tenderness CHEST : Decreased breath sounds, diffuse expiratory wheezes, no tenderness HEART : RRR, no obvious murmurs ABDOMEN: Some distention, nontender EXTREMITIES : Minimal LE swelling, no LE tenderness, no other conspicuous deformities noted NEUROLOGIC : Coherent, no facial asymmetry, no other gross focality Principal Diagnosis Acute respiratory failure with hypoxia, acute infective exacerbation of COPD, obstructive sleep apnea, type 2 diabetes Discharge Exam Lying in bed with moderate shortness of breath Constitutional well developed, well nourished, + ill appearing and + obese Eyes PERRL, conjunctivae normal, anicteric sclerae ENMT external ear and nose normal, oropharynx normal Neck trachea midline, no thyromegaly Respiratory + respiratory distress Auscultation: + diminished lung sounds and + wheezes (Minimal wheezing bilaterally); no crackles (Bilaterally basal) Cardiovascular Rate/Rhythm: regular rate and regular rhythm; not tachycardic Heart Sounds: normal S1 and normal S2; no murmur Extremities: + edema (Trace edema bilateral) Gastrointestinal (Abdomen) Inspection/Auscultation: + abdomen distended and normal bowel sounds Percussion/Palpation: abdomen soft; abdomen nontender Neurologic normal touch/pain/proprioception and moves all extremities; no focal motor deficits Psychiatric A+Ox3, euthymic affect Lymphatic no cervical or axillary lymphadenopathy Discharge Data Allergies Allergy/AdvReac Type Severity Reaction Status Date / Time amoxicillin Allergy Unknown ON [facility] MED Verified 03/16/22 23:32 LIST Consultations 03/16/22 22:30 ED Decision to Admit Stat Hospital Course (1) Acute exacerbation of chronic obstructive pulmonary disease: (1) Acute respiratory failure with hypoxia: Plan: Hypoxemic, hypercapnic respiratory failure secondary to COPD exacerbation secondary to complicated bronchitis Condition is not any better-received BiPAP last night CO2 remains elevated as of this morning Will try BiPAP during daytime Received a dose of 40 mg of Lasix IV this morning Still requiring high flow oxygen ABG did showed normal pH and the CO2 is improved to 68 from 80s Will give another dose of IV Lasix today Continue BiPAP at nighttime and as per the therapist He refused to use any CPAP at home but will continue with oxygen as advised 03/21 patient reports continues to feel improved today continue Solumedrol BID Xopenex/Atrovent Q6h Cefepime + Doxycycline wean off O2 accordingly 03/22 He has been feeling much better today and denies any significant symptom No cough, wheezing and no shortness of breath at rest Has had 2 steps O2 saturation test He will need 2 L at rest and 3 with ambulation Be discharged home this afternoon (2) Acute exacerbation of chronic obstructive pulmonary disease: Plan: Possible sepsis No pneumonic consolidation Will be given short course of prednisone on discharge Antibiotic course will be finished management per above (3) Obstructive sleep apnea on CPAP: Plan: Patient has been using CPAP this week and Does not want to use CPAP at home (4) Schizoaffective disorder: Plan: No acute issues Continue usual regimen (5) Non-insulin dependent type 2 diabetes mellitus: Plan: DM2 on oral meds, suboptimal control as of recent hemoglobin A1c of 7.7 last November 2021 Basal bolus insulin adjusted for n.p.o. status while n.p.o. while on BiPAP, ISS BG goal 1 10-1 40 -- BSG 173--186 Hypertension Monitor Hyperlipidemia on statin Rx Mood disorder/schizophrenia, at baseline as per patient ongoing tobacco/alcohol abuse DT precautions, MAZIN S once with signs of alcohol withdrawal Nicotine replacement therapy as needed (patient prefers gum to patch) DVT prophylaxis. Lovenox subcu Full code Will be discharged home this afternoon Total Time Total Time Spent Total Time Spent (In Minutes): 35 minutes Discharge Plan Discharge Items Patient Disposition: Home - Self-Care Reason For Visit: SOB, CAN'T BREATHE Discharge Diagnosis: Acute respiratory failure with hypoxia, acute infective exacerbation of COPD, obstructive sleep apnea, type 2 diabetes Condition on Discharge: Good Activity: Resume your previous activity Non-emergency contact: Primary Care Provider Call non-emergency contact if: you have any medication questions and your symptoms worsen Follow-up/Referrals: Devyn Silva MD [Primary Care Provider] - (Date & Time 03/25/2022 10:20 AM Provider Devyn Silva MD [facility] ) Diet: Carb Consistent or DM2 Addtl Attending Provider Instructions: Please take precautions to avoid falls Finish the course of your prednisone and antibiotics Please keep appointments with your healthcare provider Try to avoid respiratory stimulants as advised Take your oxygen as needed Recommended to use CPAP at night You can try some probiotics from [id number] while you are on oral antibiotics Pending Studies at Discharge: No Stand-Alone Forms: My [facility] [employer], Smoking Cessation Medications and DC Order Prescriptions: New doxycycline hyclate 100 mg Capsule 100 mg PO BID 5 Days Qty: 10 0RF thiamine HCl (vitamin B1) 100 mg Tablet 100 mg PO QAM 30 Days Qty: 30 0RF folic acid 1 mg Tablet 1 mg PO QAM 30 Days Qty: 30 0RF cefdinir 300 mg capsule 300 mg PO BID Qty: 10 0RF prednisone 10 mg tablet 10 mg PO UD Qty: 30 0RF Rx Instructions: 4 p.o. daily for 3 days, 3 p.o. daily for 3 to, 2 p.o. daily for 3, 1 p.o. daily for 3 days Continued metformin 500 mg tablet extended release 24 hr See Rx Instructions .ROUTE .COMPLEX Rx Instructions: 500 mg orally; TAKES 1,000 MG QAM, THEN 500 MG QPM. lisinopril 20 mg tablet 20 mg PO QAM hydroxyzine pamoate 50 mg capsule 150 mg PO DIRECTED PRN (Reason: PER PT NEEDED) Rx Instructions: PER [facility] 50 MG TID FOR ANXIETY ONLY WHEN NEEDED. levothyroxine 25 mcg tablet 25 mcg PO QAM clonidine HCl 0.2 mg tablet 0.2 mg PO BID buspirone 30 mg Tablet 30 mg PO BID simvastatin 10 mg tablet 10 mg PO HS haloperidol 20 mg tablet 20 mg PO HS Incruse Ellipta 62.5 mcg/actuation blister with device 1 inh INHALATION DAILY Trulicity 0.75 mg/0.5 mL pen injector See Rx Instructions .ROUTE .COMPLEX Rx Instructions: one pen weekly ON SUNDAYS. lorazepam 0.5 mg Tablet 0.5 mg PO Q6H PRN (Reason: anxiety) Qty: 5 0RF fluticasone furoate-vilanterol [Breo Ellipta] 200-25 mcg/dose Blister With Device 1 ea inhalation DAILY Qty: 60 2RF gabapentin 600 mg tablet 600 mg PO TID lamotrigine 200 mg tablet 200 mg PO DAILY fexofenadine 60 mg Tablet 60 mg PO DAILY omeprazole 40 mg capsule,delayed release(DR/EC) 40 mg PO DAILYBB acetaminophen [Tylenol Extra Strength] 500 mg Tablet 1,000 mg PO TID albuterol sulfate 90 mcg/actuation Hfa Aerosol Inhaler 2 puff INHALATION Q6H PRN (Reason: COUGH/SHORTNESS OF BREATH/WHEEZING) cholecalciferol (vitamin D3) [Vitamin D3] 50 mcg (2,000 unit) Capsule 50 mcg PO DAILY guaifenesin 600 mg Tablet Extended Release 12hr 1,200 mg PO Q12H PRN (Reason: Congestion) Caplyta 42 mg capsule 42 mg PO HS ipratropium bromide 0.02 % solution 0.5 mg inhalation Q6H Rx Instructions: MAY ALSO USE EVERY FOUR HOURS NEEDED FOR SHORTNESS OF BREATH/WHEEZING levalbuterol HCl 1.25 mg/0.5 mL solution for nebulization 1.25 mg inhalation Q6H Rx Instructions: MAY ALSO USE EVERY FOUR HOURS NEEDED FOR SHORTNESS OF BREATH/WHEEZING Discharge Orders: Discharge Order (Routine); Ordered 03/22/22 Ordered By: Khushboo Santo Admission Data Admit Date/Time: 03/17/22 00:47 Attending Provider: Khushboo Santo Admit Provider: Alonzo Hampton Primary Care Provider: Devyn Silva Other Providers: Alonzo Hampton ; Khushboo Santo ; Tanmay Craft Other Interventions: Discharge Summary Assessment (RN) Last Done: 03/22/22 14:15
== END 2022-03-22 15:33 | disposition home or self-care (01) | DRG 190 ==
LOC: ED 19:26 → SUATTDRO 03-17 00:47 → EDINP 03-17 00:47 → 2S 03-17 02:49
DX: G47.33 Obstructive sleep apnea (adult) (pediatric); F20.9 Schizophrenia, unspecified; Z79.899 Other long term (current) drug therapy; F17.210 Nicotine dependence, cigarettes, uncomplicated; Z79.84 Long term (current) use of oral hypoglycemic drugs; Z91.199 Patient's noncompliance with other medical treatment and regimen due to unspecified reason; E11.9 Type 2 diabetes mellitus without complications; J96.01 Acute respiratory failure with hypoxia; E87.29 Other acidosis; E78.5 Hyperlipidemia, unspecified; I10 Essential (primary) hypertension; J96.02 Acute respiratory failure with hypercapnia; J44.1 Chronic obstructive pulmonary disease with (acute) exacerbation; Z88.1 Allergy status to other antibiotic agents; F39 Unspecified mood [affective] disorder; Z79.890 Hormone replacement therapy

== ENCOUNTER 2023-03-14 00:20 | Inpatient (IN) ==
--- OUTSIDE RECORDS SUMMARY | 2023-03-14 00:29 | External Medical Summary | Summary of Care ---
Author Name Unknown Organization [facility] Address [address] [place] [address] Phone [phone] Care Team Providers Care Commercial Fisherman Name Role Phone Devyn Silva MD Primary Care Provider [phone] Reason for Visit * Reason Onset Date Comments FYI 12/23/2022 See te Encounter Details Date Type Department Care Team (Late st Contact Info) Description 12/23/2022 Telephone [facility] [address] [place] [address] Devyn Silva MD [address] [place] [address] FYI (See te) Allergies Active Allergy Reactions Criticality Noted Date Comments Amoxicillin Medium 06/21/2019 unknown reaction. documented as of this encounter (statuses as of 12/23/2022) Medications Medication Sig Dispensed Refills Start Date End Date Status Blood Glucose Monitoring Suppl (D-CARE GLUCOMETER) w/Device KITIndications:Type 2 diabetes mellitus with hemoglobin A1c goal of less than 7.0% ([facility]) Use as directed. 1 Kit 0 07/10/2019 Active Lancets MISCIndications:Type 2 diabetes mellitus with hemoglobin A1c goal of less than 7.0% ([facility]) Use as directed. 100 Each 11 07/10/2019 Active Blood Glucose Monitoring Suppl (TouchIN2 TechnologiesTOUCH ULTRA 2) w/Device KIT Test blood sugar once daily E11.9 1 Each 0 07/12/2019 Active busPIRone HCl 30 MG TABS Take 1 Tab by mouth 2 times a day. 180 Tab 1 10/23/2019 Active cloNIDine (CATAPRES) 0.2 MG Tablet Take 1 Tab by mouth 2 times a day. 180 Tab 1 10/23/2019 Active lamoTRIgine (LAMICTAL) 100 MG Tablet Take 1.5 Tabs by mouth daily. 135 Tab 1 10/23/2019 Active LORazepam 1 MG Oral Tablet (ATIVAN) Take 1 Tab by mouth 2 times a day as needed for Anxiety. 20 Tab 0 01/08/2020 Active Additional Information Patient not taking.Reported on 07/23/2022 oxygen IN GASIndications:COPD, severity to be determined (HCC) Use 2 L/min(Oxygen) as directed continuous. 1 Each 0 01/16/2020 Active hydrOXYzine Pamoate 50 MG Oral Capsule (VISTARIL) Take 1 pill up to 3 times a day for severe anxiety. This pill can CAUSE DEMENTIA (Alzheimer's disease)--don't take unless you REALLY need it! 30 Cap 3 01/16/2020 Active Haloperidol 10 MG Oral Tablet (HALDOL) Take 1.5 Tablets by mouth at bedtime. 135 Tab 1 01/21/2020 Active Melatonin 5 MG Oral Tablet Take 1 Tab by mouth at bedtime. 90 Tab 0 02/14/2020 Active Additional Information Patient not taking.Reported on 07/23/2022 hydrOXYzine HCl 25 MG Oral TabletIndications:It janie Take 1 Tab by mouth 3 times a day as needed for Itching. 40 Tab 1 02/19/2020 Active Acetaminophen 500 MG Oral Tablet (Tylenol)Indications :Generalized osteoarthritis of multiple sites Take 2 Tabs by mouth 3 times a day. 180 Tab 5 07/16/2020 Active Promethazine HCl 25 MG Oral Tablet (Phenergan)Indicatio ns:Nausea and vomiting, intractability of vomiting not specified, unspecified vomiting type Take by mouth 1 Tablet every 6 hours as needed for Nausea. or vomiting 12 Tablet 0 04/02/2021 Active Additional Information Patient not taking.Reported on 07/23/2022 Fexofenadine HCl 60 MG Oral Tablet (Anjali)Indications :Chronic rhinitis TAKE 1 TABLET BY MOUTH DAILY 30 Tablet 11 05/29/2021 Active Levalbuterol HCl 1.25 MG/0.5ML Inhalation Nebulization Solution Inhale by mouth 1.25 mg every 6 hours . For 7 days 0 Active Acetylcysteine 20 % Inhalation Solution (Mucomyst) Inhale via nebulizer 5 mL in the morning AND 5 mL before bedtime. For 7 days. 0 Active guaiFENesin ER 600 MG Oral Tablet Extended Release 12 Hour (Humibid LA) Take 2 Tablets by mouth in the morning and 2 Tablets before bedtime. For 7 days. 0 Active OneTouch Ultra Blue In Vitro Strip (Glucose Blood) Test blood sugar once daily E11.9 100 Strip 3 10/13/2021 Active OneTouch Delica Plus [id number] Use as directed . Test blood sugar once daily E11.9 100 Each 3 10/13/2021 Active Albuterol Sulfate HFA 108 (90 Base) MCG/ACT Inhalation Aerosol SolutionIndications: COPD, group B, by GOLD 2017 classification ([facility]) Inhale 2 Puffs by mouth every 6 hours as needed for Cough, Shortness of Breath or Wheezing. 18 g 5 01/12/2022 Active metFORMIN HCl ER 500 MG Oral Tablet Extended Release 24 Hour (Glucophage XR)Indications:Type 2 diabetes mellitus with hemoglobin A1c goal of less than 7.0% ([facility]) TAKE 2 TABLETS (1000MG) BY MOUTH IN THE MORNING AT BREAKFAST AND TAKE 1 TABLET BY MOUTH DAILY AT SUPPER 270 Tablet 3 02/05/2022 Active Levothyroxine Sodium 25 MCG Oral Tablet (Levoxyl)Indications :Hypothyroidism, unspecified type TAKE 1 TABLET BY MOUTH EVERY MORNING BEFORE BREAKFAST ON AN EMPTY STOMACH AT LEAST 30 MINUTES BEFORE FOOD 90 Tablet 3 03/09/2022 Active Thiamine HCl 100 MG Oral Tablet (vitamin B-1) Take 1 Tablet by mouth in the morning. 0 Active Folic Acid 1 MG Oral Tablet Take 1 Tablet by mouth in the morning. 0 Active Lumateperone Tosylate 42 MG Oral Capsule (Caplyta) Take 1 Capsule by mouth every night at bedtime. 0 Active Fluticasone-Umeclidi n-Vilant 100-62.5-25 MCG/ACT Aerosol Powder Breath Activated (Trelegy Ellipta)Indications: Chronic obstructive pulmonary disease, unspecified COPD type ([facility]) Inhale 1 Puff by mouth in the morning. 180 Blister Dosing Unit 1 04/13/2022 Active Fluticasone Propionate 50 MCG/ACT Nasal Suspension (Flonase) Administer 1 [place] into nostril in the morning. 18.2 mL 3 04/13/2022 Active Lisinopril 20 MG Oral Tablet (Prinivil)Indication s:HTN, goal below 140/90 TAKE 1 TABLET BY MOUTH DAILY 84 Tablet 1 05/26/2022 Active Simvastatin 10 MG Oral Tablet (Zocor)Indications:P rediabetes,Hyperlipi demia, unspecified hyperlipidemia type TAKE 1 TABLET BY MOUTH EVERY NIGHT AT BEDTIME 84 Tablet 1 05/26/2022 Active Gabapentin 600 MG Oral Tablet (Neurontin)Indicatio ns:Generalized osteoarthritis of multiple sites,Bipolar I disorder, most recent episode manic, moderate (HCC) TAKE 1 TABLET BY MOUTH THREE TIMES A DAY *BOTTLE* 90 Tablet 5 06/02/2022 Active Vitamin D3 50 MCG (1999 [place]) Oral CapsuleIndications:V itamin D deficiency Take 1 Capsule by mouth in the morning. 28 Capsule 5 07/13/2022 Active Omeprazole 40 MG Oral Capsule Delayed Release (PriLOSEC)Indication s:Gastroesophageal reflux disease without esophagitis TAKE 1 CAPSULE BY MOUTH DAILY 1 HOUR BEFORE BREAKFAST 90 Capsule 3 07/21/2022 Active Trulicity 1.5 MG/0.5ML Subcutaneous Solution Pen-injector (Dulaglutide)Indicat ions:Type 2 diabetes mellitus with hemoglobin A1c goal of less than 7.0% (HCC) Inject 1.5 mg under the skin once a week. Dose increase 6 mL 1 07/23/2022 Active Hospital, Clinic, or Other Facility Administered Medication Ordered Dose Route Frequency Start Date End Date Status Albuterol Sulfate (Proventil) (5 MG/ML) 0.5% *conc* inhalation solution 2.5 mgIndications:Chronic obstructive pulmonary disease, unspecified COPD type (HCC) 2.5 mg NEBULIZER PRN 04/13/2022 04/13/2023 Active Albuterol Sulfate (Proventil) (2.5 MG/3ML) 0.083% inhalation solution 2.5 mgIndications:Chronic obstructive pulmonary disease, unspecified COPD type (HCC) 2.5 mg NEBULIZER PRN 04/13/2022 04/13/2023 Active documented as of this encounter (statuses as of 12/23/2022) Active Problems Problem Noted Date Diagnosed Date Proteinuria 07/16/2020 Generalized osteoarthritis of multiple sites COPD, group B, by GOLD 2017 classification 02/10 Overview: Per COPD GOLD Classification Chronic hypoxemic respiratory failure 02/08/2020 Moderate alcohol use disorder, in early remissio n 11/28/2019 Continuous cannabis use 11/28/2019 Lumbar degenerative disc disease 07/12/2019 Tinea corporis 07/12/2019 Morbid obesity due to excess calories 07/12/2019 Undifferentiated schizophrenia 07/10/2019 Body mass index (BMI) of 40.0 to 44.9 in adult 0 07/10/2019 Body mass index (BMI) of 50.0 to 59.9 in adult 0 04/10/2019 Overview: Per Obesity protocol - - Hyperlipidemia with target LDL less than 100 Type 2 diabetes mellitus wit h hemoglobin A1c goal of less than 7.0% 09/20/2018 BIN (obstructive sleep apnea) 03/16/2018 Nocturnal hypoxemia 03/16/2018 Hyperhidrosis 03/17/2016 HTN, goal below 140/90 04/16/2015 Schizophrenia 08/28/2009 Tobacco use disorder 03/31/2009 Hypothyroidism 03/31/2009 Bipolar I disorder, most recent episode manic, m oderate 03/31/2009 Lumbago 03/31/2009 documented as of this encounter (statuses as of 12/23/2022) Resolved Problems Problem Noted Date Diagnosed Date Resolved Date COPD, severity to be determined 07/12/2019 02/14/2020 Overview: Per COPD GOLD Classification Type 2 diabetes mellitus with hyperglycemia 09/20/2018 03/23/2019 Body mass index (BMI) of 45. 0 to 49.9 in adult 04/10/2018 04/11/2019 Overview: Per Obesity protocol #1 - - Body mass index (BMI) of 40. 0 to 44.9 in adult 12/05/2017 04/13/2018 Overview: Per Obesity protocol #1 - Body mass index (BMI) of 45. 0 to 49.9 in adult 05/10/2017 12/12/2017 Overview: Per Obesity protocol #1 Body mass index (BMI) of 50. 0 to 59.9 in adult 02/08/2017 05/13/2017 Overview: Per Obesity protocol #1 - Per Obesity protocol #1 Prediabetes 02/02/2017 03/23/2019 Body mass index (BMI) of 45. 0 to 49.9 in adult 11/29/2016 02/10/2017 Overview: Per Obesity protocol #1 Hyperglycemia 04/16/2015 03/23/2019 Tobacco use disorder 03/31/2009 015 Other mental problems 2019 Overview: schizophrenia affect disorder documented as of this encounter (statuses as of 12/23/2022) Immunizations Name Administration Dates Next Due COVID-19 mRNA, LNP-s, No Pre serve, 2-Dose Series (Pfizer) 06/13/2020,05/23/2020 Pneumococcal Conjugate Vacci ne, 20-valent ([id number]) 07/23/2022 Pneumococcal Polysaccharide PPV23 (Pneumovax) 02/10/2012 SEASONAL INFLUENZA, PF, 6 M & Above, IM , (FLULAVAL or FLUZONE) 03/23/2019,03/08/2018,12/12/2016 Season Influenza, Quad, PF, Adjuvanted, 65+ Yrs, IM (FLUAD) 12/18/2019 Seasonal Influenza, Quadriva lent, No Preserve, IM 12/13/2015 Seasonal Influenza, Split, I IV3, With Preserve, Inj 11/13/2014,12/10/2013,12/06/2012,11/25,01/08/2011,05/01/2010 TDAP (age 10 and older)(Boostrix) 07/23/2022, documented as of this encounter Social History Tobacco Use Types Packs/Day Years Used Date Smoking Tobacco: Every Day Cigarettes 2 15 Smokeless Tobacco: Never Comments:02/08/2020 1 ppd Alcohol Use Standard Drinks/Week Comments Yes 0 (1 standard drink = 0.6 oz pur e alcohol) Sex and Gender Information Value Date Recorded Sex Assigned at Not on file Gender Identity Not on file Sexual Orientation Not on file Job Start Date Occupation Industry Not on file Not on file Not on file documented as of this encounter Miscellaneous Notes * Telephone Encounter - Regina Norris LPN - 12/23/2022 11:10 AM EDT Noted. * Telephone Encounter - BIN Leung - 12/23/2022 11:05 AM EDT Pt called to inform office that she received letter fro pt and that he is incarcerated and will not be available for sometime. documented in this encounter Plan of Treatment Health Maintenance Due Date Last Done Comments Hepatitis B (1 of 3 - 3-dose series) 1975 Alpha-1 Antitrypsin 06/19/1995 Depression Screening 07/25/2020 07/26/2019 Diabetic Foot Exam 01/20/2021 01/21/2020, 03/23/2019 DISCUSS TOBACCO CESSATION (REFER TO SMARTSET #3291) 02/07/2021 02/08/2020 Cologuard 2022 Colonoscopy 2022 Colorectal Cancer Screening 2022 Fecal Occult Blood Test 2022 Sigmoidoscopy 2022 COVID-19 Vaccine ( season) 2022 06/13/2020, 05/23/2020 Influenza Vaccine (FLU shot) (#1) 2022 12/18/2019, 03/23/2019, 03/08/2018, Additional history exists Albumin/Creatinine Ratio 12/23/202212/23/ 022, 05/05/2020, 05/05/2020 HbA1c 03/25/2023 09/22/2022, 06/28, 12/23/2021, Additional history exists DIABETES-EYE EXAM 06/09/2023 06/08/2022 B-12 07/14/2023 07/13/2022, 02/28, 11/29/2018 O2 ASSESSMENT COMPLETED IN PAST YEAR FOR COPD 07/24/2023 07/23/2022 GFR 09/23/2023 09/22/2022, 07/0 06/2022, 07/13/2022, Additional history exists TSH 09/23/2023 09/22/2022, 06/28, 12/23/2021, Additional history exists Lipid Panel 09/23/2027 09/22/2022, 06/28, 07/20/2021, Additional history exists DTaP,Tdap,and Td Vaccines (3 - Td or Tdap) 07/23/2032 07/23/2022, 01/14/2012 Pneumococcal Vaccine: Pediatrics (0 to 5 Years) and At-Risk Patients (6 to 64 Years) Completed 07/23/2022, 02/10/2012 GARDASIL-HPV IMMUNIZATION SERIES Aged Out No longer eligible based on patient's age to complete this topic MENINGOCOCCAL (MENACTRA/MENVEO) Aged Out No longer eligible based on patient's age to complete this topic documented as of this encounter Medical Devices Not on filedocumented as of this encounter Care Teams Commercial Fisherman Relationship Specialty Start Date End Date Devyn Silva MD [address] [place] [address] PCP - General Family Medicine 04/19/18 documented as of this encounter
--- OUTSIDE RECORDS SUMMARY | 2023-03-14 00:30 | External Medical Summary | Summary of Care ---
Author Name Unknown Organization [facility] Address [address] [place] [address] Phone [phone] Care Team Providers Care Box Nailer Name Role Phone Devyn Silva MD Primary Care Provider [phone] Reason for Visit * Reason Onset Date Comments Outpatient Testing 10/14/2022 Noc ox and 6m w Encounter Details Date Type Department Care Team Description 10/14/2022 Telephone [facility] [address] [place] [address] Devyn Silva MD [address] [place] [address] Outpatient Testing (Noc ox and 6mw) Allergies Active Allergy Reactions Severity Noted Date Comments Amoxicillin Medium 06/21/2019 unknown reaction. documented as of this encounter (statuses as of 10/21/2022) Medications Medication Sig Dispensed Refills Start Date End Date Status Blood Glucose Monitoring Suppl (D-CARE GLUCOMETER) w/Device KITIndications:Type 2 diabetes mellitus with hemoglobin A1c goal of less than 7.0% ([facility]) Use as directed. 1 Kit 0 07/10/2019 Active Lancets MISCIndications:Type 2 diabetes mellitus with hemoglobin A1c goal of less than 7.0% ([facility]) Use as directed. 100 Each 11 07/10/2019 Active Blood Glucose Monitoring Suppl (ONETOUCH ULTRA 2) w/Device KIT Test blood sugar [...] Strip 3 10/13/2021 Active OneTouch Delica Plus [id number] Use as directed . Test blood sugar once daily E11.9 100 Each 3 10/13/2021 Active Albuterol Sulfate HFA 108 (90 Base) MCG/ACT Inhalation Aerosol SolutionIndications: COPD, group B, by GOLD 2017 classification ([facility]) Inhale 2 Puffs by mouth every 6 hours as needed for Cough, Shortness of Breath or Wheezing. 18 g 5 01/12/2022 Active metFORMIN HCl ER 500 MG Oral Tablet Extended Release 24 Hour (Glucophage XR)Indications:Type 2 diabetes mellitus with hemoglobin A1c goal of less than 7.0% ([facility]) TAKE 2 TABLETS (1000MG) BY MOUTH IN [...] Chronic obstructive pulmonary disease, unspecified COPD type ([facility]) Inhale 1 Puff by mouth in the morning. 180 Blister Dosing Unit 1 04/13/2022 Active Fluticasone Propionate 50 MCG/ACT Nasal Suspension (Flonase) Administer 1 [place] into nostril in the morning. 18.2 mL [...] hemoglobin A1c goal of less than 7.0% ([facility]) Inject 1.5 mg under the skin once [...] as of this encounter (statuses as of 10/21/2022) Active Problems Problem Noted Date Proteinuria 07/16/2020 Generalized osteoarthritis of multiple s ites 07/16/2020 COPD, group B, by GOLD 2017 classificati on 02/11/2020 Overview: Per COPD GOLD Classification Chronic hypoxemic respiratory failure Moderate alcohol use disorder, in early remission 11/28/2019 Continuous cannabis use 11/28/2019 Lumbar degenerative disc disease 020 Tinea corporis 07/12/2019 Morbid obesity due to excess calories Undifferentiated schizophrenia 0 Body mass index (BMI) of 40.0 to 44.9 in adult 07/10/2019 Body mass index (BMI) of 50.0 to 59.9 in adult 04/10/2019 Overview: Per Obesity protocol - - Hyperlipidemia with target LDL less than 100 09/20/2018 Type 2 diabetes mellitus with hemoglobin A1c goal of less than 7.0% 09/20/2018 BIN (obstructive sleep apnea) 03/16/2018 Nocturnal hypoxemia 03/16/2018 Hyperhidrosis 03/17/2016 HTN, goal below 140/90 04/16/2015 Schizophrenia 08/28/2009 Tobacco use disorder 03/31/2009 Hypothyroidism 03/31/2009 Bipolar I disorder, most recent episode manic, moderate 03/31/2009 Lumbago 03/31/2009 documented as of this encounter (statuses as of 10/21/2022) Resolved Problems Problem Noted Date Resolved Date COPD, severity to be determined 07/12/2019 02/14/2020 Overview: Per COPD GOLD Classification Type 2 diabetes mellitus with hyperglycemia 08/2903/23/2019 Body mass index (BMI) of 45.0 to 49.9 in adult 0 04/10/2018 04/11/2019 Overview: Per Obesity protocol #1 - - Body mass index (BMI) of 40.0 to 44.9 in adult 1 04/13/2018 Overview: Per Obesity protocol #1 - Body mass index (BMI) of 45.0 to 49.9 in adult 0 05/10/2017 12/12/2017 Overview: Per Obesity protocol #1 Body mass index (BMI) of 50.0 to 59.9 in adult 1 04/11/2016 05/13/2017 Overview: Per Obesity protocol #1 - Per Obesity protocol #1 Prediabetes 02/02/2017 03/23/2019 Body mass index (BMI) of 45.0 to 49.9 in adult 1 02/10/2017 Overview: Per Obesity protocol #1 Hyperglycemia 04/16/2015 03/23/2019 Tobacco use disorder 03/31/2009 04/06/2014 Other mental problems 03/23/2019 Overview: schizophrenia affect disorder documented as of this encounter (statuses as of 10/21/2022) Immunizations Name Administration Dates Next Due COVID-19 mRNA, LNP-s, No Pre serve, 2-Dose Series (Pfizer) 06/13/2020,05/23/2020 Pneumococcal Conjugate Vacci ne, 20-valent ([id number]) 07/23/2022 Pneumococcal Polysaccharide PPV23 (Pneumovax) 02/10/2012 Season Influenza, Quad, PF, Adjuvanted, 65+ Yrs, IM (FLUAD) 12/18/2019 Seasonal Influenza, PF, 6 mo ns & Above, IM , (Flulaval) 03/23/2019,03/08/2018,12/12/2016 Seasonal Influenza, Quadriva lent, No Preserve, IM [...] drink = 0.6 oz pur e alcohol) Alcohol Habits Answer Date Recorded How often do you have a drink containing alcohol ? Not asked 02/08/2020 How many drinks containing a lcohol do you have on a typical day when you are drinking? 3 or 4 02/08/2020 How often do you have six or more drinks on one occasion? Daily or almost daily 02/08/2020 Food Insecurity Answer Date Recorded Within the past 12 months, y ou worried that your food would run out before you got money to buy more. Never true 07/26/2019 Within the past 12 months, t he food you bought just didn't last and you didn't have money to get more. Never true 07/26/2019 Sex Assigned at Date Recorded Not on file Job Start Date Occupation Industry Not on file Not on file Not on file documented as of this encounter Miscellaneous Notes * Telephone Encounter - Yamile Bedoya LPN - 10/21/2022 4:00 PM EDT Pt is aware of Dr Luke's message. He understands he needs the testing to determine need for oxygen. He will be expecting a call to set up the 6mw and noc ox. * Addendum Note - Krish Luke MD - 10/16/2022 9:42 AM EDTAddended by: KRISH LUKE on: 10/16/2022 09:42 AM Modules accepted: Orders * Telephone Encounter - Krish Luke MD - 10/16/2022 9:41 AM EDT Patient will need new testing to reassess need for home oxygen. Nocturnal oximetry on room air and 6 minute walk test ordered. * Addendum Note - Vianney Dick LPN - 10/15/2022 11:36 AM EDTAddended by: VIANNEY DICK on: 10/15/2022 11:36 AM Modules accepted: Orders * Telephone Encounter - Vianney Dick LPN - 10/15/2022 11:35 AM EDT Sees pulm * Telephone Encounter - BIN Aguilar - 10/15/2022 9:15 AM EDT Patient returning call. He states that he needs oxygen for home and portable unit. * Telephone Encounter - Devyn Silva MD - 10/14/2022 2:27 PM EDT Please clarify: Does he have Oxygen at home currently? He has had Oxygen in past. Does he just nee request for Oxygen concentrator (portable)? * Telephone Encounter - Sera Rodrigues LPN - 10/14/2022 10:26 AM EDT Spoke to pt. He needs Home oxygen and a portable oxygen from [facility]. Rx needs faxed or e-scripted to [facility] [place] * Telephone Encounter - Germaine Barbour CPhT - 10/14/2022 10:10 AM EDT An order was requested for this patient. Name of Requestor: Lizandro Stone Order Request: Portable oxygen device, home set up - ROUTE TO CLINIC NURSE POOL Diagnosis/Reason for Request: Pt had oxygen tanks, but was not able to use it, needs portable device Does the order need to be faxed somewhere? If so, where?: [facility] Fax Number, if applicable: N/A Call Back Number: [phone] Thank you, Germaine Barbour [employer] [facility] (Formerly [facility]) 10/14/2022,10:10 AM documented in this encounter Plan of Treatment Scheduled Orders Name Type Priority Associated Diagnoses Orde r Schedule NOCTURNAL HOME OXIMETRY (OP) Procedures Routine Dyspnea and respiratory abnormalities Ordered: 10/16/2022 PULMONARY STRESS TESTING Procedures Routine Dyspnea and respiratory abnormalities Expected: 10/17/2022, Expires: 11/17/2023 Health Maintenance Due Date Last Done Comments Hepatitis B (1 of 3 - 3-dose series) 1975 Alpha-1 Antitrypsin 06/19/1995 Depression Screening, Annual for Pts 12 and Over 07/25/2020 07/26/2019 COVID-19 Vaccine (3 - Pfizer series) 08/08/2020 06/13/2020, 05/23/2020 DIABETES-FOOT EXAM 01/20/2021 01/21/2020, 03/23/2019 DISCUSS TOBACCO CESSATION (REFER TO SMARTSET #3291) 02/07/2021 02/08/2020 Cologuard 2022 Colonoscopy 2022 Colorectal Cancer Screening 2022 Fecal Occult Blood Test 2022 Sigmoidoscopy 2022 Influenza Vaccine (FLU shot) (#1) 2022 12/18/2019, 03/23/2019, 03/08/2018, Additional history exists Albumin/Creatinine Ratio 12/23/2022 022, 05/05/2020, 05/05/2020 HbA1c 03/25/2023 09/22/2022, 06/28, [...] - Td or Tdap) 07/23/2032 07/23/2022, 01/14/2012 Hepatitis C Screening Completed 07/08/2020 Pneumococcal Vaccine: Pediatrics (0 to 5 Years) and At-Risk Patients (6 to 64 Years) Completed 07/23/2022, 02/10/2012 GARDASIL-HPV IMMUNIZATION SERIES Aged Out No longer eligible based on patient's age to complete this topic MENINGOCOCCAL (MENACTRA/MENVEO) Aged Out No longer eligible based on patient's age to complete this topic documented as of this encounter Medical Devices Not on filedocumented as of this encounter Visit Diagnoses Diagnosis Dyspnea and respiratory abnormalities- Primary Other dyspnea and respiratory abnormality documented in this encounter Care Teams Box Nailer Relationship Specialty Start Date End Date Devyn Silva MD [address] [place] [address] PCP - General Family Medicine 04/19/18 documented as of this encounter
--- OUTSIDE RECORDS SUMMARY | 2023-03-14 00:30 | External Medical Summary | Summary of Care ---
Author Name Unknown Organization [facility] Address [address] [place] [address] Phone [phone] Care Team Providers Care Nutrition Aides Teacher Name Role Phone Devyn Silva MD Primary Care Provider Reason for Visit * Reason Onset Date Comments Med Request 10/14/2022 Encounter Details Date Type Department Care Team Description 10/14/2022 Telephone [facility] [address] [place] [address] Devyn Silva MD [address] [place] [address] Med Request Allergies Active Allergy Reactions Severity Noted Date Comments Amoxicillin Medium 06/21/2019 unknown reaction. documented as of this encounter (statuses as of 10/16/2022) Medications Medication Sig Dispensed Refills Start Date End Date Status Blood Glucose Monitoring Suppl (D-CARE GLUCOMETER) w/Device KITIndications:Type 2 diabetes mellitus with hemoglobin A1c goal of less than 7.0% ([facility]) Use as directed. 1 Kit 0 07/10/2019 Active Lancets MISCIndications:Type 2 diabetes mellitus with hemoglobin A1c goal of less than 7.0% ([facility]) Use as directed. 100 Each [...] Strip 3 10/13/2021 Active OneTouch Delica Plus [id number] Use as directed . Test blood sugar once daily E11.9 100 Each 3 10/13/2021 Active Albuterol Sulfate HFA 108 (90 Base) MCG/ACT Inhalation Aerosol SolutionIndications: COPD, group B, by GOLD 2017 classification ([facility]) Inhale 2 Puffs by mouth every 6 hours as needed for Cough, Shortness of Breath or Wheezing. 18 g 5 01/12/2022 Active metFORMIN HCl ER 500 MG Oral Tablet Extended Release 24 Hour (Glucophage XR)Indications:Type 2 diabetes mellitus with hemoglobin A1c goal of less than 7.0% ([facility]) TAKE 2 TABLETS (1000MG) BY [...] Chronic obstructive pulmonary disease, unspecified COPD type ([facility]) Inhale 1 Puff by mouth in the morning. 180 Blister Dosing Unit 1 04/13/2022 Active Fluticasone Propionate 50 MCG/ACT Nasal Suspension (Flonase) Administer 1 [place] into nostril in the morning. 18.2 mL [...] as of this encounter (statuses as of 10/16/2022) Active Problems Problem Noted Date Proteinuria 07/16/2020 [...] as of this encounter (statuses as of 10/16/2022) Resolved Problems Problem Noted Date Resolved Date [...] as of this encounter (statuses as of 10/16/2022) Immunizations Name Administration Dates Next Due COVID-19 mRNA, LNP-s, No Pre serve, 2-Dose Series (Pfizer) 06/13/2020,05/23/2020 Pneumococcal Conjugate Vacci ne, 20-valent ([id number]) 07/23/2022 Pneumococcal Polysaccharide PPV23 (Pneumovax) 02/10/2012 Season [...] as of this encounter Miscellaneous Notes * Addendum Note - Krish Luke MD [...] Number, if applicable: N/A Call Back Number: [phone] Thank you, Germaine Barbour Cardiothoracic Icu Rn [facility] ([facility]PS) (Formerly Telepharmacy) [...] abnormality documented in this encounter Care Teams Nutrition Aides Teacher Relationship Specialty Start Date End Date Devyn Silva MD [address] [place] [address] PCP - General Family Medicine 04/19/18 documented as of this encounter
--- OUTSIDE RECORDS SUMMARY | 2023-03-14 00:30 | External Medical Summary | Summary of Care ---
Author Name Unknown Organization [facility] Address [address] [place] [address] Phone [phone] Care Team Providers Care Plant Technical Specialist Name Role Phone Devyn Silva MD Primary Care Provider [phone] Encounter Details Date Type Department Care Team Description 10/04/2022 Result Scan Unspecified Department <No scans attached> Allergies Active Allergy Reactions Severity Noted Date Comments Amoxicillin Medium 06/21/2019 unknown reaction. documented as of this encounter (statuses as of 10/20/2022) Medications Medication Sig Dispensed Refills Start Date End Date Status Blood Glucose Monitoring Suppl (D-CARE GLUCOMETER) w/Device KITIndications:Type 2 diabetes mellitus with hemoglobin A1c goal of less than 7.0% ([facility]) Use as directed. 1 Kit 0 07/10/2019 Active Lancets MISCIndications:Type 2 diabetes mellitus with hemoglobin A1c goal of less than 7.0% ([facility]) Use as directed. 100 Each 11 07/10/2019 [...] Strip 3 10/13/2021 Active OneTouch Delica Plus [id number] Use as directed . Test blood sugar once daily E11.9 100 Each 3 10/13/2021 Active Albuterol Sulfate HFA 108 (90 Base) MCG/ACT Inhalation Aerosol SolutionIndications: COPD, group B, by GOLD 2017 classification ([facility]) Inhale 2 Puffs by mouth every 6 hours as needed for Cough, Shortness of Breath or Wheezing. 18 g 5 01/12/2022 Active metFORMIN HCl ER 500 MG Oral Tablet Extended Release 24 Hour (Glucophage XR)Indications:Type 2 diabetes mellitus with hemoglobin A1c goal of less than 7.0% ([facility]) TAKE 2 TABLETS (1000MG) BY MOUTH IN [...] Chronic obstructive pulmonary disease, unspecified COPD type ([facility]) Inhale 1 Puff by mouth in the morning. 180 Blister Dosing Unit 1 04/13/2022 Active Fluticasone Propionate 50 MCG/ACT Nasal Suspension (Flonase) Administer 1 [place] into nostril in the morning. 18.2 mL [...] as of this encounter (statuses as of 10/20/2022) Active Problems Problem Noted Date Proteinuria 07/16/2020 [...] as of this encounter (statuses as of 10/20/2022) Resolved Problems Problem Noted Date Resolved Date [...] as of this encounter (statuses as of 10/20/2022) Immunizations Name Administration Dates Next Due COVID-19 mRNA, LNP-s, No Pre serve, 2-Dose Series (Pfizer) 06/13/2020,05/23/2020 Pneumococcal Conjugate Vacci ne, 20-valent ([id number]) 07/23/2022 Pneumococcal Polysaccharide PPV23 (Pneumovax) 02/10/2012 Season [...] on file documented as of this encounter Plan of Treatment Health Maintenance [...] Not on filedocumented as of this encounter Procedures Procedure Name Priority Date/Time Associated Diagnosis Comments RADIOLOGY SCANNED RESULT 10/04/2022 documented in this encounter Results * RADIOLOGY SCANNED RESULT (10/04/2022) 10/04/2022 No Physician Data Unknown DIAGNOSTIC RAD IOLOGY SERVICES documented in this encounter Care Teams Plant Technical Specialist Relationship Specialty Start Date End Date Devyn Silva MD [address] [place], [place] [id number] PCP - General Family Medicine 04/19/18 documented as of this encounter
--- OUTSIDE RECORDS SUMMARY | 2023-03-14 00:30 | External Medical Summary | Summary of Care ---
Author Name Unknown Organization [facility] Address [address] [place] [address] Phone [phone] Care Team Providers Care Log Pond Worker Name Role Phone Devyn Silva MD Primary Care Provider [phone] Reason for Visit * Reason Onset Date Comments Outpatient Testing 10/14/2022 Noc ox and 6m w Encounter Details Date Type Department Care Team Description 10/14/2022 Telephone [facility] [address] [place] [address] Devyn Silva MD [address] [place] [address] Outpatient Testing (Noc ox and 6mw) Allergies Active Allergy Reactions Severity Noted Date Comments Amoxicillin Medium 06/21/2019 unknown reaction. documented as of this encounter (statuses as of 10/22/2022) Medications Medication Sig Dispensed Refills Start Date End Date Status Blood Glucose Monitoring Suppl (D-CARE GLUCOMETER) w/Device KITIndications:Type 2 diabetes mellitus with hemoglobin A1c goal of less than 7.0% ([facility]) Use as directed. 1 Kit 0 07/10/2019 Active Lancets MISCIndications:Type 2 diabetes mellitus with hemoglobin A1c goal of less than 7.0% ([facility]) Use as directed. 100 Each [...] Strip 3 10/13/2021 Active OneTouch Delica Plus [id number] Use as directed . Test blood sugar once daily E11.9 100 Each 3 10/13/2021 Active Albuterol Sulfate HFA 108 (90 Base) MCG/ACT Inhalation Aerosol SolutionIndications: COPD, group B, by GOLD 2017 classification ([facility]) Inhale 2 Puffs by mouth every 6 hours as needed for Cough, Shortness of Breath or Wheezing. 18 g 5 01/12/2022 Active metFORMIN HCl ER 500 MG Oral Tablet Extended Release 24 Hour (Glucophage XR)Indications:Type 2 diabetes mellitus with hemoglobin A1c goal of less than 7.0% ([facility]) TAKE 2 TABLETS (1000MG) BY [...] pulmonary disease, unspecified COPD type ([facility]) Inhale 1 Puff by mouth in the morning. 180 Blister Dosing Unit 1 04/13/2022 Active Fluticasone Propionate 50 MCG/ACT Nasal Suspension (Flonase) Administer 1 [place] into nostril in the morning. 18.2 mL [...] goal of less than 7.0% ([facility]) Inject 1.5 mg under the skin once [...] as of this encounter (statuses as of 10/22/2022) Active Problems Problem Noted Date Proteinuria 07/16/2020 [...] as of this encounter (statuses as of 10/22/2022) Resolved Problems Problem Noted Date Resolved Date [...] as of this encounter (statuses as of 10/22/2022) Immunizations Name Administration Dates Next Due COVID-19 mRNA, LNP-s, No Pre serve, 2-Dose Series (Pfizer) 06/13/2020,05/23/2020 Pneumococcal Conjugate Vacci ne, 20-valent ([id number]) 07/23/2022 Pneumococcal Polysaccharide PPV23 (Pneumovax) 02/10/2012 Season [...] encounter Miscellaneous Notes * Telephone Encounter - Fouzia Adam - 10/22/2022 9:34 AM EDT I contacted patient and scheduled 6 min walk for Nov 02. * Telephone Encounter - Yamile Bedoya LPN [...] Number, if applicable: N/A Call Back Number: [phone] Thank you, Germaine Barbour Stripper Apprentice [facility] ([facility]) (Formerly Telepharmacy) 10/14/2022,10:10 AM documented in this encounter Plan of Treatment Upcoming Encounters Date Type Specialty Care Team Description 11/02/2022 PulmDiagnostic Pulmonary Function [place], [address] [place] [place] [address] Scheduled Orders Name Type Priority Associated Diagnoses [...] 12/23/202212/23/ 022, 05/05/2020, 05/05/2020 HbA1c 03/25/2023 09/22/2022, 0507/2022, 12/23/2021, Additional history exists DIABETES-EYE EXAM 06/09/2023 [...] abnormality documented in this encounter Care Teams Log Pond Worker Relationship Specialty Start Date End Date Devyn Silva MD [address] [place] [address] PCP - General Family Medicine 04/19/18 documented as of this encounter
--- OUTSIDE RECORDS SUMMARY | 2023-03-14 00:31 | External Medical Summary | Summary of Care ---
Author Name Unknown Organization [facility] Address [address] [place] [address] Phone [phone] Care Team Providers Care Box Toe Cutter Name Role Phone Devyn Silva MD Primary Care Provider [phone] Reason for Visit * Reason Onset Date Comments Med Request 10/14/2022 Encounter Details Date Type Department Care Team Description 10/14/2022 Telephone [facility] [address] [place] [address] Devyn Silva MD [address] [place] [address] Med Request Allergies Active Allergy Reactions Severity Noted Date Comments Amoxicillin Medium 06/21/2019 unknown reaction. documented as of this encounter (statuses as of 10/15/2022) Medications Medication Sig Dispensed Refills Start Date End Date Status Blood Glucose Monitoring Suppl (D-CARE GLUCOMETER) w/Device KITIndications:Type 2 diabetes mellitus with hemoglobin A1c goal of less than 7.0% ([facility]) Use as directed. 1 Kit 0 07/10/2019 Active Lancets MISCIndications:Type 2 diabetes mellitus with hemoglobin A1c goal of less than 7.0% ([facility]) Use as directed. 100 Each [...] Strip 3 10/13/2021 Active OneTouch Delica Plus [id number] Use as directed . Test blood sugar once daily E11.9 100 Each 3 10/13/2021 Active Albuterol Sulfate HFA 108 (90 Base) MCG/ACT Inhalation Aerosol SolutionIndications: COPD, group B, by GOLD 2017 classification ([facility]) Inhale 2 Puffs by mouth every 6 hours as needed for Cough, Shortness of Breath or Wheezing. 18 g 5 01/12/2022 Active metFORMIN HCl ER 500 MG Oral Tablet Extended Release 24 Hour (Glucophage XR)Indications:Type 2 diabetes mellitus with hemoglobin A1c goal of less than 7.0% ([facility]) TAKE 2 TABLETS (1000MG) BY [...] Chronic obstructive pulmonary disease, unspecified COPD type ([facility]) Inhale 1 Puff by mouth in the morning. 180 Blister Dosing Unit 1 04/13/2022 Active Fluticasone Propionate 50 MCG/ACT Nasal Suspension (Flonase) Administer 1 [place] into nostril in the morning. 18.2 mL [...] as of this encounter (statuses as of 10/15/2022) Active Problems Problem Noted Date Proteinuria 07/16/2020 [...] as of this encounter (statuses as of 10/15/2022) Resolved Problems Problem Noted Date Resolved Date [...] as of this encounter (statuses as of 10/15/2022) Immunizations Name Administration Dates Next Due COVID-19 mRNA, LNP-s, No Pre serve, 2-Dose Series (Pfizer) 06/13/2020,05/23/2020 Pneumococcal Conjugate Vacci ne, 20-valent ([id number]) 07/23/2022 Pneumococcal Polysaccharide PPV23 (Pneumovax) 02/10/2012 Season [...] encounter Miscellaneous Notes * Telephone Encounter - BIN [place]ilar - [...] Number, if applicable: N/A Call Back Number: [phone] Thank you, Germaine Barbour Single Fold Machine Operator [facility] ([facility]) (Formerly Telepharmacy) [...] filedocumented as of this encounter Care Teams Box Toe Cutter Relationship Specialty Start Date End Date Devyn Silva MD [address] [place] [address] PCP - General Family Medicine 04/19/18 documented as of this encounter
--- OUTSIDE RECORDS SUMMARY | 2023-03-14 00:31 | External Medical Summary | Summary of Care ---
Author Name Unknown Organization [facility] Address [address] [place] [address] Phone [phone] Care Team Providers Care Behavioral Modification Assistant Name Role Phone Devyn Silva MD Primary Care Provider Reason for Visit * Reason Onset Date Comments Med Request 10/14/2022 Encounter Details Date Type Department Care Team Description 10/14/2022 Telephone [facility] [address] [place] [address] Devyn Silva MD [address] [place] [address] Med Request Allergies Active Allergy [...] Strip 3 10/13/2021 Active OneTouch Delica Plus [id number] Use as directed . Test blood sugar [...] 50 MCG/ACT Nasal Suspension (Flonase) Administer 1 [place] into nostril in the morning. 18.2 mL [...] (Pfizer) 06/13/2020,05/23/2020 Pneumococcal Conjugate Vacci ne, 20-valent ([id number]) 07/23/2022 Pneumococcal Polysaccharide PPV23 (Pneumovax) 02/10/2012 Season [...] Number, if applicable: N/A Call Back Number: [phone] Thank you, Germaine Barbour Substation Wireman [facility] ([facility]PS) (Formerly Telepharmacy) [...] filedocumented as of this encounter Care Teams Behavioral Modification Assistant Relationship Specialty Start Date End Date Devyn Silva MD [address] [place] [address] PCP - General Family Medicine 04/19/18 documented as of this encounter
--- OUTSIDE RECORDS SUMMARY | 2023-03-14 00:31 | External Medical Summary | Summary of Care ---
Author Name Unknown Organization [facility] Address [address] [place] [address] Phone [phone] Care Team Providers Care Colon And Rectal Surgeon Name Role Phone Devyn Silva MD Primary Care Provider Reason for Visit * Reason Onset Date Comments Med Request 10/14/2022 Encounter Details Date Type Department Care Team Description 10/14/2022 Telephone [facility] [address] [place] [address] Devyn Silva MD [address] [place] [address] Med Request Allergies Active Allergy Reactions Severity Noted Date Comments Amoxicillin Medium 06/21/2019 unknown reaction. documented as of this encounter (statuses as of 10/14/2022) Medications Medication Sig Dispensed Refills Start Date End Date Status Blood Glucose Monitoring Suppl (D-CARE GLUCOMETER) w/Device KITIndications:Type 2 diabetes mellitus with hemoglobin A1c goal of less than 7.0% ([facility]) Use as directed. 1 Kit 0 07/10/2019 Active Lancets MISCIndications:Type 2 diabetes mellitus with hemoglobin A1c goal of less than 7.0% ([facility]) Use as directed. 100 Each [...] Strip 3 10/13/2021 Active OneTouch Delica Plus [id number] Use as directed . Test blood sugar once daily E11.9 100 Each 3 10/13/2021 Active Albuterol Sulfate HFA 108 (90 Base) MCG/ACT Inhalation Aerosol SolutionIndications: COPD, group B, by GOLD 2017 classification ([facility]) Inhale 2 Puffs by mouth every 6 hours as needed for Cough, Shortness of Breath or Wheezing. 18 g 5 01/12/2022 Active metFORMIN HCl ER 500 MG Oral Tablet Extended Release 24 Hour (Glucophage XR)Indications:Type 2 diabetes mellitus with hemoglobin A1c goal of less than 7.0% ([facility]) TAKE 2 TABLETS (1000MG) BY [...] Chronic obstructive pulmonary disease, unspecified COPD type ([facility]) Inhale 1 Puff by mouth in the morning. 180 Blister Dosing Unit 1 04/13/2022 Active Fluticasone Propionate 50 MCG/ACT Nasal Suspension (Flonase) Administer 1 [place] into nostril in the morning. 18.2 mL [...] as of this encounter (statuses as of 10/14/2022) Active Problems Problem Noted Date Proteinuria 07/16/2020 [...] as of this encounter (statuses as of 10/14/2022) Resolved Problems Problem Noted Date Resolved Date [...] as of this encounter (statuses as of 10/14/2022) Immunizations Name Administration Dates Next Due COVID-19 mRNA, LNP-s, No Pre serve, 2-Dose Series (Pfizer) 06/13/2020,05/23/2020 Pneumococcal Conjugate Vacci ne, 20-valent ([id number]) 07/23/2022 Pneumococcal Polysaccharide PPV23 (Pneumovax) 02/10/2012 Seasonal Influenza, Quadriva lent, No Preserve, 6 Mons & Above, IM 03/23/2019,03/08/2018,12/12/2016 Seasonal Influenza, Quadriva lent, No Preserve, Adjuvanted, 65+ Yrs, IM 12/18/2019 Seasonal Influenza, Quadriva lent, No Preserve, [...] encounter Miscellaneous Notes * Telephone Encounter - Devyn Silva MD - 10/14/2022 2:27 PM EDT Please clarify: Does he have Oxygen at home currently? He has had Oxygen in past. Does he just neerequest for Oxygen concentrator (portable)? * Telephone Encounter [...] Number, if applicable: N/A Call Back Number: [phone] Thank you, Germaine Barbour Blue Leather Sorter [facility] Services ([facility]PS) (Formerly Telepharmacy) [...] filedocumented as of this encounter Care Teams Colon And Rectal Surgeon Relationship Specialty Start Date End Date Devyn Silva MD [address] [place] [address] PCP - General Family Medicine 04/19/18 documented as of this encounter
--- OUTSIDE RECORDS SUMMARY | 2023-03-14 00:31 | External Medical Summary | Summary of Care ---
Author Name Unknown Organization [facility] Address [address] [place] [address] Phone [phone] Care Team Providers Care Storage Battery Inspector And Tester Name Role Phone Devyn Silva MD Primary Care Provider Reason for Visit * Reason Onset Date Comments Med Request 10/14/2022 Encounter Details Date Type Department Care Team Description 10/14/2022 Telephone [facility] [address] [place] [address] Devyn Silva MD [address] [place] [address] Med Request Allergies Active Allergy Reactions Severity Noted Date Comments Amoxicillin Medium 06/21/2019 unknown reaction. documented as of this encounter (statuses as of 10/15/2022) Medications Medication Sig Dispensed Refills Start Date End Date Status Blood Glucose Monitoring Suppl (D-CARE GLUCOMETER) w/Device KITIndications:Type 2 diabetes mellitus with hemoglobin A1c goal of less than 7.0% ([facility]) Use as directed. 1 Kit 0 07/10/2019 Active Lancets MISCIndications:Type 2 diabetes mellitus with hemoglobin A1c goal of less than 7.0% ([facility]) Use as directed. 100 Each 11 [...] Strip 3 10/13/2021 Active OneTouch Delica Plus [id number] Use as directed . Test blood sugar once daily E11.9 100 Each 3 10/13/2021 Active Albuterol Sulfate HFA 108 (90 Base) MCG/ACT Inhalation Aerosol SolutionIndications: COPD, group B, by GOLD 2017 classification ([facility]) Inhale 2 Puffs by mouth every 6 hours as needed for Cough, Shortness of Breath or Wheezing. 18 g 5 01/12/2022 Active metFORMIN HCl ER 500 MG Oral Tablet Extended Release 24 Hour (Glucophage XR)Indications:Type 2 diabetes mellitus with hemoglobin A1c goal of less than 7.0% ([facility]) TAKE 2 TABLETS (1000MG) BY MOUTH [...] Chronic obstructive pulmonary disease, unspecified COPD type ([facility]) Inhale 1 Puff by mouth in the morning. 180 Blister Dosing Unit 1 04/13/2022 Active Fluticasone Propionate 50 MCG/ACT Nasal Suspension (Flonase) Administer 1 [place] into nostril in the morning. 18.2 mL [...] (Pfizer) 06/13/2020,05/23/2020 Pneumococcal Conjugate Vacci ne, 20-valent ([id number]) 07/23/2022 Pneumococcal Polysaccharide PPV23 (Pneumovax) 02/10/2012 Season [...] encounter Miscellaneous Notes * Addendum Note - Vianney Dick LPN [...] Number, if applicable: N/A Call Back Number: [phone] Thank you, Germaine Barbour Industrial Technician [facility] ([facility]) (Formerly Telepharmacy) [...] filedocumented as of this encounter Care Teams Storage Battery Inspector And Tester Relationship Specialty Start Date End Date Devyn Silva MD [address] [place] [address] PCP - General Family Medicine 04/19/18 documented as of this encounter
[2023-03-14] MEDS ORDERED: methylPREDNISolone 125 MG/2 ML VIAL IV STA (00:32)
[2023-03-14] MEDS ORDERED: ALBUT/IPRATROP 3MG/0.5MG NEB 3 ML VIAL NEB ONE (00:32)
--- OUTSIDE RECORDS SUMMARY | 2023-03-14 00:32 | External Medical Summary ---
Author Name Unknown Address Unknown Organization [id number]:LAB[facility] [place] - [address] [place] [address] Laboratory Report Ordering Provider Test Date Status TERESSA SANCHEZ 09/22/2022 07:53:53 Final Observation Date Value Abnormality Reference (Units ) Status BUN 09/22/2022 07:53:53 10 6-20 (mg/dL) Final Creatinine 09/22/2022 07:53:53 0.8 0.6-1.2 (mg/dL) Final Glomerular filtration rate/1.73 sq M.predicted [Volume Rate/Area] in Serum, Plasma or Blood by Creatinine-based formula (CKD-EPI) 09/22/2022 07:53:53 >90 >=60 (mL/min) Final eGFR is calculated based on the CKD-EPI 2020 equation SODIUM 09/22/2022 07:53:53 136 135-146 (m mol/L) Final Potassium 09/22/2022 07:53:53 4.7 3.5-5.1 (m mol/L) Final Cl 09/22/2022 07:53:53 96 Below low normal 98- 107 (mmol/L) Final CO2 09/22/2022 07:53:53 31 22-32 (mmo l/L) Final Anion gap 09/22/2022 07:53:53 9 7-15 (mmol /L) Final Glucose 09/22/2022 07:53:53 225 Above high normal 70 -120 (mg/dL) Final Albumin 09/22/2022 07:53:53 4.2 3.8-5.0 (g /dL) Final AST (Aspartate aminotransferase) 09/22/2022 07:53:53 16 10-50 (U/L) Fin al Alk Phos 09/22/2022 07:53:53 77 35-130 (U/ L) Final Bilirubin, Total 09/22/2022 07:53:53 0.2 <=1 .2 (mg/dL) Final Calcium 09/22/2022 07:53:53 9.5 8.4-10.2 ( mg/dL) Final Protein 09/22/2022 07:53:53 6.1 6.0-8.3 (g /dL) Final ALT (Alanine aminotransferase) 09/22/2022 07:53:53 15 10-50 (U/L) Leobardo lowe Performing Location LABORATORY [facility] - [facility] [address] [facility] [address]
--- OUTSIDE RECORDS SUMMARY | 2023-03-14 00:32 | External Medical Summary ---
Author Name Unknown Address Unknown Organization K01:[facility]ORY [facility] [place] - [address] [facility] [address] Laboratory Report Ordering Provider Test Date Status TERESSA SANCHEZ 09/22/2022 07:53:53 Final Observation Date Value Abnormality Reference (Units ) Status Triglyceride 09/22/2022 07:53:53 263 Above high normal <=174 (mg/dL) Final Triglyceride Reference Range s (mg/dL):
<150 Acceptable
150-174 Borderline high
175-499 High
>=500 Very high Cholesterol 09/22/2022 07:53:53 136 <200 (mg /dL) Final Total Cholesterol Reference Ranges (mg/dL):
<200 Desirable
200-239 Borderline high
>=240 High HDL 09/22/2022 07:53:53 38 Below low normal >39 (mg/dL) Final HDL Cholesterol Reference Ra nges (mg/dL):
>=60 High (Desirable)
<50 Low (Undesirable) For Females
<40 Low (Undesirable) For Males NON-HDL CHOLESTEROL 09/22/2022 07:53:53 98 <=159 (mg/dL) Final Non-HDL Cholesterol Referenc e Range (mg/dL):
<100 Target level for high risk ASCVD patient
<130 Optimal for general population
130-159 Near optimal for general population
160-189 Borderline High
190-219 High
>=220 Very High Performing Location LABORATORY [facility] - [address] [place] [address]
--- OUTSIDE RECORDS SUMMARY | 2023-03-14 00:32 | External Medical Summary ---
Author Name Unknown Address Unknown Organization [id number]:[facility] [address] [facility] [place] [address] Laboratory Report Ordering Provider Test Date Status TERESSA SANCHEZ 09/22/2022 07:53:53 Final Observation Date Value Abnormality Reference (Units ) Status SYNC LEUKOCYTES IN BLOOD BY AUTOMATED COUNT 09/22/2022 07:53:53 14.67 Above high normal 4.00-10.80 (K/uL) Final Segs 09/22/2022 07:53:53 73.5 40.0-75.0 (%) Final Lymphs % 09/22/2022 07:53:53 16.9 Below low normal 18.0-42.0 (%) Final Monos 09/22/2022 07:53:53 6.1 1.0-11.0 (%) Final Eosinophils 09/22/2022 07:53:53 2.0 0.0-6.0 (%) Final Basos 09/22/2022 07:53:53 0.6 0.0-2.0 (%) Final Immature Granulocyte, Percent 09/22/2022 07:53:53 0.9 0.0-2.0 (%) Final Absolute Segs 09/22/2022 07:53:53 10.79 Above high normal 1.80-7.70 (K/uL) Final Lymphs, absolute 09/22/2022 07:53:53 2.48 1.00-4.80 (K/ul) Final Monos, Abs 09/22/2022 07:53:53 0.89 0.00-1.10 (K/uL) Final Eos, Abs 09/22/2022 07:53:53 0.29 0.00-0.70 (K/uL) Final Basos, Abs 09/22/2022 07:53:53 0.09 0.00-0.20 (K/uL) Final Immature Granulocytes, Number 09/22/2022 07:53:53 0.13 0.00-0.20 (K/uL) Final Performing Location [facility] [place] [facility] [address]. [facility] [address]
--- OUTSIDE RECORDS SUMMARY | 2023-03-14 00:32 | External Medical Summary | Summary of Care ---
Author Name Unknown Organization [facility] Address [address] [place] [address] Phone [phone] Care Team Providers Care Silk Washing Machine Operator Name Role Phone Devyn Silva MD Primary Care Provider [phone] Reason for Visit * Reason Onset Date Comments Med Request 10/14/2022 Encounter Details Date Type Department Care Team Description 10/14/2022 Telephone [facility] [address] [place] [address] Devyn Silva MD [address] [place] [address] Med Request Allergies Active Allergy Reactions Severity Noted Date Comments Amoxicillin Medium 06/21/2019 unknown reaction. documented as of this encounter (statuses as of 10/14/2022) Medications Medication Sig Dispensed Refills Start Date End Date Status Blood Glucose Monitoring Suppl (D-CARE GLUCOMETER) w/Device KITIndications:Type 2 diabetes mellitus with hemoglobin A1c goal of less than 7.0% ([facility]) Use as directed. 1 Kit 0 07/10/2019 Active Lancets MISCIndications:Type 2 diabetes mellitus with hemoglobin A1c goal of less than 7.0% ([facility]) Use as directed. 100 Each 11 07/10/2019 [...] Strip 3 10/13/2021 Active OneTouch Delica Plus [id number] Use as directed . Test blood sugar once daily E11.9 100 Each 3 10/13/2021 Active Albuterol Sulfate HFA 108 (90 Base) MCG/ACT Inhalation Aerosol SolutionIndications: COPD, group B, by GOLD 2017 classification ([facility]) Inhale 2 Puffs by mouth every 6 hours as needed for Cough, Shortness of Breath or Wheezing. 18 g 5 01/12/2022 Active metFORMIN HCl ER 500 MG Oral Tablet Extended Release 24 Hour (Glucophage XR)Indications:Type 2 diabetes mellitus with hemoglobin A1c goal of less than 7.0% ([facility]) TAKE 2 TABLETS (1000MG) BY MOUTH IN [...] obstructive pulmonary disease, unspecified COPD type ([facility]) Inhale 1 Puff by mouth in the morning. 180 Blister Dosing Unit 1 04/13/2022 Active Fluticasone Propionate 50 MCG/ACT Nasal Suspension (Flonase) Administer 1 [place] into nostril in the morning. 18.2 mL [...] (Pfizer) 06/13/2020,05/23/2020 Pneumococcal Conjugate Vacci ne, 20-valent ([id number]) 07/23/2022 Pneumococcal Polysaccharide PPV23 (Pneumovax) 02/10/2012 Seasonal [...] encounter Miscellaneous Notes * Telephone Encounter - Sera Rodrigues LPN [...] Number, if applicable: N/A Call Back Number: [phone] Thank you, Germaine Barbour Channel Lip Wetter [facility] ([facility] (Formerly [facility]) [...] 03/23/2019 DISCUSS TOBACCO CESSATION (REFER TO SMARTSET #4921) 02/07/2021 02/08/2020 Cologuard 2022 Colonoscopy 2022 Colorectal [...] filedocumented as of this encounter Care Teams Silk Washing Machine Operator Relationship Specialty Start Date End Date Devyn Silva MD [address] [facility] [place] [id number] PCP - General Family Medicine 04/19/18 documented as of this encounter
--- OUTSIDE RECORDS SUMMARY | 2023-03-14 00:32 | External Medical Summary | Summary of Care ---
Author Name Unknown Organization [facility] Address [address] [place] [address] Phone [phone] Care Team Providers Care Quality Control Tech Raw Materials Name Role Phone Devyn Silav MD Primary Care Provider [phone] Reason for Visit * Reason Comments Outpatient Testing Encounter Details Date Type Department Care Team Description 09/22/2022 Laboratory [facility] [address] [place] [address] [facility] [address] [place] [address] Encounter for long-term (current) use of other medications Allergies Active Allergy Reactions Severity Noted Date Comments Amoxicillin Medium 06/21/2019 unknown reaction. documented as of this encounter (statuses as of 09/22/2022) Medications Medication Sig Dispensed Refills Start Date End Date Status Blood Glucose Monitoring Suppl (D-CARE GLUCOMETER) w/Device KITIndications:Type 2 diabetes mellitus with hemoglobin A1c goal of less than 7.0% ([facility]) Use as directed. 1 Kit 0 07/10/2019 Active Lancets MISCIndications:Type 2 diabetes mellitus with hemoglobin A1c goal of less than 7.0% ([facility]) Use as directed. 100 Each 11 07/10/2019 Active Blood Glucose Monitoring Suppl (TouchotelTOUCH ULTRA 2) w/Device KIT Test blood sugar [...] Strip 3 10/13/2021 Active OneTouch Delica Plus [id number] Use as directed . Test blood sugar once daily E11.9 100 Each 3 10/13/2021 Active Albuterol Sulfate HFA 108 (90 Base) MCG/ACT Inhalation Aerosol SolutionIndications: COPD, group B, by GOLD 2017 classification ([facility]) Inhale 2 Puffs by mouth every 6 hours as needed for Cough, Shortness of Breath or Wheezing. 18 g 5 01/12/2022 Active metFORMIN HCl ER 500 MG Oral Tablet Extended Release 24 Hour (Glucophage XR)Indications:Type 2 diabetes mellitus with hemoglobin A1c goal of less than 7.0% ([facility]) TAKE 2 TABLETS (1000MG) BY [...] Chronic obstructive pulmonary disease, unspecified COPD type ([facility]) Inhale 1 Puff by mouth in the morning. 180 Blister Dosing Unit 1 04/13/2022 Active Fluticasone Propionate 50 MCG/ACT Nasal Suspension (Flonase) Administer 1 [place] into nostril in the morning. 18.2 mL [...] as of this encounter (statuses as of 09/22/2022) Active Problems Problem Noted Date Proteinuria 07/16/2020 [...] as of this encounter (statuses as of 09/22/2022) Resolved Problems Problem Noted Date Resolved Date [...] as of this encounter (statuses as of 09/22/2022) Immunizations Name Administration Dates Next Due COVID-19 mRNA, LNP-s, No Pre serve, 2-Dose Series ([employer]) 06/13/2020,05/23/2020 Pneumococcal Conjugate Vacci ne, 20-valent ([id number]) 07/23/2022 Pneumococcal Polysaccharide PPV23 (Pneumovax) 02/10/2012 Seasonal [...] as of this encounter Plan of Treatment Pending Results Name Type Priority Associated Diagnoses Date /Time COMPREHENSIVE METABOLIC PANEL Lab Routine Encounter for long-term (current) use of other medications 09/22/2022 7:53 AM EDT CBC WITH WBC DIFFERENTIAL Lab Routine Encounter for long-term (current) use of other medications 09/22/2022 7:53 AM EDT LIPID PANEL WITH DIRECT LDL IF TG IS HIGH Lab Routine Encounter for long-term (current) use of other medications 09/22/2022 7:53 AM EDT TSH Lab Routine Encounter for long-term (current) use of other medications 09/22/2022 7:53 AM EDT T4, FREE Lab Routine Encounter for long-term (current) use of other medications 09/22/2022 7:53 AM EDT HEMOGLOBIN A1C Lab Routine Encounter for long-term (current) use of other medications 09/22/2022 7:53 AM EDT LITHIUM LEVEL Lab Routine Encounter for long-term (current) use of other medications 09/22/2022 7:53 AM EDT CBC Lab Routine Encounter for long-term (current) use of other medications 09/22/2022 7:53 AM EDT DIFFERENTIAL, AUTOMATED Lab Routine Encounter for long-term (current) use of other medications 09/22/2022 7:53 AM EDT Health Maintenance Due Date Last Done Comments [...] Albumin/Creatinine Ratio 12/23/2022 022, 05/05/2020, 05/05/2020 HbA1c 01/13/2023 07/13/2022, 11/29, 03/11/2021, Additional history exists DIABETES-EYE EXAM 06/09/2023 06/08/2022 B-12 07/14/2023 07/13/2022, 02/28, 11/29/2018 TSH 07/14/2023 07/13/2022, 11/29, 06/17/2020, Additional history exists O2 ASSESSMENT COMPLETED IN PAST YEAR FOR COPD 07/24/2023 07/23/2022 GFR 09/02/2023 09/01/2022, 06/28, 12/23/2021, Additional history exists Lipid Panel 07/14/2027 07/13/2022, 06/29, 06/17/2020, Additional history exists DTaP,Tdap,and Td Vaccines (3 [...] as of this encounter Visit Diagnoses Diagnosis Encounter for long-term (current) use of other medications documented in this encounter Care Teams Quality Control Tech Raw Materials Relationship Specialty Start Date End Date Devyn Silva MD [address] [place], [place] [id number] PCP - General Family Medicine 04/19/18 documented as of this encounter
--- OUTSIDE RECORDS SUMMARY | 2023-03-14 00:32 | External Medical Summary ---
Author Name Unknown Address Unknown Organization K01:[facility] - [address] [facility] [address] [place] [address] Laboratory Report Ordering Provider Test Date Status TERESSA SANCHEZ 09/22/2022 07:53:53 Final Observation Date Value Abnormality Reference (Units ) Status [place] [Moles/volume] in Blood 09/22/2022 07:53:53 0.5 Below low normal 0.6-1.2 (mmol/L) Final Performing Location [facility] - [address] [place] [address]
--- OUTSIDE RECORDS SUMMARY | 2023-03-14 00:32 | External Medical Summary ---
Author Name Unknown Address Unknown Organization [id number]:[facility] [place] [address] [place] [address] [place] [address] Laboratory Report Ordering Provider Test Date Status TERESSA SANCHEZ 09/22/2022 07:53:53 Final Observation Date Value Abnormality Reference (Units ) Status TSH 09/22/2022 07:53:53 1.14 0.27-4.20 (uIU/mL) Final Performing Location [facility] - [address] [place] [address]
--- OUTSIDE RECORDS SUMMARY | 2023-03-14 00:32 | External Medical Summary ---
Author Name Unknown Address Unknown Organization K01:[facility] [place] - [address] [place] [address] Laboratory Report Ordering Provider Test Date Status TERESSA SANCHEZ 09/22/2022 07:53:53 Final Observation Date Value Abnormality Reference (Units ) Status LDL, (direct) 09/22/2022 07:53:53 69 <=129 (mg/dL) Final LDL Cholesterol Reference Ra nges (mg/dL):
<70 Target level for high risk ASCVD patient
<100 Optimal for general population
100-129 Near optimal for general population
130-159 Borderline high
160-189 High
>=190 Very high Performing Location [facility] - [address] [place] [address]
--- OUTSIDE RECORDS SUMMARY | 2023-03-14 00:32 | External Medical Summary ---
Author Name Unknown Address Unknown Organization K01:[facility] - [address] [place] [address] Laboratory Report Ordering Provider Test Date Status TERESSA SANCHEZ 09/22/2022 07:53:53 Final Observation Date Value Abnormality Reference (Units ) Status T4, Free 09/22/2022 07:53:53 1.2 0.9-1.7 (n g/dL) Final Performing Location [facility] - [address] [place] [address]
--- OUTSIDE RECORDS SUMMARY | 2023-03-14 00:32 | External Medical Summary ---
Author Name Unknown Address Unknown Organization K01[place] [place] [facility] [address] [facility] [address] [facility] [address] Laboratory Report Ordering Provider Test Date Status TERESSA SANCHEZ 09/22/2022 07:53:53 Final Observation Date Value Abnormality Reference (Units ) Status WBC, Total 09/22/2022 07:53:53 14.67 Above high normal 4.00-10.80 (K/uL) Final RBC 09/22/2022 07:53:53 5.36 4.50-5.25 (M/uL) Final Hemoglobin 09/22/2022 07:53:53 15.4 14.0-16.8 (g/dL) Final HCT 09/22/2022 07:53:53 48.8 Above high normal 40.0-48.4 (%) Final MCV 09/22/2022 07:53:53 91.0 82.0-99.5 (fL) Final MCH 09/22/2022 07:53:53 28.7 27.0-34.0 (pg) Final MCHC 09/22/2022 07:53:53 31.6 32.0-36.0 (g/dL) Final RDW 09/22/2022 07:53:53 14.9 11.5-15.5 (%) Final Platelets 09/22/2022 07:53:53 363 140-400 (K/uL) Final MPV 09/22/2022 07:53:53 9.9 6.6-11.1 (fL) Final Nucleated erythrocytes/100 leukocytes [Ratio] in Blood by Automated count 09/22/2022 07:53:53 0 <=0 (/100 WBCs) Final Performing Location [facility] [place] [address] [place] [address]
--- OUTSIDE RECORDS SUMMARY | 2023-03-14 00:33 | External Medical Summary ---
Author Name Unknown Address Unknown Organization K01:[facility] [place] - [address] [facility] [address] Laboratory Report Ordering Provider Test Date Status TERESSA SANCHEZ 09/22/2022 07:53:53 Final Observation Date Value Abnormality Reference (Units ) Status HbA1C 09/22/2022 07:53:53 7.4 Above high normal 4. 0-5.6 (%) Final The use of HbA1c to monitor glycemic status is based on normal hemoglobin and HbA composition. This test should not be used in patients with abnormal hemoglobin that affects the half life of the red blood cell or the in vivo glycation rates. Glucose, estimated average 09/22/2022 07:53:53 166 Above high normal <126 (mg/dL) Leobardo lowe Performing Location [facility] [place] - [address] [facility] [address] [facility] [address]
--- OUTSIDE RECORDS SUMMARY | 2023-03-14 00:33 | External Medical Summary | Summary of Care ---
Author Name Unknown Organization [facility] Address [address] [place] [address] Phone [phone] Care Team Providers Care Jewelry Store Manager Name Role Phone Devyn Silva MD Primary Care Provider Encounter Details Date Type Department Care Team Description 09/17/2022 Orders Only [address] [address] Dariana Tao PA-C [address] [place] [address] Encounter for long-term (current) use of other medications* Allergies Active Allergy Reactions Severity Noted Date Comments Amoxicillin Medium 06/21/2019 unknown reaction. documented as of this encounter (statuses as of 09/17/2022) Medications Medication Sig Dispensed Refills Start Date End Date Status Blood Glucose Monitoring Suppl (D-CARE GLUCOMETER) w/Device KITIndications:Type 2 diabetes mellitus with hemoglobin A1c goal of less than 7.0% ([facility]) Use as directed. 1 Kit 0 07/10/2019 Active Lancets MISCIndications:Type 2 diabetes mellitus with hemoglobin A1c goal of less than 7.0% ([facility]) Use as directed. 100 Each 11 07/10/2019 Active Blood Glucose Monitoring Suppl ([employer] TaxiTOUCH ULTRA 2) w/Device KIT Test blood sugar [...] Strip 3 10/13/2021 Active OneTouch Delica Plus [id number] Use as directed . Test blood sugar once daily E11.9 100 Each 3 10/13/2021 Active Albuterol Sulfate HFA 108 (90 Base) MCG/ACT Inhalation Aerosol SolutionIndications: COPD, group B, by GOLD 2017 classification ([facility]) Inhale 2 Puffs by mouth every 6 hours as needed for Cough, Shortness of Breath or Wheezing. 18 g 5 01/12/2022 Active metFORMIN HCl ER 500 MG Oral Tablet Extended Release 24 Hour (Glucophage XR)Indications:Type 2 diabetes mellitus with hemoglobin A1c goal of less than 7.0% ([facility]) TAKE 2 TABLETS (1000MG) BY MOUTH [...] Chronic obstructive pulmonary disease, unspecified COPD type ([facility]) Inhale 1 Puff by mouth in the morning. 180 Blister Dosing Unit 1 04/13/2022 Active Fluticasone Propionate 50 MCG/ACT Nasal Suspension (Flonase) Administer 1 [place] into nostril in the morning. 18.2 mL [...] as of this encounter (statuses as of 09/17/2022) Active Problems Problem Noted Date Proteinuria 07/16/2020 [...] as of this encounter (statuses as of 09/17/2022) Resolved Problems Problem Noted Date Resolved Date [...] as of this encounter (statuses as of 09/17/2022) Immunizations Name Administration Dates Next Due COVID-19 mRNA, LNP-s, No Pre serve, 2-Dose Series (Jiahe) 06/13/2020,05/23/2020 Pneumococcal Conjugate Vacci ne, 20-valent ([id number]) 07/23/2022 Pneumococcal Polysaccharide PPV23 (Pneumovax) 02/10/2012 Seasonal [...] as of this encounter Plan of Treatment Scheduled Orders Name Type Priority Associated Diagnoses Orde r Schedule COMPREHENSIVE METABOLIC PANEL Lab Routine Encounter for long-term (current) use of other medications Expected: 09/17/2022, Expires: 09/18/2023 CBC WITH WBC DIFFERENTIAL Lab Routine Encounter for long-term (current) use of other medications Expected: 09/17/2022, Expires: 09/18/2023 LIPID PANEL WITH DIRECT LDL IF TG IS HIGH Lab Routine Encounter for long-term (current) use of other medications Expected: 09/17/2022, Expires: 09/18/2023 TSH Lab Routine Encounter for long-term (current) use of other medications Expected: 09/17/2022, Expires: 09/18/2023 T4, FREE Lab Routine Encounter for long-term (current) use of other medications Expected: 09/17/2022, Expires: 09/18/2023 HEMOGLOBIN A1C Lab Routine Encounter for long-term (current) use of other medications Expected: 09/17/2022, Expires: 09/18/2023 LITHIUM LEVEL Lab Routine Encounter for long-term (current) use of other medications Expected: 09/17/2022, Expires: 09/18/2023 Health Maintenance Due Date Last Done Comments Hepatitis B (1 of 3 - 3-dose series) 1975 Alpha-1 Antitrypsin 06/19/1995 Depression Screening, Annual for Pts 12 and Over 07/25/2020 07/26/2019 COVID-19 Vaccine (3 - Pfizer series) 08/08/2020 06/13/2020, 05/23/2020 DIABETES-FOOT EXAM 01/20/2021 01/21/2020, 03/23/2019 DISCUSS TOBACCO CESSATION (REFER TO SMARTSET #6307) 02/07/2021 02/08/2020 Cologuard 2022 Colonoscopy 2022 Colorectal Cancer Screening 2022 Fecal Occult Blood Test 2022 Sigmoidoscopy 2022 Influenza Vaccine (FLU shot) (#1) 2022 12/18/2019, 03/23/2019, 03/08/2018, Additional history exists Albumin/Creatinine Ratio 12/23/2022 022, 05/05/2020, 05/05/2020 HbA1c 01/13/2023 07/13/2022, 11/29, 03/11/2021, Additional history exists DIABETES-EYE EXAM 06/09/2023 06/08/2022 B-12 07/14/2023 07/13/2022, 02/28, 11/29/2018 GFR 07/14/2023 07/13/2022, 11/29, 07/20/2021, Additional history exists TSH 07/14/2023 07/13/2022, 11/29, 06/17/2020, Additional history exists O2 ASSESSMENT COMPLETED IN PAST YEAR FOR COPD 07/24/2023 07/23/2022 Lipid Panel 07/14/2027 07/13/2022, 06/29, 06/17/2020, Additional [...] Encounter for long-term (current) use of other medications- Primary documented in this encounter Care Teams Jewelry Store Manager Relationship Specialty Start Date End Date [facility] [address] [facility] [address] PCP - General Family Medicine 04/19/18 documented as of this encounter
[2023-03-14] MEDS ORDERED: ALBUT/IPRATROP 3MG/0.5MG NEB 3 ML VIAL NEB STA ×2 (00:35→04:09)
[2023-03-14] MEDS ORDERED: ALBUT/IPRATROP 3MG/0.5MG NEB 3 ML VIAL ONE (00:36)
--- NOTE | 2023-03-14 00:40 | Emergency Department Note ---
History of Present Illness General Chief Complaint: Shortness of Breath/Dyspnea Time Seen by Provider: 03/14/23 00:28 History of Present Illness Provider Complaint: shortness of breath and cough Onset (ago): day(s) (2) Severity: severe Consistency/Duration: + progressively worsening Relieved By: + oxygen and + rest Exacerbated By: + exertion and + coughing Known history of: COPD Associated symptoms: + cough, + wheezing, + sputum production and + chest congestion; no hemoptysis or no nausea/vomiting Treatment prior to arrival: oxygen, bronchodilator and other (Solu-Medrol IV) HPI Narrative: Patient's oxygen saturation for EMS was 50% on room air. Home Medications Medication Instructions Recorded Confirmed Type buspirone 30 mg tablet 30 mg PO BID 02/25/18 03/14/23 History clonidine HCl 0.2 mg tablet 0.2 mg PO BID 02/25/18 03/14/23 History levothyroxine 25 mcg tablet 25 mcg PO QAM 02/25/18 03/14/23 History lisinopril 20 mg tablet 20 mg PO QAM 02/25/18 03/14/23 History simvastatin 10 mg tablet 10 mg PO HS 02/25/18 03/14/23 History metformin 500 mg tablet,extended See Rx Instructions .Route .COMPLEX 09/08/19 03/14/23 History release 24 hr dulaglutide 0.75 mg/0.5 mL 1.5 mg subcut WK 06/09/21 03/14/23 History subcutaneous pen injector (Trulicity) albuterol sulfate 90 mcg/actuation 2 puff inhalation Q6H PRN 03/16/22 03/14/23 History aerosol inhaler COUGH/SHORTNESS OF BREATH/WHEEZING cholecalciferol (vitamin D3) 50 50 mcg PO DAILY 03/16/22 03/14/23 History mcg (2,000 unit) capsule (Vitamin D3) gabapentin 600 mg tablet 600 mg PO TID 03/16/22 03/14/23 History lamotrigine 200 mg tablet 200 mg PO DAILY 03/16/22 03/14/23 History lumateperone 42 mg capsule 42 mg PO HS 03/16/22 03/14/23 History (Caplyta) omeprazole 40 mg capsule,delayed 40 mg PO DAILYBB 03/16/22 03/14/23 History release albuterol sulfate 2.5 mg/3 mL 2.5 mg inhalation DIRECTED PRN 03/14/23 03/14/23 History (0.083 %) solution for nebulization Shortness Of Breath Or Wheezing fluticasone fur. 100 mcg-umeclid 1 inh inhalation DAILY 03/14/23 03/14/23 History 62.5 mcg-vilant 25 mcg inhalat.powder (Trelegy Ellipta) fluticasone propionate 50 1 spray intranasal DAILY 03/14/23 03/14/23 History mcg/actuation nasal spray,suspension folic acid 1 mg tablet 1 mg PO DAILY 03/14/23 03/14/23 History haloperidol 10 mg tablet 15 mg PO HS 03/14/23 03/14/23 History hydroxyzine HCl 25 mg tablet 25 mg PO TID PRN Itching 03/14/23 03/14/23 History Allergies Allergy/AdvReac Type Severity Reaction Status Date / Time amoxicillin Allergy Unknown ON [facility] MED Verified 03/14/23 01:14 LIST Past Med/Surg History Medical History (Updated 03/14/23 @ 01:56 by Frank Valdivia MD) COPD (chronic obstructive pulmonary disease) Non-insulin dependent type 2 diabetes mellitus Polysubstance abuse Schizoaffective disorder Bipolar disease, manic Hypothyroidism Surgical History History of tonsillectomy Family History Other No significant family history Social History Smoking Status: Current every day smoker Tobacco Type: Cigarettes Hx Alcohol Use: Yes Hx Substance Use: Yes Preferred Language: French Communication Ability: Effective Senior 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 Administrator Required: No Beliefs That Will Affect Care: None Current Living Situation: Alone Feels Safe at Home: Yes Gender Identity: Male Assistive Devices: Nebulizer Physical Exam 2 Vital Signs: Vital Signs - 24 hr 03/14/23 00:27 03/14/23 00:41 03/14/23 00:42 Temperature 36.9 C Temperature Source Oral Pulse Rate 106 H 116 H 92 H Pulse Rate from Sp O2 Sensor Respiratory Rate 42 H 38 H Respiratory Effort / Characteristics Labored Spontaneous Access ory Muscle Use Respiratory Depth Deep Respiratory Patter n Rapid/Deep Tachypn ea Tachypnea Blood Pressure 110/71 Blood Pressure Leela n 84 Pulse Oximetry 83 L 91 Oxygen Delivery Me thod Room Air Fraction of Inspir ed Oxygen 35 Sepsis Recent Feve r Within 48 Hours No Sepsis New/Unexpla ined Change in Men zehra Status No Sepsis Action Take n by Nursing No Action Required Fraction of Inspir ed Oxygen - Titrat ion Pulse Oximetry Pos t Tiitration 03/14/23 00:50 03/14/23 01:30 03/14/23 02:00 Temperature Temperature Source Pulse Rate 92 H 94 H Pulse Rate from Sp O2 Sensor 92 H 93 H Respiratory Rate 37 H 35 H Respiratory Effort / Characteristics Respiratory Depth Respiratory Patter n Blood Pressure 131/72 93/61 L Blood Pressure Leela n 91 71 Pulse Oximetry 95 100 Oxygen Delivery Me thod BiPAP BiPAP BiPAP Fraction of Inspir ed Oxygen Sepsis Recent Feve r Within 48 Hours Sepsis New/Unexpla ined Change in Men zehra Status Sepsis Action Take n by Nursing Fraction of Inspir ed Oxygen - Titrat ion 35 Pulse Oximetry Pos t Tiitration 92 03/14/23 02:11 03/14/23 02:12 03/14/23 02:30 Temperature Temperature Source Pulse Rate 80 89 78 Pulse Rate from Sp O2 Sensor 89 78 Respiratory Rate 35 H 39 H 44 H Respiratory Effort / Characteristics Respiratory Depth Respiratory Patter n Blood Pressure 109/67 115/75 Blood Pressure Leela n 81 88 Pulse Oximetry 100 91 94 Oxygen Delivery Me thod Fraction of Inspir ed Oxygen 35 Sepsis Recent Feve r Within 48 Hours Sepsis New/Unexpla ined Change in Men zehra Status Sepsis Action Take n by Nursing Fraction of Inspir ed Oxygen - Titrat ion Pulse Oximetry Pos t Tiitration 03/14/23 03:00 Temperature Temperature Source Pulse Rate 81 Pulse Rate from Sp O2 Sensor 82 Respiratory Rate 27 H Respiratory Effort / Characteristics Respiratory Depth Respiratory Patter n Blood Pressure 114/65 Blood Pressure Leela n 81 Pulse Oximetry 90 Oxygen Delivery Me thod Fraction of Inspir ed Oxygen Sepsis Recent Feve r Within 48 Hours Sepsis New/Unexpla ined Change in Men zehra Status Sepsis Action Take n by Nursing Fraction of Inspir ed Oxygen - Titrat ion Pulse Oximetry Pos t Tiitration Physical Exam: Physical Exam HENT: Exam performed. - Head: Normocephalic and atraumatic. EYES: Conjunctivae and EOM are normal. Right eye exhibits no discharge. Left eye exhibits no discharge. No scleral icterus. NECK: Normal range of motion. Neck supple. No JVD present. CV: Tachycardic rate, regular rhythm, normal heart sounds and intact distal pulses. There is no peripheral edema. Palpable radial pulses bue. PULM/CHEST: Tachypneic. Diffuse expiratory wheezes bilaterally. ABD: The abdomen is soft. There is no tenderness. NEURO: Motor and sensation grossly intact. SKIN: Skin is warm and dry. He is not diaphoretic. PSYCH: normal mood and affect. Behavior is normal. Judgment and thought content normal. Course Course 0028: The patient was evaluated in room B2. A complete history and physical exam was performed Cardiac monitoring: An order was placed for continuous cardiac monitoring. The monitor shows a rate of 100 with sinus rhythm interpreted by me Patient's oxygen saturation on room air was 60% in the emergency department. Patient was placed on supplemental oxygen via nasal cannula. Patient be given breathing treatment and started on BiPAP given his history of COPD hypoxia and hypercapnic respiratory failure. Chest x-ray viewed by me shows no pneumothorax 0045: Patient's wheezing is improved after DuoNeb treatment and while on BiPAP. Patient reports he feels better with BiPAP. 0154: Vital signs stable on BiPAP. Labs show a leukocytosis of 17. Chest x-ray does not show any infiltrate or pneumothorax. Patient will be given antibiotics empirically blood cultures sent. Rocephin and azithromycin ordered for the patient. Azithromycin will also help for the presumed obstructive lung disease exacerbation. VBG shows a venous pH of 7.36 and venous pCO2 of 51. Bio fire negative. Discussed case with Dr. Reynoso [facility] hospitalist will admit the patient to his service. Administered Medications Magnesium Sulfate/Dextrose (Magnesium Sulfate / D5w) 1 gm in 100 mls @ 50 mls/hr IV Q2H [facility] Stop: 03/14/23 05:59 Last Admin: 03/14/23 03:07 Dose: 50 mls/hr Documented By: AMANDEEP Potassium Chloride/Sodium Chloride (Normal Saline W/20 Meq Kcl) 20 meq in 1,000 mls @ 200 mls/hr IV .Q5H STA; Protocol Stop: 03/14/23 07:34 Last Infusion: 03/14/23 03:10 Dose: 0 mls/hr Documented By: Admin: 03/14/23 03:07 Dose: 200 mls/hr Documented By: AMANDEEP Doxycycline Hyclate 100 mg/ (Dextrose) 100 mls @ 50 mls/hr IV NOW STA Stop: 03/14/23 04:27 Last Admin: 03/14/23 03:07 Dose: 50 mls/hr Documented By: AMANDEEP Discontinued Medications Albuterol (Albut/Ipratrop 3mg/0.5mg Neb 3 Ml Vial) 12 ml NEB ONE ONE; Protocol Stop: 03/14/23 00:33 Last Admin: 03/14/23 00:38 Dose: Not Given Documented By: AMANDEEP Albuterol (Albut/Ipratrop 3mg/0.5mg Neb 3 Ml Vial) 3 ml NEB NOW STA; Protocol Stop: 03/14/23 00:36 Last Admin: 03/14/23 00:38 Dose: 3 ml Documented By: AMANDEEP Albuterol (Albut/Ipratrop 3mg/0.5mg Neb 3 Ml Vial) Confirm Administered Dose 3 ml .ROUTE .STK-MED ONE Stop: 03/14/23 00:37 Last Admin: 03/14/23 00:38 Dose: Not Given Documented By: AMANDEEP Azithromycin 500 mg/ Dextrose 255 mls @ 127.5 mls/hr IV NOW STA Stop: 03/14/23 03:22 Last Admin: 03/14/23 03:09 Dose: Not Given Documented By: AMANDEEP Ceftriaxone Sodium (Rocephin) 1,000 mg in 50 mls @ 100 mls/hr IV NOW STA Stop: 03/14/23 01:52 Last Admin: 03/14/23 03:09 Dose: Not Given Documented By: AMANDEEP Thiamine HCl 100 mg/ Syringe 10 mls @ 2 mls/min IV NOW STA Stop: 03/14/23 02:06 Last Admin: 03/14/23 03:07 Dose: 2 mls/min Documented By: AMANDEEP Methylprednisolone (Methylprednisolone 125 Mg/2 Ml Vial) 125 mg IV NOW STA Stop: 03/14/23 00:33 Last Admin: 03/14/23 00:53 Dose: Not Given Documented By: AMANDEEP Medical Decision Making Laboratory Data Attestation: I reviewed the patient's lab results. 03/14/23 00:40 03/14/23 00:40 Lab Results 01/15/24 01/15/24 01/15/24 Range/Units 00:40 02:28 02:30 WBC 17.50 H (4.8-10.8) K/ul RBC 4.03 L (4.70-6.10) M/uL Hgb 11.4 L (14.0-18.0) g/dl Hct 36.6 L (42.0-52.0) % MCV 90.8 (80.0-100.0) fL MCH 28.3 (25.0-34.0) pg MCHC 31.1 L (32.0-36.0) g/dL RDW Std Deviation 47.8 H (36.4-46.3) fL RDW Coeff of Tamir 14.7 H (11.5-14.5) % Plt Count 390 (130-400) K/uL MPV 9.2 L (9.4-12.4) fL Immature Gran % (Auto) 0.8 % Neut % (Auto) 76.1 % Lymph % (Auto) 12.7 % Lassen % (Auto) 9.0 % Eos % (Auto) 0.8 % Baso % (Auto) 0.6 % Neut # (Auto) 13.31 H (1.40-6.50) K/uL Lymph # (Auto) 2.23 (1.20-3.40) K/uL Lassen # (Auto) 1.58 H (0.11-0.59) K/uL Eos # (Auto) 0.14 (0.00-0.50) K/uL Baso # (Auto) 0.10 (0.00-0.20) K/uL Immature Gran # (Auto) 0.14 (0.01-0.20) K/uL PT 10.9 (9.0-12.0) Seconds INR 1.0 (0.9-1.1) APTT 31 (21-31) Seconds PTT Ratio 1.1 VBG pH 7.36 (7.36-7.41) VBG pCO2 51 H (38-50) mmHg VBG pO2 61 mmHg VBG HCO3 29 mmol/L VBG O2 Saturation 91.6 % VBG Base Excess 2.4 mEq/L Sodium 135 L (136-145) mmol/L Potassium 3.7 (3.5-5.1) mmol/L Chloride 99 (98-107) mmol/L Carbon Dioxide 27 (21-32) mmol/L Anion Gap 9 (3-11) BUN 10 (6-23) mg/dl Creatinine 0.83 (0.6-1.4) mg/dl Est Cr Clr Drug Dosing 146.3 ml/min Est GFR ( Amer) 123.2 ml/min Est GFR (Non-Af Amer) 106.3 ml/min BUN/Creatinine Ratio 12.0 (10-20) Glucose 140 H (70-99(Fasting)) mg/dl Lactate 0.6 (0.4-2.0) mmol/L Calcium 9.0 (8.6-10.3) mg/dl Total Bilirubin (0.2-1.0) mg/dl Direct Bilirubin (0-0.2) mg/dl AST (13-39) U/L ALT (7-52) U/L Alkaline Phosphatase (34-104) U/L Troponin I High Sens 10.1 (0-20) pg/ml B-Natriuretic Peptide 46 (0-100) pg/ml Total Protein (6.0-8.3) gm/dl Albumin (3.4-5.0) gm/dl Lipase 18 (11-82) U/L Procalcitonin 0.07 (0-0.5) ng/ml Ethyl Alcohol mg/dL < 10.0 (<10.0) mg/dl Adenovirus (PCR) Not Detected (NotDetected) B. pertussis DNA (PCR) Not Detected (NotDetected) B.parapertussis DNA PCR Not Detected (NotDetected) C. pneumoniae DNA (PCR) Not Detected (NotDetected) Coronavirus OC43 (PCR) Not Detected (NotDetected) Coronavirus HKU1 (PCR) Not Detected (NotDetected) Coronavirus 229E (PCR) Not Detected (NotDetected) SARS-CoV-2 (PCR) Not Detected (NotDetected) Coronavirus NL63 (PCR) Not Detected (NotDetected) Human Metapneumovir PCR Not Detected (NotDetected) Influenza Type A (PCR) Not Detected (NotDetected) Influenza Type B (PCR) Not Detected (NotDetected) M. pneumoniae (PCR) Not Detected (NotDetected) Parainfluenza 1 (PCR) Not Detected (NotDetected) Parainfluenza 2 (PCR) Not Detected (NotDetected) Parainfluenza 3 (PCR) Not Detected (NotDetected) Parainfluenza 4 (PCR) Not Detected (NotDetected) RSV (PCR) Not Detected (NotDetected) Entero/Rhino (PCR) Not Detected (NotDetected) 03/14/23 Range/Units 02:48 WBC (4.8-10.8) K/ul RBC (4.70-6.10) M/uL Hgb (14.0-18.0) g/dl Hct (42.0-52.0) % MCV (80.0-100.0) fL MCH (25.0-34.0) pg MCHC (32.0-36.0) g/dL RDW Std Deviation (36.4-46.3) fL RDW Coeff of Tamir (11.5-14.5) % Plt Count (130-400) K/uL MPV (9.4-12.4) fL Immature Gran % (Auto) % Neut % (Auto) % Lymph % (Auto) % Lassen % (Auto) % Eos % (Auto) % Baso % (Auto) % Neut # (Auto) (1.40-6.50) K/uL Lymph # (Auto) (1.20-3.40) K/uL Lassen # (Auto) (0.11-0.59) K/uL Eos # (Auto) (0.00-0.50) K/uL Baso # (Auto) (0.00-0.20) K/uL Immature Gran # (Auto) (0.01-0.20) K/uL PT (9.0-12.0) Seconds INR (0.9-1.1) APTT (21-31) Seconds PTT Ratio VBG pH (7.36-7.41) VBG pCO2 (38-50) mmHg VBG pO2 mmHg VBG HCO3 mmol/L VBG O2 Saturation % VBG Base Excess mEq/L Sodium (136-145) mmol/L Potassium (3.5-5.1) mmol/L Chloride (98-107) mmol/L Carbon Dioxide (21-32) mmol/L Anion Gap (3-11) BUN (6-23) mg/dl Creatinine (0.6-1.4) mg/dl Est Cr Clr Drug Dosing ml/min Est GFR ( Amer) ml/min Est GFR (Non-Af Amer) ml/min BUN/Creatinine Ratio (10-20) Glucose (70-99(Fasting)) mg/dl Lactate (0.4-2.0) mmol/L Calcium (8.6-10.3) mg/dl Total Bilirubin 0.3 (0.2-1.0) mg/dl Direct Bilirubin 0.1 (0-0.2) mg/dl AST 18 (13-39) U/L ALT 16 (7-52) U/L Alkaline Phosphatase 54 (34-104) U/L Troponin I High Sens (0-20) pg/ml B-Natriuretic Peptide (0-100) pg/ml Total Protein 6.8 (6.0-8.3) gm/dl Albumin 4.1 (3.4-5.0) gm/dl Lipase (11-82) U/L Procalcitonin (0-0.5) ng/ml Ethyl Alcohol mg/dL (<10.0) mg/dl Adenovirus (PCR) (NotDetected) B. pertussis DNA (PCR) (NotDetected) B.parapertussis DNA PCR (NotDetected) C. pneumoniae DNA (PCR) (NotDetected) Coronavirus OC43 (PCR) (NotDetected) Coronavirus HKU1 (PCR) (NotDetected) Coronavirus 229E (PCR) (NotDetected) SARS-CoV-2 (PCR) (NotDetected) Coronavirus NL63 (PCR) (NotDetected) Human Metapneumovir PCR (NotDetected) Influenza Type A (PCR) (NotDetected) Influenza Type B (PCR) (NotDetected) M. pneumoniae (PCR) (NotDetected) Parainfluenza 1 (PCR) (NotDetected) Parainfluenza 2 (PCR) (NotDetected) Parainfluenza 3 (PCR) (NotDetected) Parainfluenza 4 (PCR) (NotDetected) RSV (PCR) (NotDetected) Entero/Rhino (PCR) (NotDetected) Imaging Data Attestation: I personally reviewed and interpreted this imaging study as follows: My Impression: Chest x-ray: Chest x-ray viewed by me shows no pneumothorax or infiltrate ECG Data Attestation: I personally reviewed and interpreted this ECG as follows: Interpretation: Sinus rhythm with a rate of 104. ME 172 QRS [address] elevation or ST depression. [facility] Narrative 0028: The patient was evaluated in room B2. A complete history and physical exam was performed Cardiac monitoring: An order was placed for continuous cardiac monitoring. The monitor shows a rate of 100 with sinus rhythm interpreted by me Patient's oxygen saturation on room air was 60% in the emergency department. Patient was placed on supplemental oxygen via nasal cannula. Patient be given breathing treatment and started on BiPAP given his history of COPD hypoxia and hypercapnic respiratory failure. Chest x-ray viewed by me shows no pneumothorax 0045: Patient's wheezing is improved after DuoNeb treatment and while on BiPAP. Patient reports he feels better with BiPAP. 0154: Vital signs stable on BiPAP. Labs show a leukocytosis of 17. Chest x-ray does not show any infiltrate or pneumothorax. Patient will be given antibiotics empirically blood cultures sent. Rocephin and azithromycin ordered for the patient. Azithromycin will also help for the presumed obstructive lung disease exacerbation. VBG shows a venous pH of 7.36 and venous pCO2 of 51. Bio fire negative. [facility] the [facility] to his service. Impression & Plan COPD (chronic obstructive pulmonary disease) Critical Care Time Critical Care Time: Yes Total Critical Care Time: 54 I have personally spent greater than 54 minutes of critical care time in the direct management of this patient. This includes bedside care, interpretation of diagnostic studies, and testing, discussion with consultants, patient, and family members, and other required patient management activities. This 54 minutes is in excess of all separately billable procedures. Discharge Plan Visit Data Chief Complaint: Shortness of Breath/Dyspnea ED Provider: Frank Valdivia Discharge Problem: COPD (chronic obstructive pulmonary disease) Patient Disposition: Admitted As Inpatient Forms Stand Alone Forms: My [facility] Prescriptions Prescriptions: No Action metformin 500 mg tablet extended release 24 hr See Rx Instructions .ROUTE .COMPLEX Rx Instructions: TAKES 1,000 MG QAM, THEN 500 MG QPM.PT UNABLE TO VERIFY ANY MEDICATIONS, PER EXT MED HX NO SCRIPTS FILLED SINCE SEPTEMBER 2022. lisinopril 20 mg tablet 20 mg PO QAM Rx Instructions: PT UNABLE TO VERIFY ANY MEDICATIONS, PER EXT MED HX NO SCRIPTS FILLED SINCE SEPTEMBER 2022. levothyroxine 25 mcg tablet 25 mcg PO QAM Rx Instructions: PT UNABLE TO VERIFY ANY MEDICATIONS, PER EXT MED HX NO SCRIPTS FILLED SINCE SEPTEMBER 2022. clonidine HCl 0.2 mg tablet 0.2 mg PO BID Rx Instructions: PT UNABLE TO VERIFY ANY MEDICATIONS, PER EXT MED HX NO SCRIPTS FILLED SINCE SEPTEMBER 2022. buspirone 30 mg Tablet 30 mg PO BID Rx Instructions: PT UNABLE TO VERIFY ANY MEDICATIONS, PER EXT MED HX NO SCRIPTS FILLED SINCE SEPTEMBER 2022. simvastatin 10 mg tablet 10 mg PO HS Rx Instructions: PT UNABLE TO VERIFY ANY MEDICATIONS, PER EXT MED HX NO SCRIPTS FILLED SINCE SEPTEMBER 2022. Trulicity 0.75 mg/0.5 mL pen injector 1.5 mg subcut WK Rx Instructions: PT UNABLE TO VERIFY ANY MEDICATIONS, PER EXT MED HX NO SCRIPTS FILLED SINCE SEPTEMBER 2022. gabapentin 600 mg tablet 600 mg PO TID Rx Instructions: PT UNABLE TO VERIFY ANY MEDICATIONS, PER EXT MED HX NO SCRIPTS FILLED SINCE SEPTEMBER 2022. lamotrigine 200 mg tablet 200 mg PO DAILY Rx Instructions: PT UNABLE TO VERIFY ANY MEDICATIONS, PER EXT MED HX NO SCRIPTS FILLED SINCE SEPTEMBER 2022. omeprazole 40 mg capsule,delayed release(DR/EC) 40 mg PO DAILYBB Rx Instructions: PT UNABLE TO VERIFY ANY MEDICATIONS, PER EXT MED HX NO SCRIPTS FILLED SINCE SEPTEMBER 2022. albuterol sulfate 90 mcg/actuation Hfa Aerosol Inhaler 2 puff INHALATION Q6H PRN (Reason: COUGH/SHORTNESS OF BREATH/WHEEZING) Rx Instructions: PT UNABLE TO VERIFY ANY MEDICATIONS, PER EXT MED HX NO SCRIPTS FILLED SINCE SEPTEMBER 2022. cholecalciferol (vitamin D3) [Vitamin D3] 50 mcg (2,000 unit) Capsule 50 mcg PO DAILY Rx Instructions: PT UNABLE TO VERIFY ANY MEDICATIONS, PER EXT MED HX NO SCRIPTS FILLED SINCE SEPTEMBER 2022. Caplyta 42 mg capsule 42 mg PO HS Rx Instructions: PT UNABLE TO VERIFY ANY MEDICATIONS, PER EXT MED HX NO SCRIPTS FILLED SINCE SEPTEMBER 2022. albuterol sulfate [Proventil] 2.5 mg /3 mL (0.083 %) Solution For Nebulization 2.5 mg INHALATION DIRECTED PRN (Reason: Shortness Of Breath Or Wheezing) Rx Instructions: PT UNABLE TO VERIFY ANY MEDICATIONS, PER EXT MED HX NO SCRIPTS FILLED SINCE SEPTEMBER 2022. haloperidol 10 mg Tablet 15 mg PO HS Rx Instructions: PT UNABLE TO VERIFY ANY MEDICATIONS, PER EXT MED HX NO SCRIPTS FILLED SINCE SEPTEMBER 2022. folic acid 1 mg Tablet 1 mg PO DAILY Rx Instructions: PT UNABLE TO VERIFY ANY MEDICATIONS, PER EXT MED HX NO SCRIPTS FILLED SINCE SEPTEMBER 2022. hydroxyzine HCl 25 mg Tablet 25 mg PO TID PRN (Reason: Itching) Rx Instructions: PT UNABLE TO VERIFY ANY MEDICATIONS, PER EXT MED HX NO SCRIPTS FILLED SINCE SEPTEMBER 2022. fluticasone propionate [Flonase] 50 mcg/actuation [place],Suspension 1 spray INTRANASAL DAILY Rx Instructions: PT UNABLE TO VERIFY ANY MEDICATIONS, PER EXT MED HX NO SCRIPTS FILLED SINCE SEPTEMBER 2022.administer into each nostril Trelegy Ellipta 100-62.5-25 mcg Blister With Device 1 inh INHALATION DAILY Rx Instructions: PT UNABLE TO VERIFY ANY MEDICATIONS, PER EXT MED HX NO SCRIPTS FILLED SINCE SEPTEMBER 2022. Referrals Referrals: Devyn Silva MD [Primary Care Provider] - Discharge Problem: COPD (chronic obstructive pulmonary disease) Qualifiers: COPD type: unspecified COPD Qualified Code(s): J44.9 - Chronic obstructive pulmonary disease, unspecified
[2023-03-14 01:01] LABS: Base Excess VBG 2.4 mEq/L; HCO3 VBG 29 mmol/L; Oxygen Saturation VBG 91.6 %; PCO2 VBG 51 mmHg (38-50); PO2 VBG 61 mmHg; pH VBG 7.36 (7.36-7.41)
[2023-03-14 01:14] LABS: Basophils % (auto) 0.6 %; Eosinophils # (auto) 0.14 K/uL (0.00-0.50); Eosinophils % (auto) 0.8 %; Hematocrit (blood only) 36.6 % (42.0-52.0); Hemoglobin 11.4 g/dl (14.0-18.0); Immature Granulocytes # (auto) 0.14 K/uL (0.01-0.20); Immature Granulocytes % (auto) 0.8 %; Lymphocytes # (auto) 2.23 K/uL (1.20-3.40); Lymphocytes % (auto) 12.7 %; Mean Corpuscular Hemoglobin 28.3 pg (25.0-34.0); Mean Corpuscular Hgb Conc 31.1 g/dL (32.0-36.0); Mean Corpuscular Volume 90.8 fL (80.0-100.0); Mean Platelet Volume 9.2 fL (9.4-12.4); Monocytes # (auto) 1.58 K/uL (0.11-0.59); Neutrophils # (auto) 13.31 K/uL (1.40-6.50); Neutrophils % (auto) 76.1 %; Platelet Count 390 K/uL (130-400); RDW Coefficient of Variation 14.7 % (11.5-14.5); RDW Standard Deviation 47.8 fL (36.4-46.3); Red Blood Count 4.03 M/uL (4.70-6.10)
[2023-03-14] MEDS ORDERED: AZITHROMYCIN 500 MG in DEXTROSE 5% 250 ML IV STA (01:23)
[2023-03-14] MEDS ORDERED: cefTRIAXone SODIUM 1,000 MG/50 ML BAG IV STA (01:23)
[2023-03-14 01:24] LABS: Creatinine Clr Calc Pharmacy 146.3 ml/min; Est GFR (African American) 123.2 ml/min; Est GFR (Non-African American) 106.3 ml/min; Potassium 3.7 mmol/L (3.5-5.1)
[2023-03-14 01:31] LABS: Troponin I High Sensitivity 10.1 pg/ml (0-20)
[2023-03-14 01:40] LABS: Partial Thromboplastin Ratio 1.1; Partial Thromboplastin Time 31 Seconds (21-31); Prothrombin Time 10.9 Seconds (9.0-12.0)
[2023-03-14 01:41] LABS: Adenovirus PCR Not Detected (NotDetected); Bordetella parapertussis PCR Not Detected (NotDetected); Bordetella pertussis PCR Not Detected (NotDetected); Chlamydia pneumoniae PCR Not Detected (NotDetected); Coronavirus 229E PCR Not Detected (NotDetected); Coronavirus CoV-2 (COVID19)PCR Not Detected (NotDetected); Coronavirus HKU1 PCR Not Detected (NotDetected); Coronavirus NL63 PCR Not Detected (NotDetected); Coronavirus OC43PCR Not Detected (NotDetected); Human Metapneumovirus PCR Not Detected (NotDetected); Influenza A PCR Not Detected (NotDetected); Influenza B PCR Not Detected (NotDetected); Mycoplasma pneumoniae PCR Not Detected (NotDetected); Parainfluenza Virus 1 PCR Not Detected (NotDetected); Parainfluenza Virus 2 PCR Not Detected (NotDetected); Parainfluenza Virus 3 PCR Not Detected (NotDetected); Parainfluenza Virus 4 PCR Not Detected (NotDetected); Respiratory Syncytial VirusPCR Not Detected (NotDetected); Rhinovirus/Enterovirus PCR Not Detected (NotDetected)
[2023-03-14] MEDS ORDERED: THIAMINE HCL 100 MG in SYRINGE 9 ML IV STA (02:02)
[2023-03-14] MEDS ORDERED: DOXYCYCLINE HYCLATE 100 MG in DEXTROSE 5% MINI-B 100 ML IV STA (02:28)
--- NOTE | 2023-03-14 02:28 | History & Physical Report ---
Date of Service March 14, 2023 Assessment & Plan (1) Hypoxia: Plan: Acute respiratory failure with hypoxia: chronic respiratory failure secondary to COPD (home O2 noncompliant as per records) Hypoxemic, hypercapnic respiratory failure secondary to COPD exacerbation Possible atypical infection Possible sepsis BIN/BiPAP intolerance, hypertension, BP on the lower side hyperlipidemia on statin Rx DM2 on oral meds, suboptimal control as of recent hemoglobin A1c of 7.4 last August 2022 mood disorder/schizophrenia, patient currently unable to clarify regimen New onset anemia, patient without overt symptoms of bleed Past alcohol abuse ongoing tobacco abuse PCU BiPAP Steroid course, nebs RTC CS, Doxycycline for possible atypical infection IVF, check lactic acid Hold home BP meds for now given hypotension Pulmonary consult if without improvement Basal bolus insulin adjusted for n.p.o. status while n.p.o. while on BiPAP, ISS BG goal 1 10-1 40, update hemoglobin A1c Anemia workup Clarify current psych medication regimen with patient once off BiPAP Nicotine replacement therapy as needed (patient prefers gum to patch) DVT prophylaxis. Lovenox subcu Full code Total critical care time was 45 minutes. Text document was generated using [email or web address] voice recognition software. It may contain grammatical or spelling errors. Kindly contact undersigned for clarification of any documentation item in question. History of Present Illness Chief Complaint: Worsening shortness of breath Primary Care Provider: Devyn Silva MD History obtained from patient and records. History somewhat difficult to obtain from patient secondary to BiPAP. Medical history significant for chronic respiratory failure secondary to COPD (home O2 noncompliant as per records), BIN/BiPAP intolerance, hypertension, hyperlipidemia, DM2 on oral meds, mood disorder, schizophrenia, past tobacco abuse, ongoing tobacco abuse Last confinement last year for COPD exacerbation. Patient just got released out of residential last week. Currently staying at local [facility]. 3 days history of dry cough symptoms with worsening shortness of breath. Denies chest pain, aspiration, fever, or chills. Not sure about sick contacts. Patient completed COVID-19 vaccination without recent boosters. Denies abdominal pain, black/bloody stools, hematuria symptoms. O2 sats noted to be 50% upon EMS arrival. Neb treatment and Solu-Medrol administered on route to ER. BiPAP initiated at the ER. MEDICAL HISTORY: As above. SURGERIES: Hernia repair, tonsillectomy FAMILY HISTORY: DM, heart disease PERSONAL SOCIAL HISTORY: Ongoing tobacco abuse, past alcohol abuse, disabled. Allergies Allergy/AdvReac Type Severity Reaction Status Date / Time amoxicillin Allergy Unknown ON [facility] MED Verified 03/14/23 01:14 LIST Home Medications Medication Instructions Recorded Confirmed Type buspirone 30 mg tablet 30 mg PO BID 02/25/18 03/14/23 History clonidine HCl 0.2 mg tablet 0.2 mg PO BID 02/25/18 03/14/23 History levothyroxine 25 mcg tablet 25 mcg PO QAM 02/25/18 03/14/23 History lisinopril 20 mg tablet 20 mg PO QAM 02/25/18 03/14/23 History simvastatin 10 mg tablet 10 mg PO HS 02/25/18 03/14/23 History metformin 500 mg tablet,extended See Rx Instructions .Route .COMPLEX 09/08/19 03/14/23 History release 24 hr dulaglutide 0.75 mg/0.5 mL 1.5 mg subcut WK 06/09/21 03/14/23 History subcutaneous pen injector (Trulicity) albuterol sulfate 90 mcg/actuation 2 puff inhalation Q6H PRN 03/16/22 03/14/23 History aerosol inhaler COUGH/SHORTNESS OF BREATH/WHEEZING cholecalciferol (vitamin D3) 50 50 mcg PO DAILY 03/16/22 03/14/23 History mcg (2,000 unit) capsule (Vitamin D3) gabapentin 600 mg tablet 600 mg PO TID 03/16/22 03/14/23 History lamotrigine 200 mg tablet 200 mg PO DAILY 03/16/22 03/14/23 History lumateperone 42 mg capsule 42 mg PO HS 03/16/22 03/14/23 History (Caplyta) omeprazole 40 mg capsule,delayed 40 mg PO DAILYBB 03/16/22 03/14/23 History release albuterol sulfate 2.5 mg/3 mL 2.5 mg inhalation DIRECTED PRN 03/14/23 03/14/23 History (0.083 %) solution for nebulization Shortness Of Breath Or Wheezing fluticasone fur. 100 mcg-umeclid 1 inh inhalation DAILY 03/14/23 03/14/23 History 62.5 mcg-vilant 25 mcg inhalat.powder (Trelegy Ellipta) fluticasone propionate 50 1 spray intranasal DAILY 03/14/23 03/14/23 History mcg/actuation nasal spray,suspension folic acid 1 mg tablet 1 mg PO DAILY 03/14/23 03/14/23 History haloperidol 10 mg tablet 15 mg PO HS 03/14/23 03/14/23 History hydroxyzine HCl 25 mg tablet 25 mg PO TID PRN Itching 03/14/23 03/14/23 History Past Med/Surg History Medical History (Updated 03/14/23 @ 01:56 by Frank Valdivia MD) COPD (chronic obstructive pulmonary disease) Non-insulin dependent type 2 diabetes mellitus Polysubstance abuse Schizoaffective disorder Bipolar disease, manic Hypothyroidism Surgical History History of tonsillectomy Family History Other No significant family history Social History Smoking Status: Current every day smoker Tobacco Type: Cigarettes and E-cigarettes / Vaping Do You Dip or Chew Tobacco: No; Tobacco Cessation Education Requested by Patient: No Hx Alcohol Use: Yes Hx Substance Use: Yes Preferred Language: Estonian Communication Ability: Effective Wellness Coordinator Required: No Beliefs That Will Affect Care: None Current Living Situation: Alone Current Living Situation Comment: [facility]enzin alaniz resides at [facility] Other Information That Helps Us Care for You: No Feels Safe at Home: Yes Safety Concerns: Feels Safe At This Time Gender Identity: Male Assistive Devices: None Assistive Devices Comment: Refuses ordered assistive devices Review of Systems Review of Systems: As per HPI, all other systems reviewed and negative Physical Exam Physical Exam: GENERAL: Slightly uncomfortable, morbidly obese, looks older than stated age, unkempt, respiratory distress SKIN: Pallor, warm HEENT: Pale palpebral conjunctivae, no ptosis, dry buccal mucosa, BiPAP in place NECK : Supple, short neck, no tenderness CHEST : Decreased breath sounds, no tenderness HEART : RRR, no obvious murmurs ABDOMEN: Some distention, nontender EXTREMITIES : Minimal LE swelling, no LE tenderness, no other conspicuous deformities noted NEUROLOGIC : Coherent, no facial asymmetry, no other gross focality Results & Data Results & Data Vital Signs (Past 12 Hours) Vital Signs Temp Pulse Resp BP Pulse Ox O2 Del Method FiO2 03/14/23 02:11 80 35 H 100 35 03/14/23 02:00 94 H 35 H 93/61 L 100 BiPAP 03/14/23 01:30 92 H 37 H 131/72 95 BiPAP 03/14/23 00:50 BiPAP 03/14/23 00:42 92 H 38 H 91 35 03/14/23 00:41 36.9 C 116 H 42 H 110/71 83 L Room Air 03/14/23 00:27 106 H Laboratory Results Laboratory Results WBC 17.50 K/ul (4.8-10.8) H 03/14/23 00:40 RBC 4.03 M/uL (4.70-6.10) L 03/14/23 00:40 Hgb 11.4 g/dl (14.0-18.0) L 03/14/23 00:40 Hct 36.6 % (42.0-52.0) L 03/14/23 00:40 MCV 90.8 fL (80.0-100.0) 03/14/23 00:40 MCH 28.3 pg (25.0-34.0) 03/14/23 00:40 MCHC 31.1 g/dL (32.0-36.0) L 03/14/23 00:40 RDW Std Deviation 47.8 fL (36.4-46.3) H 03/14/23 00:40 RDW Coeff of Tamir 14.7 % (11.5-14.5) H 03/14/23 00:40 Plt Count 390 K/uL (130-400) 03/14/23 00:40 MPV 9.2 fL (9.4-12.4) L 03/14/23 00:40 Immature Gran % (Auto) 0.8 % 03/14/23 00:40 Neut % (Auto) 76.1 % 03/14/23 00:40 Lymph % (Auto) 12.7 % 03/14/23 00:40 [place] % (Auto) 9.0 % 03/14/23 00:40 Eos % (Auto) 0.8 % 03/14/23 00:40 Baso % (Auto) 0.6 % 03/14/23 00:40 Neut # (Auto) 13.31 K/uL (1.40-6.50) H 03/14/23 00:40 Lymph # (Auto) 2.23 K/uL (1.20-3.40) 03/14/23 00:40 [place] # (Auto) 1.58 K/uL (0.11-0.59) H 03/14/23 00:40 Eos # (Auto) 0.14 K/uL (0.00-0.50) 03/14/23 00:40 Baso # (Auto) 0.10 K/uL (0.00-0.20) 03/14/23 00:40 Immature Gran # (Auto) 0.14 K/uL (0.01-0.20) 03/14/23 00:40 PT 10.9 Seconds (9.0-12.0) 03/14/23 00:40 INR 1.0 (0.9-1.1) 03/14/23 00:40 APTT 31 Seconds (21-31) 03/14/23 00:40 PTT Ratio 1.1 03/14/23 00:40 VBG pH 7.36 (7.36-7.41) 03/14/23 00:40 VBG pCO2 51 mmHg (38-50) H 03/14/23 00:40 VBG pO2 61 mmHg 03/14/23 00:40 VBG HCO3 29 mmol/L 03/14/23 00:40 VBG O2 Saturation 91.6 % 03/14/23 00:40 VBG Base Excess 2.4 mEq/L 03/14/23 00:40 Sodium 135 mmol/L (136-145) L 03/14/23 00:40 Potassium 3.7 mmol/L (3.5-5.1) 03/14/23 00:40 Chloride 99 mmol/L (98-107) 03/14/23 00:40 Carbon Dioxide 27 mmol/L (21-32) 03/14/23 00:40 Anion Gap 9 (3-11) 03/14/23 00:40 BUN 10 mg/dl (6-23) 03/14/23 00:40 Creatinine 0.83 mg/dl (0.6-1.4) 03/14/23 00:40 Est Cr Clr Drug Dosing 146.3 ml/min 03/14/23 00:40 Est GFR ( Amer) 123.2 ml/min 03/14/23 00:40 Est GFR (Non-Af Amer) 106.3 ml/min 03/14/23 00:40 BUN/Creatinine Ratio 12.0 (10-20) 03/14/23 00:40 Glucose 140 mg/dl (70-99(Fasting)) H 03/14/23 00:40 Calcium 9.0 mg/dl (8.6-10.3) 03/14/23 00:40 Troponin I High Sens 10.1 pg/ml (0-20) 03/14/23 00:40 B-Natriuretic Peptide 46 pg/ml (0-100) 03/14/23 00:40 Lipase 18 U/L (11-82) 03/14/23 00:40 Adenovirus (PCR) Not Detected (NotDetected) 03/14/23 00:40 B. pertussis DNA (PCR) Not Detected (NotDetected) 03/14/23 00:40 B.parapertussis DNA PCR Not Detected (NotDetected) 03/14/23 00:40 C. pneumoniae DNA (PCR) Not Detected (NotDetected) 03/14/23 00:40 Coronavirus OC43 (PCR) Not Detected (NotDetected) 03/14/23 00:40 Coronavirus HKU1 (PCR) Not Detected (NotDetected) 03/14/23 00:40 Coronavirus 229E (PCR) Not Detected (NotDetected) 03/14/23 00:40 SARS-CoV-2 (PCR) Not Detected (NotDetected) 03/14/23 00:40 Coronavirus NL63 (PCR) Not Detected (NotDetected) 03/14/23 00:40 Human Metapneumovir PCR Not Detected (NotDetected) 03/14/23 00:40 Influenza Type A (PCR) Not Detected (NotDetected) 03/14/23 00:40 Influenza Type B (PCR) Not Detected (NotDetected) 03/14/23 00:40 M. pneumoniae (PCR) Not Detected (NotDetected) 03/14/23 00:40 Parainfluenza 1 (PCR) Not Detected (NotDetected) 03/14/23 00:40 Parainfluenza 2 (PCR) Not Detected (NotDetected) 03/14/23 00:40 Parainfluenza 3 (PCR) Not Detected (NotDetected) 03/14/23 00:40 Parainfluenza 4 (PCR) Not Detected (NotDetected) 03/14/23 00:40 RSV (PCR) Not Detected (NotDetected) 03/14/23 00:40 Entero/Rhino (PCR) Not Detected (NotDetected) 03/14/23 00:40 Diagnostic Findings Chest x-ray as per my interpretation cardiomegaly, atelectasis, no obvious infiltrates EKG as per my interpretation :
[2023-03-14] MEDS ORDERED: NSS + 20MEQ KCL 20 MEQ/1,000 ML BAG IV STA (02:35)
[2023-03-14] MEDS ORDERED: hydrOXYzine HCl 10 MG TAB PO PRN (02:41)
[2023-03-14] MEDS ORDERED: PROMETHAZINE HCL 12.5 MG in SODIUM CHLORIDE 0.9% 50 ML IV PRN (02:41)
[2023-03-14] MEDS: MAGNESIUM SULFATE / D5W 1 GM/100 ML BAG IV SCH ×2 (03:07→05:26)
[2023-03-14 03:20] LABS: Albumin Level 4.1 gm/dl (3.4-5.0); Bilirubin Direct 0.1 mg/dl (0-0.2); Bilirubin,Total 0.3 mg/dl (0.2-1.0); Total Protein 6.8 gm/dl (6.0-8.3)
[2023-03-14] MEDS ORDERED: GLUCOSE 40% GEL 15 GM TUBE PO PRN (04:02)
[2023-03-14] MEDS ORDERED: GLUCOSE 10 TAB/TUBE PO PRN (04:02)
[2023-03-14] MEDS ORDERED: ACETAMINOPHEN 325 MG TAB PO PRN (04:02)
[2023-03-14] MEDS ORDERED: LANTUS PER UNIT CHARGE SQ STA (04:02)
[2023-03-14] MEDS ORDERED: DEXTROSE 50% 50 ML SYRINGE IV PRN (04:02)
[2023-03-14] MEDS ORDERED: CARBOHYDRATES FOR HYPOGLYCEMIA PO PRN (04:02)
[2023-03-14] MEDS ORDERED: GLUCAGON FOR INJ 1 MG VIAL SQ PRN (04:02)
[2023-03-14] MEDS ORDERED: methylPREDNISolone 40 MG in SYRINGE 0 ML IV ONE (04:15)
[2023-03-14] MEDS ORDERED: Nursing to Pharmacy Communication SCH (04:30)
[2023-03-14] MEDS: INSULIN ASPART PER UNIT CHARGE SC SCH ×4 (04:39→20:18)
[2023-03-14 05:07] LABS: Base Excess ABG 2.5 mEq/L (-9-1.8); HCO3 ABG 28 mmol/L (19-24); Oxygen Saturation ABG 94.3 % (90-95); PCO2 ABG 48 mmHg (35-46); PO2 ABG 71 mmHg (80-95); pH ABG 7.38 (7.35-7.45)
[2023-03-14 05:10] LABS: Allen Test Pos (Pos)
[2023-03-14] MEDS: LEVOTHYROXINE SODIUM 25 MCG TABLET PO SCH (05:38)
[2023-03-14] MEDS: PANTOprazole 40 MG TAB PO SCH (05:39)
[2023-03-14] MEDS ORDERED: XOPENEX/ATROVENT 1.25mg/0.5MG NEB COMBO NEB SCH (07:00)
[2023-03-14 07:02] LABS: Estimated Average Glucose 103 mg/dl; Hemoglobin A1C 5.2 % (4.5-5.6)
[2023-03-14] MEDS: LEVALBUTEROL 1.25 MG/3 ML NEB NEB SCH ×3 (07:20→18:29)
[2023-03-14] MEDS: IPRATROPIUM BROMIDE NEB SOLN 0.02% 0.5MG/2.5ML VIAL INH SCH ×3 (07:21→18:29)
[2023-03-14] MEDS ORDERED: PNEUMOCOCCAL VACCINE (PCV20) 20-VAL CONJ-DIP CRM/PF 0.5 ML SYR IM ONE (08:00)
[2023-03-14] MEDS: FOLIC ACID 1 MG TAB PO SCH (08:18)
[2023-03-14] MEDS: UMECLIDINIUM/VILANTEROL 62.5/25MCG 7 PUFFS/INHALER INH SCH (08:21)
[2023-03-14] MEDS: ENOXAPARIN INJ 40 MG/0.4 ML SYR SQ SCH (08:22)
[2023-03-14] MEDS: FLUTICASONE FUROATE 100MCG 14 PUFFS/INHALER INH SCH (08:22)
[2023-03-14] MEDS: FLUTICASONE PROPIONATE NA SPR 16 GM BTL SCH (08:22)
--- NOTE | 2023-03-14 08:36 | XRay Report ---
XR chest 1V portable CLINICAL HISTORY: sob TECHNIQUE: Single frontal radiograph of the chest was obtained. Comparison: Comparison is made to chest radiograph 03/16/2022 FINDINGS: No lines and tubes are seen. Cardiac silhouette is top normal in size. Prominence and cephalization o f the vasculature is seen. No evidence of pleural effusion or pneumothorax. IMPRESSION: Mild pulmonary edema with borderline cardiomegaly. ACT 112: Negative or not required by law. Electronically signed by: Juanito Salazar M.D. 03/14/2023 8:34 AM
[2023-03-14] MEDS ORDERED: predniSONE 20 MG TAB PO SCH (09:00)
[2023-03-14] MEDS ORDERED: NON-FORMULARY MEDICATION (Fluticasone-Umeclidin-Vilanter [Trelegy Ellipta] 100-62.5-25 mcg INH SCH (09:00)
[2023-03-14] MEDS ORDERED: hydrOXYzine HCl 25 MG TAB PO PRN (09:28)
--- NOTE | 2023-03-14 09:53 | Pulmonary Consultation ---
Date of Consultation March 14, 2023 Assessment & Plan (1) Chronic obstructive pulmonary disease with (acute) exacerbation: I suspect he had a COPD exacerbation on presentation. Bronchospasm on exam today is likely improved due to the use of oral corticosteroids. Continue prednisone at a dose of 40 mg daily for total 5 days. Continue doxycycline continue ICS/LABA combo inhaler. Will obtain a CT chest with PE protocol to evaluate for pulmonary embolism or other parenchymal infiltrates. (2) Morbid obesity: Morbid obesity likely contributing to hypoxemic respiratory failure. (3) Chronic hypoxic respiratory failure, on home oxygen therapy: Hypoxia likely secondary to COPD and morbid obesity. Repeat echocardiogram with shunt study today to evaluate for shunting and RV dysfunction. His last echo was 03/18/2022 which revealed a normal LVEF of 60 to 65%. PA systolic pressure less than 36 mmHg. BNP on admission was 46 pg/mL. ABG revealed mild respiratory acidosis with a pH of 7.38 and pCO2 of 48. Serum bicarb 28. PaO2 71. (4) Continuous tobacco abuse: Strongly encouraged complete cessation. (5) Marijuana smoker: Strongly encouraged complete cessation. (6) BIN (obstructive sleep apnea): Continue nightly PAP therapy. History of Present Illness Reason for Consultation: "Respiratory failure" Attending Physician: Richard Gallardo MD History of Present Illness 47-year-old male with a past medical history of morbid obesity, tobacco abuse, bipolar disorder, and dsn-ehzsdra-qkebovvve diabetes mellitus and schizophrenia who is presenting to the hospital for worsening shortness of breath for the past 4 days. Patient was recently released from skilled nursing about 4 days ago. He notes that since his dismissal from skilled nursing he has been having an increased cough. He notes that he has been smoking tobacco very heavily and also smoking marijuana. He notes that during his sentencing period he was not smoking at all. He does endorse a cough with occasional beauchamp sputum. He denies any hemoptysis. No recent chest pain, fevers or chills. Reportedly when he arrived to the ER his oxygen saturations were in the 50% range. Patient notes that he typically wears 3 L of oxygen at all time, but records indicate that he has been noncompliant. He had a chest x-ray today which revealed perhaps very minimal pulmonary edema. In the ER he was placed on BiPAP, given IV steroids and started on doxycycline. Allergies Allergy/AdvReac Type Severity Reaction Status Date / Time amoxicillin Allergy Unknown ON [facility] MED Verified 03/14/23 01:14 LIST Home Medications Medication Instructions Recorded Confirmed Type buspirone 30 mg tablet 30 mg PO BID 02/25/18 03/14/23 History clonidine HCl 0.2 mg tablet 0.2 mg PO BID 02/25/18 03/14/23 History levothyroxine 25 mcg tablet 25 mcg PO QAM 02/25/18 03/14/23 History lisinopril 20 mg tablet 20 mg PO QAM 02/25/18 03/14/23 History simvastatin 10 mg tablet 10 mg PO HS 02/25/18 03/14/23 History metformin 500 mg tablet,extended See Rx Instructions .Route .COMPLEX 09/08/19 03/14/23 History release 24 hr dulaglutide 0.75 mg/0.5 mL 1.5 mg subcut WK 06/09/21 03/14/23 History subcutaneous pen injector (Trulicity) albuterol sulfate 90 mcg/actuation 2 puff inhalation Q6H PRN 03/16/22 03/14/23 History aerosol inhaler COUGH/SHORTNESS OF BREATH/WHEEZING cholecalciferol (vitamin D3) 50 50 mcg PO DAILY 03/16/22 03/14/23 History mcg (2,000 unit) capsule (Vitamin D3) gabapentin 600 mg tablet 600 mg PO TID 03/16/22 03/14/23 History lamotrigine 200 mg tablet 200 mg PO DAILY 03/16/22 03/14/23 History lumateperone 42 mg capsule 42 mg PO HS 03/16/22 03/14/23 History (Caplyta) omeprazole 40 mg capsule,delayed 40 mg PO DAILYBB 03/16/22 03/14/23 History release albuterol sulfate 2.5 mg/3 mL 2.5 mg inhalation DIRECTED PRN 03/14/23 03/14/23 History (0.083 %) solution for nebulization Shortness Of Breath Or Wheezing fluticasone fur. 100 mcg-umeclid 1 inh inhalation DAILY 03/14/23 03/14/23 History 62.5 mcg-vilant 25 mcg inhalat.powder (Trelegy Ellipta) fluticasone propionate 50 1 spray intranasal DAILY 03/14/23 03/14/23 History mcg/actuation nasal spray,suspension folic acid 1 mg tablet 1 mg PO DAILY 03/14/23 03/14/23 History haloperidol 10 mg tablet 15 mg PO HS 03/14/23 03/14/23 History hydroxyzine HCl 25 mg tablet 25 mg PO TID PRN Itching 03/14/23 03/14/23 History Patient History Medical History (Updated 03/14/23 @ 10:16 by Nhan Rubin MD) BIN (obstructive sleep apnea) Marijuana smoker Continuous tobacco abuse Chronic hypoxic respiratory failure, on home oxygen therapy Morbid obesity Chronic obstructive pulmonary disease with (acute) exacerbation COPD (chronic obstructive pulmonary disease) Non-insulin dependent type 2 diabetes mellitus Polysubstance abuse Schizoaffective disorder Bipolar disease, manic Hypothyroidism Surgical History History of tonsillectomy Family History Other No significant family history Social History Smoking Status: Current every day smoker Tobacco Type: Cigarettes and E-cigarettes / Vaping Do You Dip or Chew Tobacco: No; Tobacco Cessation Education Requested by Patient: No Hx Alcohol Use: Yes Hx Substance Use: Yes Preferred Language: Kyrgyz Communication Ability: Effective Geek Squad Agent Required: No Beliefs That Will Affect Care: None Current Living Situation: Alone Current Living Situation Comment: [facility] Other Information That Helps Us Care for You: No Feels Safe at Home: Yes Safety Concerns: Feels Safe At This Time Gender Identity: Male Assistive Devices: None Assistive Devices Comment: Refuses ordered assistive devices Review of Systems Review of Systems: All systems reviewed & are unremarkable except as noted in HPI & below Physical Exam Physical Exam: Constitutional: Patient appears to be of their stated age. Patient is in no apparent distress. Patient is well-developed. Eyes: Pupils are equal round and reactive to light. Conjunctivae are normal. Anicteric sclera. Ears nose, mouth and throat: Mallampati class 3. Normal posterior oropharynx. Uvula is midline. Neck: Trachea is midline. Visual inspection is normal. Respiratory: Clear to auscultation bilaterally. No use of accessory muscles. No significant clubbing noted. Cardiovascular: Regular rate and rhythm. No murmurs. No edema. Gastrointestinal: Normal bowel sounds, soft, nontender and nondistended. No hepatosplenomegaly noted. Musculoskeletal: No cyanosis. Patient is able to move all extremities. Strength is 5 out of 5 in the upper and lower extremities. Skin: No rashes, warm dry and intact. Neurologic: No obvious focal neurological deficits seen. Psychiatric: Alert and oriented x3 with a euthymic affect. Results & Data Results & Data Vital Signs (Past 12 Hours) Vital Signs Temp Pulse Pulse Pulse Resp BP BP 03/14/23 07:52 71 03/14/23 07:43 03/14/23 07:21 88 24 03/14/23 07:04 36.5 C 83 23 118/81 03/14/23 04:23 77 27 H 03/14/23 04:22 77 27 H 03/14/23 04:20 78 03/14/23 04:15 03/14/23 04:10 36.7 C 95 H 48 H 150/80 H 03/14/23 04:02 03/14/23 03:00 81 27 H 114/65 03/14/23 02:30 78 44 H 115/75 03/14/23 02:12 89 39 H 109/67 03/14/23 02:11 80 35 H 03/14/23 02:00 94 H 35 H 93/61 L 03/14/23 01:30 92 H 37 H 131/72 03/14/23 00:50 03/14/23 00:42 92 H 38 H 03/14/23 00:41 36.9 C 116 H 42 H 110/71 03/14/23 00:27 106 H Pulse Ox Pulse Ox O2 Del Method O2 Del Method FiO2 03/14/23 07:52 03/14/23 07:43 BiPAP 03/14/23 07:21 99 BiPAP 50 03/14/23 07:04 99 BiPAP 03/14/23 04:23 93 BiPAP 35 03/14/23 04:22 93 35 03/14/23 04:20 03/14/23 04:15 BiPAP 35 03/14/23 04:10 95 BiPAP 35 03/14/23 04:02 97 BiPAP 03/14/23 03:00 90 03/14/23 02:30 94 03/14/23 02:12 91 03/14/23 02:11 100 35 03/14/23 02:00 100 BiPAP 03/14/23 01:30 95 BiPAP 03/14/23 00:50 BiPAP 03/14/23 00:42 91 35 03/14/23 00:41 83 L Room Air 03/14/23 00:27 PG Care Time/CCT Total # of Minutes Spent Total Time Spent with Patient: Total time spent is greater than 50% in coordination of care (as documented) at patient's floor/unit and/or counseling patient: Thank you for the consult. Pulmonary continue to follow with you. Coding Level of Care Code 82831 INT INP/OBS CARE MIN Diagnoses Chronic obstructive pulmonary disease with (acute) exacerbation J44.1 Morbid obesity E66.01 Chronic hypoxic respiratory failure, on home oxygen therapy J96.11; Z99.81 Continuous tobacco abuse Z72.0 Marijuana smoker F12.90 BIN (obstructive sleep apnea) G47.33
--- NOTE | 2023-03-14 10:04 | Electrocardiogram Report ---
Test Reason : Blood Pressure : / mmHG Vent. Rate : 104 BPM Atrial Rate : 104 BPM P-R Int : 172 ms QRS Dur : 072 ms QT Int : 312 ms P-R-T Axes : 062 066 062 degrees QTc Int : 410 ms Sinus tachycardia Nonspecific T wave abnormality Abnormal ECG When compared with ECG of 16-MAR-2022 19:45, ST no longer elevated in Anterior leads Nonspecific T wave abnormality now evident in Inferior leads Nonspecific T wave abnormality now evident in Anterolateral leads Confirmed by Eber Iverson ([id number]) on 03/14/2023 10:04:09 AM Referred By: REFERRED SELF Confirmed By:Eber Iverson
[2023-03-14] MEDS ORDERED: OPTIRAY 320 125ml IV ONE (11:12)
--- NOTE | 2023-03-14 11:44 | CT Scan Report ---
CT angio chest PE protocol CLINICAL HISTORY: PE TECHNIQUE: Multidetector row helical CT of the chest was performed with angiographic protocol. Mckeon l and sagittal reformations were obtained. Coronal and sagittal MIPS were obtained from the axial dakota a set and were submitted for review. Automated dose lowering techniques and/or adjustment according to patient size were utilized for this exam. CT DOSE: 923.46 mGy.cm Comparison: Comparison is made to CT chest 06/10/2021 FINDINGS: Lungs and pleura: Atelectasis versus scarring is seen in the dependent portions of the lungs. Tree-in -bud nodules are seen most prominently in the bilateral upper lobes. No consolidation. Heart and pericardium: Heart size is normal. No pericardial effusion. Vessels: No evidence of pulmonary embolism. Mediastinum and ana: Subcentimeter lymph nodes are seen. Chest wall and lower neck: Unremarkable. Abdomen: Unremarkable. Bones: Degenerative changes are seen with anterior wedge deformity of T11, unchanged from prior. IMPRESSION: No pulmonary embolus. Tree-in-bud nodularity which may represent infectious/inflammatory process. ACT 112: Negative or not required by law. Electronically signed by: Juanito Salazar M.D. 03/14/2023 11:43 AM
[2023-03-14] MEDS: busPIRone 15 MG TAB PO SCH ×2 (12:05→20:19)
[2023-03-14] MEDS: GABAPENTIN 600 MG TAB PO SCH ×2 (12:05→20:20)
[2023-03-14] MEDS: lamoTRIgine 100 MG TAB PO SCH (12:05)
--- NOTE | 2023-03-14 15:34 | Hospitalist Progress Note ---
Date of Service March 14, 2023 Assessment & Plan (1) Hypoxia: Plan: Acute on chronic respiratory failure with hypoxia and Hypercarbia Acute COPD exacerbation Chronic oxygen dependency at baseline: Noncompliant Ongoing tobacco use disorder Toxicology screen positive for THC BIN--noncompliant with CPAP use (? Intolerance) --CTA:No pulmonary embolus. Tree-in-bud nodularity which may represent infectious/inflammatory process. --ECHO: Mild concentric LVH. EF 60 to 60%. No segmental left ventricle wall motion abnormalities noted. Normal diastolic dysfunction. Mild mitral regurgitation. Borderline aortic root dilatation. No evidence of pulmonary hypertension. Continue prednisone, nebs, doxycycline Appreciate pulmonology input Continue home inhalers Water Sponger to quit smoking tobacco and THC Titrate oxygen to keep saturations 88 to 92% Water Sponger on compliance with supplemental oxygen/CPAP use Hypertension BP relatively low Hold lisinopril Monitor BP Hypothyroidism Continue levothyroxine GERD Continue PPI Hyperlipidemia Continue statin DM II HbA1c 5.2 Hold p.o. meds Continue insulin while hospitalized Monitor blood glucose levels Mood disorder Schizophrenia Continue home medications Normocytic Anemia Anemia workup pending Monitor CBC Morbid obesity BMI 45 DVT Px: Lovenox SQ Code Status Full code Admission and Anticipated Discharge Date Admission Date: March 14, 2023 Subjective Patient is seen and examined at bedside States having cough associated greenish expectoration Also reports shortness of breath Denies any chest pain, dyspnea, dizziness, nausea, vomiting, abdominal pain No other complaints Review of Systems Review of Systems: All systems reviewed & are unremarkable except as noted in Subjective Physical Exam Physical Exam: Physical Exam: Vitals signs as noted above General Appearance:Obese, mild distress Head: normocephalic, Atraumatic Eyes: normal inspection, EOMI Neck: supple, Trachea midline Respiratory/Chest: Decreased breath sounds, minimal wheezes, No accessory muscle use Cardiovascular: S1, S2, No murmur Abdomen/GI:Soft, Non tender, Bowel sounds present Extremities/Musculoskeletal:normal inspection, Trace pedal edema Neurologic/Psych:AAOX3, grossly no focal neurological deficits Skin: normal color, warm Results & Data Results & Data Vital Signs (Past 12 Hours) Vital Signs Temp Pulse Pulse Pulse Resp BP BP 03/14/23 15:19 36.8 C 98 H 20 107/74 03/14/23 15:16 82 03/14/23 12:51 88 22 03/14/23 11:32 36.5 C 91 H 23 119/76 01/15/24 07:52 71 03/14/23 07:43 03/14/23 07:21 88 24 03/14/23 07:04 36.5 C 83 23 118/81 03/14/23 04:23 77 27 H 03/14/23 04:22 77 27 H 03/14/23 04:20 78 03/14/23 04:15 03/14/23 04:10 36.7 C 95 H 48 H 150/80 H 03/14/23 04:02 Pulse Ox Pulse Ox O2 Del Method O2 Del Method O2 Flow Rate FiO2 03/14/23 15:19 94 Nasal Cannula 4 03/14/23 15:16 03/14/23 12:51 94 Nasal Cannula 4 03/14/23 11:32 94 Nasal Cannula 03/14/23 07:52 03/14/23 07:43 BiPAP 03/14/23 07:21 99 BiPAP 50 03/14/23 07:04 99 BiPAP 03/14/23 04:23 93 BiPAP 35 03/14/23 04:22 93 35 03/14/23 04:20 03/14/23 04:15 BiPAP 35 03/14/23 04:10 95 BiPAP 35 03/14/23 04:02 97 BiPAP Laboratory Results Short CBC 03/14/23 Range/Units 00:40 WBC 17.50 H (4.8-10.8) K/ul Hgb 11.4 L (14.0-18.0) g/dl Hct 36.6 L (42.0-52.0) % Plt Count 390 (130-400) K/uL BMP 03/14/23 00:40 Sodium 135 L Potassium 3.7 Chloride 99 Carbon Dioxide 27 BUN 10 Creatinine 0.83 Glucose 140 H Calcium 9.0 Liver Function 03/14/23 Range/Units 02:48 Total Bilirubin 0.3 (0.2-1.0) mg/dl Direct Bilirubin 0.1 (0-0.2) mg/dl AST 18 (13-39) U/L ALT 16 (7-52) U/L Alkaline Phosphatase 54 (34-104) U/L Albumin 4.1 (3.4-5.0) gm/dl
[2023-03-14] MEDS: DOXYCYCLINE HYCLATE 100 MG CAP PO SCH (20:19)
[2023-03-14] MEDS: SIMVASTATIN 10 MG TAB PO SCH (20:21)
[2023-03-14] MEDS: haloperidoL 5 MG TAB PO SCH (20:21)
[2023-03-15] MEDS: LEVALBUTEROL 1.25 MG/3 ML NEB NEB SCH ×4 (00:37→20:02)
[2023-03-15] MEDS: IPRATROPIUM BROMIDE NEB SOLN 0.02% 0.5MG/2.5ML VIAL INH SCH ×4 (00:37→20:02)
[2023-03-15] MEDS: PANTOprazole 40 MG TAB PO SCH (05:01)
[2023-03-15] MEDS: LEVOTHYROXINE SODIUM 25 MCG TABLET PO SCH (05:02)
[2023-03-15 06:27] LABS: Hematocrit (blood only) 33.9 % (42.0-52.0); Hemoglobin 10.8 g/dl (14.0-18.0); Mean Corpuscular Hemoglobin 29.5 pg (25.0-34.0); Mean Corpuscular Hgb Conc 31.9 g/dL (32.0-36.0); Mean Corpuscular Volume 92.6 fL (80.0-100.0); Mean Platelet Volume 8.9 fL (9.4-12.4); Platelet Count 392 K/uL (130-400); RDW Coefficient of Variation 14.6 % (11.5-14.5); RDW Standard Deviation 49.5 fL (36.4-46.3); Red Blood Count 3.66 M/uL (4.70-6.10); White Blood Count 14.94 K/ul (4.8-10.8)
[2023-03-15 06:54] LABS: BUN Creatinine Ratio 14.5 (10-20); Calcium 8.5 mg/dl (8.6-10.3); Creatinine Clr Calc Pharmacy 164.3 ml/min; Est GFR (African American) 132.9 ml/min; Est GFR (Non-African American) 114.7 ml/min; Magnesium 2.1 mg/dl (1.7-2.4); Potassium 4.2 mmol/L (3.5-5.1)
[2023-03-15 07:07] LABS: Folate (Folic Acid),Ser orPlas 17.12 ng/ml (>5.38)
[2023-03-15 07:14] LABS: Ferritin 95.4 ng/ml (8-388)
[2023-03-15] MEDS: ENOXAPARIN INJ 40 MG/0.4 ML SYR SQ SCH (08:55)
[2023-03-15] MEDS: busPIRone 15 MG TAB PO SCH ×2 (08:55→20:34)
[2023-03-15] MEDS: DOXYCYCLINE HYCLATE 100 MG CAP PO SCH ×2 (08:55→20:34)
[2023-03-15] MEDS: FLUTICASONE FUROATE 100MCG 14 PUFFS/INHALER INH SCH (08:56)
[2023-03-15] MEDS: GABAPENTIN 600 MG TAB PO SCH ×3 (08:56→20:35)
[2023-03-15] MEDS: FOLIC ACID 1 MG TAB PO SCH (08:56)
[2023-03-15] MEDS: lamoTRIgine 100 MG TAB PO SCH (08:56)
[2023-03-15] MEDS: UMECLIDINIUM/VILANTEROL 62.5/25MCG 7 PUFFS/INHALER INH SCH (08:57)
[2023-03-15] MEDS: FLUTICASONE PROPIONATE NA SPR 16 GM BTL SCH (08:57)
[2023-03-15] MEDS: predniSONE 20 MG TAB PO SCH (08:57)
[2023-03-15] MEDS: INSULIN ASPART PER UNIT CHARGE SC SCH ×4 (08:58→20:35)
[2023-03-15] MEDS: LANTUS PER UNIT CHARGE SQ SCH (09:01)
[2023-03-15] MEDS: FERROUS SULFATE 325 MG TAB PO SCH (10:05)
--- NOTE | 2023-03-15 10:16 | Pulmonology Progress Note ---
Date of Service March 15, 2023 Assessment & Plan (1) Chronic obstructive pulmonary disease with (acute) exacerbation: Plan: I suspect he had a COPD exacerbation on presentation. Continue prednisone at a dose of 40 mg daily for total 5 days. Continue doxycycline. Continue ICS/LABA combo inhaler. CT chest revealed mild emphysematous change. No evidence of pulmonary embolism. Upper lobe predominant nodular opacities, left greater than right. (2) Morbid obesity: Plan: Morbid obesity likely contributing to hypoxemic respiratory failure. (3) Chronic hypoxic respiratory failure, on home oxygen therapy: Plan: Hypoxia likely secondary to COPD and morbid obesity. Echo 03/14/2023 revealed a normal EF of 65 to 70%. Estimated right ventricular systolic pressure was 40 mmHg. Unfortunately no shunt study was completed on echo. Will touch base with cardiology to perform a formal bubble study with echo. Patient may also require a right heart catheterization and left heart catheterization. Patient's hypoxemia appears to be out of proportion to the CT chest findings. No PFTs available for review. Will order for bedside spirometry to be done as an inpatient. ABG revealed mild respiratory acidosis with a pH of 7.38 and pCO2 of 48. Serum bicarb 28. PaO2 71. (4) Continuous tobacco abuse: Plan: Strongly encouraged complete cessation. (5) Marijuana smoker: Plan: Strongly encouraged complete cessation. (6) BIN (obstructive sleep apnea): Plan: Patient reportedly noncompliant with therapy as an outpatient. Sleep study performed in 2019 revealed moderate BIN with an AHI of 29.3. Patient is supposed to be on BiPAP therapy with settings of 24/20 when sleeping. Admission and Anticipated Discharge Date Admission Date: March 14, 2023 Subjective Patient has remained essentially bedbound for the last 48 hours. He denies any significant shortness of breath at rest. He does feel that his dyspnea is improving. He denies any chest pain, fevers, chills or night sweats. Review of Systems Review of Systems: All systems reviewed & are unremarkable except as noted in HPI & below Physical Exam Physical Exam: Constitutional: Patient appears to be of their stated age. Patient is in no apparent distress. Patient is well-developed. Eyes: Pupils are equal round and reactive to light. Conjunctivae are normal. Anicteric sclera. Ears nose, mouth and throat: Mallampati class 3. Normal posterior oropharynx. Uvula is midline. Neck: Trachea is midline. Visual inspection is normal. Respiratory: Clear to auscultation bilaterally. No use of accessory muscles. No significant clubbing noted. Cardiovascular: Regular rate and rhythm. No murmurs. No edema. Gastrointestinal: Normal bowel sounds, soft, nontender and nondistended. No hepatosplenomegaly noted. Musculoskeletal: No cyanosis. Patient is able to move all extremities. Strength is 5 out of 5 in the upper and lower extremities. Skin: No rashes, warm dry and intact. Neurologic: No obvious focal neurological deficits seen. Psychiatric: Alert and oriented x3 with a euthymic affect. Results & Data Results & Data Vital Signs (Past 12 Hours) Vital Signs Temp Pulse Pulse Resp BP BP Pulse Ox 03/15/23 08:09 84 03/15/23 07:10 36.6 C 73 22 127/63 94 03/15/23 07:03 74 26 H 94 03/15/23 04:02 03/15/23 03:38 37.1 C 82 24 126/73 92 03/15/23 00:39 82 22 90 03/15/23 00:00 82 32 H 138/68 90 03/14/23 22:55 78 Pulse Ox O2 Del Method O2 Del Method O2 Flow Rate O2 Flow Rate 03/15/23 08:09 03/15/23 07:10 Nasal Cannula 6 03/15/23 07:03 Nasal Cannula 6 03/15/23 04:02 90 Nasal Cannula 7 03/15/23 03:38 Nasal Cannula 7 03/15/23 00:39 Nasal Cannula 4 03/15/23 00:00 Nasal Cannula 7 03/14/23 22:55 PG Care Time/CCT Total # of Minutes Spent Total Time Spent with Patient: Total time spent is greater than 50% in coordination of care (as documented) at patient's floor/unit and/or counseling patient: Coding Level of Care Code 86981 SUB INP/OBS CARE 3/50MIN Diagnoses Chronic obstructive pulmonary disease with (acute) exacerbation J44.1 Morbid obesity E66.01 Chronic hypoxic respiratory failure, on home oxygen therapy J96.11; Z99.81 Continuous tobacco abuse Z72.0 Marijuana smoker F12.90 BIN (obstructive sleep apnea) G47.33
[2023-03-15] MEDS ORDERED: NICOTINE POLACRILEX 2 MG GUM MT PRN (12:05)
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
--- NOTE | 2023-03-15 16:01 | Hospitalist Progress Note ---
Date of Service March 15, 2023 Assessment & Plan (1) Hypoxia: Plan: Acute on chronic respiratory failure with hypoxia and Hypercarbia Acute COPD exacerbation Chronic oxygen dependency at baseline: Noncompliant Ongoing tobacco use disorder Toxicology screen positive for THC BIN--noncompliant with CPAP use (? Intolerance) --CTA:No pulmonary embolus. Tree-in-bud nodularity which may represent infectious/inflammatory process. --ECHO: Mild concentric LVH. EF 60 to 60%. No segmental left ventricle wall motion abnormalities noted. Normal diastolic dysfunction. Mild mitral regurgitation. Borderline aortic root dilatation. No evidence of pulmonary hypertension. 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 meds Continue insulin while hospitalized Monitor blood glucose levels Mood disorder Schizophrenia Continue home medications Appreciate psychiatry input Normocytic Anemia Iron deficiency Started on iron supplements Monitor CBC Morbid obesity BMI 45 DVT Px: Lovenox SQ Code Status Full code Disposition Lives at homeless snf Admission and Anticipated Discharge Date Admission Date: March 14, 2023 Subjective Patient is seen and examined at bedside Less dyspnea today when compared to yesterday Requiring 5 L supplemental oxygen to maintain saturations Still has cough with expectoration Denies any chest pain, dyspnea, dizziness, nausea, vomiting, abdominal pain Review of Systems Review of Systems: All systems reviewed & are unremarkable except as noted in Subjective Physical Exam Physical Exam: Physical Exam: Vitals signs as noted above General Appearance:Obese, mild distress Head: normocephalic, Atraumatic Eyes: normal inspection, EOMI Neck: supple, Trachea midline Respiratory/Chest: Decreased breath sounds, CTA, No accessory muscle use Cardiovascular: S1, S2, No murmur Abdomen/GI:Soft, Non tender, Bowel sounds present Extremities/Musculoskeletal:normal inspection, Trace pedal edema Neurologic/Psych:AAOX3, grossly no focal neurological deficits Skin: normal color, warm Results & Data Results & Data Vital Signs (Past 12 Hours) Vital Signs Temp Pulse Pulse Resp BP BP Pulse Ox 03/15/23 15:22 37.1 C 86 23 135/87 91 03/15/23 15:15 95 H 03/15/23 11:29 37.1 C 83 22 133/82 93 03/15/23 11:10 03/15/23 08:09 84 03/15/23 07:10 36.6 C 73 22 127/63 94 03/15/23 07:03 74 26 H 94 03/15/23 04:02 Pulse Ox O2 Del Method O2 Del Method O2 Flow Rate O2 Flow Rate 03/15/23 15:22 Nasal Cannula 5 03/15/23 15:15 03/15/23 11:29 Nasal Cannula 4 03/15/23 11:10 Nasal Cannula 6 03/15/23 08:09 03/15/23 07:10 Nasal Cannula 6 03/15/23 07:03 Nasal Cannula 6 03/15/23 04:02 90 Nasal Cannula 7 Laboratory Results Short CBC 03/15/23 Range/Units 05:53 WBC 14.94 H (4.8-10.8) K/ul Hgb 10.8 L (14.0-18.0) g/dl Hct 33.9 L (42.0-52.0) % Plt Count 392 (130-400) K/uL BMP 03/15/23 05:53 Sodium 136 Potassium 4.2 Chloride 102 Carbon Dioxide 28 BUN 10 Creatinine 0.69 Glucose 133 H Calcium 8.5 L
[2023-03-15] MEDS: SIMVASTATIN 10 MG TAB PO SCH (20:34)
[2023-03-15] MEDS: haloperidoL 5 MG TAB PO SCH (20:35)
[2023-03-16] MEDS: LEVALBUTEROL 1.25 MG/3 ML NEB NEB SCH ×4 (02:03→20:05)
[2023-03-16] MEDS: IPRATROPIUM BROMIDE NEB SOLN 0.02% 0.5MG/2.5ML VIAL INH SCH ×4 (02:03→20:05)
[2023-03-16] MEDS: LEVOTHYROXINE SODIUM 25 MCG TABLET PO SCH (05:54)
[2023-03-16] MEDS: PANTOprazole 40 MG TAB PO SCH (05:55)
[2023-03-16 06:46] LABS: Hematocrit (blood only) 34.4 % (42.0-52.0); Hemoglobin 10.7 g/dl (14.0-18.0); Mean Corpuscular Hemoglobin 28.8 pg (25.0-34.0); Mean Corpuscular Hgb Conc 31.1 g/dL (32.0-36.0); Mean Corpuscular Volume 92.7 fL (80.0-100.0); Platelet Count 397 K/uL (130-400); RDW Coefficient of Variation 14.7 % (11.5-14.5); RDW Standard Deviation 49.6 fL (36.4-46.3); Red Blood Count 3.71 M/uL (4.70-6.10); White Blood Count 12.67 K/ul (4.8-10.8)
[2023-03-16 07:25] LABS: BUN Creatinine Ratio 15.2 (10-20); Calcium 8.7 mg/dl (8.6-10.3); Creatinine Clr Calc Pharmacy 172.6 ml/min; Est GFR (African American) 135.3 ml/min; Est GFR (Non-African American) 116.8 ml/min; Potassium 4.1 mmol/L (3.5-5.1)
[2023-03-16] MEDS: busPIRone 15 MG TAB PO SCH ×2 (08:42→19:37)
[2023-03-16] MEDS: FERROUS SULFATE 325 MG TAB PO SCH (08:43)
[2023-03-16] MEDS: FOLIC ACID 1 MG TAB PO SCH (08:43)
[2023-03-16] MEDS: DOXYCYCLINE HYCLATE 100 MG CAP PO SCH ×2 (08:43→19:37)
[2023-03-16] MEDS: predniSONE 20 MG TAB PO SCH (08:43)
[2023-03-16] MEDS: lamoTRIgine 100 MG TAB PO SCH (08:43)
[2023-03-16] MEDS: UMECLIDINIUM/VILANTEROL 62.5/25MCG 7 PUFFS/INHALER INH SCH (08:43)
[2023-03-16] MEDS: ENOXAPARIN INJ 40 MG/0.4 ML SYR SQ SCH (08:43)
[2023-03-16] MEDS: GABAPENTIN 600 MG TAB PO SCH ×3 (08:43→19:36)
[2023-03-16] MEDS: FLUTICASONE FUROATE 100MCG 14 PUFFS/INHALER INH SCH (08:43)
[2023-03-16] MEDS: FLUTICASONE PROPIONATE NA SPR 16 GM BTL SCH (08:44)
[2023-03-16] MEDS: LANTUS PER UNIT CHARGE SQ SCH (08:51)
[2023-03-16] MEDS: INSULIN ASPART PER UNIT CHARGE SC SCH ×4 (08:51→20:32)
--- NOTE | 2023-03-16 11:40 | Pulmonology Progress Note ---
Date of Service March 16, 2023 Assessment & Plan (1) Chronic obstructive pulmonary disease with (acute) exacerbation: Plan: I suspect he had a COPD exacerbation on presentation. Continue prednisone at a dose of 40 mg daily for total 5 days. Continue doxycycline for 5 days total. Continue ICS/LABA combo inhaler. CT chest revealed mild emphysematous change. No evidence of pulmonary embolism. Upper lobe predominant nodular opacities, left greater than right. COPD exacerbation appears to be resolving. (2) Morbid obesity: Plan: Morbid obesity likely contributing to hypoxemic respiratory failure. (3) Chronic hypoxic respiratory failure, on home oxygen therapy: Plan: Hypoxia likely secondary to COPD and morbid obesity. Echo 03/14/2023 revealed a normal EF of 65 to 70%. Estimated right ventricular systolic pressure was 40 mmHg. Repeat echo without evidence of shunt on bubble study. Patient will need formal PFTs as an outpatient. May benefit from pulmonary rehab as an outpatient as well. (4) Continuous tobacco abuse: Plan: Strongly encouraged complete cessation. (5) Marijuana smoker: Plan: Strongly encouraged complete cessation. (6) BIN (obstructive sleep apnea): Plan: Patient reportedly noncompliant with therapy as an outpatient. Sleep study performed in 2019 revealed moderate BIN with an AHI of 29.3. Patient is supposed to be on BiPAP therapy with settings of 24/20 when sleeping. Plan Patient is stable for discharge from the hospital from a pulmonary perspective. No further recommendations at this time. Please call with questions. Thank you for the consult. Admission and Anticipated Discharge Date Admission Date: March 14, 2023 Subjective Patient seen and examined. Feeling better today. Less cough and less shortness of breath. Oxygenation improving. Review of Systems Review of Systems: All systems reviewed & are unremarkable except as noted in HPI & below Physical Exam Physical Exam: Constitutional: Patient appears to be of their stated age. Patient is in no apparent distress. Patient is well-developed. Eyes: Pupils are equal round and reactive to light. Conjunctivae are normal. Anicteric sclera. Ears nose, mouth and throat: Mallampati class 3. Normal posterior oropharynx. Uvula is midline. Neck: Trachea is midline. Visual inspection is normal. Respiratory: Clear to auscultation bilaterally. No use of accessory muscles. No significant clubbing noted. Cardiovascular: Regular rate and rhythm. No murmurs. No edema. Gastrointestinal: Normal bowel sounds, soft, nontender and nondistended. No hepatosplenomegaly noted. Musculoskeletal: No cyanosis. Patient is able to move all extremities. Strength is 5 out of 5 in the upper and lower extremities. Skin: No rashes, warm dry and intact. Neurologic: No obvious focal neurological deficits seen. Psychiatric: Alert and oriented x3 with a euthymic affect. Results & Data Results & Data Vital Signs (Past 12 Hours) Vital Signs Temp Pulse Pulse Resp BP BP Pulse Ox 03/16/23 08:00 03/16/23 07:40 74 03/16/23 07:19 37.1 C 76 20 157/85 H 99 03/16/23 07:18 91 H 24 99 03/16/23 04:00 03/16/23 03:00 36.5 C 78 21 136/94 100 03/16/23 02:04 94 H 18 94 Pulse Ox O2 Del Method O2 Del Method O2 Flow Rate O2 Flow Rate 03/16/23 08:00 Nasal Cannula 3 03/16/23 07:40 03/16/23 07:19 Nasal Cannula 6 03/16/23 07:18 Nasal Cannula 6 03/16/23 04:00 94 Oxymask 6 03/16/23 03:00 Nasal Cannula 6 03/16/23 02:04 Nasal Cannula 6 PG Care Time/CCT Total # of Minutes Spent Total Time Spent with Patient: Total time spent is greater than 50% in coordination of care (as documented) at patient's floor/unit and/or counseling patient: Coding Level of Care Code 62523 SUB INP/OBS CARE 2/35MIN Diagnoses Chronic obstructive pulmonary disease with (acute) exacerbation J44.1 Morbid obesity E66.01 Chronic hypoxic respiratory failure, on home oxygen therapy J96.11; Z99.81 Continuous tobacco abuse Z72.0 Marijuana smoker F12.90 BIN (obstructive sleep apnea) G47.33
--- NOTE | 2023-03-16 12:39 | Hospitalist Progress Note ---
Date of Service March 16, 2023 Assessment & Plan (1) Hypoxia: Plan: Acute on chronic respiratory failure with hypoxia and Hypercarbia Acute COPD exacerbation Chronic oxygen dependency at baseline: Noncompliant Ongoing tobacco use disorder BIN--noncompliant with CPAP use (? Intolerance) Patient presented with shortness of breath. On admission, SpO2 of 83% in room air --CTA: On admission reviewed; no pulmonary embolus. Tree-in-bud nodularity which may represent infectious/inflammatory process. --ECHO: Mild concentric LVH. EF 60 to 60%. No segmental left ventricle wall motion abnormalities noted. Normal diastolic dysfunction. Mild mitral regurgitation. Borderline aortic root dilatation. No evidence of pulmonary hypertension. 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 Hypertension BP better today Will resume prescription. Discontinue clonidine. Pulmonary nodules Noted on CT Follow-up as outpatient Hypothyroidism Continue levothyroxine GERD Continue PPI Hyperlipidemia Continue statin DM II HbA1c 5.2 Hold p.o. meds Continue insulin while hospitalized Monitor blood glucose levels Mood disorder Schizophrenia Continue home medications Appreciate psychiatry input Morbid obesity BMI 45 DVT Px: Lovenox SQ Code Status Full code Disposition Lives at homeless nursing home. Possible DC in a.m. Wean down oxygen as tolerated. Will need to stay for discharge. Time spent evaluating patient, direct bedside care, chart review, placing orders, interpretation of diagnostic studies, discussion with consultants, patient, and family members, as well as other required patient management activities is 50 minutes Please note the above document was generated using voice recognition software. It may contain grammatical, syntax or spelling errors. Any formal questions or concerns about the content, text or information contained within the body of this dictation should be directly addressed to the provider for clarification Admission and Anticipated Discharge Date Admission Date: March 14, 2023 Subjective Patient seen and examined at bedside. Comfortable; not in distress. Reports that his shortness of breath has improved. Denies fever, chills, chest pain, shortness of breath, abdominal pain or urinary symptoms. No significant overnight events Review of Systems Review of Systems: All systems reviewed & are unremarkable except as noted in Subjective Physical Exam Physical Exam: Physical Exam: Vitals signs as noted above General Appearance:Obese, mild distress Head: normocephalic, Atraumatic Eyes: normal inspection, EOMI Neck: supple, Trachea midline Respiratory/Chest: No added sound. Bilateral vesicular breath sound Cardiovascular: S1, S2, No murmur Abdomen/GI:Soft, Non tender, Bowel sounds present Extremities/Musculoskeletal:normal inspection, Trace pedal edema Neurologic/Psych:AAOX3, grossly no focal neurological deficits Skin: normal color, warm Results & Data Results & Data Vital Signs (Past 12 Hours) Vital Signs Temp Pulse Pulse Resp BP BP Pulse Ox 03/16/23 11:42 36.9 C 89 20 159/92 H 94 03/16/23 08:00 03/16/23 07:40 74 03/16/23 07:19 37.1 C 76 20 157/85 H 99 03/16/23 07:18 91 H 24 99 03/16/23 04:00 03/16/23 03:00 36.5 C 78 21 136/94 100 03/16/23 02:04 94 H 18 94 Pulse Ox O2 Del Method O2 Del Method O2 Flow Rate O2 Flow Rate 03/16/23 11:42 Nasal Cannula 3 03/16/23 08:00 Nasal Cannula 3 03/16/23 07:40 03/16/23 07:19 Nasal Cannula 6 03/16/23 07:18 Nasal Cannula 6 03/16/23 04:00 94 Oxymask 6 03/16/23 03:00 Nasal Cannula 6 03/16/23 02:04 Nasal Cannula 6
[2023-03-16] MEDS: lisinopril 20 MG TAB PO SCH (13:00)
[2023-03-16] MEDS: haloperidoL 5 MG TAB PO SCH (19:37)
[2023-03-16] MEDS: SIMVASTATIN 10 MG TAB PO SCH (19:37)
[2023-03-17] MEDS: IPRATROPIUM BROMIDE NEB SOLN 0.02% 0.5MG/2.5ML VIAL INH SCH ×2 (00:09→07:10)
[2023-03-17] MEDS: LEVALBUTEROL 1.25 MG/3 ML NEB NEB SCH ×2 (00:09→07:10)
[2023-03-17] MEDS: LEVOTHYROXINE SODIUM 25 MCG TABLET PO SCH (05:46)
[2023-03-17] MEDS: PANTOprazole 40 MG TAB PO SCH (05:46)
[2023-03-17 06:29] LABS: Hematocrit (blood only) 35.9 % (42.0-52.0); Hemoglobin 11.2 g/dl (14.0-18.0); Mean Corpuscular Hemoglobin 28.6 pg (25.0-34.0); Mean Corpuscular Hgb Conc 31.2 g/dL (32.0-36.0); Mean Corpuscular Volume 91.8 fL (80.0-100.0); Mean Platelet Volume 8.9 fL (9.4-12.4); Nucleated RBC # (auto) 0.03 K/uL (0.00-0.12); Nucleated RBC % (auto) 0.2 %; Platelet Count 432 K/uL (130-400); RDW Coefficient of Variation 14.6 % (11.5-14.5); RDW Standard Deviation 48.6 fL (36.4-46.3); Red Blood Count 3.91 M/uL (4.70-6.10); White Blood Count 12.95 K/ul (4.8-10.8)
[2023-03-17 06:34] LABS: BUN Creatinine Ratio 15.7 (10-20); Calcium 9.1 mg/dl (8.6-10.3); Creatinine Clr Calc Pharmacy 163.6 ml/min; Est GFR (African American) 132.1 ml/min
[2023-03-17 07:20] LABS: Basophils # (auto) 0.09 K/uL (0.00-0.20); Basophils % (auto) 0.7 %; Eosinophils % (auto) 2.3 %; Immature Granulocytes % (auto) 3.1 %; Lymphocytes # (auto) 4.42 K/uL (1.20-3.40); Lymphocytes % (auto) 34.1 %; Monocytes # (auto) 1.24 K/uL (0.11-0.59); Monocytes % (auto) 9.6 %; Neutrophils % (auto) 50.2 %; Polychromasia 1+
[2023-03-17] MEDS: INSULIN ASPART PER UNIT CHARGE SC SCH (08:04)
[2023-03-17] MEDS: LANTUS PER UNIT CHARGE SQ SCH (08:05)
[2023-03-17] MEDS: DOXYCYCLINE HYCLATE 100 MG CAP PO SCH (08:06)
[2023-03-17] MEDS: GABAPENTIN 600 MG TAB PO SCH (08:06)
[2023-03-17] MEDS: FERROUS SULFATE 325 MG TAB PO SCH (08:07)
[2023-03-17] MEDS: predniSONE 20 MG TAB PO SCH (08:07)
[2023-03-17] MEDS: lamoTRIgine 100 MG TAB PO SCH (08:07)
[2023-03-17] MEDS: busPIRone 15 MG TAB PO SCH (08:07)
[2023-03-17] MEDS: lisinopril 20 MG TAB PO SCH (08:08)
[2023-03-17] MEDS: FOLIC ACID 1 MG TAB PO SCH (08:08)
[2023-03-17] MEDS: UMECLIDINIUM/VILANTEROL 62.5/25MCG 7 PUFFS/INHALER INH SCH (08:09)
[2023-03-17] MEDS: ENOXAPARIN INJ 40 MG/0.4 ML SYR SQ SCH (08:09)
[2023-03-17] MEDS: FLUTICASONE PROPIONATE NA SPR 16 GM BTL SCH (08:10)
[2023-03-17] MEDS: FLUTICASONE FUROATE 100MCG 14 PUFFS/INHALER INH SCH (08:10)
--- NOTE | 2023-03-17 13:35 | Discharge Summary ---
Date of Service March 17, 2023 Admission HPI Per Admitting Provider History obtained from patient and records. History somewhat difficult to obtain from patient secondary to BiPAP. Medical history significant for chronic respiratory failure secondary to COPD (home O2 noncompliant as per records), BIN/BiPAP intolerance, hypertension, hyperlipidemia, DM2 on oral meds, mood disorder, schizophrenia, past tobacco abuse, ongoing tobacco abuse Last confinement last year for COPD exacerbation. Patient just got released out of long term last week. Currently staying at local assisted. 3 days history of dry cough symptoms with worsening shortness of breath. Denies chest pain, aspiration, fever, or chills. Not sure about sick contacts. Patient completed COVID-19 vaccination without recent boosters. Denies abdominal pain, black/bloody stools, hematuria symptoms. O2 sats noted to be 50% upon EMS arrival. Neb treatment and Solu-Medrol administered on route to ER. BiPAP initiated at the ER. MEDICAL HISTORY: As above. SURGERIES: Hernia repair, tonsillectomy FAMILY HISTORY: DM, heart disease PERSONAL SOCIAL HISTORY: Ongoing tobacco abuse, past alcohol abuse, disabled. Principal Diagnosis Acute hypoxic respiratory failure COPD exacerbation Discharge Exam Physical Exam: Vitals signs as noted above General Appearance:Obese, mild distress Head: normocephalic, Atraumatic Eyes: normal inspection, EOMI Neck: supple, Trachea midline Respiratory/Chest: No added sound. Bilateral vesicular breath sound Cardiovascular: S1, S2, No murmur Abdomen/GI:Soft, Non tender, Bowel sounds present Extremities/Musculoskeletal:normal inspection, Trace pedal edema Neurologic/Psych:AAOX3, grossly no focal neurological deficits Skin: normal color, warm Discharge Data Allergies Allergy/AdvReac Type Severity Reaction Status Date / Time amoxicillin Allergy Unknown ON [facility] MED Verified 03/14/23 01:14 LIST Consultations 03/14/23 02:04 ED Decision to Admit Stat 03/14/23 04:11 Consult Pulmonology Routine 03/14/23 17:18 Consult Psychiatry Routine Ordered Studies 03/14/23 10:10 CT angio chest PE protocol Stat Hospital Course (1) Hypoxia: Acute on chronic respiratory failure with hypoxia and Hypercarbia Acute COPD exacerbation Patient presented with shortness of breath. On admission, SpO2 of 83% in room air CTA: On admission reviewed; no pulmonary embolus. Tree-in-bud nodularity which may represent infectious/inflammatory process. -ECHO: Mild concentric LVH. EF 60 to 60%. No segmental left ventricle wall motion abnormalities noted. Normal diastolic dysfunction. Mild mitral regurgitation. Borderline aortic root dilatation. No evidence of pulmonary hypertension. During the hospitalization, patient was treated with [id number] DuoNebs, inhalers and steroids. Patient reported improvement in the symptoms throughout the hospitalization. He was saturating well in room air at the time of the discharge. Two-step oxygen evaluation was done; patient needed 2 L of oxygen on exertion. Patient was discharged on course of prednisone and doxycycline. Inhalers were also prescribed. Patient to follow-up with PCP. No other medication changes were done. Please note the above document was generated using voice recognition software. It may contain grammatical, syntax or spelling errors. Any formal questions or concerns about the content, text or information contained within the body of this dictation should be directly addressed to the provider for clarification Total Time Total Time Spent Total Time Spent (In Minutes): 40 Total Time Includes: Examination of the Patient, Discharge Planning, Medication Reconciliation, Communication With Other Providers and Other Discharge Plan Discharge Items Patient Disposition: Home - Self-Care Reason For Visit: RESP FAILURE Discharge Diagnosis: Acute hypoxic respiratory failure COPD exacerbation Activity: Resume your previous activity Non-emergency contact: Primary Care Provider Call non-emergency contact if: you have any medication questions and your symptoms worsen Follow-up/Referrals: Devyn Silva MD [Primary Care Provider] - (Date & Time 03/18/2023 10:20 AM Provider Devyn Silva MD [facility] ) Diet: Regular Addtl Attending Provider Instructions: You were admitted to the hospital due to COPD exacerbation. You are prescribed following medication: 1) Doxycycline 100 mg twice a day for 3 days 2) Prednisone 40 mg once a day for 3 days Please follow-up with your primary care doctor as scheduled. Please continue to take inhalers as prescribed. Please follow-up with your psychiatrist Pending Studies at Discharge: No Stand-Alone Forms: My Justyle, Smoking Cessation Medications and DC Order Prescriptions: New doxycycline hyclate 100 mg Capsule 100 mg PO BID 3 Days Qty: 6 0RF prednisone 20 mg Tablet 40 mg PO DAILY 3 Days Qty: 6 0RF Continued metformin 500 mg tablet extended release 24 hr See Rx Instructions .ROUTE .COMPLEX Rx Instructions: TAKES 1,000 MG QAM, THEN 500 MG QPM.PT UNABLE TO VERIFY ANY MEDICATIONS, PER EXT MED HX NO SCRIPTS FILLED SINCE SEPTEMBER 2022. lisinopril 20 mg tablet 20 mg PO QAM Rx Instructions: PT UNABLE TO VERIFY ANY MEDICATIONS, PER EXT MED HX NO SCRIPTS FILLED SINCE SEPTEMBER 2022. levothyroxine 25 mcg tablet 25 mcg PO QAM Rx Instructions: PT UNABLE TO VERIFY ANY MEDICATIONS, PER EXT MED HX NO SCRIPTS FILLED SINCE SEPTEMBER 2022. clonidine HCl 0.2 mg tablet 0.2 mg PO BID Rx Instructions: PT UNABLE TO VERIFY ANY MEDICATIONS, PER EXT MED HX NO SCRIPTS FILLED SINCE SEPTEMBER 2022. buspirone 30 mg Tablet 30 mg PO BID Rx Instructions: PT UNABLE TO VERIFY ANY MEDICATIONS, PER EXT MED HX NO SCRIPTS FILLED SINCE SEPTEMBER 2022. simvastatin 10 mg tablet 10 mg PO HS Rx Instructions: PT UNABLE TO VERIFY ANY MEDICATIONS, PER EXT MED HX NO SCRIPTS FILLED SINCE SEPTEMBER 2022. Trulicity 0.75 mg/0.5 mL pen injector 1.5 mg subcut WK Rx Instructions: PT UNABLE TO VERIFY ANY MEDICATIONS, PER EXT MED HX NO SCRIPTS FILLED SINCE SEPTEMBER 2022. gabapentin 600 mg tablet 600 mg PO TID Rx Instructions: PT UNABLE TO VERIFY ANY MEDICATIONS, PER EXT MED HX NO SCRIPTS FILLED SINCE SEPTEMBER 2022. lamotrigine 200 mg tablet 200 mg PO DAILY Rx Instructions: PT UNABLE TO VERIFY ANY MEDICATIONS, PER EXT MED HX NO SCRIPTS FILLED SINCE SEPTEMBER 2022. omeprazole 40 mg capsule,delayed release(DR/EC) 40 mg PO DAILYBB Rx Instructions: PT UNABLE TO VERIFY ANY MEDICATIONS, PER EXT MED HX NO SCRIPTS FILLED SINCE SEPTEMBER 2022. albuterol sulfate 90 mcg/actuation Hfa Aerosol Inhaler 2 puff INHALATION Q6H PRN (Reason: COUGH/SHORTNESS OF BREATH/WHEEZING) Rx Instructions: PT UNABLE TO VERIFY ANY MEDICATIONS, PER EXT MED HX NO SCRIPTS FILLED SINCE SEPTEMBER 2022. cholecalciferol (vitamin D3) [Vitamin D3] 50 mcg (2,000 unit) Capsule 50 mcg PO DAILY Rx Instructions: PT UNABLE TO VERIFY ANY MEDICATIONS, PER EXT MED HX NO SCRIPTS FILLED SINCE SEPTEMBER 2022. albuterol sulfate 2.5 mg /3 mL (0.083 %) Solution For Nebulization 2.5 mg INHALATION DIRECTED PRN (Reason: Shortness Of Breath Or Wheezing) Rx Instructions: PT UNABLE TO VERIFY ANY MEDICATIONS, PER EXT MED HX NO SCRIPTS FILLED SINCE SEPTEMBER 2022. haloperidol 10 mg Tablet 15 mg PO HS Rx Instructions: PT UNABLE TO VERIFY ANY MEDICATIONS, PER EXT MED HX NO SCRIPTS FILLED SINCE SEPTEMBER 2022. folic acid 1 mg Tablet 1 mg PO DAILY Rx Instructions: PT UNABLE TO VERIFY ANY MEDICATIONS, PER EXT MED HX NO SCRIPTS FILLED SINCE SEPTEMBER 2022. hydroxyzine HCl 25 mg Tablet 25 mg PO TID PRN (Reason: Itching) Rx Instructions: PT UNABLE TO VERIFY ANY MEDICATIONS, PER EXT MED HX NO SCRIPTS FILLED SINCE SEPTEMBER 2022. fluticasone propionate 50 mcg/actuation [place],Suspension 1 spray INTRANASAL DAILY Rx Instructions: PT UNABLE TO VERIFY ANY MEDICATIONS, PER EXT MED HX NO SCRIPTS FILLED SINCE SEPTEMBER 2022.administer into each nostril lithium carbonate 300 mg capsule 300 mg PO BID Trelegy Ellipta 100-62.5-25 mcg Blister With Device 1 inh INHALATION DAILY Qty: 60 0RF Rx Instructions: PT UNABLE TO VERIFY ANY MEDICATIONS, PER EXT MED HX NO SCRIPTS FILLED SINCE SEPTEMBER 2022. Discharge Orders: Discharge Order (Routine); Ordered 03/17/23 Ordered By: Carlos Fitzgerald Admission Data Admit Date/Time: 03/14/23 02:34 Attending Provider: Carlos Fitzgerald Admit Provider: Alonzo Hampton Primary Care Provider: Devyn Silva Other Providers: Alonzo Hampton; Sánchez Alcala; Nhan Rubin; Abdelrahman Barahona; Matt Yañez; Shameka Gonzalez; Malorie Costa; Jasvir Prieto; Elliot Olvera Carol J; Sowmya Herrera; Tammie Lopez; Jasvir Zambrano; Devyn Norton Other Interventions: Discharge Summary Assessment (RN) Last Done: 03/17/23 10:23
== END 2023-03-17 11:20 | disposition home or self-care (01) | DRG 190 ==
LOC: ED 00:20 → 2E 02:34 → SUATTDRO 02:34 → 2E 04:07

== ENCOUNTER 2024-05-28 11:33 | Inpatient (IN) ==
--- NOTE | 2024-05-28 12:08 | XRay Report ---
XR chest 1V portable HISTORY: 48 years-old Male Dyspnea acute shortness of breath COMPARISON: 05/21/2024 TECHNIQUE: AP view of the chest FINDINGS: Cardiac silhouette is enlarged. Chronic interstitial coarsening. No overt pulmonary edema, pneumothor ax or pleural effusion. Bones appear grossly intact. IMPRESSION: 1. Cardiomegaly without overt pulmonary edema. 2. Chronic interstitial coarsening. ACT 112: Negative or not required by law. The above report was generated using voice recognition software. It may contain grammatical, syntax o r spelling errors. Electronically signed by: Raul Nguyễn M.D. 05/28/2024 12:07 PM
[2024-05-28 12:29] LABS: Base Excess VBG 5.2 mEq/L; HCO3 VBG 34 mmol/L; Oxygen Saturation VBG 91.6 %; PCO2 VBG 64 mmHg (38-50); PO2 VBG 57 mmHg; pH VBG 7.33 (7.36-7.41)
[2024-05-28 12:35] LABS: Basophils # (auto) 0.09 K/uL (0.00-0.20); Basophils % (auto) 0.5 %; Eosinophils # (auto) 0.08 K/uL (0.00-0.50); Eosinophils % (auto) 0.5 %; Hematocrit (blood only) 48.1 % (42.0-52.0); Hemoglobin 16.1 g/dl (14.0-18.0); Immature Granulocytes # (auto) 0.08 K/uL (0.01-0.20); Immature Granulocytes % (auto) 0.5 %; Lymphocytes # (auto) 2.51 K/uL (1.20-3.40); Lymphocytes % (auto) 15.2 %; Mean Corpuscular Hemoglobin 28.8 pg (25.0-34.0); Mean Corpuscular Hgb Conc 33.5 g/dL (32.0-36.0); Mean Corpuscular Volume 85.9 fL (80.0-100.0); Mean Platelet Volume 8.7 fL (9.4-12.4); Monocytes % (auto) 6.6 %; Neutrophils % (auto) 76.7 %; Platelet Count 426 K/uL (130-400); RDW Coefficient of Variation 15.8 % (11.5-14.5); RDW Standard Deviation 48.5 fL (36.4-46.3); White Blood Count 16.56 K/ul (4.8-10.8)
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
[2024-05-28] MEDS: ALBUT/IPRATROP 3MG/0.5MG NEB 3 ML VIAL NEB STA (12:48)
[2024-05-28 12:59] LABS: Albumin Globulin Ratio 1.4 (0.9-2); Albumin Level 3.9 gm/dl (3.4-5.0); BUN Creatinine Ratio 17.4 (10-20); Bilirubin,Total 0.5 mg/dl (0.2-1.0); Calcium 9.3 mg/dl (8.6-10.3); Creatinine Clr Calc Pharmacy 121.8 ml/min; Globulin 2.7 gm/dl (2.5-4.0); Potassium 5.1 mmol/L (3.5-5.1); Total Protein 6.6 gm/dl (6.0-8.3)
[2024-05-28 13:21] LABS: Adenovirus PCR Not Detected (NotDetected); Bordetella parapertussis PCR Not Detected (NotDetected); Bordetella pertussis PCR Not Detected (NotDetected); Chlamydia pneumoniae PCR Not Detected (NotDetected); Coronavirus 229E PCR Not Detected (NotDetected); Coronavirus CoV-2 (COVID19)PCR Not Detected (NotDetected); Coronavirus HKU1 PCR Not Detected (NotDetected); Coronavirus NL63 PCR Not Detected (NotDetected); Coronavirus OC43PCR Not Detected (NotDetected); Human Metapneumovirus PCR Not Detected (NotDetected); Influenza A PCR Not Detected (NotDetected); Influenza B PCR Not Detected (NotDetected); Mycoplasma pneumoniae PCR Not Detected (NotDetected); Parainfluenza Virus 1 PCR Not Detected (NotDetected); Parainfluenza Virus 2 PCR Not Detected (NotDetected); Parainfluenza Virus 3 PCR Not Detected (NotDetected); Parainfluenza Virus 4 PCR Not Detected (NotDetected); Respiratory Syncytial VirusPCR Not Detected (NotDetected); Rhinovirus/Enterovirus PCR Not Detected (NotDetected)
[2024-05-28 13:28] LABS: Appearance Urine Clear (Clear); Bilirubin Urine Negative (Negative); Blood Urine Negative (Negative); Color Urine Yellow; Glucose Urine UA Negative (Negative); Ketones Urine Negative (Negative); Leukocyte Esterase Urine Negative (Negative); Nitrite Urine Negative (Negative); Protein Urine Negative (Negative); Specific Gravity Urine 1.004 (1.000-1.030); Urobilinogen Urine Negative (Negative); pH Urine 6.5 (4.5-7.5)
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
--- NOTE | 2024-05-28 14:14 | Electrocardiogram Report ---
Test Reason : Blood Pressure : */* mmHG Vent. Rate : 73 BPM Atrial Rate : 73 BPM P-R Int : 168 ms QRS Dur : 76 ms QT Int : 346 ms P-R-T Axes : 31 -51 42 degrees QTcB Int : 381 ms Normal sinus rhythm Incomplete right bundle branch block Left anterior fascicular block Minor ST elevation in Anterior leads Minor ST elevation in Inferior leads Abnormal ECG When compared with ECG of 14-Mar-2023 00:28, Left anterior fascicular block now present Minor ST elevation in multiple leads now present Confirmed by Bill Damian ([id number]) on 05/28/2024 2:13:56 PM Referred By: REFERRED SELF Confirmed By: Bill Damian
[2024-05-28] MEDS: methylPREDNISolone 125 MG/2 ML VIAL IV STA (14:35)
[2024-05-28 15:19] LABS: Base Excess VBG 7.9 mEq/L; HCO3 VBG 36 mmol/L; Oxygen Saturation VBG 85.3 %; PCO2 VBG 69 mmHg (38-50); PO2 VBG 49 mmHg; pH VBG 7.33 (7.36-7.41)
[2024-05-28] MEDS: guaiFENesin 600 MG TABCR PO STA (15:28)
[2024-05-28] MEDS: AZITHROMYCIN 250 MG TAB PO ONE (15:28)
[2024-05-28] MEDS ORDERED: GLUCOSE 40% GEL 15 GM TUBE PO PRN (16:26)
[2024-05-28] MEDS ORDERED: GLUCAGON FOR INJ 1 MG VIAL SQ PRN (16:26)
[2024-05-28] MEDS ORDERED: POLYETHYLENE (MIRALAX) 17 GM PACK PO PRN (16:26)
[2024-05-28] MEDS ORDERED: CARBOHYDRATES FOR HYPOGLYCEMIA PO PRN (16:26)
[2024-05-28] MEDS ORDERED: GLUCOSE 10 TAB/TUBE PO PRN (16:26)
[2024-05-28] MEDS ORDERED: DEXTROSE 50% 50 ML SYRINGE IV PRN (16:26)
[2024-05-28] MEDS: ALBUT/IPRATROP 3MG/0.5MG NEB 3 ML VIAL NEB SCH (16:54)
[2024-05-28] MEDS: NICOTINE 21 MG/24 HR TDSY TD SCH (17:31)
[2024-05-28] MEDS: INSULIN ASPART PER UNIT CHARGE SC SCH (17:54)
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
[2024-05-28] MEDS: cloNIDine HCL 0.3 MG TAB PO SCH (20:29)
[2024-05-28] MEDS: hydrOXYzine HCl 25 MG TAB PO SCH (20:29)
[2024-05-28] MEDS: LITHIUM CARBONATE 300 MG TAB PO SCH (20:30)
[2024-05-28] MEDS: guaiFENesin 600 MG TABCR PO SCH (20:31)
[2024-05-28] MEDS: busPIRone 15 MG TAB PO SCH (20:31)
[2024-05-28] MEDS: SIMVASTATIN 10 MG TAB PO SCH (20:32)
[2024-05-28] MEDS: traZODone HCL 100 MG TAB PO SCH (20:32)
[2024-05-28 21:30] LABS: HCO3 VBG 38 mmol/L; Oxygen Saturation VBG 70.7 %; PCO2 VBG 76 mmHg (38-50); PO2 VBG 41 mmHg; pH VBG 7.31 (7.36-7.41)
--- NOTE | 2024-05-28 23:43 | XRay Report ---
Exam(s): XR CXR 1 VIEW EXAM: XR Chest, 1 View CLINICAL HISTORY: Reason for exam: Increased O2 requirements. TECHNIQUE: Frontal view of the chest. COMPARISON: Chest radiograph May 28, 2024 at 11:55 AM FINDINGS: Lungs: Persistent but mildly improved edema-like infiltrates in the lower lung khan. Pleural space: Unremarkable. No pleural fluid or pneumothorax. Heart: The heart appears prominent but is likely magnified by AP portable technique and large patient size. Mediastinum: Unremarkable. Normal mediastinal contour. Bones/joints: No acute findings. IMPRESSION: Persistent but mildly improved edema-like infiltrates in the lower lung khan. Possible CHF. Electronically signed by: Elvis Rodriguez MD 05/28/24 23:42 PM
[2024-05-29 00:48] LABS: Base Excess VBG 8.7 mEq/L; HCO3 VBG 40 mmol/L; Oxygen Saturation VBG < 60.0 %; PCO2 VBG 96 mmHg (38-50); PO2 VBG < 20 mmHg; pH VBG 7.23 (7.36-7.41)
[2024-05-29 02:02] LABS: Hematocrit (blood only) 48.5 % (42.0-52.0); Hemoglobin 15.4 g/dl (14.0-18.0); Mean Corpuscular Hemoglobin 27.7 pg (25.0-34.0); Mean Corpuscular Hgb Conc 31.8 g/dL (32.0-36.0); Mean Corpuscular Volume 87.4 fL (80.0-100.0); Mean Platelet Volume 8.6 fL (9.4-12.4); Platelet Count 401 K/uL (130-400); RDW Coefficient of Variation 16.2 % (11.5-14.5); RDW Standard Deviation 50.7 fL (36.4-46.3); Red Blood Count 5.55 M/uL (4.70-6.10); White Blood Count 16.08 K/ul (4.8-10.8)
[2024-05-29 02:31] LABS: Basophils # (auto) 0.04 K/uL (0.00-0.20); Basophils % (auto) 0.2 %; Immature Granulocytes # (auto) 0.09 K/uL (0.01-0.20); Immature Granulocytes % (auto) 0.6 %; Lymphocytes # (auto) 0.55 K/uL (1.20-3.40); Lymphocytes % (auto) 3.4 %; Monocytes # (auto) 0.55 K/uL (0.11-0.59); Monocytes % (auto) 3.4 %; Neutrophils # (auto) 14.85 K/uL (1.40-6.50); Neutrophils % (auto) 92.4 %
[2024-05-29 02:58] LABS: BUN Creatinine Ratio 16.7 (10-20); Calcium 8.7 mg/dl (8.6-10.3); Creatinine Clr Calc Pharmacy 120.8 ml/min; Magnesium 1.7 mg/dl (1.7-2.4); Potassium 6.3 mmol/L (3.5-5.1); Thyroid Stimulating Hormone 0.458 uIu/ml (0.300-4.500)
[2024-05-29 03:09] LABS: Base Excess VBG 9.6 mEq/L; HCO3 VBG 40 mmol/L; Oxygen Saturation VBG 66.3 %; PCO2 VBG 90 mmHg (38-50); PO2 VBG 39 mmHg; pH VBG 7.26 (7.36-7.41)
[2024-05-29] MEDS: PIPERACILLIN/TAZOBACTAM 4.5 GM/100 ML BAG IV ONE (03:09)
[2024-05-29 03:31] LABS: Potassium 5.8 mmol/L (3.5-5.1)
[2024-05-29 03:38] LABS: Troponin I High Sensitivity 23.2 pg/ml (0-20)
[2024-05-29] MEDS: CALCIUM GLUCONATE 1,000 MG/60 ML BAG IV STA (04:07)
[2024-05-29] MEDS: FUROSEMIDE INJ 20 MG/2 ML VIAL IV STA (04:09)
[2024-05-29] MEDS: DEXTROSE 50% 50 ML SYRINGE IV STA (04:10)
[2024-05-29] MEDS: INSULIN HUMAN REGULAR PER UNIT 10 UNITS in SYRINGE 9.9 ML IV ONE (04:10)
[2024-05-29 04:32] LABS: Base Excess VBG 7.7 mEq/L; HCO3 VBG 39 mmol/L; Oxygen Saturation VBG 86.4 %; PCO2 VBG 90 mmHg (38-50); PO2 VBG 56 mmHg; pH VBG 7.24 (7.36-7.41)
--- NOTE | 2024-05-29 07:52 | Electrocardiogram Report ---
Test Reason : Blood Pressure : */* mmHG Vent. Rate : 73 BPM Atrial Rate : 73 BPM P-R Int : 166 ms QRS Dur : 78 ms QT Int : 358 ms P-R-T Axes : 34 -44 49 degrees QTcB Int : 394 ms Normal sinus rhythm Left anterior fascicular block Minor ST elevation in Anterior leads Minor ST elevation in Inferior leads Abnormal ECG When compared with ECG of 28-May-2024 12:23, Incomplete right bundle branch block no longer present Confirmed by Bill Damian ([id number]) on 05/29/2024 7:52:12 AM Referred By: REFERRED SELF Confirmed By: Bill Damian
--- NOTE | 2024-05-29 08:23 | XCELERA ---
[id number]
[2024-05-29] MEDS: PIPERACILLIN/TAZOBACTAM 4.5 GM/100 ML BAG IV SCH (08:30)
[2024-05-29] MEDS: cloNIDine HCL 0.1 MG TAB PO SCH (08:32)
[2024-05-29] MEDS: haloperidoL 5 MG TAB PO SCH (08:33)
[2024-05-29] MEDS: AZITHROMYCIN 250 MG TAB PO SCH (08:33)
[2024-05-29] MEDS: FOLIC ACID 1 MG TAB PO SCH (08:33)
[2024-05-29] MEDS: lamoTRIgine 100 MG TAB PO SCH (08:34)
[2024-05-29] MEDS: dexAMETHasone 6 MG in SYRINGE 0 ML IV SCH (08:34)
[2024-05-29] MEDS: lisinopril 20 MG TAB PO SCH (08:34)
[2024-05-29] MEDS: FLUTICASONE PROPIONATE NA SPR 16 GM BTL SCH (08:35)
[2024-05-29] MEDS: UMECLIDINIUM/VILANTEROL 62.5/25MCG 7 PUFFS/INHALER INH SCH (08:35)
[2024-05-29] MEDS: LANTUS PER UNIT CHARGE SQ SCH (08:50)
[2024-05-29] MEDS: FLUTICASONE FUROATE 100MCG 14 PUFFS/INHALER INH SCH (08:50)
[2024-05-29] MEDS ORDERED: NON-FORMULARY MEDICATION (Fluticasone-Umeclidin-Vilanter [Trelegy Ellipta] 100-62.5-25 mcg INH SCH (09:00)
[2024-05-29] MEDS: FUROSEMIDE INJ 20 MG/2 ML VIAL IV ONE (09:30)
--- NOTE | 2024-05-29 17:57 | Hospitalist Progress Note ---
"Date of Service May 29, 2024 Assessment & Plan (1) Acute exacerbation of chronic obstructive pulmonary disease: (2) Elevated brain natriuretic peptide (BNP) level: (3) Non-insulin dependent type 2 diabetes mellitus: (4) Continuous tobacco abuse: Marybel Bone is a 48M with a PMHx of COPD, BIN, bipolar, schizophrenia, and DMT2 who presents with SOB, seen by PCP for this on 05/21 and given doxycycline and prednisone. Return to ED with continued shortness of breath. Initial evaluation showing hyponatermia, CXR with cardiomegaly without pulmonary edema, chronic interstitial coarsening. Biofire negative. Admitted for IV antibiotics, steroids and oxygen titration. #Acute on chronic hypoxia | COPD exacerbation |BIN Baseline O2 requirements 2-3L, but does not wear this at home. Will need 2 step prior to discharge. Currently requiring 6L NC., Bipap hs started on zosyn and azithromycin Biofire negative. Continue steroids - convert to dexamethasone in AM scheduled nebs. formoterol neb also #Hyponatremia improved loosen fluid restriction urine osm low urine sodium high, concern for SIADH #Elevated BNP Echo normal EF, no RWMA, could be HFpEF, lasix x 1 #DMT2 Home regimen: 1500mg Metformin daily - HELD A1c 6.3 03/2024 5 unit Lantus + SSI CF 50, CR 15 in the setting of steroid use #Tobacco Use 1ppd, counselling offered nicotine patch while inpatient #Bipolar/schizophrenia - continue clonidine, Lamictal, haldol, lithium, buspar, trazadone and hydroxyzine #HTN - continue lisinopril #thrombocytosis - likely reactive to acute infection, trend #hypothryoidsim - tsh is normal DVT proh: Lovenox CODE STATUS: Full Code Admission and Anticipated Discharge Date Admission Date: May 28, 2024 Subjective pt did have shortness of breath worsen overnight, cough, still fairly tight with poor air movement non productive but loose sounding cough pt states has concentrator at home but does not have tubing and not sure if it works or not, has not used it for some time Physical Exam Physical Exam: pt is awake and alert short shallow breaths, cough with inspiration cardiac is regular Results & Data Results & Data Vital Signs (Past 12 Hours) Vital Signs Temp Pulse Pulse Resp BP BP Pulse Ox 05/29/24 16:26 04/01/25 15:22 98.4 F 80 18 115/67 90 05/29/24 15:17 80 20 90 05/29/24 13:59 81 05/29/24 12:01 98.6 F 82 18 124/74 95 05/29/24 11:17 95 H 20 96 05/29/24 11:00 05/29/24 08:45 82 156/74 H 05/29/24 08:01 84 18 99 05/29/24 07:17 77 Pulse Ox O2 Del Method O2 Del Method O2 Flow Rate O2 Flow Rate 05/29/24 16:26 95 Nasal Cannula 6 05/29/24 15:22 Nasal Cannula 6 05/29/24 15:17 Nasal Cannula 6 05/29/24 13:59 05/29/24 12:01 Nasal Cannula 05/29/24 11:17 Nasal Cannula 7 05/29/24 11:00 Nasal Cannula 8 05/29/24 08:45 05/29/24 08:01 BiPAP 05/29/24 07:17 Laboratory Results reviewed chemistry review cbc PG Care Time/CCT Total # of Minutes Spent Total Time Spent with Patient: Total time spent is greater than 50% in coordination of care (as documented) at patient's floor/unit and/or counseling patient: Coding Level of Care Code 43371 SUB INP/OBS CARE 3/50MIN Diagnoses Acute exacerbation of chronic obstructive pulmonary disease J44.1 Elevated brain natriuretic peptide (BNP) level R79.89 Non-insulin dependent type 2 diabetes mellitus E11.9 Continuous tobacco abuse Z72.0"
[2024-05-29] MEDS: ACETAMINOPHEN 500 MG TAB PO PRN (19:41)
[2024-05-29 19:44] LABS: Base Excess VBG 15.9 mEq/L; HCO3 VBG 45 mmol/L; Oxygen Saturation VBG 77.8 %; PCO2 VBG 76 mmHg (38-50); PO2 VBG 47 mmHg; pH VBG 7.38 (7.36-7.41)
[2024-05-29] MEDS: FORMOTEROL 20 MCG/2 ML VIAL NEB SCH (20:21)
[2024-05-29 20:32] LABS: Albumin Globulin Ratio 1.4 (0.9-2); Albumin Level 3.7 gm/dl (3.4-5.0); BUN Creatinine Ratio 18.8 (10-20); Bilirubin,Total 0.4 mg/dl (0.2-1.0); Calcium 8.8 mg/dl (8.6-10.3); Globulin 2.6 gm/dl (2.5-4.0); Potassium 5.1 mmol/L (3.5-5.1); Total Protein 6.3 gm/dl (6.0-8.3)
--- NOTE | 2024-05-30 14:17 | Hospitalist Progress Note ---
Date of Service May 30, 2024 Assessment & Plan (1) Acute exacerbation of chronic obstructive pulmonary disease: (2) Elevated brain natriuretic peptide (BNP) level: (3) Non-insulin dependent type 2 diabetes mellitus: (4) Continuous tobacco abuse: Marybel Bone is a 48M with a PMHx of COPD, BIN, bipolar, schizophrenia, and DMT2 who presents with SOB, seen by PCP for this on 05/21 and given doxycycline and prednisone. Return to ED with continued shortness of breath. Initial evaluation showing hyponatermia, CXR with cardiomegaly without pulmonary edema, chronic interstitial coarsening. Biofire negative. Admitted for IV antibiotics, steroids and oxygen titration. #Acute on chronic hypoxic and hypercarbic respiratory failure # acute exacerbation of severe COPD # obstructive sleep apnea Baseline O2 requirements 2-3L, but does not wear this at home. Will need 2 step prior to discharge. continues to be severely hypoxic and require 6 L oxygen per nasal cannula also remains more hypercarbic than baseline based on his chemistry panel and VBG last night with pH 7.38/CO2 76. continue nocturnal BiPAP unclear whether bacterial pneumonia - on zosyn and azithromycin, Biofire negative. Procalcitonin was negative on AM of 05/29. WBC 16 but was on steroids at admission. Having sweats without fever. Cont ABX for now -convert to augmentin/azithro stop IV dex and change to oral prednisone in AM scheduled nebs. formoterol neb also #Hyponatremia improved to 133 urine osm low urine sodium high at 18 not on diuretic, may be SIADH. There is a mild chronic component - his sodium usually 132-135 #Elevated BNP Echo normal EF, no RWMA, mildly dilated IVC - got one dose IV lasix 05/29 and had bump in BUN/Cr overnight so not volume overloaded -repeat BMP in AM -elevated BNP probably caused by his elevated RVSP #DMT2 Home regimen: 1500mg Metformin daily - HELD A1c 6.3 03/2024 5 unit Lantus + SSI CF 50, CR 15 in the setting of steroid use - BG at goal #Tobacco Use 1ppd, counselling offered nicotine patch while inpatient #Bipolar/schizophrenia - continue clonidine, Lamictal, haldol, lithium, buspar, trazadone and hydroxyzine. stable #HTN - continue lisinopril #thrombocytosis - review of old labs usually in high 300s and not rarely >400 dates back to 2018 at least. ferritin was not low a year ago and not anemic so unlikely iron deficiency -thrombocytosis probably related to chronic hypoxia, exacerbated by steroids #hypothyroidism - tsh is normal DVT proh: Lovenox CODE STATUS: Full Code Admission and Anticipated Discharge Date Admission Date: May 28, 2024 Subjective he feels his shortness of breath is slightly better than a few days ago, he did sleep really well, continues to have a cough and wheeze Physical Exam 2 Physical Exam: PHYSICAL EXAMINATION Last 24h vital signs reviewed, see documentation in flowsheet General: comfortable appearing, no distress HEENT: Normocephalic, atraumatic, pupils round and equal, sclerae anicteric, pink watery conjunctiva no purulent drainage, moist mucus membranes Lungs: Normal respiratory effort. bilateral expiratory wheezes, prolonged expiratory phase no crackles Heart: Regular rate and rhythm, no murmurs. No JVD Abdomen: Soft, nontender, nondistended. Bowel sounds present. Extremities: Warm, dry, well-perfused. mild extremity edema. Neuro: Alert and oriented x 4, face symmetric, moves 4 extremities well Psych: Normal affect and behavior Results & Data Results & Data Vital Signs (Past 12 Hours) Vital Signs Temp Pulse Pulse Resp BP Pulse Ox O2 Del Method 05/30/24 14:12 79 05/30/24 11:44 75 20 93 05/30/24 11:43 77 18 94 Nasal Cannula 05/30/24 11:26 37.0 C 72 18 120/75 93 Nasal Cannula 05/30/24 10:54 Nasal Cannula 05/30/24 07:50 70 05/30/24 07:24 36.9 C 72 16 117/73 94 Nasal Cannula 05/30/24 07:05 76 18 92 Nasal Cannula 05/30/24 03:59 36.7 C 66 19 116/68 98 BiPAP 05/30/24 02:18 66 19 95 05/30/24 02:17 66 19 95 BiPAP O2 Flow Rate FiO2 05/30/24 14:12 05/30/24 11:44 40 05/30/24 11:43 6 05/30/24 11:26 6 05/30/24 10:54 6 05/30/24 07:50 05/30/24 07:24 6 05/30/24 07:05 6 05/30/24 03:59 05/30/24 02:18 40 05/30/24 02:17 40 Laboratory Results 05/29/24 01:42 05/29/24 19:32 PG Care Time/CCT Total # of Minutes Spent Total Time Spent with Patient: Total time spent is greater than 50% in coordination of care (as documented) at patient's floor/unit and/or counseling patient: Coding Level of Care Code 71019 SUB INP/OBS CARE 3/50MIN Diagnoses Acute exacerbation of chronic obstructive pulmonary disease J44.1 Elevated brain natriuretic peptide (BNP) level R79.89 Non-insulin dependent type 2 diabetes mellitus E11.9 Continuous tobacco abuse Z72.0
[2024-05-31] MEDS: predniSONE 20 MG TAB PO SCH (07:46)
--- NOTE | 2024-05-31 17:10 | Hospitalist Progress Note ---
Date of Service May 31, 2024 Assessment & Plan (1) Acute exacerbation of chronic obstructive pulmonary disease: (2) Elevated brain natriuretic peptide (BNP) level: (3) Non-insulin dependent type 2 diabetes mellitus: (4) Continuous tobacco abuse: Marybel Bone is a 48M with a PMHx of COPD, BIN, bipolar, schizophrenia, and DMT2 who presents with SOB, seen by PCP for this on 05/21 and given doxycycline and prednisone. Return to ED with continued shortness of breath. Initial evaluation showing hyponatermia, CXR with cardiomegaly without pulmonary edema, chronic interstitial coarsening. Biofire negative. Admitted for IV antibiotics, steroids and oxygen titration. #Acute on chronic hypoxic and hypercarbic respiratory failure # acute exacerbation of severe COPD # obstructive sleep apnea Baseline O2 requirements 2-3L, but does not wear this at home. Will need 2 step prior to discharge. improved hypoxia and dyspnea today. continue nocturnal BiPAP unclear whether bacterial pneumonia - on zosyn and azithromycin, Biofire negative. Procalcitonin was negative on AM of 05/29. WBC 16 but was on steroids at admission. Having sweats without fever, sweats may be from prednisone. Cont ABX for now -convert to augmentin/azithro at discharge likely tomorrow cont prednisone scheduled nebs. formoterol neb also #Hyponatremia improved to 133 urine osm low urine sodium high at 18 not on diuretic, may be SIADH. There is a mild chronic component - his sodium usually 132-135 #Elevated BNP Echo normal EF, no RWMA, mildly dilated IVC - got one dose IV lasix 05/29 and had bump in BUN/Cr overnight so not volume overloaded -repeat BMP in AM -elevated BNP probably caused by his elevated RVSP #DMT2 Home regimen: 1500mg Metformin daily - HELD A1c 6.3 03/2024 5 unit Lantus + SSI CF 50, CR 15 in the setting of steroid use - BG at goal reviewed 05/31 #Tobacco Use 1ppd, counselling offered nicotine patch while inpatient #Bipolar/schizophrenia - continue clonidine, Lamictal, haldol, lithium, buspar, trazadone and hydroxyzine. stable #HTN - continue lisinopril #thrombocytosis - review of old labs usually in high 300s and not rarely >400 dates back to 2018 at least. ferritin was not low a year ago and not anemic so unlikely iron deficiency -thrombocytosis probably related to chronic hypoxia, exacerbated by steroids #hypothyroidism - tsh is normal DVT proh: Lovenox CODE STATUS: Full Code Admission and Anticipated Discharge Date Admission Date: May 28, 2024 Subjective dyspnea persists but slow improvement breathing not back to baseline lungs clear but just had neb Physical Exam Physical Exam: PHYSICAL EXAMINATION Last 24h vital signs reviewed, see documentation in flowsheet General: comfortable appearing, no distress HEENT: Normocephalic, atraumatic, pupils round and equal, sclerae anicteric, pink watery conjunctiva no purulent drainage, moist mucus membranes Lungs: Normal respiratory effort. No wheezing, clear except for faint bibasilar crackles Heart: Regular rate and rhythm, no murmurs. No JVD Abdomen: Soft, nontender, nondistended. Bowel sounds present. Extremities: Warm, dry, well-perfused. no extremity edema. Neuro: Alert and oriented x 4, face symmetric, moves 4 extremities well Psych: Normal affect and behavior Results & Data Results & Data Vital Signs (Past 12 Hours) Vital Signs Temp Pulse Pulse Resp BP Pulse Ox O2 Del Method 05/31/24 15:45 37.1 C 79 19 127/74 93 Nasal Cannula 05/31/24 14:01 80 18 93 Nasal Cannula 05/31/24 13:01 78 05/31/24 12:18 36.7 C 73 20 120/73 91 Nasal Cannula 05/31/24 11:01 81 18 92 Nasal Cannula 05/31/24 08:00 36.7 C 71 20 130/74 91 Nasal Cannula 05/31/24 07:09 77 18 93 Nasal Cannula 05/31/24 05:46 66 O2 Flow Rate 05/31/24 15:45 05/31/24 14:01 5 05/31/24 13:01 05/31/24 12:18 6 05/31/24 11:01 5 05/31/24 08:00 6 05/31/24 07:09 5 05/31/24 05:46 PG Care Time/CCT Total # of Minutes Spent Total Time Spent with Patient: Total time spent is greater than 50% in coordination of care (as documented) at patient's floor/unit and/or counseling patient: Coding Level of Care Code 23862 SUB INP/OBS CARE 2/35MIN Diagnoses Acute exacerbation of chronic obstructive pulmonary disease J44.1 Elevated brain natriuretic peptide (BNP) level R79.89 Non-insulin dependent type 2 diabetes mellitus E11.9 Continuous tobacco abuse Z72.0
[2024-06-01 07:57] LABS: Hematocrit (blood only) 49.7 % (42.0-52.0); Hemoglobin 15.1 g/dl (14.0-18.0); Mean Corpuscular Hemoglobin 27.4 pg (25.0-34.0); Mean Corpuscular Hgb Conc 30.4 g/dL (32.0-36.0); Mean Platelet Volume 8.9 fL (9.4-12.4); Platelet Count 319 K/uL (130-400); RDW Coefficient of Variation 15.8 % (11.5-14.5); RDW Standard Deviation 51.7 fL (36.4-46.3); Red Blood Count 5.52 M/uL (4.70-6.10); White Blood Count 12.99 K/ul (4.8-10.8)
[2024-06-01 08:08] LABS: BUN Creatinine Ratio 30.2 (10-20); Calcium 8.8 mg/dl (8.6-10.3); Creatinine Clr Calc Pharmacy 127.4 ml/min; Potassium 4.5 mmol/L (3.5-5.1)
[2024-06-01] MEDS: FUROSEMIDE INJ 20 MG/2 ML VIAL IV ONE ×2 (10:14→16:56)
--- NOTE | 2024-06-01 10:14 | XRay Report ---
XR chest 1V portable HISTORY: 48 years-old Male hypoxia acute hypoxia COMPARISON: Chest radiograph 05/28/2024, CT chest 03/14/2023. TECHNIQUE: AP view the chest FINDINGS: Cardiac silhouette is again mildly enlarged. Reticulonodular opacities again noted. No pneumothorax o r large pleural effusion. Patchy bibasilar opacities are again noted. The bones appear grossly intact . IMPRESSION: Reticular nodular opacities redemonstrated compatible with an infectious or inflammatory pneumonitis/ bronchiolitis with mild unchanged patchy bibasilar opacities. No significant change from 05/28/2024 ACT 112: Negative or not required by law. The above report was generated using voice recognition software. It may contain grammatical, syntax o r spelling errors. Electronically signed by: Raul Nguyễn M.D. 06/01/2024 10:12 AM
--- NOTE | 2024-06-01 14:03 | Hospitalist Progress Note ---
Date of Service June 01, 2024 Assessment & Plan (1) Acute exacerbation of chronic obstructive pulmonary disease: (2) Elevated brain natriuretic peptide (BNP) level: (3) Non-insulin dependent type 2 diabetes mellitus: (4) Continuous tobacco abuse: Marybel Bone is a 48M with a PMHx of COPD, BIN, bipolar, schizophrenia, and DMT2 who presents with SOB, seen by PCP for this on 05/21 and given doxycycline and prednisone. Return to ED with continued shortness of breath. Initial evaluation showing hyponatermia, CXR with cardiomegaly without pulmonary edema, chronic interstitial coarsening. Biofire negative. Admitted for IV antibiotics, steroids and oxygen titration. #Acute on chronic hypoxic and hypercarbic respiratory failure # acute exacerbation of severe COPD # obstructive sleep apnea Baseline O2 requirements 2-3L, has concentrator at home but no tubing, make sure he takes tubing with him. CM talked with him about calling his O2 company and getting new supplies delivered unclear whether bacterial pneumonia - Procalcitonin was negative on AM of 05/29. WBC 16 but was on steroids at admission. Completed azithromycin and 5 days of pip-tazo cont prednisone scheduled nebs. formoterol neb also not wheezing and good air movement today #Possible acute diastolic heart failure - BNP was elevated. Echo normal EF, no RWMA, mildly dilated IVC. crackles worse on exam and more hypoxic after skipping lasix -BMP with normal potassium at 4.5 and normal Cr at 0.6 -lasix 20 mg IV this am and afternoon, potassium 40 meq x 1 -already on lisinopril. would benefit from SGLT-2 -AM BMP -updated CXR which was unchanged from prior - reviewed film has some patchy opacities in bases #Hyponatremia improved to 135 urine osm low urine sodium high at 18 was not on diuretic, may be SIADH. There is a mild chronic component - his sodium usually 132-135 #DMT2 Home regimen: 1500mg Metformin daily resume A1c 6.3 03/2024 5 unit Lantus + SSI CF 50, CR 15 in the setting of steroid use - BG at goal reviewed 06/01 #Tobacco Use 1ppd, counselling offered nicotine patch while inpatient #Bipolar/schizophrenia - continue clonidine, Lamictal, haldol, lithium, buspar, trazadone and hydroxyzine. stable #HTN - continue lisinopril #thrombocytosis - review of old labs usually in high 300s and not rarely >400 dates back to 2018 at least. ferritin was not low a year ago and not anemic so unlikely iron deficiency -thrombocytosis probably related to chronic hypoxia, exacerbated by steroids #hypothyroidism - tsh is normal DVT proh: Lovenox CODE STATUS: Full Code Admission and Anticipated Discharge Date Admission Date: May 28, 2024 Subjective Breathing is fair, more hypoxic this AM was 93% on 7L at rest After 20 mg IV lasix improved to 89% on 4L. States he urinated a lot. Has not had leg edema. Physical Exam 2 Physical Exam: PHYSICAL EXAMINATION Last 24h vital signs reviewed, see documentation in flowsheet General: comfortable appearing, no distress, lying on side in bed HEENT: Normocephalic, atraumatic, pupils round and equal, sclerae anicteric, MMM Lungs: Normal respiratory effort. No wheezing, bibasilar crackles 1/[address] up Heart: Regular rate and rhythm, no murmurs. No JVD Abdomen: Soft, nontender, nondistended. Bowel sounds present. Extremities: Warm, dry, well-perfused. no extremity edema. Neuro: Alert and oriented x 4, face symmetric, moves 4 extremities well Psych: Normal affect and behavior Results & Data Results & Data Vital Signs (Past 12 Hours) Vital Signs Temp Pulse Pulse Pulse Resp BP Pulse Ox 06/01/24 11:54 06/01/24 11:32 37.0 C 80 22 121/73 89 L 06/01/24 11:13 76 20 93 06/01/24 07:35 36.7 C 70 20 115/68 95 06/01/24 07:28 70 18 93 06/01/24 07:15 111/71 06/01/24 06:11 67 06/01/24 03:14 67 18 96 06/01/24 03:10 36.5 C 61 18 102/65 96 O2 Del Method O2 Flow Rate 06/01/24 11:54 Nasal Cannula 4 06/01/24 11:32 Nasal Cannula 4 06/01/24 11:13 Nasal Cannula 4 06/01/24 07:35 Nasal Cannula 6 06/01/24 07:28 Nasal Cannula 7 06/01/24 07:15 06/01/24 06:11 06/01/24 03:14 Nasal Cannula 5 06/01/24 03:10 Nasal Cannula 6 Laboratory Results 06/01/24 07:32 06/01/24 07:32 PG Care Time/CCT Total # of Minutes Spent Total Time Spent with Patient: Total time spent is greater than 50% in coordination of care (as documented) at patient's floor/unit and/or counseling patient: Coding Level of Care Code 00841 SUB INP/OBS CARE 3/50MIN Diagnoses Acute exacerbation of chronic obstructive pulmonary disease J44.1 Elevated brain natriuretic peptide (BNP) level R79.89 Non-insulin dependent type 2 diabetes mellitus E11.9 Continuous tobacco abuse Z72.0
[2024-06-01] MEDS: POTASSIUM CHLORIDE CRTAB 20 MEQ TABCR PO ONE (14:17)
[2024-06-01] MEDS: metFORMIN HCL ER 500 MG TABCR PO SCH (22:23)
[2024-06-02 06:39] LABS: BUN Creatinine Ratio 29.6 (10-20); Calcium 9.1 mg/dl (8.6-10.3); Creatinine Clr Calc Pharmacy 99.1 ml/min; Potassium 4.6 mmol/L (3.5-5.1)
[2024-06-02] MEDS: metFORMIN HCL ER 500 MG TABCR PO SCH (09:30)
[2024-06-02] MEDS: POTASSIUM CHLORIDE CRTAB 20 MEQ TABCR PO ONE (09:47)
[2024-06-02] MEDS: FUROSEMIDE INJ 20 MG/2 ML VIAL IV ONE (09:47)
[2024-06-02 11:43] VITALS: RESP 18
--- NOTE | 2024-06-02 15:08 | Discharge Summary ---
Discharge Summary Date of Service June 02, 2024 Principal Dx & Hospital Course #1 = Principal Diagnosis (1) Acute on chronic respiratory failure with hypoxia and hypercapnia: (2) Acute exacerbation of chronic obstructive pulmonary disease: (3) Acute diastolic heart failure: (4) Non-insulin dependent type 2 diabetes mellitus: (5) Continuous tobacco abuse: (6) Housing instability after recent homelessness: (7) Schizophrenia: Marybel Bone is a 48M with a PMHx of COPD, BIN, bipolar, schizophrenia, and DMT2 who presents with SOB, seen by PCP for this on 05/21 and given doxycycline and prednisone. Return to ED with continued shortness of breath. Initial evaluation showing hyponatermia, CXR with cardiomegaly without pulmonary edema, chronic interstitial coarsening. Biofire negative. Admitted for IV antibiotics, steroids and oxygen titration. #Acute on chronic hypoxic and hypercarbic respiratory failure # acute exacerbation of COPD # obstructive sleep apnea - has not been using CPAP initially requiring bipap and high amount of oxygen treated for COPD exacerbation with steroids and bronchodilators, improved no wheezing several days. discharged with 5 more days prednisone. possible bacterial pneumonia - Procalcitonin was negative on AM of 05/29. WBC 16 but was on steroids at admission. Completed azithromycin and 5 days of pip-tazo baseline O2 requirements 2-3L, has concentrator at home but no tubing so has not been using. CM talked with him about calling his O2 company and getting new supplies delivered. Sent home with a nasal cannula. repeated 2-step test - requiring 3L with activity and 2L at rest - sending new oxygen prescription recommend follow up with sleep medicine as in last pulmonary note - probably would benefit from AVAPS. Tolerated nocturnal Bipap in hospital. #acute diastolic heart failure - BNP was elevated. Echo normal EF, no RWMA, mildly dilated IVC. crackles and wheezing on lung exam, elevated JVP hypoxia partially responded to diuresis with IV lasix - went from 7L to 2-3L, crackles improved. Never had much peripheral edema -added emplagliflozin. already on lisinopril. BP well controlled -may not need chronic diuretic -made referral to CHF clinic #Hyponatremia urine osm low urine sodium high at 20 was not on diuretic, may be component of SIADH also could be volume overload. There is a mild chronic component - his sodium usually 132-135 -resolved by time of discharge, improved with diuretics low anion gap - despite metabolic alkalosis from hypercarbia. this is acute and was only present this week during admission. So something like myeloma is unlikely. He is on lithium which can cause this, lithium level was low therapeutic on admission so no evidence of toxicity. Recommend follow-up BMP to see if this resolves, further workup if appropriate #DMT2 Home regimen: 1500mg Metformin daily resume, also added emplagliflozin. Left both on for now with steroid effect, but may be able to reduce or stop metformin if he tolerates SGLT-2 A1c 6.3 03/2024 #Tobacco Use 1ppd, counselling offered nicotine patch while inpatient #Bipolar/schizophrenia - continue clonidine, Lamictal, haldol, lithium, buspar, trazadone and hydroxyzine. stable #HTN - continue lisinopril #thrombocytosis - review of old labs usually in high 300s and not rarely >400 dates back to 2018 at least. ferritin was not low a year ago and not anemic so unlikely iron deficiency -thrombocytosis probably related to chronic hypoxia, exacerbated by steroids #hypothyroidism - tsh is normal Housing instability - Currently has apartment provided by the local homeless snf because he needs electricity for home oxygen, etc Notes For Next Care Provider COPD exacerbation Mild acute diastolic heart failure Increased home oxygen repeat BMP in a week or more to check for persistent low anion gap Medication Changes From Visit Prednisone five more days Added emplagliflozin Admission HPI Per Admitting Provider Lizandro is a 48M with a PMHx of COPD, BIN, bipolar, schizophrenia, and DMT2 who presents with SOB. Originally seen by his PCP for the same concern on 05/21 and was encouraged to come to the ER but declined. Was prescribed doxycycline and prednisone at that time with concerns for infection. Presents today as he is still feeling short of breath with increased sputum production. He reports he did take his prednisone and doxycyline as prescribed, but does not feel like he was getting better. Also reports arm and leg pain that feels achey. Has had to stop walking because of the pain (not because of his shortness of breath). Denies chest pain. Does not feel like his arms or legs are swollen. Denies abdominal pain or changes in his bowel habits. ED Course: Douneb x 1 Discharge Exam PHYSICAL EXAMINATION Last 24h vital signs reviewed, see documentation in flowsheet General: comfortable appearing, no distress, sitting up in bed HEENT: Normocephalic, atraumatic, pupils round and equal, sclerae anicteric, MMM Lungs: Normal respiratory effort. No wheezing, crackles improved Heart: Regular rate and rhythm, no murmurs. No JVD Abdomen: Soft, nontender, nondistended. Bowel sounds present. Extremities: Warm, dry, well-perfused. no extremity edema. Neuro: Alert and oriented x 4, face symmetric, moves 4 extremities well Psych: flat affect and normal behavior Discharge Plan Discharge Items Patient Disposition: Home - Self-Care Reason For Visit: COPD EXAC Discharge Diagnosis: Acute exacerbation of COPD, Acute diastolic heart failure, Acute on chronic hypoxic and hypercarbic respiratory failure Activity: Resume your previous activity Non-emergency contact: Primary Care Provider Call non-emergency contact if: you have any medication questions and your symptoms worsen Follow-up/Referrals: Sánchez Alcala PA-C [Hospitalist] - Shannon Elizondo CRNP [Primary Care Provider] - 06/12/24 11:00 am Diet: Carb Consistent or DM2 Addtl Attending Provider Instructions: You were treated for exacerbation of COPD (lung disease) and mild heart failure - fluid backs up on your lungs from your heart not working efficiently For COPD continue trilogy inhaler and albuterol as needed, finish the course of prednisone, follow up with Sánchez Alcala in pulmonary clinic You did well on Bipap in the hospital - please follow up with sleep medicine For your heart I added a medication called Jardiance (emplagliflozin) - it will help you get rid of excess fluid, it will help your diabetes and protect your kidneys jail -skip this medication on days when you are sick - like if you're not eating or drinking normally and could be dehydrated -this medication increases the risk of urinary infections - seek medical attention if you develop pain or burning with urination or rash/redness in the groin area We made a referral to heart failure clinic for follow up We updated your oxygen prescription - you need 2 liters at rest and 3 liters with activity. Take the nasal cannula from the hospital with you. Call your oxygen supply company Tuesday to deliver some oxygen cannulas and portable oxyge n. It was a pleasure taking care of you in the hospital, Marilee Mckenna MD Addtl Hand Profiler Provider Instructions: Call your Primary Care doctor if any of the following symptoms or problems start or get worse: * Shortness of breath or difficulty breathing * Wake up at night short of breath * Chest pain * Cough * Swelling of your hands, feet, or legs * More fatigued or tired with your normal activity * Palpitations - sudden fast heart beats WEIGHT * Weigh yourself every morning after using the bathroom. * Use the same scale. * Wear the same amount of clothing. * Write your weight down on a chart. * Call your Primary Care doctor if you gain more than 2-3 pounds in 1-2 days. MEDICATIONS * Use this discharge instruction sheet for medication instructions. * Take your medications at the time your doctor ordered. * Do not skip a dose of your medicines. * If you miss a dose of medicine, take it as soon as possible, but DO NOT DOUBLE A DOSE. * Read your medicine information when you get home. * Know all of the side effects of your medicine. If in doubt, ask your pharmacist * Call your Primary Care doctor's office if you have any side effects. * Be sure all of your doctors know what medicine and herbs you take (including cold, flu, and herbal medicine). Take the following with you to your follow-up doctor appointments: * Weight Chart * Medication List * List of questions Do not drink excessive alcohol, beer or wine. Pending Studies at Discharge: No Stand-Alone Forms: [facility], Smoking Cessation Medications and DC Order Prescriptions: New prednisone 20 mg tablet 20 mg PO DAILY Qty: 7 0RF empagliflozin 10 mg tablet 10 mg PO DAILY Qty: 30 0RF Continued albuterol sulfate 2.5 mg /3 mL (0.083 %) solution for nebulization 2.5 mg INHALATION DIRECTED PRN (Reason: Shortness Of Breath Or Wheezing) albuterol sulfate 90 mcg/actuation HFA aerosol inhaler 2 puff INHALATION Q6H PRN (Reason: COUGH/SHORTNESS OF BREATH/WHEEZING) Qty: 6.7 2RF cholecalciferol (vitamin D3) [Vitamin D3] 50 mcg (2,000 unit) capsule 50 mcg PO DAILY Qty: 90 3RF clonidine HCl 0.1 mg tablet 0.1 mg PO QAM Qty: 90 3RF clonidine HCl 0.3 mg tablet 0.3 mg PO QPM Qty: 90 3RF Trelegy Ellipta 100-62.5-25 mcg blister with device 1 inh INHALATION DAILY Qty: 60 2RF folic acid 1 mg tablet 1 mg PO DAILY Qty: 90 3RF lamotrigine 200 mg tablet 200 mg PO DAILY Qty: 90 3RF lisinopril 20 mg tablet 20 mg PO QAM Qty: 90 3RF pantoprazole 40 mg tablet,delayed release (DR/EC) 40 mg PO DAILY Qty: 90 3RF simvastatin 10 mg tablet 10 mg PO HS Qty: 90 3RF (DME) OneTouch Verio test strips Strip See Rx Instructions .Route Qty: 100 3RF Rx Instructions: Use to test blood sugars TID hydroxyzine pamoate 50 mg capsule 50 mg PO TID trazodone 100 mg tablet 100 mg PO HS haloperidol 20 mg tablet 20 mg PO DAILY (DME) Portable Oxygen Misc See Rx Instructions .Route Qty: 1 0RF Rx Instructions: oxygen at 1 L NC with exertion with POC, AMA 99 buspirone 30 mg Tablet 30 mg PO BID fluticasone propionate 50 mcg/actuation [place],Suspension 1 spray INTRANASAL DAILY lithium carbonate 300 mg capsule 300 mg PO BID metformin 500 mg tablet extended release 24 hr 1,500 mg PO DAILY Rx Instructions: Take 1000 mg by mouth every morning and 500 mg by mouth every evening Discharge Orders: Discharge Order- CHF (Routine); Ordered 06/02/24 Ordered By: Marilee Mckenna Admission Data Admit Date/Time: 05/28/24 14:48 Attending Provider: Marilee Mkcenna Admit Provider: Steve Alejandro Primary Care Provider: Shannon Elizondo Other Providers: Steve Alejandro; [facility] Stay Data Consultations 05/28/24 14:08 ED Decision to Admit Stat 06/02/24 11:38 [facility] [place] CHF Program Referral Routine Pending Results Patient Have Any Pending Studies at Discharge: No Discharge Instructions Given to Patient (Per Discharging Provider) You were treated for exacerbation of COPD (lung disease) and mild heart failure - fluid backs up on your lungs from your heart not working efficiently For COPD continue trilogy inhaler and albuterol as needed, finish the course of prednisone, follow up with Sánchez Alcala in pulmonary clinic You did well on Bipap in the hospital - please follow up with sleep medicine For your heart I added a medication called Jardiance (emplagliflozin) - it will help you get rid of excess fluid, it will help your diabetes and protect your kidneys jail -skip this medication on days when you are sick - like if you're not eating or drinking normally and could be dehydrated -this medication increases the risk of urinary infections - seek medical attention if you develop pain or burning with urination or rash/redness in the groin area We made a referral to heart failure clinic for follow up We updated your oxygen prescription - you need 2 liters at rest and 3 liters with activity. Take the nasal cannula from the hospital with you. Call your oxygen supply company Tuesday to deliver some oxygen cannulas and portable oxygen. It was a pleasure taking care of you in the hospital, Marilee Mckenna MD Total Time Total Time Spent Total Time Spent (In Minutes): I personally spent: 40 minutes today on clinical care activities including: reviewing chart notes and vital signs reviewing labs examining and counseling the patient writing orders writing prescriptions, discharge instructions documentation Coding Level of Care Code 04945 INP/OBS DISCH >30 MIN Diagnoses Acute on chronic respiratory failure with hypoxia and hypercapnia J96.21; J96.22 Acute exacerbation of chronic obstructive pulmonary disease J44.1 Acute diastolic heart failure I50.31 Non-insulin dependent type 2 diabetes mellitus E11.9 Continuous tobacco abuse Z72.0 Housing instability after recent homelessness Z59.812 Schizophrenia F20.9
[2024-06-02 16:38] VITALS: BP 127/79; TEMP 98.4; O2SAT 92
[2024-06-02 17:18] VITALS: PULSE 80
== END 2024-06-02 17:47 | disposition home or self-care (01) | DRG 189 ==
LOC: ED 11:33 → 2W 14:48 → SUATTDRO 14:48 → 2W 16:00